=== PATIENT | female | born 1965 | race Caucasian/White ===

== ENCOUNTER → 2018-06-23 | Emergency (ER) | payer OTHER ==
[~2018-06-23] VITALS: Ht 162.6 cm; Wt 111.1 kg
[~2018-06-23] MED LIST: ALBUTEROL SULF 0.083% NEB SOLN 3 ML NEB NEB STA; CALCIUM + VITA1 EACH PO; CEFTRIAXONE SOD 1 GM VIAL IV ONE; CLARITIN10 M2 PO; DAILY MULTIPLE1 EACH PO; EFFEXOR XR150 MG PO; IBUPROFEN 400 MG TAB ONE; IBUPROFEN 400 MG TAB PO ONE; IPRATROPIUM BROMIDE 0.02% 2.5 ML NEB NEB STA; LEVAQUIN500 MG PO; METHYLPREDNISOLONE SOD SUCC 125 MG/2ML VIAL IV ONE; METOPROLOL SUCC25 MG PO; PRILOSEC20 MG PO; PRO AIR INHALER; SEROQUEL XR300 MG PO; VITAMIN D250000 UNIT PO
--- OUTSIDE RECORDS SUMMARY | 2018-06-23 11:50 | XMS REPORT ---
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 Active Problem MAR (obstructive sleep apnea) G47.33 Active Problem BMI 40.0-44.9, adult Z68.41 Active Problem Asthma exacerbation J45.901 Active Problem Pre-diabetes R73.03 Active Problem Morbid obesity, unspecified obesity type E66.01 Active Assessment MAR (obstructive sleep apnea) G47.33 Active Assessment Pre-diabetes R73.03 Active Assessment Depressive disorder, not elsewhere classified F32.9 Active Assessment Sciatic leg pain M54.30 Active Medications Medication Code System Code Instructions Start Date End Date Status Dosage Lorazepam [facility] [address]-78 0.5 MG Orally Twice a day Active 1 tablet as needed Prilosec [facility] [address]-32 20 MG Orally Once a day Active 1 capsule Zantac [facility] 14285455975 150 MG Orally twice a day (bid) Active 1 tablet at bedtime Seroquel [facility] [address]-17 300 MG Orally Once a day Active 1 tablet at bedtime ProAir HFA [facility] [address]-44 108 (90 Base) MCG/ACT Inhalation every 4 hrs Active 2 puffs as needed Ibuprofen [facility] [address]-51 200 MG Orally every 6 hrs Active 1 tablet as needed Flexeril [facility] 60359257207 10 MG Active TAKE 1 TABLET BY MOUTH NEEDED 3 TIMES A DAY Claritin [facility] 60539471024 10 mg Orally Once a day Active 1 tablet Effexor XR [facility] [address]-25 150 MG Orally twice a day (bid) Active 1 capsule Vitamin D (Ergocalciferol) [facility] 58680729842 32508 UNIT Orally weekly Active 1 capsule Metoprolol Succinate ER [facility] 10224239705 25 MG Orally Once a day Active 1 tablet Vital Signs Date/Time: May 01, 2017 BMI 37.76 Index Weight 220 lbs Height 64.0 in Temperature 98.4 F Cardiac Monitoring Heart Rate 105 /min Blood Pressure Diastolic 88 mm Hg Blood Pressure Systolic 139 mm Hg Results No Known Results Summary Purpose [employer] Submission
--- OUTSIDE RECORDS SUMMARY | 2018-06-23 11:50 | XMS REPORT ---
Author Author Eric Aguila Organization [employer] Address Unknown Phone Unavailable Care Team Providers Care Telex Operator Name Role Phone Eric Aguila CP Unavailable Allergies, Adverse Reactions, Alerts Substance Reaction Event Type codeine hives Non Drug Allergy Problems Problem Type Condition Code Onset Dates Condition Status Assessment Sciatic leg pain M54.30 Active Problem Allergic rhinitis J30.9 Active Problem Depressive disorder, not elsewhere classified F32.9 Active Problem Arthritis of hand M19.049 Active Problem Pre-diabetes R73.03 Active Problem Sciatic leg pain M54.30 Active Problem Asthma exacerbation J45.901 Active Problem Hx of tobacco use, presenting hazards to health Z87.891 Active Problem Morbid obesity, unspecified obesity type E66.01 Active Problem BMI 40.0-44.9, adult Z68.41 Active Assessment Intertriginous skin ulcer, limited to breakdown of skin L98.491 Active Assessment Asthma with status asthmaticus, unspecified asthma severity J45.902 Active Assessment Pre-diabetes R73.03 Active Assessment Depressive disorder, not elsewhere classified F32.9 Active Medications Medication Code System Code Instructions Start Date End Date Status Dosage Medrol (Neno) NDC 0 4 MG Orally as directed Mar 21, 2017 Mar 27, 2017 Active as directed Claritin [facility] 26440797013 10 mg Orally Once a day Active 1 tablet Seroquel [facility] [address]-52 300 MG Orally Once a day Active 1 tablet at bedtime Vitamin D (Ergocalciferol) [facility] 10842290330 11800 UNIT Orally weekly Active 1 capsule Lorazepam [facility] [address]-96 0.5 MG Orally Twice a day Active 1 tablet as needed Effexor XR [facility] [address]-16 150 MG Orally twice a day (bid) Active 1 capsule Naprosyn [facility] 76192850299 500 MG Orally every 12 hrs Active 1 tablet as needed Prilosec [facility] [address]-33 20 MG Orally Once a day Active 1 capsule ProAir HFA [facility] [address]-07 108 (90 Base) MCG/ACT Inhalation every 4 hrs Active 2 puffs as needed Bactroban [facility] [address]-45 2 % Externally Three times a day Mar 21, 2017 Apr 18, 2017 Active 1 application to affected area Santyl [facility] [address]-81 250 UNIT/GM Externally Once a day Mar 21, 2017 Apr 20, 2017 Active 1 application to affected area Zantac [facility] 46318798419 150 MG Orally twice a day (bid) Active 1 tablet at bedtime Flonase NDC 0 50 MCG/DOSE Nasally as needed (prn) Mar 04, 2015 Active 1 spray in each nostril Ibuprofen [facility] [address]-22 200 MG Orally every 6 hrs Active 1 tablet as needed [place] [facility] [address]-06 5-325 MG Orally once a day Mar 21, 2017 Apr 20, 2017 Active 1 tablet Flexeril [facility] [address]-19 10 MG Orally Three times a day Mar 21, 2017 Apr 05, 2017 Active 1 tablet as needed Tramadol HCl [facility] [address]-28 50 MG Orally every 6 hrs Mar 21, 2017 Apr 05, 2017 Active 1 tablet as needed Metoprolol Succinate ER [facility] 81953036544 25 MG Orally Once a day Active 1 tablet Vital Signs Date/Time: Mar 21, 2017 BMI 38.55 Index Weight 224.6 lbs Height 64.0 in Temperature 98.1 F Cardiac Monitoring Heart Rate 83 /min Blood Pressure Diastolic 74 mm Hg Blood Pressure Systolic 125 mm Hg Results No Known Results Summary Purpose [employer] Submission
--- OUTSIDE RECORDS SUMMARY | 2018-06-23 11:50 | XMS REPORT ---
Author Author Eric Aguila Organization [employer] Address Unknown Phone Unavailable Care Team Providers Care Fig Bar Machine Operator Name Role Phone Eric Aguila CP Unavailable Allergies, Adverse Reactions, Alerts Substance Reaction Event Type codeine hives Non Drug Allergy Problems Problem Type Condition Code Onset Dates Condition Status Assessment Depressive disorder, not elsewhere classified F32.9 Active Problem Depressive disorder, not elsewhere classified F32.9 Active Assessment Abnormal LFTs R79.89 Active Problem Pre-diabetes R73.03 Active Problem Morbid obesity, unspecified obesity type E66.01 Active Problem Arthritis of hand M19.049 Active Problem Hx of tobacco use, presenting hazards to health Z87.891 Active Problem Allergic rhinitis J30.9 Active Problem BMI 40.0-44.9, adult Z68.41 Active Problem Asthma exacerbation J45.901 Active Assessment Pre-diabetes R73.03 Active Assessment Sebaceous cyst L72.3 Active Assessment Arthritis of hand M19.049 Active Medications Medication Code System Code Instructions Start Date End Date Status Dosage Claritin [facility] 30478596515 10 mg Orally Once a day Active 1 tablet Zantac [facility] [address]-41 150 MG Orally twice a day (bid) October 05, 2016 Active 1 tablet at bedtime ProAir HFA [facility] [address]-19 108 (90 Base) MCG/ACT Inhalation every 4 hrs Active 2 puffs as needed Lorazepam [facility] [address]-89 0.5 MG Orally Twice a day Active 1 tablet as needed Metoprolol Succinate ER [facility] 47068447211 25 MG Orally Once a day Active 1 tablet Flonase [facility] [address]-21 50 MCG/DOSE Nasally as needed (prn) Mar 04, 2015 Active 1 spray in each nostril Naprosyn [facility] [address]-89 500 MG Orally every 12 hrs October 05, 2016 October 20, 2016 Active 1 tablet as needed Effexor XR [facility] [address]-30 150 MG Orally twice a day (bid) Active 1 capsule Seroquel [facility] [address]-88 300 MG Orally Once a day Active 1 tablet at bedtime Ibuprofen [facility] [address]-07 200 MG Orally every 6 hrs Active 1 tablet as needed Lotrisone [facility] [address]-18 1-0.05 % Externally Twice a day September 15, 2016 October 15, 2016 Active 1 application to affected area Vitamin D (Ergocalciferol) [facility] 49749848745 28129 UNIT Orally weekly Active 1 capsule Prilosec [facility] [address]-44 20 MG Orally Once a day Active 1 capsule Vital Signs Date/Time: October 05, 2016 BMI 41.95 Index Weight 244.4 lbs Height 64.0 in Temperature 98.3 F Cardiac Monitoring Heart Rate 109 /min Blood Pressure Diastolic 82 mm Hg Blood Pressure Systolic 120 mm Hg Results No Known Results Summary Purpose [employer] Submission
--- OUTSIDE RECORDS SUMMARY | 2018-06-23 11:50 | XMS REPORT ---
Author Author Eric Aguila Organization [employer] Address Unknown Phone Unavailable Care Team Providers Care Hose Tubing Backer Name Role Phone Eric Aguila CP Unavailable Allergies, Adverse Reactions, Alerts Substance Reaction Event Type codeine hives Non Drug Allergy Problems Problem Type Condition Code Onset Dates Condition Status Assessment Hx of tobacco use, presenting hazards to health Z87.891 Active Assessment Allergic rhinitis J30.9 Active Assessment Depressive disorder, not elsewhere classified F32.9 Active Problem BMI 40.0-44.9, adult Z68.41 Active Problem Asthma exacerbation J45.901 Active Problem Morbid obesity, unspecified obesity type E66.01 Active Problem Depressive disorder, not elsewhere classified F32.9 Active Assessment Encounter for general adult medical examination with abnormal findings Z00.01 Active Problem Hx of tobacco use, presenting hazards to health Z87.891 Active Problem Allergic rhinitis J30.9 Active Assessment Morbid obesity, unspecified obesity type E66.01 Active Assessment Intertriginous candidiasis B37.2 Active Assessment Concetta vaginitis B37.3 Active Assessment BMI 40.0-44.9, adult Z68.41 Active Assessment Asthma exacerbation J45.901 Active Medications Medication Code System Code Instructions Start Date End Date Status Dosage ProAir HFA [facility] [address]-79 108 (90 Base) MCG/ACT Inhalation every 4 hrs Active 2 puffs as needed Quetiapine Fumarate [facility] [place] [address]-08 50 MG Orally Once a day Active 1 tablet at bedtime Metoprolol Succinate ER [facility] 86131864015 25 MG Orally Once a day Active 1 tablet Seroquel [facility] [place] [address]-23 300 MG Orally Once a day Active 1 tablet at bedtime Famotidine [facility] 02146075176 20 MG Active TAKE 1 TABLET BY MOUTH TWICE A DAY Stiolto Respimat [facility] [place] [address]-86 2.5-2.5 MCG/ACT Inhalation Active not defined Vitamin D (Ergocalciferol) [facility] 45360966631 17149 UNIT Orally weekly Active 1 capsule Claritin [facility] 19334109554 10 mg Orally Once a day Active 1 tablet Lotrisone [facility] [place] [address]-70 1-0.05 % Externally Twice a day September 15, 2016 October 15, 2016 Active 1 application to affected area Diflucan [facility] [place] [address]-18 150 MG Orally Once a day September 15, 2016 September 16, 2016 Active 1 tablet Paroxetine HCl [facility] [place] [address]-38 40 MG Orally Once a day Active 1 tablet in the morning Ibuprofen [facility] [place] [address]-81 200 MG Orally every 6 hrs Active 1 tablet as needed Prilosec [facility] [place] [address]-83 20 MG Orally Once a day Active 1 capsule Flonase [facility] [place] [address]-48 50 MCG/DOSE Nasally as needed (prn) Mar 04, 2015 Active 1 spray in each nostril Lorazepam [facility] [address]-52 0.5 MG Orally Twice a day Active 1 tablet as needed Venlafaxine HCl ER [facility] [place] [address]-78 150 MG Orally Once a day Active 1 capsule with food Effexor XR [facility] [address]-22 150 MG Orally twice a day (bid) Active 1 capsule Vital Signs Date/Time: September 15, 2016 BMI 43.11 Index Weight 251.2 lbs Height 64.0 in Temperature 98.2 F Cardiac Monitoring Heart Rate 101 /min Blood Pressure Diastolic 89 mm Hg Blood Pressure Systolic 124 mm Hg Results Name Result Date Reference Range Unit Abnormality Flag LIPID PANEL Summary Purpose [employer] Submission
--- OUTSIDE RECORDS SUMMARY | 2018-06-23 11:50 | XMS REPORT ---
Author Author Eric Aguila Organization [employer] Address Unknown Phone Unavailable Care Team Providers Care Data Center Solutions Architect Name Role Phone Eric Aguila CP Unavailable [...] obesity, unspecified obesity type E66.01 Active Assessment Sebaceous cyst L72.3 Active Assessment Allergic rhinitis J30.9 Active Assessment MAR (obstructive sleep apnea) G47.33 Active Assessment Herpes simplex B00.9 Active Medications Medication Code System Code Instructions Start Date End Date Status Dosage Seroquel [facility] [address]-17 300 MG Orally Once a day Active 1 tablet at bedtime Ibuprofen [facility] [address]-02 200 MG Orally every 6 hrs Active 1 tablet as needed Lorazepam [facility] [address]-66 0.5 MG Orally Twice a day Active 1 tablet as needed Astelin [facility] [address]-56 137 MCG/SPRAY Nasally Twice a day May 09, 2017 Active 1 puff in each nostril Zantac [facility] 21016281500 150 MG Orally twice a day (bid) Active 1 tablet at bedtime ProAir HFA [facility] [address]-25 108 (90 Base) MCG/ACT Inhalation every 4 hrs Active 2 puffs as needed Prilosec [facility] [address]-19 20 MG Orally Once a day Active 1 capsule Vitamin D (Ergocalciferol) [facility] 17600290960 51842 UNIT Orally weekly Active 1 capsule Flexeril [facility] 18711720909 10 MG Active TAKE 1 TABLET BY MOUTH NEEDED 3 TIMES A DAY Claritin [facility] 16867357103 10 mg Orally Once a day Active 1 tablet Acyclovir [facility] [address]-29 200 MG Orally Three times a day May 09, 2017 Active 1 capsule Effexor XR [facility] [address]-01 150 MG Orally twice a day (bid) Active 1 capsule Metoprolol Succinate ER [facility] 26751911791 25 MG Orally Once a day Active 1 tablet Vital Signs Date/Time: May 09, 2017 BMI 38.63 Index Weight 225.1 lbs Height 64.0 in Temperature 98.9 F Cardiac Monitoring Heart Rate 98 /min Blood Pressure Diastolic 79 mm Hg Blood Pressure Systolic 116 mm Hg Results No Known Results Summary Purpose [employer] Submission
--- OUTSIDE RECORDS SUMMARY | 2018-06-23 11:50 | XMS REPORT | Continuity of Care Document ---
Author Author Gloria leona [facility] Interface Address Unknown Phone Unavailable Problems Problem Status Onset Date Classification Date Reported Comments Source SOB Active 01/19/2016 [facility] COPD EXCERBATION Active 01/19/2016 [facility] COPD ACUTE EXACERBATION Active 10/03/2015 [facility] WHEEZING Active 10/03/2015 [facility] COPD EXACERBATION Active 06/03/2015 [facility] TROUBLE BREATHING Active 06/03/2015 [facility] ACUTE BRONCHITIS; HYPOXIA Active 05/06/2015 [facility] FALL Active 04/15/2015 [facility] SHORTNESS OF BREATH Active 03/30/2015 [facility] ACUTE COPD Active 03/20/2015 [facility] DIFFICULTY BREATHING Active 03/20/2015 [facility] Discharge Diagnosis: Exacerbation of RAD 06/25/2014 06/28/2014 [facility] Discharge Diagnosis: Acute headache 06/25/2014 06/28/2014 [facility] Discharge Diagnosis: Acute bronchitis 06/25/2014 06/28/2014 [facility] ABD PAIN Active 02/12/2014 [facility] Discharge Diagnosis: Epigastric pain 02/12/2014 02/15/2014 [facility] Sciatic leg pain Active Problem 05/10/2018 [id number] Allergic rhinitis Active Problem 05/10/2018 2.840.1.209588.4.391.11.97800 Depressive disorder, not elsewhere classified Active Problem 05/10/2018 2.840.1.259370.4.391.11.32049 Arthritis of hand Active Problem 05/10/2018 2.16840.1.640683.4.391.11.60132 Pre-diabetes Active Problem 05/10/2018 2.16840.1.987307.4.391.11.50811 Asthma exacerbation Active Problem 05/10/2018 2.16840.1.607744.4.391.11.38361 Hx of tobacco use, presenting hazards to health Active Problem 05/10/2018 2.16840.1.436692.4.391.11.53095 Morbid obesity, unspecified obesity type Active Problem 05/10/2018 2.16.840.1.474488.4.391.11.02142 Pain in right hip Active Diagnosis 04/04/2017 2.16.840.1.952506.4.391.11.82591 Intertriginous skin ulcer, limited to breakdown of skin Active Diagnosis 04/04/2017 2.16.840.1.426874.4.391.11.99477 Asthma with status asthmaticus, unspecified asthma severity Active Diagnosis 04/04/2017 2.16.840.1.329283.4.391.11.07076 Abnormal LFTs Active Diagnosis 10/11/2016 2.16.840.1.009507.4.391.11.25071 Sebaceous cyst Active Diagnosis 05/16/2017 2.16.840.1.622687.4.391.11.90552 Encounter for general adult medical examination with abnormal findings Active Diagnosis 02/27/2018 2.16.840.1.393197.4.391.11.98334 Intertriginous candidiasis Active Diagnosis 10/01/2016 2.16.840.1.223475.4.391.11.74342 Concetta vaginitis Active Diagnosis 10/01/2016 2.16.840.1.878038.4.391.11.58736 MAR Active Problem 05/10/2018 2.16.840.1.740204.4.391.11.24394 Transient cerebral ischemia, unspecified type Active Problem 05/10/2018 2.16.840.1.249024.4.391.11.69239 Paresthesia of skin Active Problem 05/10/2018 2.16.840.1.396179.4.391.11.34246 Pain in unspecified limb Active Diagnosis 08/15/2017 2.16.840.1.095315.4.391.11.71040 Herpes simplex Active Diagnosis 05/16/2017 2.16.840.1.642499.4.391.11.37189 Acute recurrent maxillary sinusitis Active Diagnosis 03/31/2018 2.16.840.1.452752.4.391.11.74474 Excoriation Active Diagnosis 02/27/2018 2.16.840.1.987393.4.391.11.58957 Encounter for screening Active Diagnosis 02/27/2018 2.16.840.1.768122.4.391.11.46017 Tobacco use disorder Active Problem 03/27/2015 2.16.840.1.704929.4.391.11.46185 Depression Active Problem 03/27/2015 2.16.840.1.272963.4.391.11.03146 Allergic rhinitis Active Problem 03/27/2015 2.16.840.1.914131.4.391.11.69088 Bilateral otitis media, unspecified otitis media type Active Diagnosis 05/03/2018 2.16.840.1.273758.4.391.11.98494 Exacerbation of intermittent asthma Active Diagnosis 08/25/2015 2.16.840.1.958489.4.391.11.77915 Asthmatic bronchitis, unspecified asthma severity, uncomplicated Active Diagnosis 09/11/2015 2.16.840.1.673312.4.391.11.66791 Abnormal level of blood mineral Active Diagnosis 09/23/2016 2.16.840.1.199935.4.391.11.94799 Exacerbation of asthma Active Diagnosis 10/13/2015 2.16.840.1.236172.4.391.11.66356 Finger pain, right Active Diagnosis 02/17/2016 2.16.840.1.592861.4.391.11.09174 Pain in right foot Active Diagnosis 02/17/2016 2.16.840.1.761430.4.391.11.92002 Bronchitis Active Diagnosis 02/17/2016 2.16.840.1.194651.4.391.11.24041 Asthma Active Problem 01/23/2016 [facility] COPD Resolved Problem 01/23/2016 [facility] Tachycardia Active Problem 01/23/2016 [facility] Anxiety Resolved Problem 01/23/2016 [facility] Depression Resolved Problem 01/23/2016 [facility] Bronchitis Resolved Problem 01/23/2016 [facility] CHR AIRWAY OBSTRUCT NEC Active [facility] CHRONIC OBSTRUCTIVE PULMONARY DISEASE W Active [facility] Medications Medication Details Route Status Patient Instructions Ordering Provider Order Date Source Dicyclomine HCl 2 tablet Orally Active 20 mg Orally twice a day (bid) [place] 04/24/2018 2.16.840.1.892091.4.391.. Effexor 1 tablet with food Orally Active 75 mg Orally Once a day [place] 04/16/2018 2.16.840.1.873125.4.391.11.21043 Augmentin as directed Orally Active 500-125 MG Orally every 12 hrs [place] 04/04/2018 2.16.840.1.539887.4.391.11. Medrol (Neno) as directed Orally Active 4 mg Orally as directed [place] 04/04/2018 2.16.840.1.254530.4.391.. Ciprodex 4 drops into affected ear Otic Active 0.3-0.1 % Otic Twice a day [place] 03/30/2018 2.16.840.1.170724.4.391..72125 Hepwjxpj-Kmrcgh-PJ-Thonzonium 5 drops into affected ear Otic Active 3.3-3-10-0.5 MG/ML Otic Three times a day [place] 03/29/2018 2.16.840.1.124936.4.391.. Ceftin 1 tablet Orally Active 500 mg Orally every 12 hrs [place] 03/26/2018 2.16.840.1.255188.4.391.. Naprosyn 1 tablet with food or milk as needed Orally Active 500 mg Orally every 12 hrs [place] 02/23/2018 2.16.840.1.415167.4.391.11. Pepcid 1 tablet Orally Active 20 mg Orally Once a day [place] 02/23/2018 2.16.840.1.488988.4.391.. Santyl 1 application to affected area Externally Active 250 UNIT/GM Externally Once a day [place] 02/20/2018 2.16.840.1.655811.4.391.11.63215 Medrol (Neno) as directed Orally Active 4 mg Orally as directed [place] 07/27/2017 2.16.840.1.122826.4.391.11.62670 Promethazine-DM 5 ml as needed Orally Active 6.25-15 MG/5ML Orally every 6 hrs [place] 07/27/2017 2.16.840.1.333155.4.391.11.60979 Aspir-81 1 tablet Orally Active 81 MG Orally Once a day [place] 07/27/2017 2.16.840.1.930196.4.391.11.40554 Ceftin 1 tablet Orally Active 500 mg Orally Twice a day [place] 07/27/2017 2.16.840.1.363329.4.391.11.31920 Acyclovir 1 capsule Orally Active 200 MG Orally Three times a day [place] 05/09/2017 2.16.840.1.515513.4.391.11.79576 Astelin 1 puff in each nostril Nasally Active 137 MCG/SPRAY Nasally Twice a day [place] 05/09/2017 2.16.840.1.711199.4.391.11.81972 Astelin 1 puff in each nostril Nasally Active 137 MCG/SPRAY Nasally Twice a day [place] 05/09/2017 2.16.840.1.964790.4.391.11.35952 Acyclovir 1 capsule Orally Active 200 MG Orally Three times a day [place] 05/09/2017 2.16.840.1.195331.4.391.11.95480 Flexeril 1 tablet as needed Orally Active 10 MG Orally Three times a day [place] 03/31/2017 2.16.840.1.821039.4.391.11.78607 Seldovia 1 tablet Orally Active 5-325 MG Orally once a day [place] 03/21/2017 2.16.840.1.238264.4.391.11.49207 Santyl 1 application to affected area Externally Active 250 UNIT/GM Externally Once a day [place] 03/21/2017 2.16.840.1.063656.4.391.11.95926 Tramadol HCl 1 tablet as needed Orally Active 50 MG Orally every 6 hrs [place] 03/21/2017 2.16.840.1.670228.4.391.11.54590 Flexeril 1 tablet as needed Orally Active 10 MG Orally Three times a day [place] 03/21/2017 2.16.840.1.815380.4.391.11.84069 Bactroban 1 application to affected area Externally Active 2 % Externally Three times a day [place] 03/21/2017 2.16.840.1.665116.4.391.11.99809 Medrol (Neno) as directed Orally Active 4 MG Orally as directed [place] 03/21/2017 2.16.840.1.642575.4.391.11.49543 Zantac 1 tablet at bedtime Orally Active 150 MG Orally twice a day (bid) [place] 10/05/2016 2.16.840.1.599199.4.391.11.08420 Naprosyn 1 tablet as needed Orally Active 500 MG Orally every 12 hrs [place] 10/05/2016 2.16.840.1.428951.4.391.11.99507 Lotrisone 1 application to affected area Externally Active 1- 0.05 % Externally Twice a day [place] 09/15/2016 2.16.840.1.106537.4.391.11.08913 Diflucan 1 tablet Orally Active 150 MG Orally Once a day [place] 09/15/2016 2.16.840.1.874173.4.391.11.75372 Ciprofloxacin HCl 1 tablet Orally Active 500 MG Orally Twice a day [place] 09/02/2016 2.16.840.1.991142.4.391.11.38226 Promethazine-DM 5 ml as needed Orally Active 6.25-15 MG/5ML Orally as needed (prn) [place] 03/06/2016 2.16.840.1.724563.4.391.11.86272 Azithromycin 2 tablets on the first day, then 1 tablet daily for 4 days Orally Active 250 MG Orally Once a day [place] 02/05/2016 2.16.840.1.441068.4.391.11.78649 quetiapine 100 mg, 1 tab, Route: PO, Drug form: TAB, QPM, Dosing Weight 108.182, kg, Start date: 07/06/16 17:00:00 CDT, Duration: 30 day, Stop date: 02/18/16 17:00:00 CDTNotes: (Same as: SEROquel) Inactive 01/20/2016 [facility] metoprolol extended release 25 mg, 1 tab, Route: PO, Drug form: ERTAB, QPM, Start date: 01/20/16 17:00:00 CDT, Duration: 30 day, Stop date: 02/18/16 17:00:00 CDTNotes: (Same as: Toprol XL) Do Not Crush Inactive 01/20/2016 [facility] Claritin 10 mg, 1 tab, Route: PO, Drug form: TAB, QPM, Dosing Weight 108.182, kg, Start date: 01/20/16 17:00:00 CDT, Duration: 30 day, Stop date: 02/18/16 17:00:00 CDTNotes: 1 hr before meals (Same as: Claritin) Inactive 01/20/2016 [facility] Phenergan 12.5 mg, 0.5 mL, Route: IVPB, ONCE, Dosing Weight 108.182, kg, Priority: NOW, Start date: 01/20/16 12:48:00 CDT, Stop date: 01/20/16 12:48:00 CDTNotes: Do not give IV push. (Same as: Phenergan) Inactive 01/20/2016 [facility] ketOROLAC 30 mg/mL injectable solution 30 mg, 1 mL, Route: IV, Drug form: INJ, ONCE, Dosing Weight 108.182, kg, Priority: NOW, Start date: 01/20/16 12:46:00 CDT, Duration: 1 doses or times, Stop date: 01/20/16 12:46:00 CDTNotes: (Same as:Toradol) IV bolus must be given >15 seconds. Give IM administration slowly and deeply into the muscle. Not for use > 4 days MEDICATION WASTE Product Size: 30 mg Product Wasted: ___ mg Inactive 01/20/2016 [facility] Dulera 200 mcg-5 mcg/inh inhalation aerosol 2 puff, Route: INHALATION, Drug Form: AERO, Dosing Weight 108.182, kg, Daily, Start date: 01/20/16 9:00:00 CDT, Duration: 30 day, Stop date: 02/18/16 9:00:00 CDT Inactive 01/20/2016 [facility] Vitamin C 1,000 mg, 2 tab, Route: PO, Drug form: TAB, Daily, Dosing Weight 108.182, kg, Start date: 01/20/16 9:00:00 CDT, Duration: 30 day, Stop date: 02/18/16 9:00:00 CDTNotes: (Same as: Vitamin C) Inactive 01/20/2016 [facility] Solu-Medrol 40 mg, 1 mL, Route: IVP, Drug form: INJ, Q12H, Dosing Weight 108.182, kg, Start date: 01/20/16 9:00:00 CDT, Duration: 30 day, Stop date: 02/18/16 21:00:00 CDTNotes: (Same as:Solu-MEDROL, A-Methapred) Inactive 01/20/2016 [facility] PLease bring Pt's Own Dulera to pharmacy for label PLease bring Pt's Own Dulera to pharmacy for label, Reminder, Drug form: MISC, Route: MISC, Q12H, 01/20/16 9:00:00 CDT, Duration: 30 day, Stop date: 02/18/16 21:00:00 CDT Inactive 01/20/2016 [facility] tramadol hydrochloride 50 MG Oral Tablet 50 mg, 1 tab, Route: PO, Drug form: TAB, Q6H, Dosing Weight 108.182, kg, PRN Pain Score 4-6, Start date: 01/20/16 8:38:00 CDT, Duration: 30 day, Stop date: 02/19/16 8:37:00 CDTNotes: Not to exceed 400mg/day. (Same As: Ultram) Inactive 01/20/2016 [facility] Acetaminophen 650 mg, 2 tab, Route: PO, Drug form: TAB, Q6H, Dosing Weight 108.182, kg, PRN Pain 1-3/Temp > 99.5 F, Start date: 01/20/16 8:38:00 CDT, Duration: 30 day, Stop date: 02/19/16 8:37:00 CDTNotes: Do not exceed 4 gm/day. (Same as: Tylenol) Inactive 01/20/2016 [facility] docusate sodium 100 mg oral capsule 100 mg, 1 cap, Route: PO, Drug form: CAP, BID, Dosing Weight 108.182, kg, PRN Constipation, Start date: 01/20/16 8:38:00 CDT, Duration: 30 day, Stop date: 02/19/16 8:37:00 CDTNotes: (Same as: Colace) (Do Not Crush) Inactive 01/20/2016 [facility] 200 ACTUAT Albuterol 0.09 MG/ACTUAT Metered Dose Inhaler [ProAir HFA] 2 puff, Route: PO, Drug Form: AERO/A, Dosing Weight 108.182, kg, Q4H, PRN Wheezing, Start date: 01/20/16 8:34:00 CDT, Duration: 30 day, Stop date: 02/19/16 8:33:00 CDTNotes: Albuterol 90 microgram/inh 8gm HFA WASTE: Aerosol - Return to Pharmacy Same as: Suleiman Rodríguez Inactive 01/20/2016 [facility] Tylenol 650 mg, 2 tab, Route: PO, Drug form: TAB, Q4H, Dosing Weight 108.182, kg, PRN Pain 1-3/Temp > 100.4 F, Start date: 01/20/16 0:10:00 CDT, Duration: 30 day, Stop date: 02/19/16 0:09:00 CDTNotes: Do not exceed 4 gm/day. (Same as: Tylenol) Inactive 01/20/2016 [facility] Doxycycline 100 mg, 2 cap, Route: PO, Drug form: CAP, [id number], Dosing Weight 108.182, kg, Start date: 01/20/16 0:00:00 CDT, Duration: 30 day, Stop date: 02/18/16 12:00:00 CDTNotes: (Same as: Vibramycin) No milk/an tacids/iron. Take 1 hour before or 2 hours after dairy products Inactive 01/20/2016 [facility] heparin 7,500 unit, 1.5 mL, Route: SUB-Q, Drug form: INJ, Q8H, Dosing Weight 108.182, kg, Consider for obese patients, Start date: 01/20/16 0:00:00 CDT, Duration: 30 day, Stop date: 02/18/16 16:00:00 CDTNotes: porcine heparin Inactive 01/20/2016 [facility] Effexor XR 150 mg, 1 cap, Route: PO, Drug form: ERCAP, BID, Dosing Weight 108.182, kg, Start date: 01/19/16 23:00:00 CDT, Duration: 30 day, Stop date: 02/18/16 17:00:00 CDTNotes: Do not open, crush, or chew. (Same As: Effexor XR) No Longer Active 01/20/2016 [facility] Albuterol 0.83 MG/ML Inhalant Solution 2.49 mg, 3 mL, Route: NEB, Drug form: SOLN, RQ4H, Dosing Weight 108.182, kg, Start date: 01/19/16 23:00:00 CDT, Duration: 30 day, Stop date: 02/18/16 19:00:00 CDT, Pediatric DosingNotes: SEE RT DOCUMENTATION (Same as: Proventil) No Longer Active 01/20/2016 [facility] Morphine 4 mg, 2 mL, Route: IVP, Drug form: INJ, Q3H, Dosing Weight 108.182, kg, PRN Pain Score 4-6, Start date: 01/19/16 21:03:00 CDT, Duration: 30 day, Stop date: 02/18/16 21:02:00 CDTNotes: (Same as:MORPhine Sulfate) No Longer Active 01/20/2016 [facility] Ondansetron 4 mg, 2 mL, Route: IVP, Drug form: INJ, Q6H, Dosing Weight 108.182, kg, PRN Nausea & Vomiting, Start date: 01/19/16 21:03:00 CDT, Duration: 30 day, Stop date: 02/18/16 21:02:00 CDTNotes: (Same as: Zofran) MEDICATION WASTE Product Size: 4 mg Product Wasted: ___ mg No Longer Active 01/20/2016 [facility] Dulera 200 mcg-5 mcg/inh inhalation aerosol 2 puff, INHALATION, Daily, 0 Refill(s) Active 01/20/2016 [facility] QUEtiapine 100 mg oral tablet 100 mg=1 tab, PO, QPM, 0 Refill(s) Active 01/20/2016 [facility] levofloxacin 750 mg oral tablet 750 mg=1 tab, PO, QPM, 0 Refill(s) Active 01/20/2016 [facility] Prednisone 60 mg, Route: PO, Drug form: TAB, ONCE, Dosing Weight 108.182, kg, Priority: STAT, Start date: 01/19/16 17:57:00 CDT, Stop date: 01/19/16 17:57:00 CDT Inactive 01/19/2016 [facility] Albuterol 0.833 MG/ML / Ipratropium [place] 0.167 MG/ML Inhalant Solution 9 mL, Route: NEB, Drug Form: SOLN, Dosing Weight 108.182, kg, ONCE, STAT, Start date: 01/19/16 17:57:00 CDT, Stop date: 01/19/16 17:57:00 CDTNotes: (Same as: Shaneka) Inactive 01/19/2016 [facility] Albuterol 0.833 MG/ML / Ipratropium [place] 0.167 MG/ML Inhalant Solution [DuoNeb] 3 mL, Route: INHALATION, Drug Form: SOLN, Dosing Weight 108.182, kg, ONCE, STAT, Start date: 01/19/16 15:52:00 CDT, Stop date: 01/19/16 15:52:00 CDTNotes: (Same as: Shaneka) Inactive 01/19/2016 [facility] Levaquin 1 tablet Orally Active 750 MG Orally Once a day [place] 01/14/2016 2.[id number] Promethazine-DM 5 ml as needed Orally Active 6.25-15 MG/5ML Orally every 6 hrs [place] 01/14/2016 2.16.840.1.040352.4.391.11.87703 Medrol (Enno) as directed Orally Active 4 MG Orally as directed [place] 01/14/2016 2.16.840.1.806001.4.391.11.83189 Ceftin 1 tablet Orally Active 500 mg Orally Twice a day [place] 11/26/2015 2.16.840.1.319926.4.391.11.38028 Roberto-24 as directed Orally Active 200 MG Orally daily [place] 10/15/2015 2.16.840.1.751188.4.391.11.48646 Medrol (Neno) as directed Orally Active 4 mg Orally as directed [place] 10/09/2015 2.16.840.1.195048.4.391.11.91860 levofloxacin 750 mg oral tablet 750 mg=1 tab, PO, Daily, X 7 day, # 7 tab, 0 Refill(s) Active 10/06/2015 [facility] Docusate 100 mg, 1 cap, Route: PO, Drug form: CAP, BID, Dosing Weight 105.994, kg, PRN Constipation, Start date: 10/05/15 10:53:00, Duration: 30 day, Stop date: 11/04/15 10:52:00Notes: (Same as: Colace) (Do Not Crush) No Longer Active 10/05/2015 [facility] Ondansetron 4 mg, 2 mL, Route: IVP, Drug form: INJ, Q6H, Dosing Weight 105.994, kg, PRN Nausea & Vomiting, Start date: 10/05/15 10:53:00, Duration: 30 day, Stop date: 11/04/15 10:52:00Notes: (Same as: Zofran) MEDICATION WASTE Product Size: 4 mg Product Wasted: ___ mg No Longer Active 10/05/2015 [facility] quetiapine 50 mg, 2 tab, Route: PO, Drug form: TAB, Bedtime, Dosing Weight 105.994, kg, Start date: 10/04/15 21:00:00, Duration: 30 day, Stop date: 11/02/15 21:00:00Notes: (Same as: SEROquel) No Longer Active 10/05/2015 [facility] Azithromycin 500 mg, Route: IVPB, [id number], Dosing Weight 109.091, kg, Start date: 10/04/15 18:33:00, Duration: 30 day, Stop date: 11/02/15 18:33:00Notes: (Same As: Zithromax IV) No Longer Active 10/04/2015 [facility] Ceftriaxone 1 gm, Route: IVPB, [id number], Dosing Weight 109.091, kg, Start date: 10/04/15 17:07:00, Duration: 30 day, Stop date: 11/02/15 17:07:00Notes: (Same As: Rocephin). Use with 100 mL NS and infuse over 30 min MEDICATION WASTE Product Size: 1000 mg Product Wasted: ___ mg No Longer Active 10/04/2015 [facility] Omeprazole 20 mg, Route: PO, Drug form: DRC, QPM, Dosing Weight 109.091, kg, Start date: 10/04/15 17:00:00, Duration: 30 day, Stop date: 11/02/15 17:00:00 No Longer Active 10/04/2015 [facility] influenza virus vaccine, inactivated 0.5 mL, Route: IM, Drug Form: SUSP, Daily, Start date: 10/04/15 9:00:00, Duration: 1 doses or times, Stop date: 10/04/15 9:00:00Notes: (Same as: Fluzone Quadrivalent) For 3 years of age and older (0.5 mL IM) Shake well before use Inactive 10/04/2015 [facility] Effexor XR 150 mg, 1 cap, Route: PO, Drug form: ERCAP, BID, Dosing Weight 109.091, kg, Start date: 10/04/15 9:00:00, Duration: 30 day, Stop date: 11/02/15 21:00:00Notes: Do not open, crush, or chew. (Same As: Effexor XR) No Longer Active 10/04/2015 [facility] methylPREDNISolone SODium SUCCinate 40 mg, 1 mL, Route: IVP, Drug form: INJ, Q8H, Dosing Weight 109.091, kg, Start date: 10/04/15 0:00:00, Duration: 30 day, Stop date: 11/02/15 16:00:00Notes: (Same as:Solu- MEDROL, A-Methapred) No Longer Active 10/04/2015 [facility] Guaifenesin 20 MG/ML Oral Solution [Robitussin] 100 mg, 5 mL, Route: PO, Drug form: LIQ, Q6H, Dosing Weight 105.994, kg, PRN Cough, Start date: 10/03/15 23:23:00, Duration: 30 day, Stop date: 11/02/15 23:22:00Notes: (Same as: Robitussin) No Longer Active 10/04/2015 [facility] Guaifenesin 20 MG/ML Oral Solution [Robitussin] 100 mg, 5 mL, Route: PO, Drug form: LIQ, Q4H, Dosing Weight 105.994, kg, Start date: 10/03/15 22:41:00, Duration: 30 day, Stop date: 11/02/15 20:00:00Notes: (Same as: Robitussin) Inactive 10/04/2015 [facility] Atropine 0.5 mg, 5 mL, Route: IVP, Drug form: INJ, ONCE, Dosing Weight 105.994, kg, PRN Bradycardia, Start date: 10/03/15 21:27:00 No Longer Active 10/04/2015 [facility] Nitroglycerin 0.4 MG Sublingual Tablet [Nitrostat] 0.4 mg, 1 tab, Route: SL, Drug form: TAB, Q5Min, Dosing Weight 105.994, kg, PRN Chest Pain, Start date: 10/03/15 21:27:00, Duration: 3 doses or times, Stop date: Limited # of timesNotes: (Same as:Nitroquick, Nitrostat) "Do Not Crush" Sublingual tablet No Longer Active 10/04/2015 [facility] metoprolol tartrate 25 mg, 1 tab, Route: PO, Drug form: ERTAB, QPM, Dosing Weight 109.091, kg, Start date: 10/03/15 21:00:00, Duration: 30 day, Stop date: 11/02/15 17:00:00Notes: (Same as: Toprol XL) Do Not Crush No Longer Active 10/04/2015 [facility] Claritin 10 mg, 1 tab, Route: PO, Drug form: TAB, QPM, Dosing Weight 109.091, kg, Start date: 10/03/15 21:00:00, Duration: 30 day, Stop date: 11/02/15 17:00:00Notes: 1 hr before meals (Same as: Claritin) No Longer Active 10/04/2015 [facility] QUEtiapine 50 mg oral tablet 50 mg=1 tab, PO, Bedtime, # 30 tab, 1 Refill(s) Active 10/04/2015 [facility] Protonix 40 mg, 1 tab, Route: PO, Drug form: ECTAB, Before Dinner, Start date: 10/03/15 21:00:00, Duration: 30 day, Stop date: 11/02/15 16:30:00Notes: Tablet should not be chewed or crushed. (Same as: Protonix) No Longer Active 10/04/2015 [facility] Albuterol 0.83 MG/ML Inhalant Solution 2.49 mg, 3 mL, Route: NEB, Drug form: SOLN, RQ2H, Dosing Weight 109.091, kg, PRN Wheezing, Priority: Routine, Start date: 10/03/15 20:18:00, Duration: 30 day, Stop date: 11/02/15 20:17:00Notes: SEE RT DOCUMENTATION (Same as: Proventil) No Longer Active 10/04/2015 [facility] Saline Flush 0.9% 10 ml, Route: IVP, Drug Form: INJ, Dosing Weight 109.091, kg, PRN, PRN Line Flush, Start date: 10/03/15 20:18:00, Duration: 30 day, Stop date: 11/02/15 20:17:00Notes: (Same as: BD Posiflush) No Longer Active 10/04/2015 [facility] Albuterol 0.833 MG/ML / Ipratropium [place] 0.167 MG/ML Inhalant Solution 3 mL, Route: NEB, Drug Form: SOLN, Dosing Weight 109.091, kg, RQID, STAT, Start date: 10/03/15 17:16:00, Duration: 30 day, Stop date: 11/02/15 15:00:00Notes: (Same as: Duoneb) No Longer Active 10/03/2015 [facility] Rocephin 1 gm, Route: IVPB, ONCE, Dosing Weight 109.091, kg, Priority: STAT, Start date: 10/03/15 16:49:00, Stop date: 10/03/15 16:49:00Notes: (Same As: Rocephin). Use with 100 mL NS and infuse over 30 min MEDICATION WASTE Product Size: 1000 mg Product Wasted: ___ mg Inactive 10/03/2015 [facility] Azithromycin 500 mg, Route: IVPB, ONCE, Dosing Weight 109.091, kg, Priority: STAT, Start date: 10/03/15 16:49:00, Stop date: 10/03/15 16:49:00Notes: (Same As: Zithromax IV) Inactive 10/03/2015 [facility] methylPREDNISolone SODium SUCCinate 125 mg, 2 mL, Route: IVP, Drug form: INJ, ONCE, Dosing Weight 109.091, kg, Priority: STAT, Start date: 10/03/15 15:24:00, Stop date: 10/03/15 15:24:00Notes: (Same as:Solu- MEDROL, A-Methapred) Inactive 10/03/2015 [facility] Saline Flush 0.9% 10 mL, Route: IVP, Drug Form: INJ, Dosing Weight 109.091, kg, PRN, PRN Line Flush, Start date: 10/03/15 14:39:00, Duration: 30 day, Stop date: 11/02/15 14:38:00Notes: (Same as: BD Posiflush) Inactive 10/03/2015 [facility] Levaquin 1 tablet Orally Active 750 MG Orally Once a day [place] 08/31/2015 [id number] Levaquin 1 tablet Orally Active 750 MG Orally Once a day [place] 08/24/2015 [id number] Promethazine-DM 5 ml as needed Orally Active 6.25-15 MG/5ML Orally every 6 hrs [place] 08/24/2015 [id number] Medrol ([place]) as directed Orally Active 4 mg Orally as directed [place] 08/24/2015 [id number] Vitamin D3 50,000 IntlUnit, Route: PO, Drug form: CAP, QSun, Dosing Weight 104.545, kg, Start date: 06/07/15 9:00:00, Duration: 30 day, Stop date: 07/05/15 9:00:00 No Longer Active 06/07/2015 [facility] Seroquel 25 mg, 1 tab, Route: PO, Drug form: TAB, Bedtime, Dosing Weight 106.534, kg, Start date: 06/05/15 21:00:00, Duration: 30 day, Stop date: 07/04/15 21:00:00Notes: (Same as: SEROquel) Inactive 06/06/2015 [facility] dexamethasone 2 mg oral tablet 2 mg=1 tab, PO, BID, X 5 day, # 10 tab, 0 Refill(s) Active 06/05/2015 [facility] QUEtiapine 25 mg oral tablet 25 mg=1 tab, PO, Bedtime, # 30 tab, 0 Refill(s) Active 06/05/2015 [facility] Seroquel 25 mg, 1 tab, Route: PO, Drug form: TAB, ONCE, Dosing Weight 106.534, kg, Start date: 06/04/15 22:06:00, Stop date: 06/04/15 22:06:00Notes: (Same as: SEROquel) Inactive 06/05/2015 [facility] Seroquel 25 mg, 1 tab, Route: PO, Drug form: TAB, Q4H, Dosing Weight 106.534, kg, PRN Anxiety, Start date: 06/04/15 22:05:00, Duration: 30 day, Stop date: 07/04/15 22:04:00Notes: (Same as: SEROquel) No Longer Active 06/05/2015 [facility] Azithromycin 500 mg, 250 mL, Route: IVPB, Drug form: PDR/INJ, [id number], Dosing Weight 104.545, kg, Start date: 06/04/15 20:00:00, Duration: 30 day, Stop date: 07/03/15 20:00:00Notes: Same as: Zithromax No Longer Active 06/05/2015 [facility] Ceftriaxone 1 gm, Route: IVPB, [id number], Dosing Weight 106.534, kg, Start date: 06/04/15 20:00:00, Duration: 30 day, Stop date: 07/03/15 20:00:00Notes: (Same As: Rocephin). Use with 100 mL NS and infuse over 30 min MEDICATION WASTE Product Size: 1000 mg Product Wasted: ___ mg No Longer Active 06/05/2015 [facility] Omeprazole 20 mg, Route: PO, Drug form: DRC, QPM, Dosing Weight 104.545, kg, Start date: 06/04/15 17:00:00, Duration: 30 day, Stop date: 07/03/15 17:00:00 No Longer Active 06/04/2015 [facility] Protonix 40 mg, 1 tab, Route: PO, Drug form: ECTAB, Before Dinner, Start date: 06/04/15 16:30:00, Duration: 30 day, Stop date: 07/03/15 16:30:00Notes: Tablet should not be chewed or crushed. (Same as: Protonix) No Longer Active 06/04/2015 [facility] Vitamin D3 1000 intl units oral tablet 1,000 IntlUnit, 1 tab, Route: PO, Drug form: TAB, Daily, Dosing Weight 104.545, kg, Start date: 06/04/15 9:00:00, Duration: 30 day, Stop date: 07/03/15 9:00:00Notes: Same as : Vitamin D3 No Longer Active 06/04/2015 [facility] Vitamin C 1,000 mg, 2 tab, Route: PO, Drug form: TAB, Daily, Dosing Weight 104.545, kg, Start date: 06/04/15 9:00:00, Duration: 30 day, Stop date: 07/03/15 9:00:00Notes: (Same as: Vitamin C) No Longer Active 06/04/2015 [facility] Enoxaparin 40 mg, 0.4 mL, Route: SUB-Q, Drug form: INJ, [id number], Dosing Weight 104.545, kg, Start date: 06/04/15 8:00:00, Duration: 30 day, Stop date: 07/03/15 8:00:00Notes: (Same as: Lovenox) No Longer Active 06/04/2015 [facility] Docusate 100 mg, 1 cap, Route: PO, Drug form: CAP, BID, Dosing Weight 104.545, kg, PRN Constipation, Start date: 06/04/15 7:17:00, Duration: 30 day, Stop date: 07/04/15 7:16:00Notes: (Same as: Colace) (Do Not Crush) No Longer Active 06/04/2015 [facility] Ondansetron 4 mg, 2 mL, Route: IVP, Drug form: INJ, Q6H, Dosing Weight 104.545, kg, PRN Nausea & Vomiting, Start date: 06/04/15 7:17:00, Duration: 30 day, Stop date: 07/04/15 7:16:00Notes: (Same as: Belinda) MEDICATION WASTE Product Size: 4 mg Product Wasted: ___ mg No Longer Active 06/04/2015 [facility] Acetaminophen 650 mg, 2 tab, Route: PO, Drug form: TAB, Q4H, Dosing Weight 104.545, kg, PRN Pain 1-3/Temp > 100.4 F, Start date: 06/04/15 7:17:00, Duration: 30 day, Stop date: 07/04/15 7:16:00Notes: Do not exceed 4 gm/day. (Same as: Tylenol) No Longer Active 06/04/2015 [facility] methylPREDNISolone SODium SUCCinate 40 mg, 1 mL, Route: IVP, Drug form: INJ, Q8H, Dosing Weight 104.545, kg, Start date: 06/04/15 0:00:00, Duration: 30 day, Stop date: 07/03/15 16:00:00Notes: (Same as:Solu- MEDROL, A-Methapred) No Longer Active 06/04/2015 [facility] Bring pt's own vit d3 50,000 IntlUnit to pharmacy for label Bring pt's own vit d3 50,000 IntlUnit to pharmacy for label, ATTN: RN, Drug form: MISC, Route: MISC, QSHIFT, 06/04/15 0:00:00, Duration: 30 day, Stop date: 07/03/15 16:00:00 No Longer Active 06/04/2015 [facility] Effexor XR 150 mg, 1 cap, Route: PO, Drug form: ERCAP, Q12H, Dosing Weight 104.545, kg, Start date: 06/03/15 22:13:00, Duration: 30 day, Stop date: 07/03/15 21:00:00Notes: Do not open, crush, or chew. (Same As: Effexor XR) No Longer Active 06/04/2015 [facility] metoprolol extended release 50 mg, 1 tab, Route: PO, Drug form: ERTAB, QPM, Start date: 06/03/15 22:12:00, Duration: 30 day, Stop date: 07/03/15 17:00:00Notes: (Same as: Toprol XL) May split tab, but do not crush. No Longer Active 06/04/2015 [facility] Claritin 10 mg, 1 tab, Route: PO, Drug form: TAB, QPM, Dosing Weight 104.545, kg, Start date: 06/03/15 22:11:00, Duration: 30 day, Stop date: 07/03/15 17:00:00Notes: 1 hr before meals (Same as: Claritin) No Longer Active 06/04/2015 [facility] Albuterol 0.833 MG/ML / Ipratropium [place] 0.167 MG/ML Inhalant Solution 3 mL, Route: NEB, Drug Form: SOLN, Dosing Weight 104.545, kg, RQ6H, Start date: 06/03/15 20:00:00, Duration: 30 day, Stop date: 07/03/15 14:00:00Notes: (Same as: Duoneb) No Longer Active 06/04/2015 [facility] Saline Flush 0.9% 10 ml, Route: IVP, Drug Form: INJ, Dosing Weight 104.545, kg, PRN, PRN Line Flush, Start date: 06/03/15 19:50:00, Duration: 30 day, Stop date: 07/03/15 19:49:00Notes: (Same as: BD Posiflush) No Longer Active 06/04/2015 [facility] Sodium Chloride 0.154 MEQ/ML Injectable Solution 1,000 mL, Rate: 125 ml/hr, Infuse over: 8 hr, Route: IV, Dosing Weight 104.545 kg, Total Volume: 1,000, Start date: 06/03/15 19:50:00, Duration: 30 day, Stop date: 07/03/15 19:49:00 No Longer Active 06/04/2015 [facility] Albuterol 0.83 MG/ML Inhalant Solution 2.5 mg, 3.01 mL, Route: NEB, Drug form: SOLN, RQ2H, Dosing Weight 104.545, kg, PRN Wheezing, Priority: Routine, Start date: 06/03/15 19:50:00, Duration: 30 day, Stop date: 07/03/15 19:49:00Notes: SEE RT DOCUMENTATION (Same as: Suleiman) No Longer Active 06/04/2015 [facility] Acetaminophen 325 MG / Hydrocodone Bitartrate 5 MG Oral Tablet [[place] 5/325] 2 tab, Route: PO, Drug Form: TAB, Dosing Weight 104.545, kg, ONCE, STAT, Start date: 06/03/15 18:45:00, Stop date: 06/03/15 18:45:00 Inactive 06/04/2015 [facility] Azithromycin 500 mg, Route: IVPB, ONCE, Dosing Weight 104.545, kg, Priority: STAT, Start date: 06/03/15 18:38:00, Stop date: 06/03/15 18:38:00 Inactive 06/04/2015 [facility] Vitamin C 1000 mg oral tablet 1,000 mg=1 tab, PO, Daily, 0 Refill(s) Active 06/03/2015 [facility] 24 HR venlafaxine 150 MG Extended Release Capsule [Effexor] 150 mg=1 cap, PO, BID, 0 Refill(s) Active 06/03/2015 [facility] Vitamin D3 1000 intl units oral tablet 1,000 IntlUnit=1 tab, PO, Daily, 0 Refill(s) Active 06/03/2015 [facility] Vitamin D3 50,000 intl units oral capsule 50,000 IntlUnit=1 cap, PO, QSun, 0 Refill(s) Active 06/03/2015 [facility] omeprazole 20 mg oral delayed release capsule 20 mg=1 cap, PO, QPM, 0 Refill(s) Active 06/03/2015 [facility] Stiolto Respimat 2.5 mcg-2.5 mcg inhalation aerosol =2 puff, INHALATION, Q24H, 0 Refill(s) Active 06/03/2015 [facility] Qvar 80 mcg/inh inhalation aerosol with adapter 2 puff, INHALATION, BID, 0 Refill(s) Active 06/03/2015 [facility] Magnesium Sulfate 2 gm, Route: IVPB, ONCE, Dosing Weight 104.545, kg, Priority: STAT, Start date: 06/03/15 16:07:00, Stop date: 06/03/15 16:07:00 Inactive 06/03/2015 [facility] methylPREDNISolone SODium SUCCinate 125 mg, Route: IVP, ONCE, Dosing Weight 104.545, kg, Priority: STAT, Start date: 06/03/15 16:07:00, Stop date: 06/03/15 16:07:00 Inactive 06/03/2015 [facility] Ipratropium 0.5 mg, Route: NEB, Drug form: SOLN, ONCE, Dosing Weight 104.545, kg, Priority: STAT, Start date: 06/03/15 16:07:00, Stop date: 06/03/15 16:07:00 Inactive 06/03/2015 [facility] Albuterol 0.83 MG/ML Inhalant Solution 2.49 mg, Route: NEB, Drug form: SOLN, ONCE, Dosing Weight 104.545, kg, Priority: STAT, Start date: 06/03/15 16:07:00, Stop date: 06/03/15 16:07:00 Inactive 06/03/2015 [facility] Saline Flush 0.9% 10 mL, Route: IVP, Drug Form: INJ, Dosing Weight 104.545, kg, PRN, PRN Line Flush, Start date: 06/03/15 16:07:00, Duration: 30 day, Stop date: 07/03/15 16:06:00Notes: (Same as: BD Posiflush) Inactive 06/03/2015 [facility] Albuterol 0.833 MG/ML / Ipratropium [place] 0.167 MG/ML Inhalant Solution [DuoNeb] 3 ml, Route: INHALATION, Drug Form: SOLN, Dosing Weight 108.227, kg, PRN, PRN Respiratory Protocol, Start date: 06/03/15 14:17:00, Duration: 30 day, Stop date: 07/03/15 14:16:00Notes: (Same as: Duoneb) No Longer Active 06/03/2015 [facility] levofloxacin 750 mg oral tablet 750 mg=1 tab, PO, Daily, X 7 day, # 7 tab, 0 Refill(s) Active 05/08/2015 [facility] Ceftriaxone 2 gm, Route: IVPB, [id number], Dosing Weight 108.227, kg, Start date: 05/08/15 9:00:00, Duration: 30 day, Stop date: 06/06/15 9:00:00Notes: (Same As: Rocephin). MEDICATION WASTE Product Size: 2000 mg Product Wasted: ___ mg Inactive 05/08/2015 [facility] Effexor XR 75 mg, 1 cap, Route: PO, Drug form: ERCAP, Bedtime, Dosing Weight 108.227, kg, Start date: 05/07/15 21:00:00, Duration: 30 day, Stop date: 06/05/15 21:00:00Notes: Do not open, crush, or chew. (Same As: Effexor XR) No Longer Active 05/08/2015 [facility] Protonix 40 mg, 1 tab, Route: PO, Drug form: ECTAB, Before Dinner, Dosing Weight 108.227, kg, Start date: 05/07/15 16:30:00, Duration: 30 day, Stop date: 06/05/15 16:30:00Notes: Tablet should not be chewed or crushed. (Same as: Protonix) No Longer Active 05/07/2015 [facility] Albuterol 0.833 MG/ML / Ipratropium [place] 0.167 MG/ML Inhalant Solution 3 ml, Route: NEB, Drug Form: SOLN, Dosing Weight 108.227, kg, Q6H, PRN Respiratory Protocol, Start date: 05/07/15 13:16:00, Duration: 30 day, Stop date: 06/06/15 13:15:00Notes: (Same as: Duoneb) No Longer Active 05/07/2015 [facility] Albuterol / Ipratropium 3 ml, Route: NEB, Drug Form: SOLN, Dosing Weight 108.227, kg, PRN, PRN Respiratory Protocol, Start date: 05/07/15 13:14:00, Duration: 30 day, Stop date: 06/06/15 12:13:00Notes: (Same as: Duoneb) Inactive 05/07/2015 [facility] Enoxaparin 40 mg, 0.4 mL, Route: SUB-Q, Drug form: INJ, [id number], Dosing Weight 108.227, kg, Start date: 05/07/15 10:00:00, Duration: 30 day, Stop date: 06/05/15 10:00:00Notes: (Same as: Lovenox) No Longer Active 05/07/2015 [facility] Docusate 100 mg, 1 cap, Route: PO, Drug form: CAP, BID, Dosing Weight 108.227, kg, PRN Constipation, Start date: 05/07/15 9:34:00, Duration: 30 day, Stop date: 06/06/15 9:33:00Notes: (Same as: Colace) (Do Not Crush) No Longer Active 05/07/2015 [facility] Ondansetron 4 mg, 2 mL, Route: IVP, Drug form: INJ, Q6H, Dosing Weight 108.227, kg, PRN Nausea & Vomiting, Start date: 05/07/15 9:34:00, Duration: 30 day, Stop date: 06/06/15 9:33:00Notes: (Same as: Zofran) MEDICATION WASTE Product Size: 4 mg Product Wasted: ___ mg No Longer Active 05/07/2015 [facility] Acetaminophen 325 MG / Hydrocodone Bitartrate 5 MG Oral Tablet 1 tab, Route: PO, Drug Form: TAB, Dosing Weight 108.227, kg, Q4H, PRN Pain Score 4-6, Start date: 05/07/15 9:34:00, Duration: 30 day, Stop date: 06/06/15 9:33:00Notes: (Same as: [place] 325/5) Do not exceed 4gm/day of acetaminophen. No Longer Active 05/07/2015 [facility] Morphine 2 mg, 1 mL, Route: IVP, Drug form: INJ, Q4H, Dosing Weight 108.227, kg, PRN Pain Score 7-10, Start date: 05/07/15 9:34:00, Duration: 30 day, Stop date: 06/06/15 9:33:00Notes: (Same as:MORPhine Sulfate) No Longer Active 05/07/2015 [facility] Acetaminophen 650 mg, 2 tab, Route: PO, Drug form: TAB, Q4H, Dosing Weight 108.227, kg, PRN Pain 1-3/Temp > 100.4 F, Start date: 05/07/15 9:34:00, Duration: 30 day, Stop date: 06/06/15 9:33:00Notes: Do not exceed 4 gm/day. (Same as: Tylenol) No Longer Active 05/07/2015 [facility] 120 ACTUAT Albuterol 0.1 MG/ACTUAT / Ipratropium [place] 0.02 MG/ACTUAT Metered Dose Inhaler [Combivent 20/100] 1 puff, Route: INHALATION, Drug Form: AERO, Dosing Weight 108.227, kg, QID, Start date: 05/07/15 9:00:00, Duration: 30 day, Stop date: 06/05/15 21:00:00Notes: Same as: Combivent Respimat Inactive 05/07/2015 [facility] 200 ACTUAT Albuterol 0.09 MG/ACTUAT Metered Dose Inhaler [Proventil] 90 microgram, Route: INHALATION, Drug Form: AERO/A, Dosing Weight 108.227, kg, BID, Start date: 05/07/15 9:00:00, Duration: 30 day, Stop date: 06/05/15 17:00:00Notes: Albuterol 90 microgram/inh 8gm HFA Same as: Ventolin, Proventil No Longer Active 05/07/2015 [facility] Fluticasone propionate 0.05 MG/ACTUAT Dry Powder Inhaler 50 microgram, 1 ea, Route: INHALATION, Drug Form: PWDR, Dosing Weight 108.227, kg, BID, Start date: 05/07/15 9:00:00, Duration: 30 day, Stop date: 06/05/15 17:00:00 No Longer Active 05/07/2015 [facility] Effexor XR 150 mg, 1 cap, Route: PO, Drug form: ERCAP, Daily, Dosing Weight 108.227, kg, Start date: 05/07/15 9:00:00, Duration: 30 day, Stop date: 06/05/15 9:00:00Notes: Do not open, crush, or chew. (Same As: Effexor XR) No Longer Active 05/07/2015 [facility] Paxil 20 mg, 1 tab, Route: PO, Drug form: TAB, Daily, Dosing Weight 108.227, kg, Start date: 05/07/15 9:00:00, Duration: 30 day, Stop date: 06/05/15 9:00:00Notes: (Same as: Paxil) No Longer Active 05/07/2015 [facility] Spiriva 18 microgram, 1 inhalation, Route: INHALATION, Drug form: CAP, Daily, Dosing Weight 108.227, kg, Start date: 05/07/15 9:00:00, Duration: 30 day, Stop date: 06/05/15 9:00:00Notes: (Same As: Spiriva). No Longer Active 05/07/2015 [facility] metoprolol extended release 25 mg, 1 tab, Route: PO, Drug form: ERTAB, Daily, Start date: 05/07/15 9:00:00, Duration: 30 day, Stop date: 06/05/15 9:00:00Notes: (Same as: Toprol XL) Do Not Crush No Longer Active 05/07/2015 [facility] Solu-Medrol 40 mg, 1 mL, Route: IVP, Drug form: INJ, Q12H, Dosing Weight 90.909, kg, Start date: 05/07/15 9:00:00, Duration: 30 day, Stop date: 06/05/15 21:00:00Notes: (Same as:Solu-MEDROL, A-Methapred) No Longer Active 05/07/2015 [facility] Nurse pls bring pt's own med: fluticasone to phamacy for Nurse pls bring pt's own med: fluticasone to phamacy for, attn, Drug form: MISC, Route: MISC, QSHIFT, 05/07/15 8:00:00, Duration: 30 day, Stop date: 06/06/15 0:00:00 No Longer Active 05/07/2015 [facility] Acetaminophen 325 MG / Hydrocodone Bitartrate 5 MG Oral Tablet [[place] 5/325] 1 tab, Route: PO, Drug Form: TAB, Dosing Weight 108.227, kg, Q4H, PRN Pain Score 4-6, Start date: 05/07/15 2:02:00, Duration: 30 day, Stop date: 06/06/15 2:01:00Notes: (Same as: [place] 325/5) Do not exceed 4gm/day of acetaminophen. Inactive 05/07/2015 [facility] Acetaminophen 650 mg, 2 tab, Route: PO, Drug form: TAB, Q6H, Dosing Weight 108.227, kg, PRN Pain Score 1-3, Start date: 05/07/15 2:02:00, Duration: 30 day, Stop date: 06/06/15 2:01:00Notes: Do not exceed 4 gm/day. (Same as: Tylenol) Inactive 05/07/2015 [facility] Paxil 20 mg, 1 tab, Route: PO, Drug form: TAB, ONCE, Dosing Weight 108.227, kg, Priority: NOW, Start date: 05/07/15 0:23:00, Stop date: 05/07/15 0:23:00Notes: (Same as: Paxil) Inactive 05/07/2015 [facility] Effexor 75 mg, 1 cap, Route: PO, Drug form: ERCAP, ONCE, Dosing Weight 108.227, kg, Priority: NOW, Start date: 05/07/15 0:23:00, Stop date: 05/07/15 0:23:00Notes: Do not open, crush, or chew. (Same As: Effexor XR) Inactive 05/07/2015 [facility] Claritin 10 mg, 1 tab, Route: PO, Drug form: TAB, Daily, Dosing Weight 108.227, kg, PRN as needed for allergy symptoms, Start date: 05/07/15 0:20:00, Duration: 30 day, Stop date: 06/06/15 0:19:00Notes: 1 hr b efore meals (Same as: Claritin) No Longer Active 05/07/2015 [facility] Paroxetine 20 MG Oral Tablet [Paxil] 20 mg=1 tab, PO, Daily, # 30 tab, 0 Refill(s) Active 05/07/2015 [facility] Effexor XR 150 mg, PO, Daily, 0 Refill(s) Active 05/07/2015 [facility] Albuterol 0.833 MG/ML / Ipratropium [place] 0.167 MG/ML Inhalant Solution [DuoNeb] 3 ml, Route: INHALATION, Drug Form: SOLN, Dosing Weight 90.909, kg, PRN, PRN Respiratory Protocol, Start date: 05/06/15 22:34:00, Duration: 30 day, Stop date: 06/05/15 21:33:00Notes: (Same as: Duoneb) No Longer Active 05/07/2015 [facility] Saline Flush 0.9% 10 ml, Route: IVP, Drug Form: INJ, Dosing Weight 90.909, kg, PRN, PRN Line Flush, Start date: 05/06/15 22:34:00, Duration: 30 day, Stop date: 06/05/15 21:33:00Notes: (Same as: BD Posiflush) No Longer Active 05/07/2015 [facility] Lactated Ringers IV 1,000 mL 1,000 mL, Rate: 125 ml/hr, Infuse over: 8 hr, Route: IV, Dosing Weight 90.909 kg, Total Volume: 1,000, Start date: 05/06/15 22:34:00, Duration: 30 day, Stop date: 06/05/15 22:33:00 No Longer Active 05/07/2015 [facility] Ceftriaxone 1 gm, Route: IVPB, Q24H, Dosing Weight 90.909, kg, Priority: STAT, Start date: 05/06/15 22:34:00, Duration: 30 day, Stop date: 06/04/15 21:00:00Notes: (Same As: Rocephin). Use with 100ml NS mini-bag PLUS and infuse over 30 min MEDICATION WASTE Product Size: 1000 mg Product Wasted: ___ mg No Longer Active 05/07/2015 [facility] Azithromycin 500 mg, Route: IVPB, [id number], Dosing Weight 90.909, kg, Priority: STAT, Start date: 05/06/15 22:34:00, Duration: 30 day, Stop date: 06/04/15 21:00:00Notes: (Same As: Zithromax IV) No Longer Active 05/07/2015 [facility] Ondansetron 4 mg, 2 mL, Route: IVP, Drug form: INJ, Q6H, Dosing Weight 90.909, kg, PRN Nausea & Vomiting, Start date: 05/06/15 22:34:00, Duration: 30 day, Stop date: 06/05/15 22:33:00Notes: (Same as: Zofran) MEDICATION WASTE Product Size: 4 mg Product Wasted: ___ mg No Longer Active 05/07/2015 [facility] Azithromycin 500 mg, Route: IVPB, ONCE, Dosing Weight 90.909, kg, Priority: STAT, Start date: 05/06/15 21:03:00, Stop date: 05/06/15 21:03:00 Inactive 05/07/2015 [facility] Rocephin 1 gm, Route: IVPB, Drug form: PDR/INJ, ONCE, Dosing Weight 90.909, kg, Priority: STAT, Start date: 05/06/15 21:03:00, Stop date: 05/06/15 21:03:00 Inactive 05/07/2015 [facility] Solu-Medrol 125 mg, Route: IVP, ONCE, Dosing Weight 90.909, kg, Priority: STAT, Start date: 05/06/15 19:44:00, Stop date: 05/06/15 19:44:00 Inactive 05/07/2015 [facility] Solu-Medrol 125 mg, Route: IVP, ONCE, Dosing Weight 90.909, kg, Priority: STAT, Start date: 05/06/15 19:43:00, Stop date: 05/06/15 19:43:00 Inactive 05/07/2015 [facility] Sodium Chloride 0.154 MEQ/ML Injectable Solution 1,000 mL, 1,000 ml/hr, Infuse Over: 1 hr, Route: IV, ONCE, Priority: STAT, Dosing Weight 90.909 kg, Start date: 05/06/15 19:41:00, Duration: 1 doses or times, Stop date: 05/06/15 19:41:00 Inactive 05/07/2015 [facility] Dexamethasone 10 mg, Route: IVP, ONCE, Dosing Weight 90.909, kg, Priority: STAT, Start date: 05/06/15 19:25:00, Stop date: 05/06/15 19:25:00 Inactive 05/07/2015 [facility] Albuterol 0.833 MG/ML / Ipratropium [place] 0.167 MG/ML Inhalant Solution 3 mL, Route: NEB, Drug Form: SOLN, Dosing Weight 90.909, kg, Q30Min, STAT, Start date: 05/06/15 19:25:00, Duration: 3 doses or times, Stop date: 05/06/15 20:25:00Notes: (Same as: Duoneb) Inactive 05/07/2015 [facility] methylPREDNISolone SODium SUCCinate 125 mg, Route: IVP, ONCE, Dosing Weight 90.909, kg, Priority: STAT, Start date: 05/06/15 17:43:00, Stop date: 05/06/15 17:43:00 Inactive 05/06/2015 [facility] Albuterol 0.833 MG/ML / Ipratropium [place] 0.167 MG/ML Inhalant Solution 9 mL, Route: NEB, Dosing Weight 104.545, kg, ONCE, STAT, Start date: 05/06/15 17:23:00, Stop date: 05/06/15 17:23:00 Inactive 05/06/2015 [facility] Paxil 20 mg, 1 tab, Route: PO, Drug form: TAB, Bedtime, Dosing Weight 106.818, kg, Start date: 04/01/15 21:00:00, Duration: 30 day, Stop date: 04/30/15 21:00:00Notes: (Same as: Paxil) Inactive 04/02/2015 [facility] Lorazepam 0.5 MG Oral Tablet [Ativan] 0.5 mg=1 tab, PO, Daily, PRN Anxiety, Do not take for >3 consecutive days., # 5 tab, 0 Refill(s)Special Instructions: Do not take for >3 consecutive days. Active 04/01/2015 [facility] venlafaxine 75 mg oral capsule, extended release 75 mg=1 cap, PO, Daily, # 30 cap, 0 Refill(s) Active 04/01/2015 [facility] Effexor XR 75 mg, 1 cap, Route: PO, Drug form: ERCAP, Daily, Dosing Weight 106.818, kg, Start date: 04/01/15 9:00:00, Duration: 30 day, Stop date: 04/30/15 9:00:00Notes: Do not open, crush, or chew. (Same As: Effexor XR) Inactive 04/01/2015 [facility] metoprolol extended release 25 mg, 1 tab, Route: PO, Drug form: ERTAB, Daily, Start date: 04/01/15 9:00:00, Duration: 30 day, Stop date: 04/30/15 9:00:00Notes: (Same as: Toprol XL) Do Not Crush Inactive 04/01/2015 [facility] Maalox Advanced Regular Strength SUSP 15 mL, Route: PO, Drug Form: SUSP, Dosing Weight 106.818, kg, Q6H, PRN as needed for indigestion, Start date: 03/31/15 23:26:00, Duration: 30 day, Stop date: 04/30/15 23:25:00Notes: (aluminum hydroxide-magnesium hyd-simethicone [id number]/5ml 30 ml ud MELISSA) No Longer Active 04/01/2015 [facility] Please bring Patient's OWN Fluticasone 50 mcg inhalation pow Please bring Patient's OWN Fluticasone 50 mcg inhalation pow, 1 inhalation, Drug form: MISC, Route: INHALATION, RBID, 03/31/15 20:00:00, Duration: 30 day, Stop date: 04/30/15 8:00:00 No Longer Active 04/01/2015 [facility] Protonix 40 mg, 1 tab, Route: PO, Drug form: ECTAB, Before Dinner, Dosing Weight 106.818, kg, Start date: 03/31/15 16:30:00, Duration: 30 day, Stop date: 04/29/15 16:30:00Notes: Tablet should not be chewed or crushed. (Same as: Protonix) No Longer Active 03/31/2015 [facility] Ativan 0.5 mg, 0.25 mL, Route: IVP, Drug form: INJ, ONCE, Dosing Weight 106.818, kg, PRN Anxiety, Start date: 03/31/15 13:25:00Notes: (Same as: Ativan) Inactive 03/31/2015 [facility] 120 ACTUAT Albuterol 0.1 MG/ACTUAT / Ipratropium [place] 0.02 MG/ACTUAT Metered Dose Inhaler [Combivent 20/100] 1 puff, Route: INHALATION, Drug Form: AERO, Dosing Weight 106.818, kg, QID, Start date: 03/31/15 9:00:00, Duration: 30 day, Stop date: 04/29/15 21:00:00Notes: Same as: Combivent Respimat No Longer Active 03/31/2015 [facility] Spiriva 18 microgram, 1 inhalation, Route: INHALATION, Drug form: CAP, Daily, Dosing Weight 106.818, kg, Start date: 03/31/15 9:00:00, Duration: 30 day, Stop date: 04/29/15 9:00:00Notes: (Same As: Spiriva). No Longer Active 03/31/2015 [facility] Paxil 40 mg, 2 tab, Route: PO, Drug form: TAB, Daily, Dosing Weight 106.818, kg, Start date: 03/31/15 9:00:00, Duration: 30 day, Stop date: 04/29/15 9:00:00Notes: (Same as: Paxil) Inactive 03/31/2015 [facility] metoprolol extended release 25 mg, 1 tab, Route: PLEURODESIS, Drug form: ERTAB, Daily, Start date: 03/31/15 9:00:00, Duration: 30 day, Stop date: 04/29/15 9:00:00Notes: (Same as: Toprol XL) Do Not Crush Inactive 03/31/2015 [facility] Fluticasone propionate 0.05 MG/ACTUAT Dry Powder Inhaler 50 microgram, 1 ea, Route: INHALATION, Drug Form: PWDR, Dosing Weight 106.818, kg, BID, Start date: 03/31/15 9:00:00, Duration: 30 day, Stop date: 04/29/15 17:00:00 Inactive 03/31/2015 [facility] Solu-Medrol 40 mg, 1 mL, Route: IVP, Drug form: INJ, Q12H, Dosing Weight 106.818, kg, Start date: 03/31/15 9:00:00, Duration: 30 day, Stop date: 04/29/15 21:00:00Notes: (Same as:Solu-MEDROL, A-Methapred) Inactive 03/31/2015 [facility] Claritin 10 mg, 1 tab, Route: PO, Drug form: TAB, Daily, Dosing Weight 106.818, kg, PRN as needed for allergy symptoms, Start date: 03/31/15 8:55:00, Duration: 30 day, Stop date: 04/30/15 8:54:00Notes: 1 hr b efore meals (Same as: Claritin) No Longer Active 03/31/2015 [facility] Promethazine DM oral syrup 1.25 mL, Route: PO, Drug Form: SYRP, Dosing Weight 106.818, kg, Q6H, PRN Cough, Start date: 03/31/15 8:55:00, Duration: 30 day, Stop date: 04/30/15 8:54:00Notes: Non-formulary drug. (promethazine-dextromethorphan 6.25-15mg/5ml LIQ) (Same as: Phenergan DM) No Longer Active 03/31/2015 [facility] 200 ACTUAT Albuterol 0.09 MG/ACTUAT Metered Dose Inhaler [ProAir HFA] 2 puff, Route: INHALATION, Drug Form: AERO/A, Dosing Weight 106.818, kg, Q4H, PRN as needed for wheezing, Start date: 03/31/15 8:55:00, Stop date: 04/30/15 8:54:00Notes: Albuterol 90 microgram/inh 8gm HFA Same as: Ventolin, Proventil No Longer Active 03/31/2015 [facility] nitroglycerin 0.4 mg sublingual tablet 0.4 mg, 1 tab, Route: SL, Drug form: TAB, Q5Min, PRN Chest Pain, Start date: 03/31/15 2:13:00, Duration: 30 day, Stop date: 04/30/15 2:12:00Notes: (Same as:Nitroquick, Nitrostat) "Do Not Crush" Sublingual tablet No Longer Active 03/31/2015 [facility] atropine 0.5 mg, 5 mL, Route: IVP, Drug form: INJ, PRN, PRN Bradycardia, Start date: 03/31/15 2:13:00, Duration: 30 day, Stop date: 04/30/15 2:12:00 No Longer Active 03/31/2015 [facility] Albuterol 0.83 MG/ML Inhalant Solution 2.49 mg, 3 mL, Route: NEB, Drug form: SOLN, RQ4H, Dosing Weight 106.818, kg, Start date: 03/30/15 23:00:00, Duration: 30 day, Stop date: 04/29/15 19:00:00, Pediatric DosingSpecial Instructions: Pediatric DosingNotes: SEE RT DOCUMENTATION (Same as: Proventil) No Longer Active 03/31/2015 [facility] Ondansetron 4 mg, 2 mL, Route: IVP, Drug form: INJ, Q6H, Dosing Weight 106.818, kg, PRN Nausea & Vomiting, Start date: 03/30/15 22:44:00, Duration: 30 day, Stop date: 04/29/15 22:43:00Notes: (Same as: Belinda) MEDICATION WASTE Product Size: 4 mg Product Wasted: ___ mg No Longer Active 03/31/2015 [facility] Morphine 4 mg, 2 mL, Route: IVP, Drug form: INJ, Q3H, Dosing Weight 106.818, kg, PRN Pain Score 4-6, Start date: 03/30/15 22:44:00, Duration: 30 day, Stop date: 04/29/15 22:43:00Notes: (Same as:MORPhine Sulfate) No Longer Active 03/31/2015 [facility] Enoxaparin 40 mg, 0.4 mL, Route: SUB-Q, Drug form: INJ, [id number], Dosing Weight 106.818, kg, Start date: 03/30/15 19:00:00, Duration: 30 day, Stop date: 04/28/15 19:00:00Notes: (Same as: Lovenox) No Longer Active 03/31/2015 [facility] Solu-Medrol 40 mg, 1 mL, Route: IVP, Drug form: INJ, Q12H, Dosing Weight 106.818, kg, Priority: STAT, Start date: 03/30/15 18:31:00, Duration: 30 day, Stop date: 04/29/15 18:00:00Notes: (Same as:Solu-MEDROL, A-M ethapred) No Longer Active 03/30/2015 [facility] Albuterol 0.833 MG/ML / Ipratropium [place] 0.167 MG/ML Inhalant Solution [DuoNeb] 3 ml, Route: NEB, Drug Form: SOLN, Dosing Weight 106.818, kg, PRN, PRN Respiratory Protocol, Start date: 03/30/15 18:31:00, Duration: 30 day, Stop date: 04/29/15 18:30:00Notes: (Same as: Duoneb) No Longer Active 03/30/2015 [facility] Ondansetron 4 mg, 2 mL, Route: IVP, Drug form: INJ, Q6H, Dosing Weight 106.818, kg, PRN Nausea & Vomiting, Start date: 03/30/15 18:30:00, Duration: 30 day, Stop date: 04/29/15 18:29:00Notes: (Same as: Charan) MEDICATION WASTE Product Size: 4 mg Product Wasted: ___ mg No Longer Active 03/30/2015 [facility] Docusate 100 mg, 1 cap, Route: PO, Drug form: CAP, BID, Dosing Weight 106.818, kg, PRN Constipation, Start date: 03/30/15 18:30:00, Duration: 30 day, Stop date: 04/29/15 18:29:00Notes: (Same as: Colace) (Do Not Crush) No Longer Active 03/30/2015 [facility] Acetaminophen 650 mg, 2 tab, Route: PO, Drug form: TAB, Q4H, Dosing Weight 106.818, kg, PRN Pain 1-3/Temp > 100.4 F, Start date: 03/30/15 18:30:00, Duration: 30 day, Stop date: 04/29/15 18:29:00Notes: Do not exceed 4 gm/day. (Same as: Tylenol) No Longer Active 03/30/2015 [facility] Acetaminophen 325 MG / Hydrocodone Bitartrate 5 MG Oral Tablet 1 tab, Route: PO, Drug Form: TAB, Dosing Weight 106.818, kg, Q4H, PRN Pain Score 4-6, Start date: 03/30/15 18:30:00, Duration: 30 day, Stop date: 04/29/15 18:29:00Notes: (Same as: [place] 325/5) Do not exceed 4gm/day of acetaminophen. No Longer Active 03/30/2015 [facility] Sodium Chloride 0.154 MEQ/ML Injectable Solution 1,000 mL, 1,000 ml/hr, Infuse Over: 1 hr, Route: IV, ONCE, Priority: STAT, Dosing Weight 106.818 kg, Start date: 03/30/15 15:15:00, Duration: 1 doses or times, Stop date: 03/30/15 15:15:00 Inactive 03/30/2015 [facility] Ativan 1 mg, Route: IVP, Drug form: INJ, ONCE, Dosing Weight 106.818, kg, Priority: STAT, Start date: 03/30/15 13:14:00, Stop date: 03/30/15 13:14:00 Inactive 03/30/2015 [facility] methylPREDNISolone SODium SUCCinate 125 mg, Route: IVP, ONCE, Dosing Weight 106.818, kg, Priority: STAT, Start date: 03/30/15 13:07:00, Stop date: 03/30/15 13:07:00 Inactive 03/30/2015 [facility] Albuterol 0.833 MG/ML / Ipratropium [place] 0.167 MG/ML Inhalant Solution 9 mL, Route: NEB, Dosing Weight 106.818, kg, ONCE, STAT, Start date: 03/30/15 13:07:00, Stop date: 03/30/15 13:07:00 Inactive 03/30/2015 [facility] Protonix 1 tablet Orally Active 40 MG Orally Once a day [place] 03/26/2015 [id number] Pneumovax 23 0.5 mL, Route: IM, Drug Form: INJ, Daily, Start date: 03/21/15 15:09:00, Duration: 1 doses or times, Stop date: 03/21/15 15:09:00Notes: (Same as: Pneumovax 23) Refrigerate Inactive 03/21/2015 [facility] metoprolol extended release 25 mg, 1 tab, Route: PO, Drug form: ERTAB, Q24H, Start date: 03/21/15 14:00:00, Duration: 30 day, Stop date: 04/19/15 14:00:00Notes: (Same as: Toprol XL) Do Not Crush Inactive 03/21/2015 [facility] 120 ACTUAT Albuterol 0.1 MG/ACTUAT / Ipratropium [place] 0.02 MG/ACTUAT Metered Dose Inhaler [Combivent 20/100] 1 puff, INHALATION, QID, # 1 ea, 0 Refill(s) Active 03/21/2015 [facility] predniSONE 10 mg oral tablet 10 mg=1 tab, PO, Daily, X 7 day, # 7 tab, 0 Refill(s) Active 03/21/2015 [facility] levofloxacin 750 mg oral tablet 750 mg=1 tab, PO, Daily, X 7 day, # 7 tab, 0 Refill(s) Active 03/21/2015 [facility] Vitamin D2 PO, once a week, last taken on Monday, 0 Refill(s)Special Instructions: once a week, last taken on Monday Active 03/21/2015 [facility] Fluticasone propionate 0.05 MG/ACTUAT Dry Powder Inhaler 50 microgram=1 ea, INHALATION, BID, # 60 ea, 0 Refill(s) Active 03/21/2015 [facility] Spiriva 18 microgram, INHALATION, Daily, # 30 ea, 0 Refill(s) Active 03/21/2015 [facility] Promethazine DM oral syrup 1.25 mL, PO, Q6H, PRN for cough, # 120 mL, 0 Refill(s) Active 03/21/2015 [facility] Promethazine 0 Refill(s) Active 03/21/2015 [facility] Paxil 40 mg, 2 tab, Route: PO, Drug form: TAB, Daily, Dosing Weight 106.818, kg, Start date: 03/21/15 11:59:00, Duration: 30 day, Stop date: 04/20/15 9:00:00Notes: (Same as: Paxil) Inactive 03/21/2015 [facility] Claritin 10 mg, 1 tab, Route: PO, Drug form: TAB, Daily, Dosing Weight 106.818, kg, PRN as needed for allergy symptoms, Start date: 03/21/15 10:36:00, Duration: 30 day, Stop date: 04/20/15 10:35:00Notes: 1 hr before meals (Same as: Claritin) Inactive 03/21/2015 [facility] pneumococcal capsular polysaccharide type 1 vaccine / pneumococcal capsular polysaccharide type 10A vaccine / pneumococcal capsular polysaccharide type 11A vaccine / pneumococcal capsular polysaccharide type 12F vaccine / pneumococcal capsular polysacchar 0.5 mL, Route: IM, Drug Form: INJ, Daily, Start date: 03/21/15 9:00:00, Duration: 1 doses or times, Stop date: 03/21/15 9:00:00Notes: (Same as: Pneumovax 23) Refrigerate Inactive 03/21/2015 [facility] Solu-Medrol 30 mg, Route: IVP, Q12H, Dosing Weight 102.273, kg, Start date: 03/20/15 21:00:00, Duration: 30 day, Stop date: 04/19/15 9:00:00 Inactive 03/21/2015 [facility] Azithromycin 500 MG Oral Tablet [Zithromax] 500 mg, 2 tab, Route: PO, Drug form: TAB, [id number], Dosing Weight 102.273, kg, Start date: 03/20/15 18:00:00, Duration: 30 day, Stop date: 04/18/15 18:00:00Notes: Take 1 hour before or 2 hours after meals. (Same As: Zithromax) No Longer Active 03/20/2015 [facility] Rocephin 1 gm, Route: IVPB, [id number], Dosing Weight 102.273, kg, Start date: 03/20/15 18:00:00, Duration: 30 day, Stop date: 04/18/15 18:00:00Notes: (Same As: Rocephin). Use with 100ml NS mini-bag PLUS and infuse over 30 min MEDICATION WASTE Product Size: 1000 mg Product Wasted: ___ mg No Longer Active 03/20/2015 [facility] 200 ACTUAT Albuterol 0.09 MG/ACTUAT Metered Dose Inhaler [Proventil] 1 puff, INHALATION, BID, 0 Refill(s) Active 03/20/2015 [facility] Claritin 10 mg=1 tab, PO, Daily, PRN Itching / rash / allergy symptoms, # 14 tab, 0 Refill(s) Active 03/20/2015 [facility] ProAir HFA 1 - 2 puffs, PO, Q4H, PRN Wheezing / cough / shortness of breath, # 1 ea, 0 Refill(s) Active 03/20/2015 [facility] metoprolol 25 mg oral tablet, extended release 25 mg=1 tab, PO, Daily, # 30 tab, 0 Refill(s) Active 03/20/2015 [facility] Paroxetine 40 MG Oral Tablet [Paxil] 40 mg=1 tab, PO, Daily, # 30 tab, 0 Refill(s) Active 03/20/2015 [facility] Nitroglycerin 0.4 MG Sublingual Tablet 0.4 mg, 1 tab, Route: SL, Drug form: TAB, Q5Min, Dosing Weight 102.273, kg, PRN Chest Pain, Start date: 03/20/15 17:21:00, Duration: 30 day, Stop date: 04/19/15 17:20:00Notes: (Same as:Nitroquick, Nitrostat) "Do Not Crush" Sublingual tablet No Longer Active 03/20/2015 [facility] Atropine 0.5 mg, 5 mL, Route: IVP, Drug form: INJ, ONCE, Dosing Weight 102.273, kg, PRN Bradycardia, For Symptomatic Bradycardia with Rate No Longer Active 03/20/2015 [facility] Protonix 40 mg, 1 tab, Route: PO, Drug form: ECTAB, Before Dinner, Dosing Weight 102.273, kg, Start date: 03/20/15 16:30:00, Duration: 30 day, Stop date: 04/18/15 16:30:00Notes: Tablet should not be chewed or crushed. (Same as: Protonix) No Longer Active 03/20/2015 [facility] Enoxaparin 40 mg, 0.4 mL, Route: SUB-Q, Drug form: INJ, [id number], Dosing Weight 102.273, kg, Start date: 03/20/15 15:00:00, Duration: 30 day, Stop date: 04/18/15 15:00:00Notes: (Same as: Lovenox) No Longer Active 03/20/2015 [facility] Solu-Medrol 40 mg, 1 mL, Route: IVP, Drug form: INJ, Q8H, Dosing Weight 102.273, kg, Priority: STAT, Start date: 03/20/15 14:48:00, Duration: 30 day, Stop date: 04/19/15 8:00:00Notes: (Same as:Solu-MEDROL, A-Met hapred) No Longer Active 03/20/2015 [facility] Ondansetron 4 mg, 2 mL, Route: IVP, Drug form: INJ, Q6H, Dosing Weight 102.273, kg, PRN Nausea & Vomiting, Start date: 03/20/15 14:46:00, Duration: 30 day, Stop date: 04/19/15 14:45:00Notes: (Same as: Belinda) MEDICATION WASTE Product Size: 4 mg Product Wasted: ___ mg No Longer Active 03/20/2015 [facility] Docusate 100 mg, 1 cap, Route: PO, Drug form: CAP, BID, Dosing Weight 102.273, kg, PRN Constipation, Start date: 03/20/15 14:46:00, Duration: 30 day, Stop date: 04/19/15 14:45:00Notes: (Same as: Colace) (Do Not Crush) No Longer Active 03/20/2015 [facility] Acetaminophen 650 mg, 2 tab, Route: PO, Drug form: TAB, Q4H, Dosing Weight 102.273, kg, PRN Pain 1-3/Temp > 100.4 F, Start date: 03/20/15 14:46:00, Duration: 30 day, Stop date: 04/19/15 14:45:00Notes: Do not exceed 4 gm/day. (Same as: Tylenol) No Longer Active 03/20/2015 [facility] Albuterol 0.833 MG/ML / Ipratropium [place] 0.167 MG/ML Inhalant Solution [DuoNeb] 3 ml, Route: NEB, Drug Form: SOLN, Dosing Weight 102.273, kg, PRN, PRN Respiratory Protocol, Start date: 03/20/15 9:45:00, Duration: 30 day, Stop date: 04/19/15 9:44:00 Inactive 03/20/2015 [facility] methylPREDNISolone SODium SUCCinate 125 mg, Route: IVP, ONCE, Dosing Weight 102.273, kg, Priority: STAT, Start date: 03/20/15 9:44:00, Stop date: 03/20/15 9:44:00 Inactive 03/20/2015 [facility] Saline Flush 0.9% 10 mL, Route: IVP, Drug Form: INJ, Dosing Weight 102.273, kg, PRN, PRN Line Flush, Start date: 03/20/15 9:44:00, Duration: 30 day, Stop date: 04/19/15 9:43:00Notes: (Same as: BD Posiflush) No Longer Active 03/20/2015 [facility] Flonase 1 spray in each nostril Nasally Active 50 MCG/DOSE Nasally as needed (prn) [place] 03/04/2015 [id number] Flonase 1 spray in each nostril Nasally Active 50 MCG/DOSE Nasally as needed (prn) [place] 03/04/2015 [id number] Omeprazole 1 capsule Orally No Longer Active 40 mg Orally Once a day [place] 03/04/2015 [id number] 200 ACTUAT Albuterol 0.09 MG/ACTUAT Metered Dose Inhaler [Proventil] 2 puff, INHALATION, QID, for wheezing, use with spacer chamber, # 25 gm, 0 Refill(s)Special Instructions: use with spacer chamber Active 06/26/2014 [facility] Aspirin 325 MG / butalbital 50 MG / Caffeine 40 MG Oral Capsule [Fiorinal] 2 cap, PO, Q6H, for pain, # 24 cap, 0 Refill(s) Active 06/26/2014 [facility] Azithromycin 250 MG Oral Tablet 250 mg=1 tab, PO, Daily, # 6 tab, 0 Refill(s) Active 06/26/2014 [facility] predniSONE 20 mg oral tablet 60 mg=3 tab, PO, Daily, Take 3 tablets for 60 mg dose, # 15 tab, 0 Refill(s)Special Instructions: Take 3 tablets for 60 mg dose Active 06/26/2014 [facility] Albuterol 0.833 MG/ML / Ipratropium [place] 0.167 MG/ML Inhalant Solution [DuoNeb] 3 ml, Route: INHALATION, Drug Form: SOLN, Dosing Weight 95.455, kg, PRN, PRN Respiratory Protocol, Start date: 06/25/14 15:57:00, Duration: 30 day, Stop date: 07/25/14 15:56:00Notes: (Same as: Duoneb) Inactive 06/25/2014 [facility] Sodium Chloride 0.154 MEQ/ML Injectable Solution 500 mL, 500 ml/hr, Infuse Over: 1 hr, Route: IV, 500, Drug form: INJ, ONCE, Priority: STAT, Dosing Weight 95.455 kg, Start date: 06/25/14 15:21:00, Duration: 1 doses or times, Stop date: 06/25/14 15:21:00 Inactive 06/25/2014 [facility] Benadryl 50 mg, 1 mL, Route: IVP, Drug form: INJ, ONCE, Dosing Weight 95.455, kg, Priority: STAT, Start date: 06/25/14 15:21:00, Stop date: 06/25/14 15:21:00Notes: (Same as: Benadryl) Inactive 06/25/2014 [facility] Reglan 5 mg, 1 mL, Route: IVP, Drug form: INJ, ONCE, Dosing Weight 95.455, kg, Priority: STAT, Start date: 06/25/14 15:20:00, Stop date: 06/25/14 15:20:00Notes: (Same as: Reglan) Inactive 06/25/2014 [facility] Tylenol 975 mg, 3 tab, Route: PO, Drug form: TAB, ONCE, Dosing Weight 95.455, kg, Priority: STAT, Start date: 06/25/14 15:19:00, Stop date: 06/25/14 15:19:00Notes: Do not exceed 4 gm/day. (Same as: Tylenol) Inactive 06/25/2014 [facility] Sodium Chloride 0.154 MEQ/ML Injectable Solution 1,000 mL, 1,000 ml/hr, Infuse Over: 1 hr, Route: IV, 1,000, Drug form: INJ, ONCE, Priority: STAT, Dosing Weight 95.455 kg, Start date: 06/25/14 15:19:00, Duration: 1 doses or times, Stop date: 06/25/14 15:19:00 Inactive 06/25/2014 [facility] Methylprednisolone 125 mg, 2 mL, Route: IVP, Drug form: INJ, ONCE, Dosing Weight 95.455, kg, Priority: STAT, Start date: 06/25/14 15:17:00, Stop date: 06/25/14 15:17:00Notes: (Same as:Solu-MEDROL, A-Methapred) Inactive 06/25/2014 [facility] Albuterol 0.833 MG/ML / Ipratropium [place] 0.167 MG/ML Inhalant Solution [DuoNeb] 6 mL, Route: INHALATION, Drug Form: SOLN, Dosing Weight 95.455, kg, PRN, PRN Respiratory Protocol, Start date: 06/25/14 15:17:00, Duration: 30 day, Stop date: 07/25/14 15:16:00Notes: (Same as: Duoneb) Inactive 06/25/2014 [facility] Saline Flush 0.9% 10 mL, Route: IVP, Drug Form: INJ, Dosing Weight 95.455, kg, PRN, PRN Line Flush, Start date: 06/25/14 14:55:00, Duration: 30 day, Stop date: 07/25/14 14:54:00Notes: Same as: BD Posiflush Sterile Inactive 06/25/2014 [facility] Zofran 4 mg, Route: IVP, Drug form: INJ, ONCE, Dosing Weight 100, kg, Priority: STAT, Start date: 02/12/14 20:08:00, Stop date: 02/12/14 20:08:00 Inactive 02/13/2014 [facility] omeprazole 40 mg oral delayed release capsule 40 mg=1 cap, PO, Daily, # 30 cap, 0 Refill(s) Active 02/13/2014 [facility] Sucralfate 1000 MG Oral Tablet [Carafate] 1 gm=1 tab, PO, QID-Before Meals, # 120 tab, 0 Refill(s) Active 02/13/2014 [facility] tramadol hydrochloride 50 MG Oral Tablet [Ultram] 50 mg=1 tab, PO, Q4H, pain, # 20 tab, 0 Refill(s) Active 02/13/2014 [facility] Ondansetron 4 MG Disintegrating Tablet [Zofran] 4 mg=1 tab, PO, BID, Nausea and Vomiting, Dissolve tab under tongue, # 10 tab, 0 Refill(s)Special Instructions: Dissolve tab under tongue Active 02/13/2014 [facility] GI cocktail 30 mL, Route: PO, Dosing Weight 100, kg, ONCE, STAT, Start date: 02/12/14 17:49:00, Stop date: 02/12/14 17:49:00 Inactive 02/12/2014 [facility] Zofran 4 mg, 2 mL, Route: IVP, Drug form: INJ, ONCE, Dosing Weight 100, kg, Priority: STAT, Start date: 02/12/14 17:18:00, Stop date: 02/12/14 17:18:00Notes: (Same as: Zofran) Inactive 02/12/2014 [facility] Morphine 4 mg, 2 mL, Route: IVP, Drug form: INJ, ONCE, Dosing Weight 100, kg, Priority: STAT, Start date: 02/12/14 17:18:00, Stop date: 02/12/14 17:18:00Notes: (Same as:MORPhine Sulfate) Inactive 02/12/2014 [facility] Sodium Chloride 0.154 MEQ/ML Injectable Solution 1,000 mL, 1,000 ml/hr, Infuse Over: 1 hr, Route: IV, 1,000, Drug form: INJ, ONCE, Priority: STAT, Dosing Weight 100 kg, Start date: 02/12/14 17:18:00, Duration: 1 doses or times, Stop date: 02/12/14 17:18:00 Inactive 02/12/2014 [facility] Claritin 1 tablet Orally Active 10 mg Orally Once a day [place] [id number] Seroquel 1 tablet at bedtime Orally Active 300 MG Orally Once a day [place] [id number] Prilosec 1 capsule Orally Active 20 MG Orally Once a day [place] [id number] Vitamin D (Ergocalciferol) 1 capsule Orally Active 68148 UNIT Orally weekly [place] [id number] Metoprolol Succinate ER 1 tablet Orally Active 25 MG Orally Once a day [place] [id number] Ibuprofen 1 tablet as needed Orally Active 200 MG Orally every 6 hrs [place] [id number] Effexor XR 1 capsule Orally Active 150 MG Orally twice a day (bid) [place] [id number] Zantac 1 tablet at bedtime Orally Active 150 MG Orally twice a day (bid) [place] [id number] Lorazepam 1 tablet as needed Orally Active 0.5 MG Orally Twice a day [place] [id number] ProAir HFA 2 puffs as needed Inhalation Active 108 (90 Base) MCG/ACT Inhalation every 4 hrs [place] [id number] Naprosyn 1 tablet as needed Orally Active 500 MG Orally every 12 hrs [place] [id number] Quetiapine Fumarate 1 tablet at bedtime Orally Active 50 MG Orally Once a day [place] [id number] Famotidine TAKE 1 TABLET BY MOUTH TWICE A DAY NA Active 20 MG [place] [id number] Stiolto Respimat not defined Inhalation Active 2.5-2.5 MCG/ACT Inhalation [place] [id number] Paroxetine HCl 1 tablet in the morning Orally Active 40 MG Orally Once a day [place] [id number] Venlafaxine HCl ER 1 capsule with food Orally Active 150 MG Orally Once a day [place] [id number] Flexeril TAKE 1 TABLET BY MOUTH NEEDED 3 TIMES A DAY NA Active 10 MG [place] [id number] Effexor XR 1 capsule Orally Active 150 MG Orally twice a day (bid) [place] [id number] ProAir HFA 2 puffs as needed Inhalation Active 108 (90 Base) MCG/ACT Inhalation every 4 hrs [place] [id number] Seroquel 1 tablet at bedtime Orally Active 300 MG Orally Once a day [place] [id number] Prilosec 1 capsule Orally Active 20 MG Orally Once a day [place] [id number] Ibuprofen 1 tablet as needed Orally Active 200 MG Orally every 6 hrs [place] [id number] Lorazepam 1 tablet as needed Orally Active 0.5 MG Orally Twice a day [place] [id number] Aspir-81 1 tablet Orally Active 81 MG Orally Once a day [place] [id number] Claritin 1 tablet Orally Active 10 mg Orally Once a day [place] [id number] Azelastine HCl USE 1 PUFF IN EACH NOSTRIL TWICE A DAY NA Active 0.1 % [place] .[id number] Lotrisone 1 application to affected area Externally Active 1- 0.05 % Externally Twice a day [place] [id number] ProAir HFA USE 1 TO 2 INHALATIONS BY MOUTH FOUR TIMES DAILY NEEDED FOR SHORTNESS OF BREATH NA Active 90 MCG/INH [place] .[id number] Albuterol Sulfate USE ONE VIAL VIA NEBULIZER FOUR TIMES DAILY NA Active 0.021% [place] [id number] Naprosyn 1 tablet with food or milk as needed Orally Active 500 mg Orally every 12 hrs [place] [id number] Metoprolol Succinate ER 1 tablet Orally Active 25 MG Orally Once a day [place] [id number] Zyrtec Allergy 1 tablet Orally Active 10 MG Orally Once a day [place] [id number] Prilosec 1 capsule Orally Active 40 MG Orally Once a day [place] [id number] Dicyclomine HCl 2 tablet Orally Active 20 mg Orally twice a day (bid) [place] [id number] Vitamin E 1 capsule Orally Active 400 UNIT Orally Once a day [place] [id number] Probiotic 1 capsule Orally Active - Orally Twice a day [place] [id number] Ipratropium [place] USE ONE VIAL VIA NEBULIZER FOUR TIMES DAILY NEEDED NA Active 0.02% [place] 1.606220.4391 Calcium + D3 1 tablet with a meal Orally Active 600-800 MG-UNIT Orally Once a day [place] [id number] Incruse Ellipta 1 puff Inhalation Active 62.5 MCG/INH Inhalation Once a day [place] [id number] One Daily 1 tablet Orally Active - Orally Once a day [place] [id number] NyQuil Cold & Flu 30 ml as needed Orally Active 15-6.25-325 MG/15ML Orally every 6 hrs [place] [id number] Vitamin C 1 tablet Orally Active 1000 mg Orally twice a day (bid) [place] [id number] Apple Cider Vinegar 1 tablet Orally Active 500 MG Orally daily [place] [id number] Vitamin B Complex not defined Orally Active - Orally [place] [id number] guaifenesin 400 mg Tab not defined NA Active [place] [id number]. Aspir-81 1 tablet Orally Active 81 MG Orally Once a day [place] [id number]. Pepcid 1 tablet Orally Active 20 mg Orally Once a day [place] [id number]. Claritin 1 tablet Orally Active 10 mg Orally Once a day [place] [id number]. Metoprolol Succinate ER 1 tablet Orally Active 25 MG Orally Once a day [place] .[id number]. Promethazine-DM 5 ml as needed Orally Active 6.25-15 MG/5ML Orally as needed (prn) [place] [id number]. Montelukast Sodium 1 tablet in the evening Orally Active 10 MG Orally Once a day [place] [id number]. Zantac 1 tablet Orally Active 150 MG Orally Twice a day [place] .[id number]. Allergies, Adverse Reactions, Alerts Substance Category Reaction Severity Reaction type Status Date Reported Comments Source codine Adverse Reaction Info Not Available Adverse Reaction Active 10/09/2015 [id number].. codeine Adverse Reaction hives Adverse Reaction Active 04/04/2018 [id number] Immunizations Immunization Date Given Site Status Last Updated Comments Source Kenalog 02/05/2016 completed [id number] influenza virus vaccine, inactivated 10/04/2015 Left deltoid completed Phil Brower [facility] pneumococcal 23-valent vaccine 03/21/2015 Left deltoid completed [facility] Results Order Name Results Value Reference Range Date Interpretation Comments Source CHEM PANEL Phosphorus 4.0 mg/dL 2.5 - 4.5 01/20/2016 [facility] CHEM PANEL Magnesium Lvl 2.2 mg/dL 1.8 - 2.4 01/20/2016 [facility] CHEM PANEL eGFR 74 mL/min/1.73m2 01/20/2016 Result Comment: The eGFR is calculated using the CKD-EPI formula. In most young, healthy individuals the eGFR will be >90 mL/min/1.73m2. The eGFR declines with age. An eGFR of 60-89 may be normal in some populations, particularly the elderly, for whom the CKD-EPI formula has not been extensively validated. Use of the eGFR is not recommended in the following populations: Individuals with unstable creatinine concentrations, including patients and those with serious co-morbid conditions. Patients with extremes in muscle mass or diet. The data above are obtained from the [employer] Kid[employer] Education Program (NKDEP) which additionally recommends that when the eGFR is used in patients with extremes of body mass index for purposes of drug dosing, the eGFR should be multiplied by the estimated BMI. [facility] CHEM PANEL AGAP 14.0 meq/L 10.0 - 20.0 01/20/2016 [facility] CHEM PANEL Calcium Lvl 9.5 mg/dL 8.5 - 10.5 01/20/2016 [facility] CHEM PANEL CO2 24 meq/L 24 - 32 01/20/2016 [facility] CHEM PANEL Glucose Lvl 146 mg/dL 70 - 99 01/20/2016 [facility] CHEM PANEL Sodium Lvl 137 meq/L 135 - 145 01/20/2016 [facility] CHEM PANEL Potassium Lvl 4.0 meq/L 3.5 - 5.1 01/20/2016 [facility] CHEM PANEL BUN 8 mg/dL 7 - 22 01/20/2016 [facility] CHEM PANEL Creatinine Lvl 0.90 mg/dL 0.50 - 1.40 01/20/2016 [facility] CHEM PANEL Chloride Lvl 103 meq/L 95 - 109 01/20/2016 [facility] HEMATOLOGY Lymphocytes # 2.0 K/CMM 1.0 - 5.5 01/20/2016 [facility] HEMATOLOGY Monocytes # 0.3 K/CMM 0.0 - 0.8 01/20/2016 [facility] HEMATOLOGY Eosinophils 0.3 % 0.0 - 4.0 01/20/2016 [facility] HEMATOLOGY Basophils 0.2 % 0.0 - 1.0 01/20/2016 [facility] HEMATOLOGY Segs-Bands # 10.5 K/CMM 1.5 - 8.1 01/20/2016 [facility] Monocytes 2.1 % 2.0 - 12.0 01/20/2016 [facility] Lymphocytes 15.8 % 20.0 - 40.0 01/20/2016 [facility] Segs 81.6 % 45.0 - 75.0 01/20/2016 [facility] RDW 14.0 % 11.5 - 14.5 01/20/2016 [facility] MPV 7.5 fL 7.4 - 10.4 01/20/2016 [facility] MCHC 31.8 g/dL 32.0 - 36.0 01/20/2016 [facility] Platelet 320 K/CMM 133 - 450 01/20/2016 [facility] WBC 12.9 K/CMM 3.7 - 10.4 01/20/2016 [facility] RBC 4.66 M/CMM 4.20 - 5.40 01/20/2016 [facility] MCV 87.2 fL 80.0 - 98.0 01/20/2016 [facility] Hct 40.6 % 36.0 - 48.0 01/20/2016 [facility] Hgb 12.9 g/dL 12.0 - 16.0 01/20/2016 [facility] MCH 27.7 pg 27.0 - 31.0 01/20/2016 [facility] PTT 32.7 s 22.9 - 35.8 01/20/2016 [facility] CARDIAC ENZYMES CK MB Index 1.3 0.0 - 2.5 01/19/2016 [facility] CARDIAC ENZYMES CK MB 1.3 ng/mL 0.5 - 3.6 01/19/2016 [facility] CARDIAC ENZYMES Total CK 101 unit/L 12 - 191 01/19/2016 [facility] CARDIAC ENZYMES Troponin-I null 0.00 - 0.40 01/19/2016 [facility] CHEM PANEL eGFR 97 mL/min/1.73m2 01/19/2016 Result Comment: The eGFR is calculated using the CKD-EPI formula. In most young, healthy individuals the eGFR will be >90 mL/min/1.73m2. The eGFR declines with age. An eGFR of 60-89 may be normal in some populations, particularly the elderly, for whom the CKD-EPI formula has not been extensively validated. Use of the eGFR is not recommended in the following populations: Individuals with unstable creatinine concentrations, including patients and those with serious co-morbid conditions. Patients with extremes in muscle mass or diet. The data above are obtained from the National Kidney Disease Education Program (NKDEP) which additionally recommends that when the eGFR is used in patients with extremes of body mass index for purposes of drug dosing, the eGFR should be multiplied by the estimated BMI. [facility] CHEM PANEL AGAP 12.6 meq/L 10.0 - 20.0 01/19/2016 [facility] CHEM PANEL Bili Total 0.4 mg/dL 0.2 - 1.3 01/19/2016 [facility] CHEM PANEL Alk Phos 134 unit/L 39 - 136 01/19/2016 [facility] CHEM PANEL AST 18 unit/L 0 - 37 01/19/2016 [facility] CHEM PANEL ALT 36 unit/L 0 - 65 01/19/2016 [facility] CHEM PANEL A/G Ratio 0.8 0.7 - 1.6 01/19/2016 [facility] CHEM PANEL Globulin 4.2 g/dL 2.0 - 4.0 01/19/2016 [facility] CHEM PANEL B/C Ratio 11 6 - 25 01/19/2016 [facility] CHEM PANEL Sodium Lvl 138 meq/L 135 - 145 01/19/2016 [facility] CHEM PANEL Potassium Lvl 3.6 meq/L 3.5 - 5.1 01/19/2016 [facility] CHEM PANEL Creatinine Lvl 0.73 mg/dL 0.50 - 1.40 01/19/2016 [facility] CHEM PANEL Albumin Lvl 3.5 g/dL 3.5 - 5.0 01/19/2016 [facility] CHEM PANEL Total Protein 7.7 g/dL 6.4 - 8.4 01/19/2016 [facility] CHEM PANEL Calcium Lvl 8.7 mg/dL 8.5 - 10.5 01/19/2016 [facility] CHEM PANEL CO2 28 meq/L 24 - 32 01/19/2016 [facility] CHEM PANEL Chloride Lvl 101 meq/L 95 - 109 01/19/2016 [facility] CHEM PANEL Glucose Lvl 77 mg/dL 70 - 99 01/19/2016 [facility] CHEM PANEL BUN 8 mg/dL 7 - 22 01/19/2016 [facility] HEMATOLOGY Basophils # 0.2 K/CMM 0.0 - 0.2 01/19/2016 [facility] HEMATOLOGY Monocytes # 0.8 K/CMM 0.0 - 0.8 01/19/2016 [facility] HEMATOLOGY Eosinophils # 0.3 K/CMM 0.0 - 0.5 01/19/2016 [facility] Lymphocytes # 5.5 K/CMM 1.0 - 5.5 01/19/2016 [facility] Basophils 1.4 % 0.0 - 1.0 01/19/2016 [facility] Monocytes 5.4 % 2.0 - 12.0 01/19/2016 [facility] Segs-Bands # 7.4 K/CMM 1.5 - 8.1 01/19/2016 [facility] Eosinophils 2.3 % 0.0 - 4.0 01/19/2016 [facility] Lymphocytes 38.5 % 20.0 - 40.0 01/19/2016 [facility] Segs 52.4 % 45.0 - 75.0 01/19/2016 [facility] MPV 7.7 fL 7.4 - 10.4 01/19/2016 [facility] Platelet 341 K/CMM 133 - 450 01/19/2016 [facility] RDW 13.9 % 11.5 - 14.5 01/19/2016 [facility] WBC 14.2 K/CMM 3.7 - 10.4 01/19/2016 [facility] RBC 4.56 M/CMM 4.20 - 5.40 01/19/2016 [facility] MCHC 32.8 g/dL 32.0 - 36.0 01/19/2016 [facility] MCH 28.1 pg 27.0 - 31.0 01/19/2016 [facility] MCV 85.9 fL 80.0 - 98.0 01/19/2016 [facility] Hct 39.2 % 36.0 - 48.0 01/19/2016 [facility] Hgb 12.8 g/dL 12.0 - 16.0 01/19/2016 [facility] Chest 2 views DX Chest 2 views DX Chest 2 views DX CLINICAL HISTORY: Cough and fever COMPARISON: none FINDINGS: LUNGS: Lungs are reasonably well inflated. No consolidation or any significant effusion. No pneumothorax is evident. Pulmonary vasculature is within normal limits. CARDIOMEDIASTINUM: Cardiomediastinal silhouette is within normal limits. OSSEOUS STRUCTURES: Mild thoracic spondylosis. SOFT TISSUES: No significant soft tissue abnormality is noted. IMPRESSION: No acute abnormality is noted in the chest. SL: [id number] 01/19/2016 - - Read by: Phill Alonso MD Dictated Date/time: 01/19/16 16:22 Electronically Signed by: Phill Alonso MD 01/19/16 16:23 FINAL REPORT [facility] CHEM PANEL eGFR 105 mL/min/1.73m2 10/06/2015 Result Comment: The eGFR is calculated using the CKD-EPI formula. In most young, healthy individuals the eGFR will be >90 mL/min/1.73m2. The eGFR declines with age. An eGFR of 60-89 may be normal in some populations, particularly the elderly, for whom the CKD-EPI formula has not been extensively validated. Use of the eGFR is not recommended in the following populations: Individuals with unstable creatinine concentrations, including patients and those with serious co-morbid conditions. Patients with extremes in muscle mass or diet. The data above are obtained from the National Kidney Disease Education Program (NKDEP) which additionally recommends that when the eGFR is used in patients with extremes of body mass index for purposes of drug dosing, the eGFR should be multiplied by the estimated BMI. [facility] CHEM PANEL BUN 14 mg/dL 7 - 22 10/06/2015 [facility] CHEM PANEL Glucose Lvl 130 mg/dL 70 - 99 10/06/2015 [facility] CHEM PANEL Potassium Lvl 3.9 meq/L 3.5 - 5.1 10/06/2015 [facility] CHEM PANEL Creatinine Lvl 0.65 mg/dL 0.50 - 1.40 10/06/2015 [facility] CHEM PANEL Chloride Lvl 103 meq/L 95 - 109 10/06/2015 [facility] CHEM PANEL Sodium Lvl 138 meq/L 135 - 145 10/06/2015 [facility] CHEM PANEL CO2 28 meq/L 24 - 32 10/06/2015 [facility] CHEM PANEL Calcium Lvl 8.3 mg/dL 8.5 - 10.5 10/06/2015 [facility] CHEM PANEL AGAP 10.9 meq/L 10.0 - 20.0 10/06/2015 [facility] HEMATOLOGY WBC 13.7 K/CMM 3.7 - 10.4 10/06/2015 [facility] HEMATOLOGY Hct 40.7 % 36.0 - 48.0 10/06/2015 [facility] HEMATOLOGY Hgb 12.9 g/dL 12.0 - 16.0 10/06/2015 [facility] HEMATOLOGY MCV 88.1 fL 80.0 - 98.0 10/06/2015 [facility] HEMATOLOGY RBC 4.62 M/CMM 4.20 - 5.40 10/06/2015 [facility] MCHC 31.7 g/dL 32.0 - 36.0 10/06/2015 [facility] Platelet 340 K/CMM 133 - 450 10/06/2015 [facility] RDW 14.0 % 11.5 - 14.5 10/06/2015 [facility] MPV 8.1 fL 7.4 - 10.4 10/06/2015 [facility] MCH 28.0 pg 27.0 - 31.0 10/06/2015 [facility] HEMATOLOGY Segs 81.4 % 45.0 - 75.0 10/06/2015 [facility] Monocytes # 0.4 K/CMM 0.0 - 0.8 10/06/2015 [facility] Segs-Bands # 11.2 K/CMM 1.5 - 8.1 10/06/2015 [facility] Lymphocytes 15.3 % 20.0 - 40.0 10/06/2015 [facility] Lymphocytes # 2.1 K/CMM 1.0 - 5.5 10/06/2015 [facility] Monocytes 3.2 % 2.0 - 12.0 10/06/2015 [facility] Basophils 0.1 % 0.0 - 1.0 10/06/2015 [facility] SPECIAL CHEMISTRY Hgb A1C 5.8 % <=5.6 % 10/06/2015 [facility] CHEM PANEL Magnesium Lvl 2.2 mg/dL 1.8 - 2.4 10/05/2015 [facility] CHEM PANEL Phosphorus 2.4 mg/dL 2.5 - 4.5 10/05/2015 [facility] CHEM PANEL eGFR 69 mL/min/1.73m2 10/04/2015 Result Comment: The eGFR is calculated using the CKD-EPI formula. In most young, healthy individuals the eGFR will be >90 mL/min/1.73m2. The eGFR declines with age. An eGFR of 60-89 may be normal in some populations, particularly the elderly, for whom the CKD-EPI formula has not been extensively validated. Use of the eGFR is not recommended in the following populations: Individuals with unstable creatinine concentrations, including patients and those with serious co-morbid conditions. Patients with extremes in muscle mass or diet. The data above are obtained from the National Kidney Disease Education Program (NKDEP) which additionally recommends that when the eGFR is used in patients with extremes of body mass index for purposes of drug dosing, the eGFR should be multiplied by the estimated BMI. [facility] CHEM PANEL AGAP 12.6 meq/L 10.0 - 20.0 10/04/2015 [facility] CHEM PANEL Calcium Lvl 9.1 mg/dL 8.5 - 10.5 10/04/2015 [facility] CHEM PANEL Glucose Lvl 226 mg/dL 70 - 99 10/04/2015 [facility] CHEM PANEL BUN 9 mg/dL 7 - 22 10/04/2015 [facility] CHEM PANEL Chloride Lvl 102 meq/L 95 - 109 10/04/2015 [facility] CHEM PANEL CO2 26 meq/L 24 - 32 10/04/2015 [facility] CHEM PANEL Potassium Lvl 3.6 meq/L 3.5 - 5.1 10/04/2015 [facility] CHEM PANEL Sodium Lvl 137 meq/L 135 - 145 10/04/2015 [facility] CHEM PANEL Creatinine Lvl 0.96 mg/dL 0.50 - 1.40 10/04/2015 [facility] Lymphocytes # 1.5 K/CMM 1.0 - 5.5 10/04/2015 [facility] Segs-Bands # 9.1 K/CMM 1.5 - 8.1 10/04/2015 [facility] Basophils 0.3 % 0.0 - 1.0 10/04/2015 [facility] Monocytes # 0.2 K/CMM 0.0 - 0.8 10/04/2015 [facility] Monocytes 1.7 % 2.0 - 12.0 10/04/2015 [facility] Segs 84.0 % 45.0 - 75.0 10/04/2015 [facility] Lymphocytes 14.0 % 20.0 - 40.0 10/04/2015 [facility] MCV 88.5 fL 80.0 - 98.0 10/04/2015 [facility] Hct 40.4 % 36.0 - 48.0 10/04/2015 [facility] Hgb 13.0 g/dL 12.0 - 16.0 10/04/2015 [facility] MCHC 32.3 g/dL 32.0 - 36.0 10/04/2015 [facility] MCH 28.6 pg 27.0 - 31.0 10/04/2015 [facility] RDW 13.9 % 11.5 - 14.5 10/04/2015 [facility] HEMATOLOGY MPV 8.1 fL 7.4 - 10.4 10/04/2015 [facility] HEMATOLOGY Platelet 333 K/CMM 133 - 450 10/04/2015 [facility] HEMATOLOGY RBC 4.56 M/CMM 4.20 - 5.40 10/04/2015 [facility] HEMATOLOGY WBC 10.8 K/CMM 3.7 - 10.4 10/04/2015 [facility] CARDIAC ENZYMES CK MB Index 1.1 0.0 - 2.5 10/03/2015 [facility] CARDIAC ENZYMES BNP 15 pg/mL <=100 pg/mL 10/03/2015 [facility] CARDIAC ENZYMES CK MB 1.2 ng/mL 0.5 - 3.6 10/03/2015 [facility] CARDIAC ENZYMES Total CK 111 unit/L 12 - 191 10/03/2015 [facility] CARDIAC ENZYMES Troponin-I null 0.00 - 0.40 10/03/2015 [facility] CHEM PANEL eGFR 107 mL/min/1.73m2 10/03/2015 Result Comment: The eGFR is calculated using the CKD-EPI formula. In most young, healthy individuals the eGFR will be >90 mL/min/1.73m2. The eGFR declines with age. An eGFR of 60-89 may be normal in some populations, particularly the elderly, for whom the CKD-EPI formula has not been extensively validated. Use of the eGFR is not recommended in the following populations: Individuals with unstable creatinine concentrations, including patients and those with serious co-morbid conditions. Patients with extremes in muscle mass or diet. The data above are obtained from the National Kidney Disease Education Program (NKDEP) which additionally recommends that when the eGFR is used in patients with extremes of body mass index for purposes of drug dosing, the eGFR should be multiplied by the estimated BMI. [facility] CHEM PANEL A/G Ratio 0.9 0.7 - 1.6 10/03/2015 [facility] CHEM PANEL Globulin 4.1 g/dL 2.0 - 4.0 10/03/2015 [facility] CHEM PANEL B/C Ratio 13 6 - 25 10/03/2015 [facility] CHEM PANEL Total Protein 7.7 g/dL 6.4 - 8.4 10/03/2015 [facility] CHEM PANEL Potassium Lvl 3.5 meq/L 3.5 - 5.1 10/03/2015 [facility] CHEM PANEL Glucose Lvl 107 mg/dL 70 - 99 10/03/2015 [facility] CHEM PANEL Creatinine Lvl 0.60 mg/dL 0.50 - 1.40 10/03/2015 [facility] CHEM PANEL BUN 8 mg/dL 7 - 22 10/03/2015 [facility] CHEM PANEL ALT 31 unit/L 0 - 65 10/03/2015 [facility] CHEM PANEL Albumin Lvl 3.6 g/dL 3.5 - 5.0 10/03/2015 [facility] CHEM PANEL Alk Phos 137 unit/L 39 - 136 10/03/2015 [facility] CHEM PANEL AST 23 unit/L 0 - 37 10/03/2015 [facility] CHEM PANEL AGAP 11.5 meq/L 10.0 - 20.0 10/03/2015 [facility] CHEM PANEL Bili Total 0.3 mg/dL 0.2 - 1.3 10/03/2015 [facility] CHEM PANEL Calcium Lvl 8.4 mg/dL 8.5 - 10.5 10/03/2015 [facility] CHEM PANEL Sodium Lvl 140 meq/L 135 - 145 10/03/2015 [facility] CHEM PANEL CO2 29 meq/L 24 - 32 10/03/2015 [facility] CHEM PANEL Chloride Lvl 103 meq/L 95 - 109 10/03/2015 [facility] HEMATOLOGY Eosinophils 7.8 % 0.0 - 4.0 10/03/2015 [facility] HEMATOLOGY Segs-Bands # 7.3 K/CMM 1.5 - 8.1 10/03/2015 [facility] HEMATOLOGY Basophils 0.7 % 0.0 - 1.0 10/03/2015 [facility] HEMATOLOGY Monocytes 5.1 % 2.0 - 12.0 10/03/2015 [facility] HEMATOLOGY Lymphocytes 34.9 % 20.0 - 40.0 10/03/2015 [facility] HEMATOLOGY Segs 51.5 % 45.0 - 75.0 10/03/2015 [facility] HEMATOLOGY Lymphocytes # 4.9 K/CMM 1.0 - 5.5 10/03/2015 [facility] HEMATOLOGY Basophils # 0.1 K/CMM 0.0 - 0.2 10/03/2015 [facility] HEMATOLOGY Eosinophils # 1.1 K/CMM 0.0 - 0.5 10/03/2015 [facility] HEMATOLOGY Monocytes # 0.7 K/CMM 0.0 - 0.8 10/03/2015 [facility] HEMATOLOGY Platelet 326 K/CMM 133 - 450 10/03/2015 [facility] HEMATOLOGY MPV 8.1 fL 7.4 - 10.4 10/03/2015 [facility] RBC 4.75 M/CMM 4.20 - 5.40 10/03/2015 [facility] Hgb 13.4 g/dL 12.0 - 16.0 10/03/2015 [facility] Hct 41.6 % 36.0 - 48.0 10/03/2015 [facility] WBC 14.0 K/CMM 3.7 - 10.4 10/03/2015 [facility] MCHC 32.3 g/dL 32.0 - 36.0 10/03/2015 [facility] MCV 87.5 fL 80.0 - 98.0 10/03/2015 [facility] MCH 28.3 pg 27.0 - 31.0 10/03/2015 [facility] RDW 14.1 % 11.5 - 14.5 10/03/2015 [facility] Chest Pulmonary Embolism CTA Chest Pulmonary Embolism CTA Clinical Indication: Shortness of Breath; Comparison: 03/30/2015 CONTRAST: 100 cc of IV Omnipaque contrast material was used for the exam. CT chest with IV contrast, attention pulmonary arteries. 3-D CTA post process reformatted imaging for CT pulmonary angiography. Findings: No CT or CTA evidence for pulmonary embolus. Lungs are clear. No pleural or pericardial effusion. No mediastinal or hilar mass or adenopathy. No thoracic aortic aneurysm or dissection. No acute thoracic osseous finding. Limited visualized upper abdomen demonstrates hepatic steatosis. IMPRESSION: No acute thoracic finding. Specifically no evidence for pulmonary embolus. SL: [id number] 10/03/2015 - - Read by: Yoandy Varela MD Dictated Date/time: 10/03/15 16:29 Electronically Signed by: Yoandy Varela MD 10/03/15 16:31 FINAL REPORT [facility] Chest 2 views DX Chest 2 views DX EXAM: Chest 2 views DX DATE: 10/03/2015 2:39 PM CDT INDICATION: Chest pain shortness of breath. COMPARISON: 06/03/2015 IMPRESSION: Stable cardiac silhouette and mediastinum. No focal consolidation, significant pleural effusion or pneumothorax. SL: [id number] 10/03/2015 - - Read by: Abhi Anderson MD Dictated Date/time: 10/03/15 15:44 Electronically Signed by: Abhi Anderson MD 10/03/15 15:45 FINAL REPORT [facility] CHEM PANEL Creatinine Lvl 0.76 mg/dL 0.50 - 1.40 06/05/2015 [facility] CHEM PANEL eGFR 92 mL/min/1.73m2 06/05/2015 Result Comment: The eGFR is calculated using the CKD-EPI formula. In most young, healthy individuals the eGFR will be >90 mL/min/1.73m2. The eGFR declines with age. An eGFR of 60-89 may be normal in some populations, particularly the elderly, for whom the CKD-EPI formula has not been extensively validated. Use of the eGFR is not recommended in the following populations: Individuals with unstable creatinine concentrations, including patients and those with serious co-morbid conditions. Patients with extremes in muscle mass or diet. The data above are obtained from the National Kidney Disease Education Program (NKDEP) which additionally recommends that when the eGFR is used in patients with extremes of body mass index for purposes of drug dosing, the eGFR should be multiplied by the estimated BMI. [facility] CHEM PANEL BUN 9 mg/dL 7 - 22 06/05/2015 [facility] CHEM PANEL Potassium Lvl 3.7 meq/L 3.5 - 5.1 06/05/2015 [facility] CHEM PANEL CO2 22 meq/L 24 - 32 06/05/2015 [facility] CHEM PANEL Chloride Lvl 109 meq/L 95 - 109 06/05/2015 [facility] CHEM PANEL Calcium Lvl 8.3 mg/dL 8.5 - 10.5 06/05/2015 [facility] CHEM PANEL Glucose Lvl 148 mg/dL 70 - 99 06/05/2015 [facility] CHEM PANEL Sodium Lvl 142 meq/L 135 - 145 06/05/2015 [facility] CHEM PANEL AGAP 14.7 meq/L 10.0 - 20.0 06/05/2015 [facility] HEMATOLOGY Segs-Bands # 12.2 K/CMM 1.5 - 8.1 06/05/2015 [facility] HEMATOLOGY Basophils 0.6 % 0.0 - 1.0 06/05/2015 [facility] HEMATOLOGY Monocytes 2.7 % 2.0 - 12.0 06/05/2015 [facility] HEMATOLOGY Basophils # 0.1 K/CMM 0.0 - 0.2 06/05/2015 [facility] HEMATOLOGY Monocytes # 0.4 K/CMM 0.0 - 0.8 06/05/2015 [facility] HEMATOLOGY Lymphocytes # 2.4 K/CMM 1.0 - 5.5 06/05/2015 [facility] HEMATOLOGY Lymphocytes 15.6 % 20.0 - 40.0 06/05/2015 [facility] HEMATOLOGY Segs 81.1 % 45.0 - 75.0 06/05/2015 [facility] HEMATOLOGY Plt Morph Normal (06/05/15 4:28 AM) 06/05/2015 [facility] RBC Morph Normal (06/05/15 4:28 AM) 06/05/2015 [facility] HEMATOLOGY RDW 13.6 % 11.5 - 14.5 06/05/2015 [facility] HEMATOLOGY MPV 8.6 fL 7.4 - 10.4 06/05/2015 [facility] MCHC 31.8 g/dL 32.0 - 36.0 06/05/2015 [facility] HEMATOLOGY Platelet 320 K/CMM 133 - 450 06/05/2015 [facility] Hgb 12.0 g/dL 12.0 - 16.0 06/05/2015 [facility] MCV 87.9 fL 80.0 - 98.0 06/05/2015 [facility] Hct 37.8 % 36.0 - 48.0 06/05/2015 [facility] MCH 27.9 pg 27.0 - 31.0 06/05/2015 [facility] WBC 15.1 K/CMM 3.7 - 10.4 06/05/2015 [facility] RBC 4.30 M/CMM 4.20 - 5.40 06/05/2015 [facility] CHEM PANEL Calcium Lvl 8.8 mg/dL 8.5 - 10.5 06/04/2015 [facility] CHEM PANEL CO2 28 meq/L 24 - 32 06/04/2015 [facility] CHEM PANEL Chloride Lvl 106 meq/L 95 - 109 06/04/2015 [facility] CHEM PANEL Potassium Lvl 4.2 meq/L 3.5 - 5.1 06/04/2015 [facility] CHEM PANEL Sodium Lvl 142 meq/L 135 - 145 06/04/2015 [facility] CHEM PANEL BUN 8 mg/dL 7 - 22 06/04/2015 [facility] CHEM PANEL Glucose Lvl 128 mg/dL 70 - 99 06/04/2015 [facility] CHEM PANEL Creatinine Lvl 0.80 mg/dL 0.50 - 1.40 06/04/2015 [facility] CHEM PANEL eGFR 86 mL/min/1.73m2 06/04/2015 Result Comment: The eGFR is calculated using the CKD-EPI formula. In most young, healthy individuals the eGFR will be >90 mL/min/1.73m2. The eGFR declines with age. An eGFR of 60-89 may be normal in some populations, particularly the elderly, for whom the CKD-EPI formula has not been extensively validated. Use of the eGFR is not recommended in the following populations: Individuals with unstable creatinine concentrations, including patients and those with serious co-morbid conditions. Patients with extremes in muscle mass or diet. The data above are obtained from the National Kidney Disease Education Program (NKDEP) which additionally recommends that when the eGFR is used in patients with extremes of body mass index for purposes of drug dosing, the eGFR should be multiplied by the estimated BMI. [facility] CHEM PANEL AGAP 12.2 meq/L 10.0 - 20.0 06/04/2015 [facility] CHEM PANEL Procalcitonin Lvl null 0.00 - 0.10 06/04/2015 [facility] CHEM PANEL Phosphorus 2.9 mg/dL 2.5 - 4.5 06/04/2015 [facility] CHEM PANEL Magnesium Lvl 2.3 mg/dL 1.8 - 2.4 06/04/2015 [facility] Segs-Bands # 8.6 K/CMM 1.5 - 8.1 06/04/2015 [facility] Monocytes # 0.2 K/CMM 0.0 - 0.8 06/04/2015 [facility] Lymphocytes # 2.2 K/CMM 1.0 - 5.5 06/04/2015 [facility] Basophils 0.4 % 0.0 - 1.0 06/04/2015 [facility] Monocytes 1.7 % 2.0 - 12.0 06/04/2015 [facility] Lymphocytes 19.9 % 20.0 - 40.0 06/04/2015 [facility] Segs 78.0 % 45.0 - 75.0 06/04/2015 [facility] MPV 8.0 fL 7.4 - 10.4 06/04/2015 [facility] RBC 4.61 M/CMM 4.20 - 5.40 06/04/2015 [facility] WBC 11.0 K/CMM 3.7 - 10.4 06/04/2015 [facility] MCHC 31.6 g/dL 32.0 - 36.0 06/04/2015 [facility] MCH 28.0 pg 27.0 - 31.0 06/04/2015 [facility] HEMATOLOGY Hct 40.8 % 36.0 - 48.0 06/04/2015 [facility] HEMATOLOGY RDW 13.5 % 11.5 - 14.5 06/04/2015 [facility] HEMATOLOGY Platelet 314 K/CMM 133 - 450 06/04/2015 [facility] HEMATOLOGY MCV 88.5 fL 80.0 - 98.0 06/04/2015 [facility] HEMATOLOGY Hgb 12.9 g/dL 12.0 - 16.0 06/04/2015 [facility] CARDIAC ENZYMES Troponin-I null 0.00 - 0.40 06/03/2015 [facility] CHEM PANEL eGFR 79 mL/min/1.73m2 06/03/2015 Result Comment: The eGFR is calculated using the CKD-EPI formula. In most young, healthy individuals the eGFR will be >90 mL/min/1.73m2. The eGFR declines with age. An eGFR of 60-89 may be normal in some populations, particularly the elderly, for whom the CKD-EPI formula has not been extensively validated. Use of the eGFR is not recommended in the following populations: Individuals with unstable creatinine concentrations, including patients and those with serious co-morbid conditions. Patients with extremes in muscle mass or diet. The data above are obtained from the National Kidney Disease Education Program (NKDEP) which additionally recommends that when the eGFR is used in patients with extremes of body mass index for purposes of drug dosing, the eGFR should be multiplied by the estimated BMI. [facility] CHEM PANEL AST 23 unit/L 0 - 37 06/03/2015 [facility] CHEM PANEL ALT 44 unit/L 0 - 65 06/03/2015 [facility] CHEM PANEL Alk Phos 132 unit/L 39 - 136 06/03/2015 [facility] CHEM PANEL Bili Total 0.3 mg/dL 0.2 - 1.3 06/03/2015 [facility] CHEM PANEL AGAP 10.5 meq/L 10.0 - 20.0 06/03/2015 [facility] CHEM PANEL Calcium Lvl 8.8 mg/dL 8.5 - 10.5 06/03/2015 [facility] CHEM PANEL Globulin 3.5 g/dL 2.0 - 4.0 06/03/2015 [facility] CHEM PANEL A/G Ratio 1.0 0.7 - 1.6 06/03/2015 [facility] CHEM PANEL Albumin Lvl 3.6 g/dL 3.5 - 5.0 06/03/2015 [facility] CHEM PANEL Total Protein 7.1 g/dL 6.4 - 8.4 06/03/2015 [facility] CHEM PANEL B/C Ratio 12 6 - 25 06/03/2015 [facility] CHEM PANEL CO2 29 meq/L 24 - 32 06/03/2015 [facility] CHEM PANEL Chloride Lvl 103 meq/L 95 - 109 06/03/2015 [facility] CHEM PANEL Potassium Lvl 3.5 meq/L 3.5 - 5.1 06/03/2015 [facility] CHEM PANEL Creatinine Lvl 0.86 mg/dL 0.50 - 1.40 06/03/2015 [facility] CHEM PANEL Sodium Lvl 139 meq/L 135 - 145 06/03/2015 [facility] CHEM PANEL BUN 10 mg/dL 7 - 22 06/03/2015 [facility] CHEM PANEL Glucose Lvl 117 mg/dL 70 - 99 06/03/2015 [facility] HEMATOLOGY WBC 12.6 K/CMM 3.7 - 10.4 06/03/2015 [facility] HEMATOLOGY RDW 13.3 % 11.5 - 14.5 06/03/2015 [facility] HEMATOLOGY MPV 7.7 fL 7.4 - 10.4 06/03/2015 [facility] HEMATOLOGY Platelet 305 K/CMM 133 - 450 06/03/2015 [facility] HEMATOLOGY MCHC 32.8 g/dL 32.0 - 36.0 06/03/2015 [facility] HEMATOLOGY Hct 38.4 % 36.0 - 48.0 06/03/2015 [facility] HEMATOLOGY MCV 88.1 fL 80.0 - 98.0 06/03/2015 [facility] HEMATOLOGY MCH 28.9 pg 27.0 - 31.0 06/03/2015 [facility] HEMATOLOGY Hgb 12.6 g/dL 12.0 - 16.0 06/03/2015 [facility] HEMATOLOGY RBC 4.36 M/CMM 4.20 - 5.40 06/03/2015 [facility] HEMATOLOGY Basophils # 0.1 K/CMM 0.0 - 0.2 06/03/2015 [facility] HEMATOLOGY Eosinophils # 0.5 K/CMM 0.0 - 0.5 06/03/2015 [facility] HEMATOLOGY Monocytes # 0.7 K/CMM 0.0 - 0.8 06/03/2015 [facility] HEMATOLOGY Lymphocytes 35.8 % 20.0 - 40.0 06/03/2015 [facility] HEMATOLOGY Segs 54.5 % 45.0 - 75.0 06/03/2015 [facility] HEMATOLOGY Lymphocytes # 4.5 K/CMM 1.0 - 5.5 06/03/2015 [facility] HEMATOLOGY Basophils 0.5 % 0.0 - 1.0 06/03/2015 [facility] HEMATOLOGY Monocytes 5.4 % 2.0 - 12.0 06/03/2015 [facility] HEMATOLOGY Segs-Bands # 6.9 K/CMM 1.5 - 8.1 06/03/2015 [facility] HEMATOLOGY Eosinophils 3.8 % 0.0 - 4.0 06/03/2015 [facility] Chest 2 views DX Chest 2 views DX Examination: Chest x-ray, 2 views History: Coughing Comparison: 05/06/2015 Findings: The lungs are clear and without focal consolidation. The cardiomediastinal silhouette is within normal limits. No pleural effusion or pneumothorax is seen. The osseous structures are without focal abnormality. IMPRESSION: No acute cardiopulmonary disease. SL: 16 06/03/2015 - - Read by: Adama Hernandez MD Dictated Date/time: 06/03/15 14:57 Electronically Signed by: Adama Hernandez MD 06/03/15 14:57 FINAL REPORT [facility] ELECTROLYTES Sodium Lvl 141 meq/L 135 - 145 05/08/2015 [facility] ELECTROLYTES Potassium Lvl 3.8 meq/L 3.5 - 5.1 05/08/2015 [facility] ELECTROLYTES Chloride Lvl 104 meq/L 95 - 109 05/08/2015 [facility] ELECTROLYTES eGFR 75 mL/min/1.73m2 05/08/2015 Result Comment: The eGFR is calculated using the CKD-EPI formula. In most young, healthy individuals the eGFR will be >90 mL/min/1.73m2. The eGFR declines with age. An eGFR of 60-89 may be normal in some populations, particularly the elderly, for whom the CKD-EPI formula has not been extensively validated. Use of the eGFR is not recommended in the following populations: Individuals with unstable creatinine concentrations, including patients and those with serious co-morbid conditions. Patients with extremes in muscle mass or diet. The data above are obtained from the National Kidney Disease Education Program (NKDEP) which additionally recommends that when the eGFR is used in patients with extremes of body mass index for purposes of drug dosing, the eGFR should be multiplied by the estimated BMI. [facility] ELECTROLYTES Creatinine Lvl 0.9 mg/dL 0.5 - 1.4 05/08/2015 [facility] ELECTROLYTES CO2 26 meq/L 24 - 32 05/08/2015 [facility] ELECTROLYTES BUN 10 mg/dL 7 - 22 05/08/2015 [facility] ELECTROLYTES Calcium Lvl 8.7 mg/dL 8.5 - 10.5 05/08/2015 [facility] ELECTROLYTES Glucose Lvl 160 mg/dL 70 - 99 05/08/2015 [facility] ELECTROLYTES AGAP 14.8 meq/L 10.0 - 20.0 05/08/2015 [facility] HEMATOLOGY Hgb 12.5 g/dL 12.0 - 16.0 05/08/2015 [facility] HEMATOLOGY RBC 4.46 M/CMM 4.20 - 5.40 05/08/2015 [facility] HEMATOLOGY MCV 89.0 fL 80.0 - 98.0 05/08/2015 [facility] HEMATOLOGY Hct 39.7 % 36.0 - 48.0 05/08/2015 [facility] HEMATOLOGY MCH 28.1 pg 27.0 - 31.0 05/08/2015 [facility] HEMATOLOGY WBC 16.9 K/CMM 3.7 - 10.4 05/08/2015 [facility] HEMATOLOGY MPV 8.4 fL 7.4 - 10.4 05/08/2015 [facility] HEMATOLOGY Platelet 317 K/CMM 133 - 450 05/08/2015 [facility] HEMATOLOGY MCHC 31.5 g/dL 32.0 - 36.0 05/08/2015 [facility] HEMATOLOGY RDW 13.3 % 11.5 - 14.5 05/08/2015 [facility] HEMATOLOGY Segs 80.8 % 45.0 - 75.0 05/08/2015 [facility] HEMATOLOGY Basophils 0.1 % 0.0 - 1.0 05/08/2015 [facility] HEMATOLOGY Lymphocytes 14.4 % 20.0 - 40.0 05/08/2015 [facility] HEMATOLOGY Monocytes 4.7 % 2.0 - 12.0 05/08/2015 [facility] HEMATOLOGY Segs-Bands # 13.7 K/CMM 1.5 - 8.1 05/08/2015 [facility] HEMATOLOGY Lymphocytes # 2.4 K/CMM 1.0 - 5.5 05/08/2015 [facility] HEMATOLOGY Monocytes # 0.8 K/CMM 0.0 - 0.8 05/08/2015 [facility] CHEM PANEL Glucose Lvl 173 mg/dL 70 - 99 05/07/2015 [facility] CHEM PANEL eGFR 75 mL/min/1.73m2 05/07/2015 Result Comment: The eGFR is calculated using the CKD-EPI formula. In most young, healthy individuals the eGFR will be >90 mL/min/1.73m2. The eGFR declines with age. An eGFR of 60-89 may be normal in some populations, particularly the elderly, for whom the CKD-EPI formula has not been extensively validated. Use of the eGFR is not recommended in the following populations: Individuals with unstable creatinine concentrations, including patients and those with serious co-morbid conditions. Patients with extremes in muscle mass or diet. The data above are obtained from the National Kidney Disease Education Program (NKDEP) which additionally recommends that when the eGFR is used in patients with extremes of body mass index for purposes of drug dosing, the eGFR should be multiplied by the estimated BMI. [facility] CHEM PANEL Calcium Lvl 9.3 mg/dL 8.5 - 10.5 05/07/2015 [facility] CHEM PANEL Sodium Lvl 140 meq/L 135 - 145 05/07/2015 [facility] CHEM PANEL Potassium Lvl 4.2 meq/L 3.5 - 5.1 05/07/2015 [facility] CHEM PANEL CO2 22 meq/L 24 - 32 05/07/2015 [facility] CHEM PANEL Chloride Lvl 105 meq/L 95 - 109 05/07/2015 [facility] CHEM PANEL Creatinine Lvl 0.9 mg/dL 0.5 - 1.4 05/07/2015 [facility] CHEM PANEL BUN 9 mg/dL 7 - 22 05/07/2015 [facility] CHEM PANEL AGAP 17.2 meq/L 10.0 - 20.0 05/07/2015 [facility] CHEM PANEL Phosphorus 2.7 mg/dL 2.5 - 4.5 05/07/2015 [facility] CHEM PANEL Magnesium Lvl 1.8 mg/dL 1.8 - 2.4 05/07/2015 [facility] HEMATOLOGY Hct 38.9 % 36.0 - 48.0 05/07/2015 [facility] HEMATOLOGY MCH 28.7 pg 27.0 - 31.0 05/07/2015 [facility] HEMATOLOGY MCHC 32.3 g/dL 32.0 - 36.0 05/07/2015 [facility] HEMATOLOGY MCV 88.9 fL 80.0 - 98.0 05/07/2015 [facility] HEMATOLOGY RDW 13.6 % 11.5 - 14.5 05/07/2015 [facility] HEMATOLOGY Platelet 283 K/CMM 133 - 450 05/07/2015 [facility] MPV 8.5 fL 7.4 - 10.4 05/07/2015 [facility] WBC 10.1 K/CMM 3.7 - 10.4 05/07/2015 [facility] RBC 4.37 M/CMM 4.20 - 5.40 05/07/2015 [facility] Hgb 12.5 g/dL 12.0 - 16.0 05/07/2015 [facility] HEMATOLOGY Lymphocytes # 1.7 K/CMM 1.0 - 5.5 05/07/2015 [facility] HEMATOLOGY Monocytes # 0.3 K/CMM 0.0 - 0.8 05/07/2015 [facility] HEMATOLOGY Basophils 0.3 % 0.0 - 1.0 05/07/2015 [facility] Segs-Bands # 8.2 K/CMM 1.5 - 8.1 05/07/2015 [facility] Segs 80.8 % 45.0 - 75.0 05/07/2015 [facility] Lymphocytes 16.4 % 20.0 - 40.0 05/07/2015 [facility] Monocytes 2.5 % 2.0 - 12.0 05/07/2015 [facility] CHEM PANEL eGFR 87 mL/min/1.73m2 05/06/2015 Result Comment: The eGFR is calculated using the CKD-EPI formula. In most young, healthy individuals the eGFR will be >90 mL/min/1.73m2. The eGFR declines with age. An eGFR of 60-89 may be normal in some populations, particularly the elderly, for whom the CKD-EPI formula has not been extensively validated. Use of the eGFR is not recommended in the following populations: Individuals with unstable creatinine concentrations, including patients and those with serious co-morbid conditions. Patients with extremes in muscle mass or diet. The data above are obtained from the National Kidney Disease Education Program (NKDEP) which additionally recommends that when the eGFR is used in patients with extremes of body mass index for purposes of drug dosing, the eGFR should be multiplied by the estimated BMI. [facility] CHEM PANEL Potassium Lvl 3.8 meq/L 3.5 - 5.1 05/06/2015 [facility] CHEM PANEL Sodium Lvl 141 meq/L 135 - 145 05/06/2015 [facility] CHEM PANEL Calcium Lvl 8.8 mg/dL 8.5 - 10.5 05/06/2015 [facility] CHEM PANEL BUN 10 mg/dL 7 - 22 05/06/2015 [facility] CHEM PANEL Glucose Lvl 99 mg/dL 70 - 99 05/06/2015 [facility] CHEM PANEL Creatinine Lvl 0.8 mg/dL 0.5 - 1.4 05/06/2015 [facility] CHEM PANEL AGAP 12.8 meq/L 10.0 - 20.0 05/06/2015 [facility] CHEM PANEL CO2 28 meq/L 24 - 32 05/06/2015 [facility] CHEM PANEL Chloride Lvl 104 meq/L 95 - 109 05/06/2015 [facility] HEMATOLOGY Eosinophils # 0.8 K/CMM 0.0 - 0.5 05/06/2015 [facility] HEMATOLOGY Monocytes # 0.8 K/CMM 0.0 - 0.8 05/06/2015 [facility] HEMATOLOGY Basophils 0.2 % 0.0 - 1.0 05/06/2015 [facility] HEMATOLOGY Segs-Bands # 6.6 K/CMM 1.5 - 8.1 05/06/2015 [facility] HEMATOLOGY Eosinophils 6.2 % 0.0 - 4.0 05/06/2015 [facility] HEMATOLOGY Monocytes 6.2 % 2.0 - 12.0 05/06/2015 [facility] HEMATOLOGY Lymphocytes # 4.9 K/CMM 1.0 - 5.5 05/06/2015 [facility] HEMATOLOGY Lymphocytes 37.1 % 20.0 - 40.0 05/06/2015 [facility] HEMATOLOGY Segs 50.3 % 45.0 - 75.0 05/06/2015 [facility] HEMATOLOGY MPV 8.7 fL 7.4 - 10.4 05/06/2015 [facility] HEMATOLOGY Platelet 331 K/CMM 133 - 450 05/06/2015 [facility] HEMATOLOGY RDW 13.5 % 11.5 - 14.5 05/06/2015 [facility] HEMATOLOGY MCV 88.6 fL 80.0 - 98.0 05/06/2015 [facility] HEMATOLOGY MCH 28.6 pg 27.0 - 31.0 05/06/2015 [facility] HEMATOLOGY WBC 13.1 K/CMM 3.7 - 10.4 05/06/2015 [facility] HEMATOLOGY Hct 40.8 % 36.0 - 48.0 05/06/2015 [facility] HEMATOLOGY RBC 4.61 M/CMM 4.20 - 5.40 05/06/2015 [facility] HEMATOLOGY MCHC 32.3 g/dL 32.0 - 36.0 05/06/2015 [facility] HEMATOLOGY Hgb 13.2 g/dL 12.0 - 16.0 05/06/2015 [facility] Chest 1view DX Chest 1view DX CHEST, AP INDICATION: Chest pain, cough, shortness of breath. Comparison chest 04/15/2015 The heart, mediastinum, lungs, pleural spaces and visualized skeleton are not remarkable. IMPRESSION: Negative chest. SL: 12 05/06/2015 - - Read by: Davide Maldonado MD Dictated Date/time: 05/06/15 18:55 Electronically Signed by: Davide Maldonado MD 05/06/15 18:55 FINAL REPORT [facility] Chest 1view DX Chest 1view DX Examination: Chest x-ray, single view History: Syncope Comparison: 03/30/2015 Findings: The lungs are clear and without focal consolidation. The cardiomediastinal silhouette is within normal limits. No pleural effusion or pneumothorax is seen. The osseous structures are without focal abnormality. IMPRESSION: No acute cardiopulmonary disease. SL: 16 04/15/2015 - - Read by: Adama Hernandez MD Dictated Date/time: 04/15/15 10:13 Electronically Signed by: Adama Hernandez MD 04/15/15 10:13 FINAL REPORT [facility] Brain wo contrast CT Brain wo contrast CT HISTORY: Syncope with head trauma and scalp laceration. Brain CT without contrast. No acute intracranial lesion or hemorrhage, infarct, mass or pathologic extra- axial fluid. No skull fracture is evident. 18 mm partially calcified nodule in the right parietal scalp. No underlying bony changes. IMPRESSION: No acute intracranial finding. SL:13 04/15/2015 - - Read by: Yoandy Varela MD Dictated Date/time: 04/15/15 10:03 Electronically Signed by: Yoandy Varela MD 04/15/15 10:05 FINAL REPORT [facility] ELECTROLYTES AGAP 13.8 meq/L 10.0 - 20.0 04/01/2015 [facility] ELECTROLYTES Calcium Lvl 9.1 mg/dL 8.5 - 10.5 04/01/2015 [facility] ELECTROLYTES eGFR 66 mL/min/1.73m2 04/01/2015 Result Comment: The eGFR is calculated using the CKD-EPI formula. In most young, healthy individuals the eGFR will be >90 mL/min/1.73m2. The eGFR declines with age. An eGFR of 60-89 may be normal in some populations, particularly the elderly, for whom the CKD-EPI formula has not been extensively validated. Use of the eGFR is not recommended in the following populations: Individuals with unstable creatinine concentrations, including patients and those with serious co-morbid conditions. Patients with extremes in muscle mass or diet. The data above are obtained from the National Kidney Disease Education Program (NKDEP) which additionally recommends that when the eGFR is used in patients with extremes of body mass index for purposes of drug dosing, the eGFR should be multiplied by the estimated BMI. [facility] ELECTROLYTES Creatinine Lvl 1.0 mg/dL 0.5 - 1.4 04/01/2015 [facility] ELECTROLYTES CO2 27 meq/L 24 - 32 04/01/2015 [facility] ELECTROLYTES Glucose Lvl 221 mg/dL 70 - 99 04/01/2015 [facility] ELECTROLYTES BUN 14 mg/dL 7 - 22 04/01/2015 [facility] ELECTROLYTES Sodium Lvl 139 meq/L 135 - 145 04/01/2015 [facility] ELECTROLYTES Potassium Lvl 3.8 meq/L 3.5 - 5.1 04/01/2015 [facility] ELECTROLYTES Chloride Lvl 102 meq/L 95 - 109 04/01/2015 [facility] Basophils 0.2 % 0.0 - 1.0 04/01/2015 [facility] Monocytes # 0.4 K/CMM 0.0 - 0.8 04/01/2015 [facility] Lymphocytes # 2.8 K/CMM 1.0 - 5.5 04/01/2015 [facility] Segs-Bands # 18.0 K/CMM 1.5 - 8.1 04/01/2015 [facility] Segs 84.5 % 45.0 - 75.0 04/01/2015 [facility] Monocytes 1.9 % 2.0 - 12.0 04/01/2015 [facility] Lymphocytes 13.4 % 20.0 - 40.0 04/01/2015 [facility] MPV 7.9 fL 7.4 - 10.4 04/01/2015 [facility] RDW 14.3 % 11.5 - 14.5 04/01/2015 [facility] MCHC 31.7 g/dL 32.0 - 36.0 04/01/2015 [facility] MCH 28.6 pg 27.0 - 31.0 04/01/2015 [facility] HEMATOLOGY Platelet 349 K/CMM 133 - 450 04/01/2015 [facility] Hct 40.1 % 36.0 - 48.0 04/01/2015 [facility] Hgb 12.7 g/dL 12.0 - 16.0 04/01/2015 [facility] RBC 4.44 M/CMM 4.20 - 5.40 04/01/2015 [facility] HEMATOLOGY WBC 21.2 K/CMM 3.7 - 10.4 04/01/2015 [facility] MCV 90.2 fL 80.0 - 98.0 04/01/2015 [facility] CHEM PANEL eGFR 75 mL/min/1.73m2 03/31/2015 Result Comment: The eGFR is calculated using the CKD-EPI formula. In most young, healthy individuals the eGFR will be >90 mL/min/1.73m2. The eGFR declines with age. An eGFR of 60-89 may be normal in some populations, particularly the elderly, for whom the CKD-EPI formula has not been extensively validated. Use of the eGFR is not recommended in the following populations: Individuals with unstable creatinine concentrations, including patients and those with serious co-morbid conditions. Patients with extremes in muscle mass or diet. The data above are obtained from the National Kidney Disease Education Program (NKDEP) which additionally recommends that when the eGFR is used in patients with extremes of body mass index for purposes of drug dosing, the eGFR should be multiplied by the estimated BMI. [facility] CHEM PANEL Creatinine Lvl 0.9 mg/dL 0.5 - 1.4 03/31/2015 [facility] CHEM PANEL Glucose Lvl 135 mg/dL 70 - 99 03/31/2015 [facility] CHEM PANEL Calcium Lvl 9.4 mg/dL 8.5 - 10.5 03/31/2015 [facility] CHEM PANEL Chloride Lvl 102 meq/L 95 - 109 03/31/2015 [facility] CHEM PANEL Sodium Lvl 140 meq/L 135 - 145 03/31/2015 [facility] CHEM PANEL Potassium Lvl 4.2 meq/L 3.5 - 5.1 03/31/2015 [facility] CHEM PANEL BUN 8 mg/dL 7 - 22 03/31/2015 [facility] CHEM PANEL CO2 27 meq/L 24 - 32 03/31/2015 [facility] CHEM PANEL AGAP 15.2 meq/L 10.0 - 20.0 03/31/2015 [facility] HEMATOLOGY RDW 14.3 % 11.5 - 14.5 03/31/2015 [facility] Platelet 334 K/CMM 133 - 450 03/31/2015 [facility] MPV 7.4 fL 7.4 - 10.4 03/31/2015 [facility] MCHC 32.5 g/dL 32.0 - 36.0 03/31/2015 [facility] MCH 28.7 pg 27.0 - 31.0 03/31/2015 [facility] MCV 88.4 fL 80.0 - 98.0 03/31/2015 [facility] RBC 4.32 M/CMM 4.20 - 5.40 03/31/2015 [facility] Hct 38.2 % 36.0 - 48.0 03/31/2015 [facility] WBC 14.7 K/CMM 3.7 - 10.4 03/31/2015 [facility] Hgb 12.4 g/dL 12.0 - 16.0 03/31/2015 [facility] HEMATOLOGY Basophils # 0.2 K/CMM 0.0 - 0.2 03/31/2015 [facility] HEMATOLOGY Monocytes # 0.4 K/CMM 0.0 - 0.8 03/31/2015 [facility] Lymphocytes # 2.4 K/CMM 1.0 - 5.5 03/31/2015 [facility] HEMATOLOGY Eosinophils 0.1 % 0.0 - 4.0 03/31/2015 [facility] Lymphocytes 16.7 % 20.0 - 40.0 03/31/2015 [facility] Basophils 1.3 % 0.0 - 1.0 03/31/2015 [facility] Monocytes 2.8 % 2.0 - 12.0 03/31/2015 [facility] HEMATOLOGY Segs 79.1 % 45.0 - 75.0 03/31/2015 [facility] HEMATOLOGY Segs-Bands # 11.6 K/CMM 1.5 - 8.1 03/31/2015 [facility] THYROID PANEL TSH 0.386 uIU/mL 0.360 - 3.740 03/31/2015 [facility] Chest Pulmonary Embolism CTA Chest Pulmonary Embolism CTA CT scan of the chest with contrast, CTA: Exam reason: See Clinic indication shortness of Breath Multiple computerized axial tomograms of the chest were obtained during contrast administration with the [id number] centered on the pulmonary arterial tree. Sagittal and coronal 2-D reconstruction images were obtained. 3-D volume rendering reconstruction images were obtained. There is no pulmonary embolus noted. The caliber of the thoracic aorta is normal. There is no thoracic aortic dissection. Physiologic motion is present at the mediastinum. IMPRESSION: No pulmonary embolus noted. CT scan of the chest with contrast: Exam reason: See Clinic indication shortness of Breath Multiple computerized axial tomograms of the chest were obtained during contrast administration. Cervicothoracic kyphosis and spondylosis. There is no thoracic aortic aneurysm or dissection. The central tracheobronchial tree an is grossly normal. There is air noted within the esophageal lumen which may indicate esophageal dysmotility. Correlation with outpatient esophagography is suggested. Linear opacities are noted at the lung bases bilaterally which could represent scarring or plate atelectasis. Patchy groundglass opacity at the lungs is noted bilaterally predominating at the upper lung salguero which could represent volume loss from small airway disease, scarring or pneumonitis.There is no acute pulmonary parenchymal consolidative opacity or pleural fluid collection. The heart is mildly enlarged without pericardial fluid collection. There is no mediastinal or hilar adenopathy noted. Schmorls node deformities are noted at several mid to upper thoracic vertebrae at the superior endplate. Incidental images of the upper abdomen demonstrate diffuse fatty infiltration of the liver. IMPRESSION: 1. Patchy groundglass opacity at the lungs is noted bilaterally predominating at the upper lung salguero which could represent volume loss from small airway disease, scarring or pneumonitis. 2.Linear opacities are noted at the lung bases bilaterally which could represent scarring or plate atelectasis. 3. Mild cardiomegaly. 4. Diffuse fatty infiltration of the liver. SL:12 03/30/2015 - - Read by: Mikel Mena MD Dictated Date/time: 03/30/15 19:34 Electronically Signed by: Mikel Mena MD 03/30/15 19:42 FINAL REPORT [facility] CARDIAC ENZYMES CK MB Index null 0.0 - 2.5 03/30/2015 [facility] CARDIAC ENZYMES Troponin-I null 0.00 - 0.40 03/30/2015 [facility] CARDIAC ENZYMES Total CK 42 unit/L 12 - 191 03/30/2015 [facility] CARDIAC ENZYMES CK MB null 0.5 - 3.6 03/30/2015 [facility] CARDIAC ENZYMES BNP 6 pg/mL <=100 pg/mL 03/30/2015 [facility] CHEM PANEL Phosphorus 3.5 mg/dL 2.5 - 4.5 03/30/2015 [facility] CHEM PANEL Magnesium Lvl 2.2 mg/dL 1.8 - 2.4 03/30/2015 [facility] CHEM PANEL Glucose Lvl 96 mg/dL 70 - 99 03/30/2015 [facility] CHEM PANEL CO2 27 meq/L 24 - 32 03/30/2015 [facility] CHEM PANEL AGAP 13.9 meq/L 10.0 - 20.0 03/30/2015 [facility] CHEM PANEL eGFR 75 mL/min/1.73m2 03/30/2015 Result Comment: The eGFR is calculated using the CKD-EPI formula. In most young, healthy individuals the eGFR will be >90 mL/min/1.73m2. The eGFR declines with age. An eGFR of 60-89 may be normal in some populations, particularly the elderly, for whom the CKD-EPI formula has not been extensively validated. Use of the eGFR is not recommended in the following populations: Individuals with unstable creatinine concentrations, including patients and those with serious co-morbid conditions. Patients with extremes in muscle mass or diet. The data above are obtained from the National Kidney Disease Education Program (NKDEP) which additionally recommends that when the eGFR is used in patients with extremes of body mass index for purposes of drug dosing, the eGFR should be multiplied by the estimated BMI. [facility] CHEM PANEL Creatinine Lvl 0.9 mg/dL 0.5 - 1.4 03/30/2015 [facility] CHEM PANEL Calcium Lvl 9.0 mg/dL 8.5 - 10.5 03/30/2015 [facility] CHEM PANEL Sodium Lvl 139 meq/L 135 - 145 03/30/2015 [facility] CHEM PANEL Potassium Lvl 3.9 meq/L 3.5 - 5.1 03/30/2015 [facility] CHEM PANEL Chloride Lvl 102 meq/L 95 - 109 03/30/2015 [facility] CHEM PANEL BUN 10 mg/dL 7 - 22 03/30/2015 [facility] HEMATOLOGY Eosinophils 3.5 % 0.0 - 4.0 03/30/2015 [facility] HEMATOLOGY Monocytes 9.0 % 2.0 - 12.0 03/30/2015 [facility] HEMATOLOGY Lymphocytes 42.0 % 20.0 - 40.0 03/30/2015 [facility] HEMATOLOGY Segs 45.1 % 45.0 - 75.0 03/30/2015 [facility] HEMATOLOGY Basophils # 0.1 K/CMM 0.0 - 0.2 03/30/2015 [facility] HEMATOLOGY Eosinophils # 0.6 K/CMM 0.0 - 0.5 03/30/2015 [facility] Basophils 0.4 % 0.0 - 1.0 03/30/2015 [facility] Monocytes # 1.5 K/CMM 0.0 - 0.8 03/30/2015 [facility] Lymphocytes # 6.8 K/CMM 1.0 - 5.5 03/30/2015 [facility] Segs-Bands # 7.3 K/CMM 1.5 - 8.1 03/30/2015 [facility] HEMATOLOGY PT 12.7 s 12.0 - 14.7 03/30/2015 [facility] PTT 29.7 s 22.9 - 35.8 03/30/2015 [facility] INR 0.92 0.85 - 1.17 03/30/2015 [facility] RDW 13.8 % 11.5 - 14.5 03/30/2015 [facility] Platelet 377 K/CMM 133 - 450 03/30/2015 [facility] MPV 8.2 fL 7.4 - 10.4 03/30/2015 [facility] Hgb 13.6 g/dL 12.0 - 16.0 03/30/2015 [facility] Hct 41.0 % 36.0 - 48.0 03/30/2015 [facility] MCV 88.6 fL 80.0 - 98.0 03/30/2015 [facility] MCH 29.5 pg 27.0 - 31.0 03/30/2015 [facility] MCHC 33.3 g/dL 32.0 - 36.0 03/30/2015 [facility] RBC 4.62 M/CMM 4.20 - 5.40 03/30/2015 [facility] HEMATOLOGY WBC 16.2 K/CMM 3.7 - 10.4 03/30/2015 [facility] Chest 1view DX Chest 1view DX NAME: NANNETTE PHILLIPS : 1965 SEX: F Ordering Physician: Maggie Guerrero Chest 1view : Mar 30, 2015 01:44:00 PM. CLINICAL INDICATION: Chest pain. Comparison Examination: 03/20/2015. FINDINGS: Cardiac and mediastinal structures are stable including aortic calcification. No focal infiltrate identified within the lungs, no edema and no pneumothorax. SL: 14 03/30/2015 - - Read by: Ariel Bower MD Dictated Date/time: 03/30/15 13:57 Electronically Signed by: Ariel Bower MD 03/30/15 13:57 FINAL REPORT [facility] ELECTROLYTES AGAP 12.3 meq/L 10.0 - 20.0 03/21/2015 [facility] ELECTROLYTES BUN 12 mg/dL 7 - 22 03/21/2015 [facility] ELECTROLYTES Glucose Lvl 139 mg/dL 70 - 99 03/21/2015 [facility] ELECTROLYTES CO2 27 meq/L 24 - 32 03/21/2015 [facility] ELECTROLYTES Sodium Lvl 139 meq/L 135 - 145 03/21/2015 [facility] ELECTROLYTES Potassium Lvl 4.3 meq/L 3.5 - 5.1 03/21/2015 [facility] ELECTROLYTES Chloride Lvl 104 meq/L 95 - 109 03/21/2015 [facility] ELECTROLYTES Calcium Lvl 9.5 mg/dL 8.5 - 10.5 03/21/2015 [facility] ELECTROLYTES eGFR 87 mL/min/1.73m2 03/21/2015 Result Comment: The eGFR is calculated using the CKD-EPI formula. In most young, healthy individuals the eGFR will be >90 mL/min/1.73m2. The eGFR declines with age. An eGFR of 60-89 may be normal in some populations, particularly the elderly, for whom the CKD-EPI formula has not been extensively validated. Use of the eGFR is not recommended in the following populations: Individuals with unstable creatinine concentrations, including patients and those with serious co-morbid conditions. Patients with extremes in muscle mass or diet. The data above are obtained from the National Kidney Disease Education Program (NKDEP) which additionally recommends that when the eGFR is used in patients with extremes of body mass index for purposes of drug dosing, the eGFR should be multiplied by the estimated BMI. [facility] ELECTROLYTES Creatinine Lvl 0.8 mg/dL 0.5 - 1.4 03/21/2015 [facility] HEMATOLOGY RBC 4.55 M/CMM 4.20 - 5.40 03/21/2015 [facility] HEMATOLOGY MPV 7.9 fL 7.4 - 10.4 03/21/2015 [facility] Platelet 329 K/CMM 133 - 450 03/21/2015 [facility] MCV 88.2 fL 80.0 - 98.0 03/21/2015 [facility] Hgb 13.1 g/dL 12.0 - 16.0 03/21/2015 [facility] MCH 28.8 pg 27.0 - 31.0 03/21/2015 [facility] Hct 40.1 % 36.0 - 48.0 03/21/2015 [facility] MCHC 32.7 g/dL 32.0 - 36.0 03/21/2015 [facility] RDW 13.8 % 11.5 - 14.5 03/21/2015 [facility] WBC 15.5 K/CMM 3.7 - 10.4 03/21/2015 [facility] Monocytes # 0.4 K/CMM 0.0 - 0.8 03/21/2015 [facility] Lymphocytes # 2.4 K/CMM 1.0 - 5.5 03/21/2015 [facility] Segs-Bands # 12.7 K/CMM 1.5 - 8.1 03/21/2015 [facility] Basophils 0.2 % 0.0 - 1.0 03/21/2015 [facility] Eosinophils 0.1 % 0.0 - 4.0 03/21/2015 [facility] Monocytes 2.6 % 2.0 - 12.0 03/21/2015 [facility] Segs 81.5 % 45.0 - 75.0 03/21/2015 [facility] Lymphocytes 15.6 % 20.0 - 40.0 03/21/2015 [facility] CHEM PANEL Procalcitonin Lvl null 0.00 - 0.10 03/21/2015 [facility] CHEM PANEL Phosphorus 2.7 mg/dL 2.5 - 4.5 03/21/2015 [facility] CHEM PANEL Magnesium Lvl 1.9 mg/dL 1.8 - 2.4 03/21/2015 [facility] CHEM PANEL Creatinine Lvl 1.1 mg/dL 0.5 - 1.4 03/21/2015 [facility] CHEM PANEL eGFR 59 mL/min/1.73m2 03/21/2015 Result Comment: The eGFR is calculated using the CKD-EPI formula. In most young, healthy individuals the eGFR will be >90 mL/min/1.73m2. The eGFR declines with age. An eGFR of 60-89 may be normal in some populations, particularly the elderly, for whom the CKD-EPI formula has not been extensively validated. Use of the eGFR is not recommended in the following populations: Individuals with unstable creatinine concentrations, including patients and those with serious co-morbid conditions. Patients with extremes in muscle mass or diet. The data above are obtained from the National Kidney Disease Education Program (NKDEP) which additionally recommends that when the eGFR is used in patients with extremes of body mass index for purposes of drug dosing, the eGFR should be multiplied by the estimated BMI. [facility] HEMATOLOGY Platelet 306 K/CMM 133 - 450 03/21/2015 [facility] HEMATOLOGY PTT 30.4 s 22.9 - 35.8 03/21/2015 [facility] Chest wo contrast CT Chest wo contrast CT Exam: Chest CT without contrast. Reason for exam: Respiratory distress COMPARISON: Chest x-ray from 03/20/2015. DLP: 567.27 TECHNIQUE: Multiple axial CT images of the chest were obtained without administration of intravenous contrast. FINDINGS: Heart is normal in size. Pericardium is unremarkable. No pathologic mediastinal, hilar, or axillary adenopathy is noted. No endobronchial lesions are identified within the central airways. Scattered subcentimeter centrilobular nodules and tree in bud opacities in the bilateral lung apices, right greater than left, are seen. There is no pleural effusion or pneumothorax Superficial soft tissues of the chest wall are unremarkable. No suspicious osseous lesions are seen. Limited views of the upper abdomen show diffuse low attenuation throughout the liver, compatible with fatty infiltration. IMPRESSION: 1. Scattered subcentimeter centrilobular nodules and tree in bud opacities in the bilateral lung apices, right greater than left. This may represent early infection. SL: 16 03/20/2015 - - Read by: Adama Hernandez MD Dictated Date/time: 03/20/15 15:47 Electronically Signed by: Adama Hernandez MD 03/20/15 15:49 FINAL REPORT [facility] CARDIAC ENZYMES BNP 17 pg/mL <=100 pg/mL 03/20/2015 [facility] CARDIAC ENZYMES CK MB 1.0 ng/mL 0.5 - 3.6 03/20/2015 [facility] CARDIAC ENZYMES Troponin-I null 0.00 - 0.40 03/20/2015 [facility] CHEM PANEL Lactic Acid Lvl 2.9 mMol/L 0.5 - 2.2 03/20/2015 [facility] CHEM PANEL Calcium Lvl 9.0 mg/dL 8.5 - 10.5 03/20/2015 [facility] CHEM PANEL Sodium Lvl 140 meq/L 135 - 145 03/20/2015 [facility] CHEM PANEL Potassium Lvl 3.7 meq/L 3.5 - 5.1 03/20/2015 [facility] CHEM PANEL Chloride Lvl 103 meq/L 95 - 109 03/20/2015 [facility] CHEM PANEL BUN 13 mg/dL 7 - 22 03/20/2015 [facility] CHEM PANEL Glucose Lvl 129 mg/dL 70 - 99 03/20/2015 [facility] CHEM PANEL AST 28 unit/L 0 - 37 03/20/2015 [facility] CHEM PANEL ALT 37 unit/L 0 - 65 03/20/2015 [facility] CHEM PANEL Total Protein 7.7 g/dL 6.4 - 8.4 03/20/2015 [facility] CHEM PANEL CO2 26 meq/L 24 - 32 03/20/2015 [facility] CHEM PANEL Albumin Lvl 3.5 g/dL 3.5 - 5.0 03/20/2015 [facility] CHEM PANEL Bili Total 0.4 mg/dL 0.2 - 1.3 03/20/2015 [facility] CHEM PANEL Alk Phos 136 unit/L 39 - 136 03/20/2015 [facility] CHEM PANEL eGFR 75 mL/min/1.73m2 03/20/2015 Result Comment: The eGFR is calculated using the CKD-EPI formula. In most young, healthy individuals the eGFR will be >90 mL/min/1.73m2. The eGFR declines with age. An eGFR of 60-89 may be normal in some populations, particularly the elderly, for whom the CKD-EPI formula has not been extensively validated. Use of the eGFR is not recommended in the following populations: Individuals with unstable creatinine concentrations, including patients and those with serious co-morbid conditions. Patients with extremes in muscle mass or diet. The data above are obtained from the National Kidney Disease Education Program (NKDEP) which additionally recommends that when the eGFR is used in patients with extremes of body mass index for purposes of drug dosing, the eGFR should be multiplied by the estimated BMI. [facility] CHEM PANEL Creatinine Lvl 0.9 mg/dL 0.5 - 1.4 03/20/2015 [facility] CHEM PANEL B/C Ratio 14 6 - 25 03/20/2015 [facility] CHEM PANEL A/G Ratio 0.8 0.7 - 1.6 03/20/2015 [facility] CHEM PANEL Globulin 4.2 g/dL 2.0 - 4.0 03/20/2015 [facility] CHEM PANEL AGAP 14.7 meq/L 10.0 - 20.0 03/20/2015 [facility] HEMATOLOGY Segs 51.2 % 45.0 - 75.0 03/20/2015 [facility] HEMATOLOGY Lymphocytes 36.0 % 20.0 - 40.0 03/20/2015 [facility] HEMATOLOGY Monocytes 5.0 % 2.0 - 12.0 03/20/2015 [facility] HEMATOLOGY Lymphocytes # 4.2 K/CMM 1.0 - 5.5 03/20/2015 [facility] HEMATOLOGY Segs-Bands # 6.0 K/CMM 1.5 - 8.1 03/20/2015 [facility] Monocytes # 0.6 K/CMM 0.0 - 0.8 03/20/2015 [facility] HEMATOLOGY Eosinophils # 0.8 K/CMM 0.0 - 0.5 03/20/2015 [facility] HEMATOLOGY Eosinophils 6.9 % 0.0 - 4.0 03/20/2015 [facility] HEMATOLOGY Basophils 0.9 % 0.0 - 1.0 03/20/2015 [facility] Basophils # 0.1 K/CMM 0.0 - 0.2 03/20/2015 [facility] Platelet 301 K/CMM 133 - 450 03/20/2015 [facility] RDW 13.8 % 11.5 - 14.5 03/20/2015 [facility] WBC 11.7 K/CMM 3.7 - 10.4 03/20/2015 [facility] RBC 4.69 M/CMM 4.20 - 5.40 03/20/2015 [facility] Hgb 13.3 g/dL 12.0 - 16.0 03/20/2015 [facility] HEMATOLOGY Hct 41.4 % 36.0 - 48.0 03/20/2015 [facility] MCH 28.4 pg 27.0 - 31.0 03/20/2015 [facility] MCV 88.2 fL 80.0 - 98.0 03/20/2015 [facility] MCHC 32.2 g/dL 32.0 - 36.0 03/20/2015 [facility] MPV 7.8 fL 7.4 - 10.4 03/20/2015 [facility] Chest 1view DX Chest 1view DX Examination: Chest x-ray, single view History: Dyspnea Comparison: 06/25/2014 Findings: The lungs are clear and without focal consolidation. The cardiomediastinal silhouette is within normal limits. No pleural effusion or pneumothorax is seen. The osseous structures are without focal abnormality. IMPRESSION: No acute cardiopulmonary disease. SL: 16 03/20/2015 - - Read by: Adama Hernandez MD Dictated Date/time: 03/20/15 09:53 Electronically Signed by: Adama Hernandez MD 03/20/15 09:54 FINAL REPORT [facility] CARDIAC ENZYMES Total CK 64 unit/L 12 - 191 06/26/2014 [facility] CARDIAC ENZYMES CK MB 0.5 ng/mL 0.5 - 3.6 06/26/2014 [facility] CARDIAC ENZYMES Troponin-I null 0.00 - 0.40 06/26/2014 [facility] CARDIAC ENZYMES CK MB Index 0.8 0.0 - 2.5 06/26/2014 [facility] CARDIAC ENZYMES CK MB Index 1.1 0.0 - 2.5 06/25/2014 [facility] CARDIAC ENZYMES Total CK 64 unit/L 12 - 191 06/25/2014 [facility] CARDIAC ENZYMES Troponin-I null 0.00 - 0.40 06/25/2014 [facility] CARDIAC ENZYMES CK MB 0.7 ng/mL 0.5 - 3.6 06/25/2014 [facility] CARDIAC ENZYMES BNP 16 pg/mL <=100 pg/mL 06/25/2014 3Interpretive Data: Elevated results are in line with increasing severity of congestive heart failure. Minor elevations between 100 and 300 may be seen with Myocardial Ischemia, Sodium retaining drugs, and compensated/treated heart failure. [facility] CHEM PANEL Alk Phos 140 unit/L 39 - 136 06/25/2014 [facility] CHEM PANEL B/C Ratio 9 6 - 25 06/25/2014 [facility] CHEM PANEL Bili Total 0.3 mg/dL 0.2 - 1.3 06/25/2014 [facility] CHEM PANEL A/G Ratio 0.9 0.7 - 1.6 06/25/2014 [facility] CHEM PANEL ALT 24 unit/L 0 - 65 06/25/2014 [facility] CHEM PANEL AST 18 unit/L 0 - 37 06/25/2014 [facility] CHEM PANEL BUN 7 mg/dL 7 - 22 06/25/2014 [facility] CHEM PANEL Globulin 3.8 g/dL 2.0 - 4.0 06/25/2014 [facility] CHEM PANEL Total Protein 7.2 g/dL 6.4 - 8.4 06/25/2014 [facility] CHEM PANEL eGFR 87 mL/min/1.73m2 06/25/2014 1Result Comment: The eGFR is calculated using the CKD-EPI formula. In most young, healthy individuals the eGFR will be >90 mL/min/1.73m2. The eGFR declines with age. An eGFR of 60-89 may be normal in some populations, particularly the elderly, for whom the CKD-EPI formula has not been extensively validated. Use of the eGFR is not recommended in the following populations: Individuals with unstable creatinine concentrations, including patients and those with serious co-morbid conditions. Patients with extremes in muscle mass or diet. The data above are obtained from the National Kidney Disease Education Program (NKDEP) which additionally recommends that when the eGFR is used in patients with extremes of body mass index for purposes of drug dosing, the eGFR should be multiplied by the estimated BMI. [facility] CHEM PANEL Albumin Lvl 3.4 g/dL 3.5 - 5.0 06/25/2014 [facility] CHEM PANEL AGAP 11.4 meq/L 10.0 - 20.0 06/25/2014 [facility] CHEM PANEL Calcium Lvl 8.6 mg/dL 8.5 - 10.5 06/25/2014 [facility] CHEM PANEL CO2 27 meq/L 24 - 32 06/25/2014 [facility] CHEM PANEL Potassium Lvl 3.4 meq/L 3.5 - 5.1 06/25/2014 [facility] CHEM PANEL Chloride Lvl 106 meq/L 95 - 109 06/25/2014 [facility] CHEM PANEL Sodium Lvl 141 meq/L 135 - 145 06/25/2014 [facility] CHEM PANEL Creatinine Lvl 0.8 mg/dL 0.5 - 1.4 06/25/2014 [facility] CHEM PANEL Glucose Lvl 114 mg/dL 70 - 99 06/25/2014 2Interpretive Data: Adult reference range values reflect the clinical guidelines of the [place] [employer] Association. [facility] ENDOCRINOLOGY S Preg Negative *NA* (06/25/14 3:32 PM) Negative 06/25/2014 [facility] HEMATOLOGY D-Dimer 0.30 ug/mL FEU 06/25/2014 5Interpretive Data: In DIC, quantitative D-Dimer is generally greater than 0.66 ug/mL FEU. Values of quantitative D-Dimer less than 0.40 ug/mL FEU have been reported to be associated with a low probability of deep vein thrombosis/pulmonary embolism. This test alone should not be used to rule out DVT/PE. [facility] HEMATOLOGY Basophils # 0.2 K/CMM 0.0 - 0.2 06/25/2014 [facility] Eosinophils # 0.6 K/CMM 0.0 - 0.5 06/25/2014 [facility] Monocytes # 0.8 K/CMM 0.0 - 0.8 06/25/2014 [facility] Monocytes 5.5 % 2.0 - 12.0 06/25/2014 [facility] Eosinophils 4.3 % 0.0 - 4.0 06/25/2014 [facility] Basophils 1.1 % 0.0 - 1.0 06/25/2014 [facility] Segs-Bands # 7.8 K/CMM 1.5 - 8.1 06/25/2014 [facility] Lymphocytes # 5.2 K/CMM 1.0 - 5.5 06/25/2014 [facility] Plt Morph Normal (06/25/14 3:32 PM) 06/25/2014 [facility] Segs 53.3 % 45.0 - 75.0 06/25/2014 [facility] Lymphocytes 35.8 % 20.0 - 40.0 06/25/2014 [facility] RBC Morph Normal (06/25/14 3:32 PM) 06/25/2014 [facility] PTT 30.6 s 22.9 - 35.8 06/25/2014 6Interpretive Data: Heparin Therapeutic Range: 57 - 92 Seconds [facility] PT 12.9 s 12.0 - 14.7 06/25/2014 [facility] INR 0.97 0.85 - 1.17 06/25/2014 4Interpretive Data: RECOMMENDED RANGES FOR PROTIME INR: 2.0-3.0 for most medical and surgical thromboembolic states. 2.5-3.5 for artificial heart valves and recurrent embolism. INR SHOULD BE USED ONLY FOR PATIENTS ON STABLE ANTICOAGULANT THERAPY. [facility] MPV 8.0 fL 7.4 - 10.4 06/25/2014 [facility] MCV 88.7 fL 80.0 - 98.0 06/25/2014 [facility] MCH 30.0 pg 27.0 - 31.0 06/25/2014 [facility] RBC 4.27 M/CMM 4.20 - 5.40 06/25/2014 [facility] WBC 14.7 K/CMM 3.7 - 10.4 06/25/2014 [facility] Hgb 12.8 g/dL 12.0 - 16.0 06/25/2014 [facility] Hct 37.9 % 36.0 - 48.0 06/25/2014 [facility] Platelet 331 K/CMM 133 - 450 06/25/2014 [facility] RDW 13.7 % 11.5 - 14.5 06/25/2014 [facility] MCHC 33.9 g/dL 32.0 - 36.0 06/25/2014 [facility] Chest 1view Chest 1view PORTABLE CHEST 06/25/2014 AT 1524 HOURS. INDICATION: Chest pain. COMPARISON: None. Image projection is lordotic. The heart, mediastinum, lungs, pleural spaces and visualized skeleton are not remarkable. IMPRESSION: Negative chest. SL: 12 06/25/2014 - - Read by: Davide Maldonado MD Dictated Date/time: 06/25/14 15:35 Electronically Signed by: Davide Maldonado MD 06/25/14 15:36 FINAL REPORT [facility] IMMUNOLOGY CDC HIV 4th GEN Negative (02/12/14 5:23 PM) Negative 02/12/2014 [facility] CARDIAC ENZYMES CK MB null 0.5 - 3.6 02/12/2014 [facility] CARDIAC ENZYMES Troponin-I null 0.00 - 0.40 02/12/2014 [facility] CHEM PANEL eGFR 87 mL/min/1.73m2 02/12/2014 1Result Comment: The eGFR is calculated using the CKD-EPI formula. In most young, healthy individuals the eGFR will be >90 mL/min/1.73m2. The eGFR declines with age. An eGFR of 60-89 may be normal in some populations, particularly the elderly, for whom the CKD-EPI formula has not been extensively validated. Use of the eGFR is not recommended in the following populations: Individuals with unstable creatinine concentrations, including patients and those with serious co-morbid conditions. Patients with extremes in muscle mass or diet. The data above are obtained from the National Kidney Disease Education Program (NKDEP) which additionally recommends that when the eGFR is used in patients with extremes of body mass index for purposes of drug dosing, the eGFR should be multiplied by the estimated BMI. [facility] CHEM PANEL Glucose Lvl 90 mg/dL 70 - 99 02/12/2014 2Interpretive Data: Adult reference range values reflect the clinical guidelines of the [place] Diabetes Association. [facility] CHEM PANEL Bili Total 0.3 mg/dL 0.2 - 1.3 02/12/2014 [facility] CHEM PANEL Albumin Lvl 3.9 g/dL 3.5 - 5.0 02/12/2014 [facility] CHEM PANEL ALT 28 unit/L 0 - 65 02/12/2014 [facility] CHEM PANEL AST 24 unit/L 0 - 37 02/12/2014 [facility] CHEM PANEL Alk Phos 168 unit/L 39 - 136 02/12/2014 [facility] CHEM PANEL Total Protein 7.9 g/dL 6.4 - 8.4 02/12/2014 [facility] CHEM PANEL CO2 26 meq/L 24 - 32 02/12/2014 [facility] CHEM PANEL Calcium Lvl 9.3 mg/dL 8.5 - 10.5 02/12/2014 [facility] CHEM PANEL Chloride Lvl 104 meq/L 95 - 109 02/12/2014 [facility] CHEM PANEL Sodium Lvl 139 meq/L 135 - 145 02/12/2014 [facility] CHEM PANEL Potassium Lvl 3.7 meq/L 3.5 - 5.1 02/12/2014 [facility] CHEM PANEL BUN 8 mg/dL 7 - 22 02/12/2014 [facility] CHEM PANEL Creatinine Lvl 0.8 mg/dL 0.5 - 1.4 02/12/2014 [facility] CHEM PANEL A/G Ratio 1.0 0.7 - 1.6 02/12/2014 [facility] CHEM PANEL AGAP 12.7 meq/L 10.0 - 20.0 02/12/2014 [facility] CHEM PANEL B/C Ratio 10 6 - 25 02/12/2014 [facility] CHEM PANEL Globulin 4.0 g/dL 2.0 - 4.0 02/12/2014 [facility] HEMATOLOGY Lymphocytes # 5.9 K/CMM 1.0 - 5.5 02/12/2014 [facility] HEMATOLOGY Segs-Bands # 8.4 K/CMM 1.5 - 8.1 02/12/2014 [facility] HEMATOLOGY Eosinophils # 0.3 K/CMM 0.0 - 0.5 02/12/2014 [facility] HEMATOLOGY Monocytes # 0.7 K/CMM 0.0 - 0.8 02/12/2014 [facility] HEMATOLOGY Monocytes 4.9 % 2.0 - 12.0 02/12/2014 [facility] HEMATOLOGY Basophils 0.2 % 0.0 - 1.0 02/12/2014 [facility] HEMATOLOGY Eosinophils 2.2 % 0.0 - 4.0 02/12/2014 [facility] HEMATOLOGY Segs 54.7 % 45.0 - 75.0 02/12/2014 [facility] Lymphocytes 38.0 % 20.0 - 40.0 02/12/2014 [facility] Platelet 392 K/CMM 133 - 450 02/12/2014 [facility] MPV 8.2 fL 7.4 - 10.4 02/12/2014 [facility] MCHC 34.1 g/dL 32.0 - 36.0 02/12/2014 [facility] RBC 4.64 M/CMM 4.20 - 5.40 02/12/2014 [facility] Hct 40.4 % 36.0 - 48.0 02/12/2014 [facility] MCV 87.0 fL 81.0 - 99.0 02/12/2014 [facility] MCH 29.6 pg 27.0 - 31.0 02/12/2014 [facility] RDW 13.6 % 11.5 - 14.5 02/12/2014 [facility] WBC 15.4 K/CMM 3.7 - 10.4 02/12/2014 [facility] Hgb 13.7 g/dL 12.0 - 16.0 02/12/2014 [facility] URINE AND STOOL UA Urobilinogen <=1.0 mg/dL 0.1 - 1.0 02/12/2014 [facility] URINE AND STOOL UA Color Ltyellow 02/12/2014 [facility] URINE AND STOOL UA Spec Grav 1.009 <=1.030 02/12/2014 [facility] URINE AND STOOL UA Turbidity Clear (02/12/14 5:10 PM) Clear 02/12/2014 [facility] URINE AND STOOL UA Blood Negative (02/12/14 5:10 PM) Negative 02/12/2014 [facility] URINE AND STOOL UA Bili Negative *NA* (02/12/14 5:10 PM) Negative 02/12/2014 [facility] URINE AND STOOL UA Protein Negative mg/dL Negative mg/dL 02/12/2014 [facility] URINE AND STOOL UA pH 7.0 5.0 - 8.0 02/12/2014 [facility] URINE AND STOOL UA Ketones Negative mg/dL Negative mg/dL 02/12/2014 [facility] URINE AND STOOL UA RBC 2 /HPF 0 - 2 02/12/2014 [facility] URINE AND STOOL UA Glucose Negative mg/dL Negative mg/dL 02/12/2014 [facility] URINE AND STOOL UA WBC null 0 - 5 02/12/2014 [facility] URINE AND STOOL UA Nitrite Negative (02/12/14 5:10 PM) Negative 02/12/2014 [facility] URINE AND STOOL UA Sq Epi Occasional /LPF Few /LPF 02/12/2014 [facility] URINE AND STOOL UA Leuk Est Negative (02/12/14 5:10 PM) Negative 02/12/2014 [facility] URINE AND STOOL UA Bacteria Occasional /HPF None Seen /HPF 02/12/2014 [facility] URINE CHEM U Preg Negative (02/12/14 5:10 PM) Negative 02/12/2014 [facility] Gallbladder US Gallbladder US EXAMINATION: Gallbladder ultrasound. Clinical History: Abdominal pain, RUQ Comparison: None. Findings: Transverse and longitudinal imaging of the gallbladder.The gallbladder is normal in appearance without gallstones or sludge. No gallbladder wall thickening or pericholecystic fluid. There is no biliary ductal dilatation. The common bile duct measures 5.7 mm. The sonographic Mcpherson's sign is negative. No free fluid in Sims's pouch. The pancreas is normal in the visualized portio ns. The liver is echogenic measuring 16 cm. The main portal vein diameter is 13.6 mm, with hepatopedal flow. Impression: 1. Normal sonographic appearance of the gallbladder. 2. Echogenic liver, compatible with fatty infiltration versus fibrosis. SL: 12 02/12/2014 - - Read by: Adama Hernandez MD Dictated Date/time: 02/12/14 19:34 Electronically Signed by: Adama Hernandez MD 02/12/14 19:36 FINAL REPORT [facility] Vital Signs Vital Sign Value Date Comments Source Weight 241.5 04/04/2018 2.16.840.1.349123.4.391.11.13268 Height 64.0 04/04/2018 2.16.840.1.867767.4.391.11.05481 Temperature Oral (F) 98.2 F 04/04/2018 2.16.840.1.021755.4.391.11.54422 Heart Rate 100 04/04/2018 2.16.840.1.105090.4.391.11.42841 Diastolic (mm Hg) 84 04/04/2018 2.16.840.1.520677.4.391.11.53223 Systolic (mm Hg) 131 04/04/2018 2.16.840.1.990167.4.391.11.91963 Weight 239.0 03/26/2018 2.16.840.1.302752.4.391.11.19769 Height 64.0 03/26/2018 2.16.840.1.928697.4.391.11.22707 Temperature Oral (F) 96.4 F 03/26/2018 2.16.840.1.462766.4.391.11.98581 Heart Rate 89 03/26/2018 2.16.840.1.445725.4.391.11.41706 Diastolic (mm Hg) 87 03/26/2018 2.16.840.1.416758.4.391.11.42383 Systolic (mm Hg) 133 03/26/2018 2.16.840.1.023701.4.391.11.10540 Weight 237.9 02/20/2018 2.16.840.1.784889.4.391.11.21693 Height 64.0 02/20/2018 2.16.840.1.977422.4.391.11.79445 Temperature Oral (F) 98.6 F 02/20/2018 2.16.840.1.354900.4.391.11.07150 Heart Rate 81 02/20/2018 2.16.840.1.393689.4.391.11.89449 Diastolic (mm Hg) 78 02/20/2018 2.16.840.1.878791.4.391.11.27707 Systolic (mm Hg) 119 02/20/2018 2.16.840.1.466540.4.391.11.79339 Weight 238.2 07/27/2017 2.16.840.1.579415.4.391.11.45724 Height 64.0 07/27/2017 2.16.840.1.443471.4.391.11.33437 Temperature Oral (F) 98.1 F 07/27/2017 2.16.840.1.177715.4.391.11.04190 Heart Rate 109 07/27/2017 2.16.840.1.807888.4.391.11.82670 Diastolic (mm Hg) 85 07/27/2017 2.16.840.1.568646.4.391.11.73025 Systolic (mm Hg) 118 07/27/2017 2.16.840.1.022124.4.391.11.79179 Weight 225.1 05/09/2017 2.16.840.1.012437.4.391.11.73696 Height 64.0 05/09/2017 2.16.840.1.209571.4.391.11.83810 Temperature Oral (F) 98.9 F 05/09/2017 2.16.840.1.680624.4.391.11.55861 Heart Rate 98 05/09/2017 2.16.840.1.323464.4.391.11.86657 Diastolic (mm Hg) 79 05/09/2017 2.16.840.1.297972.4.391.11.85172 Systolic (mm Hg) 116 05/09/2017 2.16.840.1.915050.4.391.11.14281 Weight 220 05/01/2017 2.16.840.1.174168.4.391.11.35767 Height 64.0 05/01/2017 2.16.840.1.915956.4.391.11.99665 Temperature Oral (F) 98.4 F 05/01/2017 2.16.840.1.770097.4.391.11.77570 Heart Rate 105 05/01/2017 2.16.840.1.202557.4.391.11.32757 Diastolic (mm Hg) 88 05/01/2017 2.16.840.1.876607.4.391.11.59086 Systolic (mm Hg) 139 05/01/2017 2.16.840.1.787696.4.391.11.05001 Weight 221.3 03/31/2017 2.16.840.1.551234.4.391.11.70932 Height 64.0 03/31/2017 2.16.840.1.732469.4.391.11.55417 Temperature Oral (F) 99.0 F 03/31/2017 2.16.840.1.572837.4.391.11.21381 Heart Rate 94 03/31/2017 2.16.840.1.954442.4.391.11.51496 Diastolic (mm Hg) 78 03/31/2017 2.16.840.1.365082.4.391.11.49668 Systolic (mm Hg) 116 03/31/2017 2.16.840.1.897984.4.391.11.39939 Weight 224.6 03/21/2017 2.16.840.1.671676.4.391.11.30764 Height 64.0 03/21/2017 2.16.840.1.027359.4.391.11.37355 Temperature Oral (F) 98.1 F 03/21/2017 2.16.840.1.027513.4.391.11.45067 Heart Rate 83 03/21/2017 2.16.840.1.648693.4.391.11.11123 Diastolic (mm Hg) 74 03/21/2017 2.16.840.1.590872.4.391.11.73283 Systolic (mm Hg) 125 03/21/2017 2.16.840.1.603708.4.391.11.03095 Weight 244.4 10/05/2016 2.16.840.1.048760.4.391.11.90650 Height 64.0 10/05/2016 2.16.840.1.259385.4.391.11.82531 Temperature Oral (F) 98.3 F 10/05/2016 2.16.840.1.391928.4.391.11.70936 Heart Rate 109 10/05/2016 2.16.840.1.803601.4.391.11.10803 Diastolic (mm Hg) 82 10/05/2016 2.16.840.1.120442.4.391.11.02136 Systolic (mm Hg) 120 10/05/2016 2.16.840.1.963112.4.391.11.22058 Weight 251.2 09/15/2016 2.16.840.1.014212.4.391.11.64650 Height 64.0 09/15/2016 2.16.840.1.339002.4.391.11.66306 Temperature Oral (F) 98.2 F 09/15/2016 2.16.840.1.013582.4.391.11.06759 Heart Rate 101 09/15/2016 2.16.840.1.384432.4.391.11.04008 Diastolic (mm Hg) 89 09/15/2016 2.16.840.1.990416.4.391.11.85516 Systolic (mm Hg) 124 09/15/2016 2.16.840.1.871822.4.391.11.34033 Weight 239.0 02/05/2016 2.16.840.1.740803.4.391.11.52264 Height 64.0 02/05/2016 2.16.840.1.164226.4.391.11.43947 Temperature Oral (F) 98.1 F 02/05/2016 2.16.840.1.350452.4.391.11.84206 Heart Rate 100 02/05/2016 2.16.840.1.221499.4.391.11.10020 Diastolic (mm Hg) 87 02/05/2016 2.16.840.1.206812.4.391.11.21183 Systolic (mm Hg) 126 02/05/2016 2.16.840.1.242878.4.391.11.51843 Temperature Oral (F) 98 F 01/20/2016 [facility] Respitory Rate 18 01/20/2016 [facility] Systolic (mm Hg) 137 01/20/2016 [facility] Diastolic (mm Hg) 63 01/20/2016 [facility] Heart Rate 110 01/20/2016 [facility] Weight 108.182 01/20/2016 [facility] Systolic (mm Hg) 138 01/20/2016 [facility] Diastolic (mm Hg) 87 01/20/2016 [facility] Respitory Rate 18 01/20/2016 [facility] Heart Rate 119 01/20/2016 [facility] Temperature Oral (F) 98.5 F 01/20/2016 [facility] Respitory Rate 21 01/20/2016 [facility] Heart Rate 130 01/20/2016 [facility] Systolic (mm Hg) 137 01/20/2016 [facility] Diastolic (mm Hg) 74 01/20/2016 [facility] Temperature Oral (F) 98.2 F 01/20/2016 [facility] BMI Calculated 40.94 01/20/2016 [facility] Height 162.56 cm 01/20/2016 [facility] Weight 108.182 01/20/2016 [facility] Weight 108.182 01/19/2016 [facility] Weight 240.1 11/26/2015 2.16.840.1.708058.4.391.11.64626 Height 64.0 11/26/2015 2.16.840.1.552180.4.391.11.80627 Temperature Oral (F) 98.1 F 11/26/2015 2.16.840.1.538511.4.391.11.83485 Heart Rate 103 11/26/2015 2.16.840.1.830501.4.391.11.87659 Diastolic (mm Hg) 88 11/26/2015 2.16.840.1.488781.4.391.11.87129 Systolic (mm Hg) 142 11/26/2015 2.16.840.1.957923.4.391.11.72270 Weight 238 10/15/2015 2.16.840.1.232605.4.391.11.24624 Height 64.0 10/15/2015 2.16.840.1.457769.4.391.11.96887 Temperature Oral (F) 98.5 F 10/15/2015 2.16.840.1.957003.4.391.11.53914 Heart Rate 116 10/15/2015 2.16.840.1.924562.4.391.11.25281 Diastolic (mm Hg) 85 10/15/2015 2.16.840.1.316206.4.391.11.57239 Systolic (mm Hg) 128 10/15/2015 2.16.840.1.836297.4.391.11.37574 Weight 239 10/09/2015 2.16.840.1.074699.4.391.11.42236 Height 64.0 10/09/2015 2.16.840.1.394129.4.391.11.69616 Temperature Oral (F) 98.8 F 10/09/2015 2.16.840.1.840624.4.391.11.33204 Heart Rate 85 10/09/2015 2.16.840.1.698188.4.391.11.82603 Diastolic (mm Hg) 87 10/09/2015 2.16.840.1.333401.4.391.11.52925 Systolic (mm Hg) 143 10/09/2015 2.16.840.1.528347.4.391.11.04508 Systolic (mm Hg) 128 10/06/2015 [facility] Diastolic (mm Hg) 86 10/06/2015 [facility] Respitory Rate 14 10/06/2015 [facility] Heart Rate 98 10/06/2015 [facility] Temperature Oral (F) 98 F 10/06/2015 [facility] Respitory Rate 15 10/06/2015 [facility] Systolic (mm Hg) 102 10/06/2015 [facility] Diastolic (mm Hg) 62 10/06/2015 [facility] Heart Rate 111 10/06/2015 [facility] Temperature Oral (F) 97.5 F 10/06/2015 [facility] Respitory Rate 16 10/06/2015 [facility] Heart Rate 84 10/06/2015 [facility] Systolic (mm Hg) 113 10/06/2015 [facility] Diastolic (mm Hg) 73 10/06/2015 [facility] Temperature Oral (F) 97.4 F 10/06/2015 [facility] Height 162.56 cm 10/04/2015 [facility] BMI Calculated 40.11 10/04/2015 [facility] Weight 105.994 10/04/2015 [facility] Height 160.02 cm 10/03/2015 [facility] Weight 109.091 10/03/2015 [facility] BMI Calculated 42.6 10/03/2015 [facility] Weight 240 08/31/2015 2.16.840.1.376889.4.391.11.51656 Height 64.0 08/31/2015 2.16.840.1.201428.4.391.11.10750 Temperature Oral (F) 98.7 F 08/31/2015 2.16.840.1.140203.4.391.11.06574 Heart Rate 99 08/31/2015 2.16.840.1.705724.4.391.11.42480 Diastolic (mm Hg) 79 08/31/2015 2.16.840.1.314273.4.391.11.95376 Systolic (mm Hg) 114 08/31/2015 2.16.840.1.663867.4.391.11.61225 Weight 245 08/24/2015 2.16.840.1.506697.4.391.11.98073 Height 64.0 08/24/2015 2.16.840.1.664637.4.391.11.71186 Temperature Oral (F) 99.6 F 08/24/2015 2.16.840.1.974351.4.391.11.18286 Heart Rate 113 08/24/2015 2.16.840.1.541318.4.391.11.83387 Diastolic (mm Hg) 86 08/24/2015 2.16.840.1.414155.4.391.11.74910 Systolic (mm Hg) 158 08/24/2015 2.16.840.1.099318.4.391.11.18542 Systolic (mm Hg) 127 06/05/2015 [facility] Diastolic (mm Hg) 64 06/05/2015 [facility] Respitory Rate 17 06/05/2015 [facility] Heart Rate 90 06/05/2015 [facility] Temperature Oral (F) 98.3 F 06/05/2015 [facility] Systolic (mm Hg) 129 06/05/2015 [facility] Diastolic (mm Hg) 74 06/05/2015 [facility] Heart Rate 97 06/05/2015 [facility] Temperature Oral (F) 98.4 F 06/05/2015 [facility] Respitory Rate 17 06/05/2015 [facility] Heart Rate 102 06/05/2015 [facility] Systolic (mm Hg) 123 06/05/2015 [facility] Diastolic (mm Hg) 78 06/05/2015 [facility] Temperature Oral (F) 98.5 F 06/05/2015 [facility] Respitory Rate 19 06/05/2015 [facility] Weight 106.534 06/04/2015 [facility] Weight 104.545 06/04/2015 [facility] BMI Calculated 39.56 06/04/2015 [facility] Height 162.56 cm 06/04/2015 [facility] Weight 104.545 06/03/2015 [facility] Height 160.02 cm 06/03/2015 [facility] BMI Calculated 40.83 06/03/2015 [facility] Heart Rate 98 05/08/2015 [facility] Systolic (mm Hg) 122 05/08/2015 [facility] Diastolic (mm Hg) 75 05/08/2015 [facility] Respitory Rate 18 05/08/2015 [facility] Heart Rate 109 05/08/2015 [facility] Temperature Oral (F) 98.0 F 05/08/2015 [facility] Temperature Oral (F) 98.0 F 05/08/2015 [facility] Respitory Rate 18 05/08/2015 [facility] Heart Rate 97 05/08/2015 [facility] Systolic (mm Hg) 127 05/08/2015 [facility] Diastolic (mm Hg) 76 05/08/2015 [facility] Respitory Rate 16 05/08/2015 [facility] Systolic (mm Hg) 121 05/08/2015 [facility] Diastolic (mm Hg) 76 05/08/2015 [facility] Temperature Oral (F) 98.1 F 05/08/2015 [facility] Weight 108.227 05/07/2015 [facility] Height 165.1 cm 05/06/2015 [facility] BMI Calculated 33.35 05/06/2015 [facility] Weight 90.909 05/06/2015 [facility] Respitory Rate 20 04/01/2015 [facility] Heart Rate 99 04/01/2015 [facility] Temperature Oral (F) 98.8 F 04/01/2015 [facility] Systolic (mm Hg) 133 04/01/2015 [facility] Diastolic (mm Hg) 85 04/01/2015 [facility] Systolic (mm Hg) 138 04/01/2015 [facility] Diastolic (mm Hg) 87 04/01/2015 [facility] Respitory Rate 20 04/01/2015 [facility] Heart Rate 87 04/01/2015 [facility] Temperature Oral (F) 97.9 F 04/01/2015 [facility] Respitory Rate 20 04/01/2015 [facility] Heart Rate 86 04/01/2015 [facility] Temperature Oral (F) 98.3 F 04/01/2015 [facility] Systolic (mm Hg) 111 04/01/2015 [facility] Diastolic (mm Hg) 72 04/01/2015 [facility] Weight 106.818 03/30/2015 [facility] BMI Calculated 41.72 03/30/2015 [facility] Height 160.02 cm 03/30/2015 [facility] Systolic (mm Hg) 128 03/21/2015 [facility] Diastolic (mm Hg) 77 03/21/2015 [facility] Temperature Oral (F) 98.2 F 03/21/2015 [facility] Heart Rate 114 03/21/2015 [facility] Respitory Rate 18 03/21/2015 [facility] Temperature Oral (F) 97.9 F 03/21/2015 [facility] Heart Rate 84 03/21/2015 [facility] Respitory Rate 18 03/21/2015 [facility] Systolic (mm Hg) 110 03/21/2015 [facility] Diastolic (mm Hg) 69 03/21/2015 [facility] Respitory Rate 18 03/21/2015 [facility] Temperature Oral (F) 97.7 F 03/21/2015 [facility] Heart Rate 99 03/21/2015 [facility] Systolic (mm Hg) 122 03/21/2015 [facility] Diastolic (mm Hg) 76 03/21/2015 [facility] Weight 106.818 03/20/2015 [facility] BMI Calculated 41.72 03/20/2015 [facility] Height 160.02 cm 03/20/2015 [facility] BMI Calculated 39.94 03/20/2015 [facility] Height 160.02 cm 03/20/2015 [facility] Weight 102.273 03/20/2015 [facility] Temperature Oral (F) 98.3 F 06/26/2014 [facility] Heart Rate 86 06/26/2014 [facility] Diastolic (mm Hg) 48 06/26/2014 [facility] Respitory Rate 22 06/26/2014 [facility] Systolic (mm Hg) 115 06/26/2014 [facility] Respitory Rate 24 06/26/2014 [facility] Weight 95.455 06/25/2014 [facility] BMI Calculated 37.28 06/25/2014 [facility] Height 160.02 cm 06/25/2014 [facility] Temperature Oral (F) 98.5 F 06/25/2014 [facility] Heart Rate 105 06/25/2014 [facility] Respitory Rate 24 06/25/2014 [facility] Systolic (mm Hg) 130 06/25/2014 [facility] Diastolic (mm Hg) 81 06/25/2014 [facility] Systolic (mm Hg) 136 02/13/2014 [facility] Respitory Rate 18 02/13/2014 [facility] Heart Rate 90 02/13/2014 [facility] Temperature Oral (F) 98.8 F 02/13/2014 [facility] Diastolic (mm Hg) 80 02/13/2014 [facility] Heart Rate 90 02/12/2014 [facility] Diastolic (mm Hg) 80 02/12/2014 [facility] Temperature Oral (F) 99.0 F 02/12/2014 [facility] Respitory Rate 20 02/12/2014 [facility] Systolic (mm Hg) 137 02/12/2014 [facility] Heart Rate 94 02/12/2014 [facility] Respitory Rate 20 02/12/2014 [facility] Height 162.56 cm 02/12/2014 [facility] BMI Calculated 37.84 02/12/2014 [facility] Weight 100 02/12/2014 [facility] Diastolic (mm Hg) 97 02/12/2014 [facility] Systolic (mm Hg) 157 02/12/2014 [facility] Temperature Oral (F) 99.3 F 02/12/2014 [facility] Encounters Location Location Details Encounter Type Encounter Number Reason For Visit Attending Provider ADM Date DC Date Status Source [facility] [id number] Lois Cheemre 02/12/2014 02/13/2014 [facility] [id number] Alberto Daylin 06/25/2014 06/26/2014 [facility] Unknown [id number] 03/04/2015 03/04/2015 2.16.840.1.669913.4.391.11.68196 [facility] Unknown [id number] 03/04/2015 03/04/2015 2.16.840.1.130321.4.391.11.57636 [facility] Unknown [id number] 03/04/2015 03/04/2015 2.16.840.1.139518.4.391.11.87956 [facility] Unknown [id number] 03/04/2015 03/04/2015 2.16.840.1.750152.4.391.11.83364 [facility] Unknown [id number] 03/04/2015 03/04/2015 2.16.840.1.348642.4.391.11.78306 [facility] Unknown [id number] 03/04/2015 03/04/2015 2.16.840.1.111493.4.391.11.38728 [facility] Unknown [id number] 03/04/2015 03/04/2015 2.16.840.1.979016.4.391.11.80946 [facility] Unknown [id number] 03/04/2015 03/04/2015 2.16.840.1.238864.4.391.11.22951 [facility] Unknown [id number] 03/04/2015 03/04/2015 2.16.840.1.731740.4.391.11. [facility] Unknown [id number] 03/04/2015 03/04/2015 2.16.840.1.600160.4.391.11.85898 [facility] Unknown [id number] 03/04/2015 03/04/2015 2.16.840.1.498055.4.391.11.23068 [facility] Unknown [id number] 03/04/2015 03/04/2015 2.16.840.1.599620.4.391.11.04215 [facility] Unknown [id number] 03/04/2015 03/04/2015 2.16.840.1.031656.4.391.11.74379 [facility] Unknown [id number] 03/06/2015 03/06/2015 2.16.840.1.487921.4.391.11.17545 [facility] Unknown [id number] 03/06/2015 03/06/2015 2.16.840.1.396705.4.391.11.89656 [facility] Unknown [id number] 03/06/2015 03/06/2015 2.16.840.1.115884.4.391.11.30169 [facility] Unknown [id number] 03/06/2015 03/06/2015 2.16.840.1.474443.4.391.11.16027 [facility] Unknown [id number] 03/06/2015 03/06/2015 2.16.840.1.704382.4.391.1148799 [facility] Unknown [id number] 03/06/2015 03/06/2015 2.16.840.1.486337.4.391.11.39854 [facility] Unknown [id number] 03/06/2015 03/06/2015 2.16.840.1.771786.4.391.11.09399 [facility] Unknown [id number] 03/06/2015 03/06/2015 2.16.840.1.233317.4.391.11.43937 [facility] Unknown [id number] 03/06/2015 03/06/2015 2.16.840.1.822542.4.391.11.51686 [facility] Unknown [id number] 03/06/2015 03/06/2015 2.16.840.1.777798.4.391..64072 [facility] Unknown [id number] 03/06/2015 03/06/2015 2.16.840.1.234191.4.391..01532 [facility] Unknown [id number] 03/06/2015 03/06/2015 2.16.840.1.420254.4.391.11.36018 [facility] Unknown [id number] 03/06/2015 03/06/2015 2.16.840.1.712827.4.391.11.97921 [facility] Inpatient [id number] Ericpieter Aguila 03/20/2015 03/21/2015 [facility] Unknown [id number] 03/26/2015 03/26/2015 2.16.840.1.128044.4.391.11.40613 [facility] Unknown [id number] 03/26/2015 03/26/2015 2.16.840.1.771808.4.391.11.60083 [facility] Unknown [id number] 03/26/2015 03/26/2015 2.16.840.1.081500.4.391.11.86964 [facility] Unknown [id number] 03/26/2015 03/26/2015 2.16.840.1.752372.4.391.11.52440 [facility] Unknown [id number] 03/26/2015 03/26/2015 2.16.840.1.619109.4.391.11.72354 [facility] Unknown [id number] 03/26/2015 03/26/2015 2.16.840.1.950899.4.391.11.34244 [facility] Unknown [id number] 03/26/2015 03/26/2015 2.16.840.1.941095.4.391.11.03634 [facility] Unknown [id number] 03/26/2015 03/26/2015 2.16.840.1.666001.4.391.11.90065 [facility] Unknown [id number] 03/26/2015 03/26/2015 2.16.840.1.757507.4.391.11.51317 [facility] Unknown [id number] 03/26/2015 03/26/2015 2.16.840.1.004265.4.391.11.12864 [facility] Unknown [id number] 03/26/2015 03/26/2015 2.16.840.1.675269.4.391.11.20852 [facility] Unknown [id number] 03/26/2015 03/26/2015 2.16.840.1.781206.4.391.11.99033 [facility] OBS Observation Patient [id number] Eric Aguila 03/30/2015 04/01/2015 [facility] Unknown [id number] 04/02/2015 04/02/2015 2.16.840.1.029823.4.391.11.80228 [facility] Unknown [id number] 04/02/2015 04/02/2015 2.16.840.1.605387.4.391.11.31762 [facility] Unknown [id number] 04/02/2015 04/02/2015 2.16.840.1.978268.4.391.11.43866 [facility] Unknown [id number] 04/02/2015 04/02/2015 2.16.840.1.294657.4.391.11.39409 [facility] Unknown [id number] 04/02/2015 04/02/2015 2.16.840.1.329328.4.391.11.30077 [facility] Unknown [id number] 04/02/2015 04/02/2015 2.16.840.1.374936.4.391.11.04284 [facility] Unknown [id number] 04/02/2015 04/02/2015 2.16.840.1.330286.4.391.11.28042 [facility] Unknown [id number] 04/02/2015 04/02/2015 2.16.840.1.457743.4.391.11.62732 [facility] Unknown [id number] 04/02/2015 04/02/2015 2.16.840.1.979990.4.391.11.14073 [facility] Unknown [id number] 04/02/2015 04/02/2015 2.16.840.1.287172.4.391.11.61193 [facility] Unknown [id number] 04/02/2015 04/02/2015 2.16.840.1.106017.4.391.11.16090 [facility] rash [id number] 04/22/2015 04/22/2015 2.16.840.1.558963.4.391.11.52597 [facility] rash [id number] 04/22/2015 04/22/2015 2.16.840.1.990179.4.391.11.42481 [facility] rash [id number] 04/22/2015 04/22/2015 2.16.840.1.296729.4.391.11.69543 [facility] rash [id number] 04/22/2015 04/22/2015 2.16.840.1.052076.4.391.11.64094 [facility] rash [id number] 04/22/2015 04/22/2015 2.16.840.1.552761.4.391.11.58796 [facility] rash [id number] 04/22/2015 04/22/2015 2.16.840.1.301602.4.391.11.21011 [facility] rash [id number] 04/22/2015 04/22/2015 2.16.840.1.802882.4.391.11.09934 [facility] rash [id number] 04/22/2015 04/22/2015 2.16.840.1.646616.4.391.11.37616 [facility] rash [id number] 04/22/2015 04/22/2015 2.16.840.1.675742.4.391.11.86571 [facility] rash [id number] 04/22/2015 04/22/2015 2.16.840.1.004015.4.391.11.67948 [facility] rash [id number] 04/22/2015 04/22/2015 2.16.840.1.964497.4.391.11.65646 [facility] Unknown [id number] 04/30/2015 04/30/2015 2.16.840.1.757515.4.391.11.06926 [facility] Unknown [id number] 04/30/2015 04/30/2015 2.16.840.1.006494.4.391.11.67389 [facility] Unknown [id number] 04/30/2015 04/30/2015 2.16.840.1.665592.4.391.11.36333 [facility] Unknown [id number] 04/30/2015 04/30/2015 2.16.840.1.198162.4.391.11.03551 [facility] Unknown [id number] 04/30/2015 04/30/2015 2.16.840.1.709921.4.391.11.84589 [facility] Unknown [id number] 04/30/2015 04/30/2015 2.16.840.1.381345.4.391.11.73722 [facility] Unknown [id number] 04/30/2015 04/30/2015 2.16.840.1.333079.4.391.11.39546 [facility] Unknown [id number] 04/30/2015 04/30/2015 2.16.840.1.016396.4.391.11.81326 [facility] Unknown [id number] 04/30/2015 04/30/2015 2.16.840.1.912296.4.391.11.26917 [facility] Unknown [id number] 04/30/2015 04/30/2015 2.16.840.1.793452.4.391.11.03103 [facility] Unknown [id number] 04/30/2015 04/30/2015 2.16.840.1.879090.4.391.11.72676 [facility] OBS Observation Patient [id number] Eric Aguila 05/06/2015 05/08/2015 [facility] Inpatient [id number] Eric Aguila 06/03/2015 06/05/2015 [facility] Unknown [id number] 08/24/2015 08/24/2015 2.16.840.1.809215.4.391.11.31424 [facility] Unknown [id number] 08/24/2015 08/24/2015 2.16.840.1.711688.4.391.11.43883 [facility] [facility] [id number] 08/24/2015 08/24/2015 2.16.840.1.456349.4.391.11.17927 [facility] Unknown [id number] 08/24/2015 08/24/2015 2.16.840.1.068033.4.391.11.90881 [facility] Unknown [id number] 08/24/2015 08/24/2015 2.16.840.1.896472.4.391.11.72011 [facility] Unknown [id number] 08/24/2015 08/24/2015 2.16.840.1.538296.4.391.11.17121 [facility] Unknown [id number] 08/24/2015 08/24/2015 2.16.840.1.284220.4.391.11.96250 [facility] Unknown [id number] 08/24/2015 08/24/2015 2.16.840.1.605139.4.391.11.70362 [facility] Unknown [id number] 08/24/2015 08/24/2015 2.16.840.1.263441.4.391.11.81385 [facility] Unknown [id number] 08/24/2015 08/24/2015 2.16.840.1.365100.4.391.11.69995 [facility] Unknown [id number] 08/24/2015 08/24/2015 2.16.840.1.871977.4.391.11.55064 [facility] Unknown [id number] 08/24/2015 08/24/2015 2.16.840.1.263424.4.391.11.38561 [facility] Unknown [id number] 08/24/2015 08/24/2015 2.16.840.1.440072.4.391.11.19947 [facility] Unknown [id number] 08/24/2015 08/24/2015 2.16.840.1.894220.4.391.11.87867 [facility] Unknown [id number] 08/24/2015 08/24/2015 2.16.840.1.817854.4.391.11. [facility] Unknown [id number] 08/24/2015 08/24/2015 2.16.840.1.484619.4.391.11.18580 [facility] Unknown [id number] 08/24/2015 08/24/2015 2.16.840.1.427751.4.391.11.95996 [facility] Unknown [id number] 08/24/2015 08/24/2015 2.16.840.1.301933.4.391.11.76065 [facility] Unknown [id number] 08/24/2015 08/24/2015 2.16.840.1.562024.4.391.11.73422 [facility] Unknown [id number] 08/24/2015 08/24/2015 2.16.840.1.766770.4.391.11.96790 [facility] Unknown [id number] 08/24/2015 08/24/2015 2.16.840.1.648698.4.391.11.43976 [facility] Unknown [id number] 08/24/2015 08/24/2015 2.16.840.1.937006.4.391.11.39930 [facility] Unknown [id number] 08/31/2015 08/31/2015 2.16.840.1.966342.4.391.11.36057 [facility] Unknown [id number] 08/31/2015 08/31/2015 2.16.840.1.346043.4.391.11.13536 [facility] Unknown [id number] 08/31/2015 08/31/2015 2.16.840.1.884355.4.391.11.99821 [facility] Unknown [id number] 08/31/2015 08/31/2015 2.16.840.1.144936.4.391.11.03871 [facility] Unknown [id number] 08/31/2015 08/31/2015 2.16.840.1.234593.4.391.11.27148 [facility] Unknown [id number] 08/31/2015 08/31/2015 2.16.840.1.243102.4.391.11.14511 [facility] Unknown [id number] 08/31/2015 08/31/2015 2.16.840.1.042317.4.391.11.71627 [facility] Unknown [id number] 08/31/2015 08/31/2015 2.16.840.1.430733.4.391.11.73547 [facility] Unknown [id number] 08/31/2015 08/31/2015 2.16.840.1.417497.4.391.11.90222 [facility] Inpatient [id number] Ericpieter Aguila 10/03/2015 10/06/2015 [facility] FOLLOW UP [id number] 10/09/2015 10/09/2015 2.16.840.1.205684.4.391.11.33271 [facility] FOLLOW UP [id number] 10/09/2015 10/09/2015 2.16.840.1.929070.4.391.11.80080 [facility] FOLLOW UP [id number] 10/09/2015 10/09/2015 2.16.840.1.989073.4.391..31950 [facility] FOLLOW UP [id number] 10/09/2015 10/09/2015 2.16.840.1.403443.4.391.11.16011 [facility] FOLLOW UP [id number] 10/09/2015 10/09/2015 2.16.840.1.076695.4.391..10905 [facility] FOLLOW UP [id number] 10/09/2015 10/09/2015 2.16.840.1.140270.4.391..79016 [facility] FOLLOW UP [id number] 10/09/2015 10/09/2015 2.16.840.1.230608.4.391..44601 [facility] FOLLOW UP [id number] 10/09/2015 10/09/2015 2.16.840.1.852223.4.391..93457 [facility] FOLLOW UP VISIT [id number] 10/15/2015 10/15/2015 2.16.840.1.443480.4.391.11.79050 [facility] FOLLOW UP VISIT [id number] 10/15/2015 10/15/2015 2.16.840.1.982481.4.391..31600 [facility] FOLLOW UP VISIT [id number] 10/15/2015 10/15/2015 2.16.840.1.435706.4.391.11.09653 [facility] FOLLOW UP VISIT [id number] 10/15/2015 10/15/2015 2.16.840.1.938516.4.391.11.88010 [facility] FOLLOW UP VISIT [id number] 10/15/2015 10/15/2015 2.16.840.1.545154.4.391.11.03730 [facility] FOLLOW UP VISIT [id number] 10/15/2015 10/15/2015 2.16.840.1.628586.4.391.11.40968 [facility] FOLLOW UP VISIT [id number] 10/15/2015 10/15/2015 2.16.840.1.595874.4.391.11.60976 [facility] 4 week f/u [id number] 11/26/2015 11/26/2015 2.16.840.1.331302.4.391.11.48331 [facility] 4 week f/u [id number] 11/26/2015 11/26/2015 2.16.840.1.943537.4.391.11.66232 [facility] 4 week f/u [id number] 11/26/2015 11/26/2015 2.16.840.1.185979.4.391.11.99367 [facility] 4 week f/u [id number] 11/26/2015 11/26/2015 2.16.840.1.376672.4.391.11.87819 [facility] 4 week f/u [id number] 11/26/2015 11/26/2015 2.16.840.1.395465.4.391.11.45495 [facility] 4 week f/u [id number] 11/26/2015 11/26/2015 2.16.840.1.595063.4.391.11.02497 [facility] Unknown [id number] 01/14/2016 01/14/2016 2.16.840.1.997611.4.391.11.67926 [facility] Unknown [id number] 01/14/2016 01/14/2016 2.16.840.1.757628.4.391.11.11334 [facility] Unknown [id number] 01/14/2016 01/14/2016 2.16.840.1.829892.4.391.11.23759 [facility] Unknown [id number] 01/14/2016 01/14/2016 2.16.840.1.068626.4.391.11.97566 [facility] Unknown [id number] 01/14/2016 01/14/2016 2.16.840.1.569393.4.391.11.02439 [facility] OBS Observation Patient [id number] Eric Aguila 01/19/2016 01/20/2016 [facility] F/U [id number] 02/05/2016 02/05/2016 2.16.840.1.983996.4.391.11.63247 [facility] Care F/U [id number] 02/05/2016 02/05/2016 2.16.840.1.138714.4.391.11.45279 [facility] Care F/U [id number] 02/05/2016 02/05/2016 2.16.840.1.814480.4.391.11.47677 [facility] Care F/U [id number] 02/05/2016 02/05/2016 2.16.840.1.117832.4.391.11.53379 [facility] Unknown [id number] 05/10/2016 05/10/2016 2.16.840.1.947822.4.391.11.13578 [facility] Unknown [id number] 05/10/2016 05/10/2016 2.16.840.1.949668.4.391.11.87427 [facility] Unknown [id number] 05/10/2016 05/10/2016 2.16.840.1.453530.4.391.11.30056 [facility] Unknown [id number] 09/02/2016 09/02/2016 2.16.840.1.372170.4.391.11.94052 [facility] Unknown [id number] 09/02/2016 09/02/2016 2.16.840.1.395884.4.391.11.80445 [facility] Unknown [id number] 09/22/2016 09/22/2016 2.16.840.1.527990.4.391.11.92232 Procedures Procedure Code Date Perfomer Comments Source Hysterectomy [id number] [facility] Tonsillectomy [id number] [facility]
--- OUTSIDE RECORDS SUMMARY | 2018-06-23 11:50 | XMS REPORT ---
Author Author Eric Aguila [facility] eClinicalWorks Address Unknown Phone Unavailable Care Team Providers Care Web Services Professional Name Role Phone Eric Aguila CP Unavailable [...] Problem BMI 40.0-44.9, adult Z68.41 Active Assessment Pain in right hip M25.551 Active Assessment Morbid obesity, unspecified obesity type E66.01 Active Assessment Depressive disorder, not elsewhere classified F32.9 Active Medications Medication Code System Code Instructions Start Date End Date Status Dosage Claritin [facility] 92713058013 10 mg Orally Once a day Active 1 tablet Bond [facility] [address]-45 5-325 MG Orally once a day Mar 21, 2017 Apr 20, 2017 Active 1 tablet Seroquel [facility] [address]-90 300 MG Orally Once a day Active 1 tablet at bedtime Flexeril [facility] [address]-34 10 MG Orally Three times a day Mar 31, 2017 Apr 30, 2017 Active 1 tablet as needed Flonase ND 0 50 MCG/DOSE Nasally as needed (prn) Mar 04, 2015 Active 1 spray in each nostril Santyl [facility] [address]-32 250 UNIT/GM Externally Once a day Mar 21, 2017 Apr 20, 2017 Active 1 application to affected area Prilosec [facility] [address]-62 20 MG Orally Once a day Active 1 capsule Vitamin D (Ergocalciferol) [facility] 08865339416 18705 UNIT Orally weekly Active 1 capsule Metoprolol Succinate ER [facility] 44674092606 25 MG Orally Once a day Active 1 tablet Ibuprofen [facility] [address]-42 200 MG Orally every 6 hrs Active 1 tablet as needed Tramadol HCl [facility] [address]-48 50 MG Orally every 6 hrs Mar 21, 2017 Apr 05, 2017 Active 1 tablet as needed Flexeril [facility] [address]-07 10 MG Orally Three times a day Mar 21, 2017 Apr 05, 2017 Active 1 tablet as needed Bactroban [facility] [address]-73 2 % Externally Three times a day Mar 21, 2017 Apr 28, 2017 Active 1 application to affected area Effexor XR [facility] [address]-94 150 MG Orally twice a day (bid) Active 1 capsule Zantac [facility] 19942378813 150 MG Orally twice a day (bid) Active 1 tablet at bedtime Lorazepam [facility] [address]-31 0.5 MG Orally Twice a day Active 1 tablet as needed ProAir HFA [facility] [address]-46 108 (90 Base) MCG/ACT Inhalation every 4 hrs Active 2 puffs as needed Vital Signs Date/Time: Mar 31, 2017 BMI 37.98 Index Weight 221.3 lbs Height 64.0 in Temperature 99.0 F Cardiac Monitoring Heart Rate 94 /min Blood Pressure Diastolic 78 mm Hg Blood Pressure Systolic 116 mm Hg Results No Known Results Summary Purpose eClinicalWorks Submission
--- OUTSIDE RECORDS SUMMARY | 2018-06-23 11:51 | XMS REPORT ---
Author Eric Colindres Organization e[employer] Address Unknown Phone Unavailable Care Team Providers Care Fender Mechanic Apprentice Name Role Phone Eric Aguila CP Unavailable Allergies, Adverse Reactions, Alerts Substance Reaction Event Type codeine hives Non Drug Allergy Problems Problem Type Condition Code Onset Dates Condition Status Assessment Excoriation T14.8XXA Active Assessment Encounter for general adult medical examination with abnormal findings Z00.01 Active Problem Depressive disorder, not elsewhere classified F32.9 Active Assessment Transient cerebral ischemia, unspecified type G45.9 Active Problem Allergic rhinitis J30.9 Active Assessment Paresthesia of skin R20.2 Active Problem Hx of tobacco use, presenting hazards to health Z87.891 Active Problem Morbid obesity, unspecified obesity type E66.01 Active Problem Asthma exacerbation J45.901 Active Problem Transient cerebral ischemia, unspecified type G45.9 Active Problem MAR (obstructive sleep apnea) G47.33 Active Assessment Pre-diabetes R73.03 Active Assessment Sciatic leg pain M54.30 Active Problem Paresthesia of skin R20.2 Active Assessment MAR (obstructive sleep apnea) G47.33 Active Problem Arthritis of hand M19.049 Active Problem BMI 40.0-44.9, adult Z68.41 Active Problem Sciatic leg pain M54.30 Active Problem Pre-diabetes R73.03 Active Assessment Morbid obesity, unspecified obesity type E66.01 Active Assessment Asthma exacerbation J45.901 Active Assessment Arthritis of hand M19.049 Active Assessment BMI 40.0-44.9, adult Z68.41 Active Assessment Allergic rhinitis J30.9 Active Assessment Encounter for screening Z13.9 Active Assessment Hx of tobacco use, presenting hazards to health Z87.891 Active Assessment Depressive disorder, not elsewhere classified F32.9 Active Medications Medication Code System Code Instructions Start Date End Date Status Dosage Calcium + D3 [facility] 67611015311 600-800 MG-UNIT Orally Once a day Active 1 [place] [address] - Orally Active not defined Dicyclomine HCl ND 17915228024 20 mg Orally twice a day (bid) Active 2 tablet Probiotic [facility] 14677409312 - Orally Twice a day Active 1 capsule Flexeril [facility] 15849909955 10 MG Active TAKE 1 TABLET BY MOUTH NEEDED 3 TIMES A DAY Zantac [facility] 08811669949 150 MG Orally twice a day (bid) Active 1 tablet at bedtime Lotrisone [facility] 17937515929 1-0.05 % Externally Twice a day Active 1 application to affected area Acyclovir [facility] 22170841878 200 MG Orally Three times a day May 09, 2017 Active 1 capsule Santyl [facility] 74513415126 250 UNIT/GM Externally Once a day Feb 20, 2018 Mar 23, 2018 Active 1 application to affected area Lorazepam [facility] 11960414289 0.5 MG Orally Twice a day Active 1 tablet as needed Ipratropium [place] [facility] 02547589509 0.02% Active USE ONE VIAL VIA NEBULIZER FOUR TIMES DAILY NEEDED ProAir HFA [facility] 58275461147 90 MCG/INH Active USE 1 TO 2 INHALATIONS BY MOUTH FOUR TIMES DAILY NEEDED FOR SHORTNESS OF BREATH Vitamin D (Ergocalciferol) [facility] 94468305868 56520 UNIT Orally weekly Active 1 capsule Claritin [facility] 48439747684 10 mg Orally Once a day Active 1 tablet Vitamin E [facility] 84986250948 400 UNIT Orally Once a day Active 1 capsule Apple Cider Vinegar [facility] 38741890895 500 MG Orally daily Active 1 tablet Metoprolol Succinate ER [facility] 62179681610 25 MG Orally Once a day Active 1 tablet Vitamin C [facility] [address]-22 1000 mg Orally twice a day (bid) Active 1 tablet One Daily [facility] 51673745841 - Orally Once a day Active 1 tablet Effexor XR [facility] 11502801222 150 MG Orally twice a day (bid) Active 1 capsule Prilosec [facility] [address]-09 40 MG Orally Once a day Active 1 capsule Aspir-81 [facility] 94676882575 81 MG Orally Once a day Active 1 tablet Albuterol Sulfate [facility] 57896193633 0.021% Active USE ONE VIAL VIA NEBULIZER FOUR TIMES DAILY ProAir HFA [facility] 97049888325 108 (90 Base) MCG/ACT Inhalation every 4 hrs Active 2 puffs as needed Astelin [facility]DC 39952262704 137 MCG/SPRAY Nasally Twice a day May 09, 2017 Active 1 puff in each nostril Seroquel [facility] 06069224569 300 MG Orally Once a day Active 1 tablet at bedtime Vital Signs Date/Time: Feb 20, 2018 BMI 40.83 Index Weight 237.9 lbs Height 64.0 in Temperature 98.6 F Cardiac Monitoring Heart Rate 81 /min Blood Pressure Diastolic 78 mm Hg Blood Pressure Systolic 119 mm Hg Results No Known Results Summary Purpose eClinicalWorks Submission
--- OUTSIDE RECORDS SUMMARY | 2018-06-23 11:51 | XMS REPORT ---
Author Author Eric Aguila Organization [employer] Address Unknown Phone Unavailable Care Team Providers Care Motor Vehicle Compliance Analyst Name Role Phone Eric Aguila CP Unavailable Allergies, Adverse Reactions, Alerts Substance Reaction Event Type codine Info Not Available Non Drug Allergy Encounters Encounter Location Date Unknown [facility] Apr 02, 2015 rash [facility] Apr 22, 2015 Unknown [facility] Apr 30, 2015 Unknown [facility] Aug 24, 2015 Unknown [facility] Mar 06, 2015 Unknown [facility] Mar 04, 2015 Unknown [facility] Mar 26, 2015 Unknown [facility] Aug 24, 2015 Unknown [facility] Aug 31, 2015 Problems Problem Type Condition ICD-9 Code Onset Dates Condition Status Problem Allergic rhinitis J30.9 Active Problem Depressive disorder, not elsewhere classified F32.9 Active Problem Hx of tobacco use, presenting hazards to health Z87.891 Active Assessment Depressive disorder, not elsewhere classified F32.9 Active Assessment Hx of tobacco use, presenting hazards to health Z87.891 Active Assessment Asthmatic bronchitis, unspecified asthma severity, uncomplicated J45.909 Active Assessment Allergic rhinitis J30.9 Active Medications Medication Code System Code Instructions Start Date End Date Status Dosage Venlafaxine HCl ER [facility] [address]-53 150 MG Orally Once a day Active 1 capsule with food Stiolto Respimat [facility] [address]-75 2.5-2.5 MCG/ACT Inhalation Active Unknown Ibuprofen [facility] [address]-01 200 MG Orally every 6 hrs Active 1 tablet as needed Promethazine-DM [facility] [address]-72 6.25-15 MG/5ML Orally every 6 hrs Aug 24, 2015 Sep 03, 2015 Active 5 ml as needed Claritin [facility] 06973976939 10 mg Orally Once a day Active 1 tablet ProAir HFA [facility] [address]-09 108 (90 Base) MCG/ACT Inhalation every 4 hrs Active 2 puffs as needed Vitamin D (Ergocalciferol) [facility] 30293844918 34712 UNIT Orally weekly Active 1 capsule Paroxetine HCl [facility] [address]-86 40 MG Orally Once a day Active 1 tablet in the morning Levaquin [facility] [address]-42 750 MG Orally Once a day Aug 24, 2015 Sep 03, 2015 Active 1 tablet Levaquin [facility] [address]-19 750 MG Orally Once a day Aug 31, 2015 Sep 05, 2015 Active 1 tablet Metoprolol Succinate ER [facility] 62687306435 25 MG Orally Once a day Active 1 tablet Flonase [facility] [address]-48 50 MCG/DOSE Nasally Once a day Mar 04, 2015 Active 1 spray in each nostril Quetiapine Fumarate [facility] [address]-51 50 MG Orally Once a day Active 1 tablet at bedtime Promethazine-DM [facility] [address]-55 6.25-15 MG/5ML Orally as needed (prn) Active 5 ml as needed Zantac [facility] 47562111932 150 MG Orally Twice a day Active 1 tablet Social History Social History Element Qualifiers Date Reported Tobacco Use: . Are you a: former smoker, What year did you quit? 2014Aug 31, 2015 Use of recreational / street drugs? . Answer: No Aug 31, 2015 Marital Status: . Aug 31, 2015 Do you exercise? . Answer: No Aug 31, 2015 Do you drink alcohol? . Status: No Aug 31, 2015 Travel outside [place]: . 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
--- OUTSIDE RECORDS SUMMARY | 2018-06-23 11:51 | XMS REPORT ---
Author Author Eric Aguila [facility] eClinicalWorks Address Unknown Phone Unavailable Care Team Providers Care Account Manager Sales Representative Name Role Phone Eric Aguila CP Unavailable Allergies, Adverse Reactions, Alerts Substance Reaction Event Type codine Info Not Available Non Drug Allergy Encounters Encounter Location Date Unknown [facility] Apr 02, 2015 rash [facility] Apr 22, 2015 Unknown [facility] Apr 30, 2015 Unknown [facility] Aug 24, 2015 Unknown [facility] Mar 06, 2015 Unknown [facility] Mar 04, 2015 Unknown [facility] Mar 26, 2015 HOSPITAL FOLLOW UP [facility] October 09, 2015 Unknown [facility] Aug 24, 2015 Unknown [facility] Aug 31, 2015 Problems Problem Type Condition ICD-9 Code Onset Dates Condition Status Problem Allergic rhinitis J30.9 Active Problem Depressive disorder, not elsewhere classified F32.9 Active Problem Hx of tobacco use, presenting hazards to health Z87.891 Active Assessment Depressive disorder, not elsewhere classified F32.9 Active Assessment Exacerbation of asthma J45.901 Active Assessment Allergic rhinitis J30.9 Active Medications Medication Code System Code Instructions Start Date End Date Status Dosage Vitamin D (Ergocalciferol) [facility] 54705383187 77896 UNIT Orally weekly Active 1 capsule ProAir HFA [facility] [address]-02 108 (90 Base) MCG/ACT Inhalation every 4 hrs Active 2 puffs as needed Claritin [facility] 35737368175 10 mg Orally Once a day Active 1 tablet Quetiapine Fumarate [facility] [address]-02 50 MG Orally Once a day Active 1 tablet at bedtime Medrol (Neno) [facility] [address]-64 4 mg Orally as directed October 09, 2015 October 15, 2015 Active as directed Stiolto Respimat [facility] [address]-61 2.5-2.5 MCG/ACT Inhalation Active Unknown Promethazine-DM [facility] [address]-67 6.25-15 MG/5ML Orally as needed (prn) Active 5 ml as needed Flonase [facility] [address]-68 50 MCG/DOSE Nasally Once a day Mar 04, 2015 Active 1 spray in each nostril Ibuprofen [facility] [address]-91 200 MG Orally every 6 hrs Active 1 tablet as needed Zantac [facility] 99594605880 150 MG Orally Twice a day Active 1 tablet Venlafaxine HCl ER [facility] [address]-18 150 MG Orally Once a day Active 1 capsule with food Metoprolol Succinate ER [facility] 75213035668 25 MG Orally Once a day Active 1 tablet Paroxetine HCl [facility] [address]-66 40 MG Orally Once a day Active 1 tablet in the morning Social History Social History Element Qualifiers Date Reported Tobacco Use: . Are you a: former smoker, What year did you quit? 2014October 09, 2015 Use of recreational / street drugs? . Answer: No October 09, 2015 Marital Status: . October 09, 2015 Do you exercise? . Answer: No October 09, 2015 Do you drink alcohol? . Status: No October 09, 2015 Travel outside [place]: . 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
--- OUTSIDE RECORDS SUMMARY | 2018-06-23 11:51 | XMS REPORT ---
Author Author Eric Aguila Organization eClinicalWorks Address Unknown Phone Unavailable Care Team Providers Care Therapist Speech Name Role Phone Eric Aguila CP Unavailable Allergies No Known Allergies Problems Problem Type Condition Code Onset Dates Condition Status Problem Hx of tobacco use, presenting hazards to health Z87.891 Active Problem Morbid obesity, unspecified obesity type E66.01 Active Problem Asthma exacerbation J45.901 Active Problem Depressive disorder, not elsewhere classified F32.9 Active Problem Allergic rhinitis J30.9 Active Problem Transient cerebral ischemia, unspecified type G45.9 Active Problem MAR (obstructive sleep apnea) G47.33 Active Problem Paresthesia of skin R20.2 Active Problem Arthritis of hand M19.049 Active Problem BMI 40.0-44.9, adult Z68.41 Active Problem Sciatic leg pain M54.30 Active Problem Pre-diabetes R73.03 Active Medications Medication Code System Code Instructions Start Date End Date Status Dosage Seroquel [facility] 94183650716 300 MG Orally Once a day Active 1 tablet at bedtime Results No Known Results Summary Purpose eClinicalWorks Submission
--- OUTSIDE RECORDS SUMMARY | 2018-06-23 11:51 | XMS REPORT ---
Author Author Eric Aguila Organization eClinicalWorks Address Unknown Phone Unavailable Care Team Providers Care Metal Spinner Name Role Phone Eric Aguila CP Unavailable Allergies No Known Allergies Problems Problem Type Condition Code Onset Dates Condition Status Problem Depressive disorder, not elsewhere classified F32.9 Active Problem Hx of tobacco use, presenting hazards to health Z87.891 Active Problem Allergic rhinitis J30.9 Active Problem Sciatic leg pain M54.30 Active Problem Pre-diabetes R73.03 Active Problem MAR (obstructive sleep apnea) G47.33 Active Problem BMI 40.0-44.9, adult Z68.41 Active Problem Asthma exacerbation J45.901 Active Problem Arthritis of hand M19.049 Active Problem Morbid obesity, unspecified obesity type E66.01 Active Medications No Known Medications Results No Known Results Summary Purpose eClinicalWorks Submission
--- OUTSIDE RECORDS SUMMARY | 2018-06-23 11:51 | XMS REPORT ---
Author Author Eric Aguila Organization eClinicalWorks Address Unknown Phone Unavailable Care Team Providers Care Lab Aide Name Role Phone Eric Aguila CP Unavailable Encounters Encounter Location Date Unknown [facility] Mar 06, 2015 Unknown [facility] Mar 04, 2015 Unknown [facility] Mar 26, 2015 Problems Problem Type Condition ICD-9 Code Onset Dates Condition Status Problem Tobacco use disorder 305.1 Active Problem Depression 311 Active Problem Allergic rhinitis 477.9 Active Medications Medication Code System Code Instructions Start Date End Date Status Dosage Omeprazole [facility] [address]-73 40 mg Orally Once a day Mar 04, 2015 Inactive 1 capsule Protonix [facility] [address]-53 40 MG Orally Once a day Mar 26, 2015 Active 1 tablet Social History Social History Element Qualifiers Date Reported Tobacco Use: . Are you a: former smoker, What year did you quit? 2014Mar 04, 2015 Use of recreational / street drugs? . Answer: No Mar 04, 2015 Marital Status: . Mar 04, 2015 Do you drink alcohol? . 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
--- OUTSIDE RECORDS SUMMARY | 2018-06-23 11:51 | XMS REPORT ---
Author Eric Colindres Organization eClinicalWorks Address Unknown Phone Unavailable Care Team Providers Care Community Development Coordinator Name Role Phone Eric Aguila CP Unavailable [...] M54.30 Active Problem Pre-diabetes R73.03 Active Assessment Bilateral otitis media, unspecified otitis media type H66.93 Active Assessment Depressive disorder, not elsewhere classified F32.9 Active Problem Depressive disorder, not elsewhere classified F32.9 Active Assessment Allergic rhinitis J30.9 Active Problem Allergic rhinitis J30.9 Active Medications Medication Code System Code Instructions Start Date End Date Status Dosage Effexor XR [facility] 83349200279 150 MG Orally twice a day (bid) Active 1 capsule Metoprolol Succinate ER [facility] 49832027566 25 MG Orally Once a day Active 1 tablet One Daily [facility] 12307968047 - Orally Once a day Active 1 tablet Vitamin E [facility] 81520341174 400 UNIT Orally Once a day Active 1 capsule Pepcid [facility] 58016914206 20 mg Orally Once a day Active 1 tablet Astelin [facility] 83474837025 137 MCG/SPRAY Nasally Twice a day May 09, 2017 Active 1 puff in each nostril Acyclovir [facility] 17441217844 200 MG Orally Three times a day May 09, 2017 Active 1 capsule Azelastine HCl [facility] 66073990564 0.1 % Active USE 1 PUFF IN EACH NOSTRIL TWICE A DAY Zantac [facility] 81222404379 150 MG Orally twice a day (bid) Active 1 tablet at bedtime Vitamin D (Ergocalciferol) [facility] 68367719398 05141 UNIT Orally weekly Active 1 capsule Incruse Ellipta ND 83431181280 62.5 MCG/INH Inhalation Once a day Active 1 puff Ceftin NDC 0 500 mg Orally every 12 hrs Mar 26, 2018 Apr 05, 2018 Active 1 tablet Flexeril ND 28542054040 10 MG Active TAKE 1 TABLET BY MOUTH NEEDED 3 TIMES A DAY Lotrisone [facility] 53557897334 1-0.05 % Externally Twice a day Active 1 application to affected area Seroquel ND 93878747833 300 MG Orally Once a day Active 1 tablet at bedtime Naprosyn ND 93360018770 500 mg Orally every 12 hrs Active 1 tablet with food or milk as needed Claritin ND 76260460839 10 mg Orally Once a day Active 1 tablet Ipratropium [place] 21171163181 0.02% Active USE ONE VIAL VIA NEBULIZER FOUR TIMES DAILY NEEDED Vitamin C [facility] [address]-44 1000 mg Orally twice a day (bid) Active 1 tablet Augmentin [facility] 06338124275 500-125 MG Orally every 12 hrs Apr 04, 2018 Apr 14, 2018 Active as directed Vitamin B Complex [facility] 50[address]-28962 - Orally Active not defined Apple Cider Vinegar ND 94594601118 500 MG Orally daily Active 1 tablet Calcium + D3 [facility] 75171592422 600-800 MG-UNIT Orally Once a day Active 1 tablet with a meal Prilosec [facility] [address]-62 40 MG Orally Once a day Active 1 capsule ProAir HFA [facility] 05130876738 90 MCG/INH Active USE 1 TO 2 INHALATIONS BY MOUTH FOUR TIMES DAILY NEEDED FOR SHORTNESS OF BREATH Dicyclomine HCl ND 24153207516 20 mg Orally twice a day (bid) Active 2 tablet Lorazepam ND 43693345422 0.5 MG Orally Twice a day Active 1 tablet as needed Albuterol Sulfate ND 42766064457 0.021% Active USE ONE VIAL VIA NEBULIZER FOUR TIMES DAILY Aspir-81 ND 72157531247 81 MG Orally Once a day Active 1 tablet Medrol (Neno) ND 0 4 mg Orally as directed Apr 04, 2018 Apr 10, 2018 Active as directed ProAir HFA [facility] 92097861118 108 (90 Base) MCG/ACT Inhalation every 4 hrs Active 2 puffs as needed Probiotic [facility] 61414912224 - Orally Twice a day Active 1 capsule NyQuil Cold & Flu NDC 0 15-6.25-325 MG/15ML Orally every 6 hrs Active 30 ml as needed Zyrtec Allergy [facility] 54181030874 10 MG Orally Once a day Active 1 tablet guaifenesin 400 mg Tab NDC 0 Active not defined Ciprodex [facility] 42535939372 0.3-0.1 % Otic Twice a day Mar 30, 2018 Active 4 drops into affected ear Vital Signs Date/Time: Apr 04, 2018 BMI 41.45 Index Weight 241.5 lbs Height 64.0 in Temperature 98.2 F Cardiac Monitoring Heart Rate 100 /min Blood Pressure Diastolic 84 mm Hg Blood Pressure Systolic 131 mm Hg Results No Known Results Summary Purpose eClinicalWorks Submission
--- OUTSIDE RECORDS SUMMARY | 2018-06-23 11:51 | XMS REPORT ---
Author Author Eric Aguila Organization eClinicalWorks Address Unknown Phone Unavailable Care Team Providers Care Retail District Manager Name Role Phone Eric Aguila CP Unavailable [...] M54.30 Active Problem Pre-diabetes R73.03 Active Medications No Known Medications Results No Known Results Summary Purpose eClinicalWorks Submission
--- OUTSIDE RECORDS SUMMARY | 2018-06-23 11:51 | XMS REPORT ---
Author Author Eric Aguila Organization eClinicalWorks Address Unknown Phone Unavailable Care Team Providers Care Stack Supervisor Name Role Phone Eric Aguila CP Unavailable Encounters Encounter Location Date Unknown [facility] Mar 06, 2015 Unknown [facility] Mar 04, 2015 Problems Problem Type Condition ICD-9 Code Onset Dates Condition Status Problem Tobacco use disorder 305.1 Active Problem Depression 311 Active Problem Allergic rhinitis 477.9 Active Medications Medication Code System Code Instructions Start Date End Date Status Dosage Omeprazole [facility] [address]-18 40 mg Orally Once a day Mar 04, 2015 Active 1 capsule Social History Social History Element Qualifiers Date [...]
--- OUTSIDE RECORDS SUMMARY | 2018-06-23 11:51 | XMS REPORT ---
Author Author Eric Aguila Organization eClinicalWorks Address Unknown Phone Unavailable Care Team Providers Care Structurer Name Role Phone Eric Aguila Unavailable Encounters Encounter Location Date Unknown [facility] Apr 02, 2015 rash [facility] Apr 22, 2015 Unknown [facility] Apr 30, 2015 Unknown [facility] Aug 24, 2015 Unknown [facility] Mar 06, 2015 Unknown [facility] Mar 04, 2015 Unknown [facility] Mar 26, 2015 Unknown [facility] Aug 24, 2015 Problems Problem Type Condition ICD-9 Code Onset Dates Condition Status Problem Allergic rhinitis J30.9 Active Problem Depressive disorder, not elsewhere classified F32.9 Active Problem Hx of tobacco use, presenting hazards to health Z87.891 Active Medications Medication Code System Code Instructions Start Date End Date Status Dosage Levaquin [facility] [address]-47 750 MG Orally Once a day Aug 24, 2015 Sep 03, 2015 Active 1 tablet Promethazine-DM [facility] [address]-84 6.25-15 MG/5ML Orally every 6 hrs Aug 24, 2015 Sep 03, 2015 Active 5 ml as needed Medrol (Neno) [facility] [address]-26 4 mg Orally as directed Aug 24, 2015 Active as directed Social History Social History Element Qualifiers Date Reported Tobacco Use: . Are you a: former smoker, What year did you quit? 2014Aug 24, 2015 Use of recreational / street drugs? . Answer: No Aug 24, 2015 Marital Status: . Aug 24, 2015 Do you drink alcohol? . 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
--- OUTSIDE RECORDS SUMMARY | 2018-06-23 11:51 | XMS REPORT ---
Author Author Eric Aguila Organization eClinicalWorks Address Unknown Phone Unavailable Care Team Providers Care City Superintendent Name Role Phone Eric Aguila CP Unavailable [...] M54.30 Active Problem Pre-diabetes R73.03 Active Assessment Paresthesia of skin R20.2 Active Assessment Asthma exacerbation J45.901 Active Assessment Transient cerebral ischemia, unspecified type G45.9 Active Problem Depressive disorder, not elsewhere classified F32.9 Active Assessment Pain in unspecified limb M79.609 Active Problem Allergic rhinitis J30.9 Active Medications Medication Code System Code Instructions Start Date End Date Status Dosage Medrol (Neno) NDC 0 4 mg Orally as directed Jul 27, 2017 Aug 02, 2017 Active as directed Zantac [facility] 18683596446 150 MG Orally twice a day (bid) Active 1 tablet at bedtime Flexeril [facility] 46966060324 10 MG Active TAKE 1 TABLET BY MOUTH NEEDED 3 TIMES A DAY ProAir HFA [facility] 04877218464 108 (90 Base) MCG/ACT Inhalation every 4 hrs Active 2 puffs as needed Seroquel [facility] 42546682070 300 MG Orally Once a day Active 1 tablet at bedtime Acyclovir [facility] 57073250708 200 MG Orally Three times a day May 09, 2017 Active 1 capsule Prilosec [facility] 73716688034 20 MG Orally Once a day Active 1 capsule Claritin [facility] 08293238224 10 mg Orally Once a day Active 1 tablet Ibuprofen [facility] 97584144620 200 MG Orally every 6 hrs Active 1 tablet as needed Promethazine-DM [facility] 52274639064 6.25-15 MG/5ML Orally every 6 hrs Jul 27, 2017 Aug 06, 2017 Active 5 ml as needed Metoprolol Succinate ER [facility] 76005039903 25 MG Orally Once a day Active 1 tablet Vitamin D (Ergocalciferol) [facility] 35863054348 10442 UNIT Orally weekly Active 1 capsule Aspir-81 [facility] 05468731391 81 MG Orally Once a day Jul 27, 2017 January 23, 2018 Active 1 tablet Effexor XR [facility] 59422635441 150 MG Orally twice a day (bid) Active 1 capsule Astelin [facility] 09322032231 137 MCG/SPRAY Nasally Twice a day May 09, 2017 Active 1 puff in each nostril Ceftin [facility] 71257372229 500 mg Orally Twice a day Jul 27, 2017 Aug 06, 2017 Active 1 tablet Lorazepam [facility] 95775578988 0.5 MG Orally Twice a day Active 1 tablet as needed Vital Signs Date/Time: Jul 27, 2017 BMI 40.88 Index Weight 238.2 lbs Height 64.0 in Temperature 98.1 F Cardiac Monitoring Heart Rate 109 /min Blood Pressure Diastolic 85 mm Hg Blood Pressure Systolic 118 mm Hg Results No Known Results Summary Purpose eClinicalWorks Submission
--- OUTSIDE RECORDS SUMMARY | 2018-06-23 11:51 | XMS REPORT ---
Author Author Eric Aguila Organization eClinicalWorks Address Unknown Phone Unavailable Care Team Providers Care Mounted Police Officer Name Role Phone Eric Aguila CP Unavailable [...] Date End Date Status Dosage Effexor XR NDC 13027536497 150 MG Orally twice a day (bid) Active 1 capsule Effexor NDC 0 75 mg Orally Once a day Apr 16, 2018 Active 1 tablet with food Results No Known Results Summary Purpose eClinicalWorks Submission
--- OUTSIDE RECORDS SUMMARY | 2018-06-23 11:51 | XMS REPORT ---
Author Author Eric Aguila [facility] eClinicalWorks Address Unknown Phone Unavailable Care Team Providers Care Conversion Worker Name Role Phone Eric Aguial CP Unavailable Allergies, Adverse Reactions, Alerts Substance Reaction Event Type codine Info Not Available Non Drug Allergy Encounters Encounter Location Date Unknown [facility] Apr 02, 2015 rash [facility] Apr 22, 2015 Unknown [facility] Apr 30, 2015 Unknown [facility] Aug 24, 2015 Unknown [facility] Mar 06, 2015 Unknown [facility] Mar 04, 2015 Unknown [facility] Mar 26, 2015 Unknown [facility] Aug 24, 2015 Problems Problem Type Condition ICD-9 Code Onset Dates Condition Status Problem Allergic rhinitis J30.9 Active Problem Depressive disorder, not elsewhere classified F32.9 Active Problem Hx of tobacco use, presenting hazards to health Z87.891 Active Assessment Depressive disorder, not elsewhere classified F32.9 Active Assessment Hx of tobacco use, presenting hazards to health Z87.891 Active Assessment Exacerbation of intermittent asthma J45.21 Active Assessment Allergic rhinitis J30.9 Active Medications Medication Code System Code Instructions Start Date End Date Status Dosage Claritin [facility] 24810462795 10 mg Orally Once a day Active 1 tablet Metoprolol Succinate ER [facility] [address]-80 25 MG Orally Once a day Active 1 tablet Protonix [facility] [address]-57 40 MG Orally Once a day Mar 26, 2015 Active 1 tablet Promethazine-DM [facility] [address]-57 6.25-15 MG/5ML Orally as needed (prn) Active 5 ml as needed Montelukast Sodium [facility] [address]-20 10 MG Orally Once a day Active 1 tablet in the evening Zantac [facility] 32379461373 150 MG Orally Twice a day Active 1 tablet Venlafaxine HCl ER [facility] [address]-39 150 MG Orally Once a day Active 1 capsule with food ProAir HFA [facility] [address]-05 108 (90 Base) MCG/ACT Inhalation every 4 hrs Active 2 puffs as needed Ibuprofen [facility] [address]-00 200 MG Orally every 6 hrs Active 1 tablet as needed Flonase [facility] [address]-59 50 MCG/DOSE Nasally Once a day Mar 04, 2015 Active 1 spray in each nostril Medrol (Neno) [facility] [address]-73 4 mg Orally as directed Aug 24, 2015 Active as directed Levaquin [facility] [address]-16 750 MG Orally Once a day Aug 24, 2015 Sep 03, 2015 Active 1 tablet Stiolto Respimat [facility] [address]-24 2.5-2.5 MCG/ACT Inhalation Active Unknown Quetiapine Fumarate [facility] [address]-67 50 MG Orally Once a day Active 1 tablet at bedtime Vitamin D (Ergocalciferol) [facility] 30313486270 29894 UNIT Orally weekly Active 1 capsule Promethazine-DM [facility] [address]-01 6.25-15 MG/5ML Orally every 6 hrs Aug 24, 2015 Sep 03, 2015 Active 5 ml as needed Paroxetine HCl [facility] [address]-55 40 MG Orally Once a day Active [...] 2015 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
--- OUTSIDE RECORDS SUMMARY | 2018-06-23 11:51 | XMS REPORT ---
Author Author Eric Aguila Organization eClinicalWorks Address Unknown Phone Unavailable Care Team Providers Care Vice President For Instruction Name Role Phone Eric Aguila CP Unavailable [...] Instructions Start Date End Date Status Dosage Njdzbwjn-Qrifiv-IT-Thonzonium [facility] [address]-33 3.3-3-10-0.5 MG/ML Otic Three times a day Mar 29, 2018 Active 5 drops into affected ear Results No Known Results Summary Purpose eClinicalWorks Submission
--- OUTSIDE RECORDS SUMMARY | 2018-06-23 11:51 | XMS REPORT ---
Author Author Eric Aguila [facility] eClinicalWorks Address Unknown Phone Unavailable Care Team Providers Care Railroad Car Loader Name Role Phone Eric Aguila CP Unavailable Allergies, Adverse Reactions, Alerts Substance Reaction Event Type codeine hives Non Drug Allergy Encounters Encounter Location Date Unknown [facility] Apr 02, 2015 rash [facility] Apr 22, 2015 Unknown [facility] Apr 30, 2015 Unknown [facility] Aug 24, 2015 Unknown [facility] Mar 06, 2015 FOLLOW UP VISIT [facility] October 15, 2015 Unknown [facility] Mar 04, 2015 Unknown [facility] Mar 26, 2015 HOSPITAL FOLLOW UP [facility] October 09, 2015 Unknown [facility] Aug 24, 2015 Unknown [facility] Aug 31, 2015 Problems Problem Type Condition ICD-9 Code Onset Dates Condition Status Assessment Hx of tobacco use, presenting hazards to health Z87.891 Active Problem Hx of tobacco use, presenting hazards to health Z87.891 Active Problem Allergic rhinitis J30.9 Active Problem Asthma exacerbation J45.901 Active Assessment Allergic rhinitis J30.9 Active Assessment Depressive disorder, not elsewhere classified F32.9 Active Problem Depressive disorder, not elsewhere classified F32.9 Active Assessment Asthma exacerbation J45.901 Active Medications Medication Code System Code Instructions Start Date End Date Status Dosage Stiolto Respimat [facility] [address]-13 2.5-2.5 MCG/ACT Inhalation Active Unknown Flonase [facility] [address]-44 50 MCG/DOSE Nasally Once a day Mar 04, 2015 Active 1 spray in each nostril Metoprolol Succinate ER [facility] 64883808064 25 MG Orally Once a day Active 1 tablet Claritin [facility] 57868521765 10 mg Orally Once a day Active 1 tablet Promethazine-DM [facility] [address]-51 6.25-15 MG/5ML Orally as needed (prn) Active 5 ml as needed Ibuprofen [facility] [address]-77 200 MG Orally every 6 hrs Active 1 tablet as needed Paroxetine HCl [facility] [address]-35 40 MG Orally Once a day Active 1 tablet in the morning Quetiapine Fumarate [facility] [address]-48 50 MG Orally Once a day Active 1 tablet at bedtime Vitamin D (Ergocalciferol) [facility] 17739111277 59016 UNIT Orally weekly Active 1 capsule ProAir HFA [facility] [address]-97 108 (90 Base) MCG/ACT Inhalation every 4 hrs Active 2 puffs as needed Roberto-24 [facility] [address]-94 200 MG Orally daily October 15, 2015 Mar 16, 2016 Active as directed Venlafaxine HCl ER [facility] [address]-17 150 MG Orally Once a day Active 1 capsule with food Lorazepam [facility] [address]-78 0.5 MG Orally Twice a day Active 1 tablet as needed Social History Social History Element Qualifiers Date Reported Tobacco Use: . Are you a: former smoker, What year did you quit? 2014October 15, 2015 Use of recreational / street drugs? . Answer: No October 15, 2015 Sexual Hx: . Had sex in the last 12 months (vaginal, oral, or anal)?: No, Have you ever had an STD?: No, LMP:: 12/15/2009 October 15, 2015 Marital Status: . October 15, 2015 Caffeine intake? . Status: Yes, What type: Coffee, Tea, 1 - 2 cup(s) a day, 1 -2 can(s)/bottle(s) a day October 15, 2015 Do you exercise? . Answer: No October 15, 2015 Do you drink alcohol? . Status: No October 15, 2015 Travel outside [place]: . 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
--- OUTSIDE RECORDS SUMMARY | 2018-06-23 11:51 | XMS REPORT ---
Author Eric Colindres [facility] eClinicalWorks Address Unknown Phone Unavailable Care Team Providers Care Mailing Specialist Name Role Phone Eric Aguila CP Unavailable [...] M54.30 Active Problem Pre-diabetes R73.03 Active Assessment Allergic rhinitis J30.9 Active Assessment Acute recurrent maxillary sinusitis J01.01 Active Assessment MAR (obstructive sleep apnea) G47.33 Active Problem Depressive disorder, not elsewhere classified F32.9 Active Assessment Asthma exacerbation J45.901 Active Problem Allergic rhinitis J30.9 Active Medications Medication Code System Code Instructions Start Date End Date Status Dosage Aspir-81 [facility] 84263999204 81 MG Orally Once a day Active 1 tablet Claritin [facility] 19466305605 10 mg Orally Once a day Active 1 tablet Azelastine HCl [facility] 93488038304 0.1 % Active USE 1 PUFF IN EACH NOSTRIL TWICE A DAY Effexor XR [facility] 37830379500 150 MG Orally twice a day (bid) Active 1 capsule Lotrisone [facility] 26063616234 1-0.05 % Externally Twice a day Active 1 application to affected area ProAir HFA [facility] 14958334987 90 MCG/INH Active USE 1 TO 2 INHALATIONS BY MOUTH FOUR TIMES DAILY NEEDED FOR SHORTNESS OF BREATH Albuterol Sulfate ND 71460880907 0.021% Active USE ONE VIAL VIA NEBULIZER FOUR TIMES DAILY Naprosyn [facility] 28314178389 500 mg Orally every 12 hrs Active 1 tablet with food or milk as needed Metoprolol Succinate ER [facility] 58765743518 25 MG Orally Once a day Active 1 tablet Zyrtec Allergy [facility] 00315503565 10 MG Orally Once a day Active 1 tablet Acyclovir [facility] 81171562926 200 MG Orally Three times a day May 09, 2017 Active 1 capsule Astelin [facility] 64074126082 137 MCG/SPRAY Nasally Twice a day May 09, 2017 Active 1 puff in each nostril Prilosec [facility] [address]-25 40 MG Orally Once a day Active 1 capsule Seroquel [facility] 66419781415 300 MG Orally Once a day Active 1 tablet at bedtime Ceftin [facility] 0 500 mg Orally every 12 hrs Mar 26, 2018 Apr 05, 2018 Active 1 tablet Vitamin D (Ergocalciferol) [facility] 04369306386 32866 UNIT Orally weekly Active 1 capsule Dicyclomine HCl [facility] 26980698031 20 mg Orally twice a day (bid) Active 2 tablet Vitamin E [facility] 92457051309 400 UNIT Orally Once a day Active 1 capsule Probiotic [facility] 19614534932 - Orally Twice a day Active 1 capsule ProAir HFA [facility] 25920471764 108 (90 Base) MCG/ACT Inhalation every 4 hrs Active 2 puffs as needed Zantac [facility] 20288968259 150 MG Orally twice a day (bid) Active 1 tablet at bedtime Pepcid [facility] 39562556492 20 mg Orally Once a day Feb 23, 2018 Active 1 tablet Ipratropium Pollard [facility] 40018748261 0.02% Active USE ONE VIAL VIA NEBULIZER FOUR TIMES DAILY NEEDED Calcium + D3 [facility] 58188554512 600-800 MG-UNIT Orally Once a day Active 1 tablet with a meal Incruse Ellipta [facility] 72998433451 62.5 MCG/INH Inhalation Once a day Active 1 puff One Daily [facility] 26476166307 - Orally Once a day Active 1 tablet NyQuil Cold & Flu [facility] 0 15-6.25-325 MG/15ML Orally every 6 hrs Active 30 ml as needed Vitamin C [facility] [address]-00 1000 mg Orally twice a day (bid) Active 1 tablet Apple Cider Vinegar [facility] 88734107429 500 MG Orally daily Active 1 tablet Vitamin B Complex [facility] 13759-07746 - Orally Active not defined Flexeril [facility] 27437455317 10 MG Active TAKE 1 TABLET BY MOUTH NEEDED 3 TIMES A DAY guaifenesin 400 mg Tab ND 0 Active not defined Lorazepam [facility] 49837335797 0.5 MG Orally Twice a day Active 1 tablet as needed Vital Signs Date/Time: Mar 26, 2018 BMI 41.02 Index Weight 239.0 lbs Height 64.0 in Temperature 96.4 F Cardiac Monitoring Heart Rate 89 /min Blood Pressure Diastolic 87 mm Hg Blood Pressure Systolic 133 mm Hg Results No Known Results Summary Purpose eClinicalWorks Submission
--- OUTSIDE RECORDS SUMMARY | 2018-06-23 11:51 | XMS REPORT ---
Author Author Eric Aguila Organization eClinicalWorks Address Unknown Phone Unavailable Care Team Providers Care Director Instructional Material Name Role Phone Eric Aguila CP Unavailable [...] Date End Date Status Dosage Effexor XR [facility] 68096525004 150 MG Orally twice a day (bid) Active 1 capsule Results No Known Results Summary Purpose eClinicalWorks Submission
--- OUTSIDE RECORDS SUMMARY | 2018-06-23 11:51 | XMS REPORT ---
Author Author Eric Aguila Organization eClinicalWorks Address Unknown Phone Unavailable Care Team Providers Care Floorleader Name Role Phone Eric Aguila CP Unavailable [...] Instructions Start Date End Date Status Dosage Metoprolol Succinate ER [facility] 88103754263 25 MG Orally Once a day Active 1 tablet Results No Known Results Summary Purpose eClinicalWorks Submission
--- OUTSIDE RECORDS SUMMARY | 2018-06-23 11:51 | XMS REPORT ---
Author Author Eric Aguila Organization eClinicalWorks Address Unknown Phone Unavailable Care Team Providers Care Retail Financial Analyst Name Role Phone Eric Aguila CP [...] Instructions Start Date End Date Status Dosage Naprosyn [facility] 00257301050 500 mg Orally every 12 hrs Feb 23, 2018 Mar 10, 2018 Active 1 tablet with food or milk as needed Pepcid [facility] 43522249724 20 mg Orally Once a day Feb 23, 2018 Active 1 tablet Dicyclomine HCl [facility] 54829190871 20 mg Orally twice a day (bid) Apr 24, 2018 Active 2 tablet Results No Known Results Summary Purpose eClinicalWorks Submission
--- OUTSIDE RECORDS SUMMARY | 2018-06-23 11:51 | XMS REPORT ---
Author Author Eric Aguila Organization eClinicalWorks Address Unknown Phone Unavailable Care Team Providers Care Fiscal Officer Name Role Phone Eric Aguila CP [...] Start Date End Date Status Dosage Seroquel [facility] 98320316819 300 MG Orally Once a day Active 1 tablet at bedtime Results No Known Results Summary Purpose eClinicalWorks Submission
--- OUTSIDE RECORDS SUMMARY | 2018-06-23 11:51 | XMS REPORT ---
Author Author Eric Aguila Organization eClinicalWorks Address Unknown Phone Unavailable Care Team Providers Care Railroad Brakeman Name Role Phone Eric Aguila CP Unavailable [...] Instructions Start Date End Date Status Dosage Ciprodex [facility] 83958595936 0.3-0.1 % Otic Twice a day Mar 30, 2018 Active 4 drops into affected ear Oxwpbbec-Bfxsyz-OT-Thonzonium [facility] [address]-20 3.3-3-10-0.5 MG/ML Otic Three times a day Mar 29, 2018 Inactive 5 drops into affected ear Results No Known Results Summary Purpose eClinicalWorks Submission
--- OUTSIDE RECORDS SUMMARY | 2018-06-23 11:52 | XMS REPORT | Summary of Care ---
Author Organization Unknown Address Unknown Phone Unavailable Care Team Providers Care Quick Service Technician Name Role Phone Therese Winchester PCP Encounter [facility] Gadielr_reina(LARRY) [id number] Date(s): 06/25/14 - 06/25/14 [facility] [address] Discharge Diagnosis: Exacerbation of RAD (reactive airway disease) Discharge Diagnosis: Acute headache Discharge Diagnosis: Acute bronchitis Discharge Disposition: Home Physician Attending: Alberto Mao MD Reason for Visit SOB Vital Signs 1 2 3 Most recent to oldest [Reference Range]: 160.02 cm (06/25/14 2:02 PM) Height 98.3 DegF (06/25/14 6:49 PM) 98.5 DegF (06/25/14 2:02 PM) Temperature Oral [96.4-99.1 DegF] 115 mmHg (06/25/14 6:49 PM) 130 mmHg (06/25/14 2:02 PM) Systolic Blood Pressure [90-140 mmHg] 48 mmHg *LOW* (06/25/14 6:49 PM) 81 mmHg (06/25/14 2:02 PM) Diastolic Blood Pressure [60-90 mmHg] 22 BRMIN *HI* (06/25/14 6:49 PM) 24 BRMIN *HI* (06/25/14 6:22 PM) 24 BRMIN *HI* (06/25/14 2:02 PM) Respiratory Rate [14-20 BRMIN] 86 bpm (06/25/14 6:49 PM) 105 bpm *HI* (06/25/14 2:02 PM) Peripheral Pulse Rate [60-100 bpm] 95.455 kg (06/25/14 2:02 PM) Weight 37.28 m2 (06/25/14 2:02 PM) Body Mass Index Problem List No data available for this section Allergies, Adverse Reactions, Alerts Substance Reaction Severity Status codeine Active Medications azithromycin 250 mg oral tablet 250 mg=1 tab, PO, Daily, # 6 tab, 0 Refill(s) Start Date: 06/25/14 Stop Date: 06/30/14 Status: Ordered Benadryl 50 mg, 1 mL, Route: IVP, Drug form: INJ, ONCE, Dosing Weight 95.455, kg, Priorit y: STAT, Start date: 06/25/14 15:21:00, Stop date: 06/25/14 15:21:00 Notes: (Same as: Benadryl) Start Date: 06/25/14 Stop Date: 06/25/14 Status: Completed DuoNeb inhalation solution 3 ml, Route: INHALATION, Drug Form: SOLN, Dosing Weight 95.455, kg, PRN, PRN Res piratory Protocol, Start date: 06/25/14 15:57:00, Duration: 30 day, Stop date: 0 07/25/14 15:56:00 Notes: (Same as: Duoneb) Start Date: 06/25/14 Stop Date: 06/25/14 Status: Discontinued DuoNeb inhalation solution 6 mL, Route: INHALATION, Drug Form: SOLN, Dosing Weight 95.455, kg, PRN, PRN Res piratory Protocol, Start date: 06/25/14 15:17:00, Duration: 30 day, Stop date: 0 07/25/14 15:16:00 Notes: (Same as: Duoneb) Start Date: 06/25/14 Stop Date: 06/25/14 Status: Discontinued Fiorinal oral capsule 2 cap, PO, Q6H, for pain, # 24 cap, 0 Refill(s) Start Date: 06/25/14 Status: Ordered methylPREDNISolone 125 mg, 2 mL, Route: IVP, Drug form: INJ, ONCE, Dosing Weight 95.455, kg, Priori ty: STAT, Start date: 06/25/14 15:17:00, Stop date: 06/25/14 15:17:00 Notes: (Same as:Solu-MEDROL, A-Methapred) Start Date: 06/25/14 Stop Date: 06/25/14 Status: Completed NS (Bolus) IV 500 mL, 500 ml/hr, Infuse Over: 1 hr, Route: IV, 500, Drug form: INJ, ONCE, Prio rity: STAT, Dosing Weight 95.455 kg, Start date: 06/25/14 15:21:00, Duration: 1 doses or times, Stop date: 06/25/14 15:21:00 Start Date: 06/25/14 Stop Date: 06/25/14 Status: Completed NS (Bolus) IV 1,000 mL, 1,000 ml/hr, Infuse Over: 1 hr, Route: IV, 1,000, Drug form: INJ, ONCE , Priority: STAT, Dosing Weight 95.455 kg, Start date: 06/25/14 15:19:00, Durati on: 1 doses or times, Stop date: 06/25/14 15:19:00 Start Date: 06/25/14 Stop Date: 06/25/14 Status: Completed predniSONE 20 mg oral tablet 60 mg=3 tab, PO, Daily, Take 3 tablets for 60 mg dose, # 15 tab, 0 Refill(s) Special Instructions: Take 3 tablets for 60 mg dose Start Date: 06/25/14 Stop Date: 06/30/14 Status: Ordered Proventil HFA 90 mcg/inh inhalation aerosol with adapter 2 puff, INHALATION, QID, for wheezing, use with spacer chamber, # 25 gm, 0 Refil l(s) Special Instructions: use with spacer chamber Start Date: 06/25/14 Status: Ordered Reglan 5 mg, 1 mL, Route: IVP, Drug form: INJ, ONCE, Dosing Weight 95.455, kg, Priority : STAT, Start date: 06/25/14 15:20:00, Stop date: 06/25/14 15:20:00 Notes: (Same as: Reglan) Start Date: 06/25/14 Stop Date: 06/25/14 Status: Completed Saline Flush 0.9% 10 mL, Route: IVP, Drug Form: INJ, Dosing Weight 95.455, kg, PRN, PRN Line Flush , Start date: 06/25/14 14:55:00, Duration: 30 day, Stop date: 07/25/14 14:54:00 Notes: Same as: BD Posiflush Sterile Start Date: 06/25/14 Stop Date: 06/25/14 Status: Discontinued Tylenol 975 mg, 3 tab, Route: PO, Drug form: TAB, ONCE, Dosing Weight 95.455, kg, Priori ty: STAT, Start date: 06/25/14 15:19:00, Stop date: 06/25/14 15:19:00 Notes: Do not exceed 4 gm/day. (Same as: Tylenol) Start Date: 06/25/14 Stop Date: 06/25/14 Status: Completed Results ELECTROLYTES Most recent to 1 2 oldest [Reference Range]: Sodium Lvl [135-145 141 mEq/L mEq/L] (06/25/14 3:32 PM) Potassium Lvl 3.4 mEq/L [3.5-5.1 mEq/L] *LOW* (06/25/14 3:32 PM) Chloride Lvl [95-109 106 mEq/L mEq/L] (06/25/14 3:32 PM) CO2 [24-32 mEq/L] 27 mEq/L (06/25/14 3:32 PM) AGAP [10.0-20.0 11.4 mEq/L mEq/L] (06/25/14 3:32 PM) CHEM PANEL Most recent to 1 2 oldest [Reference Range]: Creatinine Lvl 0.8 mg/dL [0.5-1.4 mg/dL] (06/25/14 3:32 PM) eGFR 87 mL/min/1.73m2 1 *NA* (06/25/14 3:32 PM) BUN [7-22 mg/dL] 7 mg/dL (06/25/14 3:32 PM) B/C Ratio [6-25] 9 (06/25/14 3:32 PM) Glucose Lvl [70-99 114 mg/dL 2 mg/dL] *HI* (06/25/14 3:32 PM) Total Protein 7.2 g/dL [6.4-8.4 g/dL] (06/25/14 3:32 PM) Albumin Lvl [3.5-5.0 3.4 g/dL g/dL] *LOW* (06/25/14 3:32 PM) Globulin [2.0-4.0 3.8 g/dL g/dL] (06/25/14 3:32 PM) A/G Ratio [0.7-1.6] 0.9 (06/25/14 3:32 PM) Calcium Lvl 8.6 mg/dL [8.5-10.5 mg/dL] (06/25/14 3:32 PM) ALT [0-65 unit/L] 24 unit/L (06/25/14 3:32 PM) AST [0-37 unit/L] 18 unit/L (06/25/14 3:32 PM) Alk Phos [39-136 140 unit/L unit/L] *HI* (06/25/14 3:32 PM) Bili Total [0.2-1.3 0.3 mg/dL mg/dL] (06/25/14 3:32 PM) 1Result Comment: The eGFR is calculated using [...] from the National Kidney Disease Education Program ( NKDEP) which additionally recommends that when the eGFR is used in patients with extremes of body mass index for purposes of drug dosing, the eGFR should be mul tiplied by the estimated BMI. 2Interpretive Data: Adult reference range values reflect the clinical guidelines of the [place] [employer]. CARDIAC ENZYMES Most recent to 1 2 oldest [Reference Range]: Total CK [12-191 64 unit/L 64 unit/L unit/L] (06/25/14 6:20 PM) (06/25/14 3:32 PM) CK MB [0.5-3.6 0.5 ng/mL 0.7 ng/mL ng/mL] (06/25/14 6:20 PM) (06/25/14 3:32 PM) CK MB Index 0.8 1.1 [0.0-2.5] (06/25/14 6:20 PM) (06/25/14 3:32 PM) Troponin-I <0.02 ng/mL <0.02 ng/mL [0.00-0.40 ng/mL] (06/25/14 6:20 PM) (06/25/14 3:32 PM) BNP [<=100 pg/mL] 16 pg/mL 3 (06/25/14 3:32 PM) 3Interpretive Data: Elevated results are in line with increasing severity of congestive heart failure. Minor elevations between 100 and 300 may be seen with Myocardial Ischemia, Sodium retaining drugs, and compensated/treated heart failure. ENDOCRINOLOGY Most recent to 1 2 oldest [Reference Range]: S Preg [Negative] Negative *NA* (06/25/14 3:32 PM) HEMATOLOGY Most recent to 1 2 oldest [Reference Range]: WBC [3.7-10.4 K/CMM] 14.7 K/CMM *HI* (06/25/14 3:32 PM) RBC [4.20-5.40 4.27 M/CMM M/CMM] (06/25/14 3:32 PM) Hgb [12.0-16.0 g/dL] 12.8 g/dL (06/25/14 3:32 PM) Hct [36.0-48.0 %] 37.9 % (06/25/14 3:32 PM) MCV [80.0-98.0 fL] 88.7 fL (06/25/14 3:32 PM) MCH [27.0-31.0 pg] 30.0 pg (06/25/14 3:32 PM) MCHC [32.0-36.0 33.9 g/dL g/dL] (06/25/14 3:32 PM) RDW [11.5-14.5 %] 13.7 % (06/25/14 3:32 PM) Platelet [133-450 331 K/CMM K/CMM] (06/25/14 3:32 PM) MPV [7.4-10.4 fL] 8.0 fL (06/25/14 3:32 PM) Segs [45.0-75.0 %] 53.3 % (06/25/14 3:32 PM) Lymphocytes 35.8 % [20.0-40.0 %] (06/25/14 3:32 PM) Monocytes [2.0-12.0 5.5 % %] (06/25/14 3:32 PM) Eosinophils [0.0-4.0 4.3 % %] *HI* (06/25/14 3:32 PM) Basophils [0.0-1.0 1.1 % %] *HI* (06/25/14 3:32 PM) Segs-Bands # 7.8 K/CMM [1.5-8.1 K/CMM] (06/25/14 3:32 PM) Lymphocytes # 5.2 K/CMM [1.0-5.5 K/CMM] (06/25/14 3:32 PM) Monocytes # [0.0-0.8 0.8 K/CMM K/CMM] (06/25/14 3:32 PM) Eosinophils # 0.6 K/CMM [0.0-0.5 K/CMM] *HI* (06/25/14 3:32 PM) Basophils # [0.0-0.2 0.2 K/CMM K/CMM] (06/25/14 3:32 PM) RBC Morph Normal (06/25/14 3:32 PM) Plt Morph Normal (06/25/14 3:32 PM) PT [12.0-14.7 12.9 seconds seconds] (06/25/14 3:32 PM) INR [0.85-1.17] 0.97 4 (06/25/14 3:32 PM) D-Dimer 0.30 ug/mL FEU 5 *NA* (06/25/14 3:32 PM) PTT [22.9-35.8 30.6 seconds 6 seconds] (06/25/14 3:32 PM) 4Interpretive Data: RECOMMENDED RANGES FOR PROTIME INR: 2.0-3.0 for most medical and surgical thromboembolic states. 2.5-3.5 for artificial heart valves and recurrent embolism. INR SHOULD BE USED ONLY FOR PATIENTS ON STABLE ANTICOAGULANT THERAPY. 5Interpretive Data: In DIC, quantitative D-Dimer is generally greater than 0.66 ug/mL FEU. Values of quantitative D-Dimer less than 0.40 ug/mL FEU have been reported to be associated with a low probability of deep vein thrombosis/pulmonary embolism. This test alone should not be used to rule out DVT/PE. 6Interpretive Data: Heparin Therapeutic Range: 57 - 92 Seconds Medications Administered During Your Visit No data available for this section Immunizations No data available for this section Social History Social History Type Response Smoking Status Never smoker, Exposure to Tobacco Smoke None, Cigarette Smoking Last 365 Days No, Reg Smoking Cessation Counseling No
--- OUTSIDE RECORDS SUMMARY | 2018-06-23 11:52 | XMS REPORT | Summary of Care ---
Author Author [facility] Organization [facility] Address Unknown Phone Unavailable Care Team Providers Care Sales Attendant Name Role Phone Therese Winchester PCP Encounter HQ Mindi_reina(FIN) [phone] Date(s): 03/30/15 - 04/01/15 [facility] [id number] [place] [address]- Discharge Disposition: Home Attending Physician: Eric Aguila MD Admitting Physician: Eric Aguila MD Vital Signs 1 2 3 Most recent to oldest [Reference Range]: 160.02 cm (03/30/15 12:52 PM) Height 1 2 3 Most recent to oldest [Reference Range]: 98.8 DegF (04/01/15 11:45 AM) 97.9 DegF (04/01/15 8:13 AM) 98.3 DegF (04/01/15 3:52 AM) Temperature Oral [96.4-99.1 DegF] 1 2 3 Most recent to oldest [Reference Range]: 133/85 mmHg (04/01/15 11:45 AM) 138/87 mmHg (04/01/15 8:13 AM) 111/72 mmHg (04/01/15 3:52 AM) Blood Pressure [90-140/60-90 mmHg] 1 2 3 Most recent to oldest [Reference Range]: 20 BRMIN (04/01/15 11:45 AM) 20 BRMIN (04/01/15 8:13 AM) 20 BRMIN (04/01/15 7:00 AM) Respiratory Rate [14-20 BRMIN] 1 2 3 Most recent to oldest [Reference Range]: 99 bpm (04/01/15 11:45 AM) 87 bpm (04/01/15 8:13 AM) 86 bpm (04/01/15 3:52 AM) Peripheral Pulse Rate [60-100 bpm] 1 2 3 Most recent to oldest [Reference Range]: 106.818 kg (03/30/15 12:52 PM) Weight 1 2 3 Most recent to oldest [Reference Range]: 41.72 m2 (03/30/15 12:52 PM) Body Mass Index Problem List Condition Effective Dates Status Health Status Informant Asthma(Confirmed) Active COPD(Confirmed) Active Tachycardia(Confirme Resolved d) Allergies, Adverse Reactions, Alerts Substance Reaction Severity Status codeine Active Medications acetaminophen 650 mg, 2 tab, Route: PO, Drug form: TAB, Q4H, Dosing Weight 106.818, kg, PRN Pa in 1-3/Temp > 100.4 F, Start date: 03/30/15 18:30:00, Duration: 30 day, Stop date: 04/29/15 18:29:00 Notes: Do not exceed 4 gm/day. (Same as: Tylenol) Start Date: 03/30/15 Stop Date: 04/01/15 Status: Discontinued acetaminophen-hydrocodone 325 mg-5 mg oral tablet 1 tab, Route: PO, Drug Form: TAB, Dosing Weight 106.818, kg, Q4H, PRN Pain Score 4-6, Start date: 03/30/15 18:30:00, Duration: 30 day, Stop date: 04/29/15 18:29 :00 Notes: (Same as: [place] 325/5) Do not exceed 4gm/day of acetaminophen. Start Date: 03/30/15 Stop Date: 04/01/15 Status: Discontinued albuterol 0.083% inhalation solution 2.49 mg, 3 mL, Route: NEB, Drug form: SOLN, RQ4H, Dosing Weight 106.818, kg, Sta rt date: 03/30/15 23:00:00, Duration: 30 day, Stop date: 04/29/15 19:00:00, Pedi atric Dosing Special Instructions: Pediatric Dosing Notes: SEE RT DOCUMENTATION (Same as: Suleiman) Start Date: 03/30/15 Stop Date: 04/01/15 Status: Discontinued albuterol-ipratropium 2.5-0.5 mg inhalation solution 9 mL, Route: NEB, Dosing Weight 106.818, kg, ONCE, STAT, Start date: 03/30/15 13 :07:00, Stop date: 03/30/15 13:07:00 Start Date: 03/30/15 Stop Date: 03/30/15 Status: Completed Ativan 1 mg, Route: IVP, Drug form: INJ, ONCE, Dosing Weight 106.818, kg, Priority: STA T, Start date: 03/30/15 13:14:00, Stop date: 03/30/15 13:14:00 Start Date: 03/30/15 Stop Date: 03/30/15 Status: Completed Ativan 0.5 mg, 0.25 mL, Route: IVP, Drug form: INJ, ONCE, Dosing Weight 106.818, kg, AL N Anxiety, Start date: 03/31/15 13:25:00 Notes: (Same as: Ativan) Start Date: 03/31/15 Stop Date: 03/31/15 Status: Completed Ativan 0.5 mg, 0.25 mL, Route: IVP, Drug form: INJ, ONCE, Dosing Weight 106.818, kg, AL N Anxiety, Start date: 03/31/15 13:25:00 Notes: (Same as: Ativan) Start Date: 03/31/15 Stop Date: 04/01/15 Status: Discontinued Ativan 0.5 mg oral tablet 0.5 mg=1 tab, PO, Daily, PRN Anxiety, Do not take for >3 consecutive days., # 5 tab, 0 Refill(s) Special Instructions: Do not take for >3 consecutive days. Start Date: 04/01/15 Status: Ordered atropine 0.5 mg, 5 mL, Route: IVP, Drug form: INJ, PRN, PRN Bradycardia, Start date: 03/17 11/28 2:13:00, Duration: 30 day, Stop date: 04/30/15 2:12:00 Start Date: 03/31/15 Stop Date: 04/01/15 Status: Discontinued Claritin 10 mg, 1 tab, Route: PO, Drug form: TAB, Daily, Dosing Weight 106.818, kg, PRN a s needed for allergy symptoms, Start date: 03/31/15 8:55:00, Duration: 30 day, S top date: 04/30/15 8:54:00 Notes: 1 hr before meals (Same as: Claritin) Start Date: 03/31/15 Stop Date: 04/01/15 Status: Discontinued Combivent Respimat CFC free 100 mcg-20 mcg/inh inhalation aerosol 1 puff, Route: INHALATION, Drug Form: AERO, Dosing Weight 106.818, kg, QID, Star t date: 03/31/15 9:00:00, Duration: 30 day, Stop date: 04/29/15 21:00:00 Notes: Same as: Combivent Respimat Start Date: 03/31/15 Stop Date: 04/01/15 Status: Discontinued docusate 100 mg, 1 cap, Route: PO, Drug form: CAP, BID, Dosing Weight 106.818, kg, PRN Co nstipation, Start date: 03/30/15 18:30:00, Duration: 30 day, Stop date: 04/29/15 18:29:00 Notes: (Same as: Colace) (Do Not Crush) Start Date: 03/30/15 Stop Date: 04/01/15 Status: Discontinued DuoNeb inhalation solution 3 ml, Route: NEB, Drug Form: SOLN, Dosing Weight 106.818, kg, PRN, PRN Respirato ry Protocol, Start date: 03/30/15 18:31:00, Duration: 30 day, Stop date: 5 18:30:00 Notes: (Same as: Duoneb) Start Date: 03/30/15 Stop Date: 04/01/15 Status: Discontinued Effexor XR 75 mg, 1 cap, Route: PO, Drug form: ERCAP, Daily, Dosing Weight 106.818, kg, Sta rt date: 04/01/15 9:00:00, Duration: 30 day, Stop date: 04/30/15 9:00:00 Notes: Do not open, crush, or chew.(Same As: Effexor XR) Start Date: 04/01/15 Stop Date: 04/01/15 Status: Discontinued enoxaparin 40 mg, 0.4 mL, Route: SUB-Q, Drug form: INJ, [id number], Dosing Weight 106.818, kg , Start date: 03/30/15 19:00:00, Duration: 30 day, Stop date: 04/28/15 19:00:00 Notes: (Same as: Lovenox) Start Date: 03/30/15 Stop Date: 04/01/15 Status: Discontinued fluticasone 50 mcg inhalation powder 50 microgram, 1 ea, Route: INHALATION, Drug Form: PWDR, Dosing Weight 106.818, k g, BID, Start date: 03/31/15 9:00:00, Duration: 30 day, Stop date: 04/29/15 17:0 0:00 Start Date: 03/31/15 Stop Date: 03/31/15 Status: Discontinued Maalox Advanced Regular Strength SUSP 15 mL, Route: PO, Drug Form: SUSP, Dosing Weight 106.818, kg, Q6H, PRN as needed for indigestion, Start date: 03/31/15 23:26:00, Duration: 30 day, Stop date: 23:25:00 Notes: (aluminum hydroxide-magnesium hyd-simethicone [phone]/5ml 30 ml ud [facility]) Start Date: 03/31/15 Stop Date: 04/01/15 Status: Discontinued methylPREDNISolone SODium SUCCinate 125 mg, Route: IVP, ONCE, Dosing Weight 106.818, kg, Priority: STAT, Start date: 03/30/15 13:07:00, Stop date: 03/30/15 13:07:00 Start Date: 03/30/15 Stop Date: 03/30/15 Status: Completed metoprolol extended release 25 mg, 1 tab, Route: PLEURODESIS, Drug form: ERTAB, Daily, Start date: 03/31/15 9:00:00, Duration: 30 day, Stop date: 04/29/15 9:00:00 Notes: (Same as: Toprol XL) Do Not Crush Start Date: 03/31/15 Stop Date: 03/31/15 Status: Discontinued metoprolol extended release 25 mg, 1 tab, Route: PO, Drug form: ERTAB, Daily, Start date: 04/01/15 9:00:00, Duration: 30 day, Stop date: 04/30/15 9:00:00 Notes: (Same as: Toprol XL) Do Not Crush Start Date: 04/01/15 Stop Date: 04/01/15 Status: Discontinued morphine Sulfate 4 mg, 2 mL, Route: IVP, Drug form: INJ, Q3H, Dosing Weight 106.818, kg, PRN Pain Score 4-6, Start date: 03/30/15 22:44:00, Duration: 30 day, Stop date: 04/29/15 22:43:00 Notes: (Same as:MORPhine Sulfate) Start Date: 03/30/15 Stop Date: 04/01/15 Status: Discontinued nitroglycerin 0.4 mg sublingual tablet 0.4 mg, 1 tab, Route: SL, Drug form: TAB, Q5Min, PRN Chest Pain, Start date: 2:13:00, Duration: 30 day, Stop date: 04/30/15 2:12:00 Notes: (Same as:Nitroquick, Nitrostat)"Do Not Crush" Sublingual tablet Start Date: 03/31/15 Stop Date: 04/01/15 Status: Discontinued ondansetron 4 mg, 2 mL, Route: IVP, Drug form: INJ, Q6H, Dosing Weight 106.818, kg, PRN Naus ea & Vomiting, Start date: 03/30/15 18:30:00, Duration: 30 day, Stop date: 04/29/15 18:29:00 Notes: (Same as: Belinda) MEDICATION WASTE Product Size: 4 mgProduct Was chencho: ___ mg Start Date: 03/30/15 Stop Date: 04/01/15 Status: Discontinued ondansetron 4 mg, 2 mL, Route: IVP, Drug form: INJ, Q6H, Dosing Weight 106.818, kg, PRN Naus ea & Vomiting, Start date: 03/30/15 22:44:00, Duration: 30 day, Stop date: 04/29/15 22:43:00 Notes: (Same as: Belinda) MEDICATION WASTE Product Size: 4 mgProduct Was chencho: ___ mg Start Date: 03/30/15 Stop Date: 04/01/15 Status: Discontinued Paxil 40 mg, 2 tab, Route: PO, Drug form: TAB, Daily, Dosing Weight 106.818, kg, Start date: 03/31/15 9:00:00, Duration: 30 day, Stop date: 04/29/15 9:00:00 Notes: (Same as: Paxil) Start Date: 03/31/15 Stop Date: 03/31/15 Status: Discontinued Paxil 20 mg, 1 tab, Route: PO, Drug form: TAB, Bedtime, Dosing Weight 106.818, kg, Sta rt date: 04/01/15 21:00:00, Duration: 30 day, Stop date: 04/30/15 21:00:00 Notes: (Same as: Paxil) Start Date: 04/01/15 Stop Date: 04/01/15 Status: Canceled Please bring Patient's OWN Fluticasone 50 mcg inhalation pow Please bring Patient's OWN Fluticasone 50 mcg inhalation pow, 1 inhalation, Drug form: MISC, Route: INHALATION, RBID, 03/31/15 20:00:00, Duration: 30 day, Stop date: 04/30/15 8:00:00 Start Date: 03/31/15 Stop Date: 04/01/15 Status: Discontinued ProAir HFA 90 mcg/inh inhalation aerosol with adapter 2 puff, Route: INHALATION, Drug Form: AERO/A, Dosing Weight 106.818, kg, Q4H, AL N as needed for wheezing, Start date: 03/31/15 8:55:00, Stop date: 04/30/15 8:54 :00 Notes: Albuterol 90 microgram/inh 8gm HFA Same as: Ventolin Proventil Start Date: 03/31/15 Stop Date: 04/01/15 Status: Discontinued Promethazine DM oral syrup 1.25 mL, Route: PO, Drug Form: SYRP, Dosing Weight 106.818, kg, Q6H, PRN Cough, Start date: 03/31/15 8:55:00, Duration: 30 day, Stop date: 04/30/15 8:54:00 Notes: Non-formulary drug. (promethazine-dextromethorphan 6.25-15mg/5ml LIQ)(Nicanor e as: Phenergan DM) Start Date: 03/31/15 Stop Date: 04/01/15 Status: Discontinued Protonix 40 mg, 1 tab, Route: PO, Drug form: ECTAB, Before Dinner, Dosing Weight 106.818, kg, Start date: 03/31/15 16:30:00, Duration: 30 day, Stop date: 04/29/15 16:30: 00 Notes: Tablet should not be chewed or crushed.(Same as: Protonix) Start Date: 03/31/15 Stop Date: 04/01/15 Status: Discontinued Sodium Chloride 0.9% (Bolus) IV 1,000 mL, 1,000 ml/hr, Infuse Over: 1 hr, Route: IV, ONCE, Priority: STAT, Dosin g Weight 106.818 kg, Start date: 03/30/15 15:15:00, Duration: 1 doses or times, Stop date: 03/30/15 15:15:00 Start Date: 03/30/15 Stop Date: 03/30/15 Status: Completed Solu-MEDROL 40 mg, 1 mL, Route: IVP, Drug form: INJ, Q12H, Dosing Weight 106.818, kg, Priori ty: STAT, Start date: 03/30/15 18:31:00, Duration: 30 day, Stop date: 04/29/15 8:00:00 Notes: (Same as:Solu-MEDROL, A-Methapred) Start Date: 03/30/15 Stop Date: 04/01/15 Status: Discontinued Solu-MEDROL 40 mg, 1 mL, Route: IVP, Drug form: INJ, Q12H, Dosing Weight 106.818, kg, Start date: 03/31/15 9:00:00, Duration: 30 day, Stop date: 04/29/15 21:00:00 Notes: (Same as:Solu-MEDROL, A-Methapred) Start Date: 03/31/15 Stop Date: 03/31/15 Status: Deleted Spiriva 18 microgram, 1 inhalation, Route: INHALATION, Drug form: CAP, Daily, Dosing Flip ght 106.818, kg, Start date: 03/31/15 9:00:00, Duration: 30 day, Stop date: 04/16 10/29 9:00:00 Notes: (Same As: Spiriva). Start Date: 03/31/15 Stop Date: 04/01/15 Status: Discontinued venlafaxine 75 mg oral capsule, extended release 75 mg=1 cap, PO, Daily, # 30 cap, 0 Refill(s) Start Date: 04/01/15 Stop Date: 05/01/15 Status: Ordered Results ELECTROLYTES 1 2 3 Most recent to oldest [Reference Range]: 139 mEq/L (04/01/15 9:10 AM) 140 mEq/L (03/31/15 5:33 AM) 139 mEq/L (03/30/15 1:16 PM) Sodium Lvl [135-145 mEq/L] 3.8 mEq/L (04/01/15 9:10 AM) 4.2 mEq/L (03/31/15 5:33 AM) 3.9 mEq/L (03/30/15 1:16 PM) Potassium Lvl [3.5-5.1 mEq/L] 102 mEq/L (04/01/15 9:10 AM) 102 mEq/L (03/31/15 5:33 AM) 102 mEq/L (03/30/15 1:16 PM) Chloride Lvl [95-109 mEq/L] 27 mEq/L (04/01/15 9:10 AM) 27 mEq/L (03/31/15 5:33 AM) 27 mEq/L (03/30/15 1:16 PM) CO2 [24-32 mEq/L] 13.8 mEq/L (04/01/15 9:10 AM) 15.2 mEq/L (03/31/15 5:33 AM) 13.9 mEq/L (03/30/15 1:16 PM) AGAP [10.0-20.0 mEq/L] CHEM PANEL 1 2 3 Most recent to oldest [Reference Range]: 1.0 mg/dL (04/01/15 9:10 AM) 0.9 mg/dL (03/31/15 5:33 AM) 0.9 mg/dL (03/30/15 1:16 PM) Creatinine Lvl [0.5-1.4 mg/dL] 66 mL/min/1.73m2 1 *NA* (04/01/15 9:10 AM) 75 mL/min/1.73m2 2 *NA* (03/31/15 5:33 AM) 75 mL/min/1.73m2 3 *NA* (03/30/15 1:16 PM) eGFR 14 mg/dL (04/01/15 9:10 AM) 8 mg/dL (03/31/15 5:33 AM) 10 mg/dL (03/30/15 1:16 PM) BUN [7-22 mg/dL] 221 mg/dL *HI* (04/01/15 9:10 AM) 135 mg/dL *HI* (03/31/15 5:33 AM) 96 mg/dL (03/30/15 1:16 PM) Glucose Lvl [70-99 mg/dL] 9.1 mg/dL (04/01/15 9:10 AM) 9.4 mg/dL (03/31/15 5:33 AM) 9.0 mg/dL (03/30/15 1:16 PM) Calcium Lvl [8.5-10.5 mg/dL] 3.5 mg/dL (03/30/15 1:16 PM) Phosphorus [2.5-4.5 mg/dL] 2.2 mg/dL (03/30/15 1:16 PM) Magnesium Lvl [1.8-2.4 mg/dL] 1Result Comment: The eGFR is calculated using [...] be mul tiplied by the estimated BMI. 2Result Comment: The eGFR is calculated using the [...] be mul tiplied by the estimated BMI. 3Result Comment: The eGFR is calculated using the [...] be mul tiplied by the estimated BMI. CARDIAC ENZYMES 1 2 3 Most recent to oldest [Reference Range]: 42 unit/L (03/30/15 1:16 PM) Total CK [12-191 unit/L] <0.5 ng/mL (03/30/15 1:16 PM) CK MB [0.5-3.6 ng/mL] <1.2 (03/30/15 1:16 PM) CK MB Index [0.0-2.5] <0.02 ng/mL (03/30/15 1:16 PM) Troponin-I [0.00-0.40 ng/mL] 6 pg/mL (03/30/15 1:16 PM) BNP [<=100 pg/mL] THYROID PANEL 1 2 3 Most recent to oldest [Reference Range]: 0.386 uIU/mL (03/31/15 5:33 AM) TSH [0.360-3.740 uIU/mL] HEMATOLOGY 1 2 3 Most recent to oldest [Reference Range]: 21.2 K/CMM *HI* (04/01/15 9:10 AM) 14.7 K/CMM *HI* (03/31/15 5:33 AM) 16.2 K/CMM *HI* (03/30/15 1:16 PM) WBC [3.7-10.4 K/CMM] 4.44 M/CMM (04/01/15 9:10 AM) 4.32 M/CMM (03/31/15 5:33 AM) 4.62 M/CMM (03/30/15 1:16 PM) RBC [4.20-5.40 M/CMM] 12.7 g/dL (04/01/15 9:10 AM) 12.4 g/dL (03/31/15 5:33 AM) 13.6 g/dL (03/30/15 1:16 PM) Hgb [12.0-16.0 g/dL] 40.1 % (04/01/15 9:10 AM) 38.2 % (03/31/15 5:33 AM) 41.0 % (03/30/15:16 PM) Hct [36.0-48.0 %] 90.2 fL (04/01/15 9:10 AM) 88.4 fL (03/31/15 5:33 AM) 88.6 fL (03/30/15:16 PM) MCV [80.0-98.0 fL] 28.6 pg (04/01/15 9:10 AM) 28.7 pg (03/31/15 5:33 AM) 29.5 pg (03/30/15:16 PM) MCH [27.0-31.0 pg] 31.7 g/dL *LOW* (04/01/15 9:10 AM) 32.5 g/dL (03/31/15 5:33 AM) 33.3 g/dL (03/30/15:16 PM) MCHC [32.0-36.0 g/dL] 14.3 % (04/01/15 9:10 AM) 14.3 % (03/31/15 5:33 AM) 13.8 % (03/30/15:16 PM) RDW [11.5-14.5 %] 349 K/CMM (04/01/15 9:10 AM) 334 K/CMM (03/31/15 5:33 AM) 377 K/CMM (03/30/15 1:16 PM) Platelet [133-450 K/CMM] 7.9 fL (04/01/15 9:10 AM) 7.4 fL (03/31/15 5:33 AM) 8.2 fL (03/30/15 1:16 PM) MPV [7.4-10.4 fL] 84.5 % *HI* (04/01/15 9:10 AM) 79.1 % *HI* (03/31/15 5:33 AM) 45.1 % (03/30/15 1:16 PM) Segs [45.0-75.0 %] 13.4 % *LOW* (04/01/15 9:10 AM) 16.7 % *LOW* (03/31/15 5:33 AM) 42.0 % *HI* (03/30/15 1:16 PM) Lymphocytes [20.0-40.0 %] 1.9 % *LOW* (04/01/15 9:10 AM) 2.8 % (03/31/15 5:33 AM) 9.0 % (03/30/15 1:16 PM) Monocytes [2.0-12.0 %] 0.1 % (03/31/15 5:33 AM) 3.5 % (03/30/15 1:16 PM) Eosinophils [0.0-4.0 %] 0.2 % (04/01/15 9:10 AM) 1.3 % *HI* (03/31/15 5:33 AM) 0.4 % (03/30/15 1:16 PM) Basophils [0.0-1.0 %] 18.0 K/CMM *HI* (04/01/15 9:10 AM) 11.6 K/CMM *HI* (03/31/15 5:33 AM) 7.3 K/CMM (03/30/15 1:16 PM) Segs-Bands # [1.5-8.1 K/CMM] 2.8 K/CMM (04/01/15 9:10 AM) 2.4 K/CMM (03/31/15 5:33 AM) 6.8 K/CMM *HI* (03/30/15 1:16 PM) Lymphocytes # [1.0-5.5 K/CMM] 0.4 K/CMM (04/01/15 9:10 AM) 0.4 K/CMM (03/31/15 5:33 AM) 1.5 K/CMM *HI* (03/30/15 1:16 PM) Monocytes # [0.0-0.8 K/CMM] 0.6 K/CMM *HI* (03/30/15 1:16 PM) Eosinophils # [0.0-0.5 K/CMM] 0.2 K/CMM (03/31/15 5:33 AM) 0.1 K/CMM (03/30/15 1:16 PM) Basophils # [0.0-0.2 K/CMM] 12.7 seconds (03/30/15 1:16 PM) PT [12.0-14.7 seconds] 0.92 (03/30/15 1:16 PM) INR [0.85-1.17] 29.7 seconds (03/30/15 1:16 PM) PTT [22.9-35.8 seconds] Immunizations Vaccine Date Refusal Reason pneumococcal 23-valent vaccine 03/21/15 Procedures Procedure Date Related Diagnosis Body Site Hysterectomy Tonsillectomy Social History Social History Type Response Smoking Status Former smoker; Number of years: 20; Exposure to Tobacco Smoke None; Cigarette Smoking Last 365 Days Yes; Reg Smoking Cessation Counseling Yes Assessment and Plan Extracted from: Title: Clinical Document Author: Chrissy Bajwa Date: 04/01/15 [place] Internal Medicine Progress Note [facility] SUBJECTIVE No acute events. Pt denies PIERRE, dizziness, dysphagia, neck stiffness, CP, hemoptysis, N/V/D/C, hematemesis, hematochezia, hematuria, dysuria, skin rash. Pt reports intermittent SOB. OBJECTIVE Vital Signs (last 24 hrs) Last Charted Temp Oral97.9 DegF (APR 01 08:) Heart Rate [id number] bpm (APR 01 08:) Resp Rate 20 BRMIN (APR 01 08:) [id number] mmHg (APR 01 08:) DBP87 mmHg (APR 01 08:) Labs (Last four charted values) WBC H 21.2(APR 01)H 14.7(MAR 31)H 16.2(SEP 14) Hgb 12.7(MAR 16)12.4(MAR 15)13.6(MAR 14) Hct 40.1(MAR 16)38.2(SEP 15)41.0(MAR 14) Plt 349(SEP 16)334(SEP 15)377(SEP 14) Na 139(SEP 16)140(SEP 15)139(MAR 14) K 3.8(SEP 16)4.2(SEP 15)3.9(MAR 14) CO2 27(MAR 16)27(MAR 15)27(MAR 14) Cl 102(MAR 16)102(MAR 15)102(MAR 14) Cr 1.0(MAR 16)0.9(MAR 15)0.9(MAR 14) BUN 14(MAR 16)8(MAR 15)10(MAR 14) Glucose Random H 221(MAR 16)H 135(MAR 15)96(MAR 14) Mg 2.2(MAR 14) Phos 3.5(MAR 14) Ca 9.1(MAR 16)9.4(MAR 15)9.0(MAR 14) PT 12.7(MAR 14) INR 0.92(MAR 14) PTT 29.7(MAR 14) Troponin <0.02(MAR 14) CK MB <0.5(MAR 30) Total CK 42(MAR 30) Medications (23) Active Scheduled Meds (10): 04/01/15 PARoxetine (Paxil) 20 mg PO Bedtime 03/31/15 albuterol-ipratropium (Combivent Respimat CFC free 100 mcg-20 mcg/inh inhalation aerosol) 1 puff INHALATION QID 03/30/15 albuterol (albuterol 0.083% inhalation solution) 2.49 mg NEB RQ4H 03/30/15 enoxaparin 40 mg SUB-Q [id number] 03/30/15 methylPREDNISolone (Solu-MEDROL) 40 mg IVP Q12H 04/01/15 metoprolol (metoprolol extended release) 25 mg PO Daily 03/31/15 non-formulary (Please bring Patient's OWN Fluticasone 50 mcg inhalation pow) 1 inhalation INHALATION RBID 03/31/15 pantoprazole (Protonix) 40 mg PO Before Dinner 03/31/15 tiotropium (Spiriva) 18 microgram INHALATION Daily 04/01/15 venlafaxine (Effexor XR) 75 mg PO Daily Unscheduled Meds: None PRN Meds (13): 03/31/15 Al hydroxide/Mg hydroxide/simethicone (Maalox Advanced Regular Strength SUSP) 15 mL PO Q6H 03/30/15 acetaminophen-hydrocodone (acetaminophen-hydrocodone 325 mg-5 mg oral tablet) 1 tab PO Q4H 03/30/15 acetaminophen 650 mg PO Q4H 03/30/15 albuterol-ipratropium (DuoNeb inhalation solution) 3 ml NEB PRN 03/31/15 albuterol (ProAir HFA 90 mcg/inh inhalation aerosol with adapter) 2 puff PO Q4H 03/31/15 atropine 0.5 mg IVP PRN 03/31/15 dextromethorphan-promethazine (Promethazine DM oral syrup) 1.25 mL PO Q6H 03/30/15 docusate 100 mg PO BID 03/31/15 loratadine (Claritin) 10 mg PO Daily 03/30/15 morphine Sulfate 4 mg IVP Q3H 03/31/15 nitroglycerin (nitroglycerin 0.4 mg sublingual tablet) 0.4 mg SL Q5Min 03/30/15 ondansetron 4 mg IVP Q6H 03/30/15 ondansetron 4 mg IVP Q6H One Time Meds: None Continuous Infusions: None Physical Exam Gen: Pt resting comfortably, A&Ox3, panting and anxious when I arrived. As we chatted, breathing returned to normal HEENT: PERRLA, EOMI, normocephalic, atraumatic, no thyromegaly, no neck stiffness Chest: RRR, no M/R/G, CTAB, no rhonchi wheezes or rales. Excellent air movement all quads. Abd: Bowel sounds present in 4 quads, soft, ND, NTTP Ext: No cyanosis or edema Skin: No rash noted ASSESSMENT & PLAN 1. Acute exacerbation of chronic obstructive pulmonary disease. 2. Acute anxiety. 3. Hypertension. 4. Tachycardia secondary to anxiety. 5. Noncompliance with medications. 6. Leukocytosis and hyperglycemia 2/2 steroids Pt very worried about labs and imaging. I assured her that all are WNL or otherwise unremarkable. Per her request, I reviewed her EKG. She has some mild incomplete RBBB consistent with COPD, but no significant abnormalities. TSH, BNP WNL. WBC and glucose elevated, which is expected with IV steroids. Should resolve after d/c. Pt will start panting and c/o throat tightness, but this resolves quickly and she is breathing normally after chatting for a minute or two. We discussed various physical manifestations of anxiety. Strongly encouraged her to continue psychiatric treatment and seek psychological treatment for long-term mgt of anxiety to avoid future readmissions. Pt agreed to this. Psych has started pt on Effexor. I have Rx a few low-dose Ativan with instructions not to take >3 consecutive days to avoid dependence. SpO2 on RA with exertion 96%. Ok to d/c home.
--- OUTSIDE RECORDS SUMMARY | 2018-06-23 11:52 | XMS REPORT ---
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 Name Role Phone Eric Aguila Unavailable Encounters Encounter Location Date Unknown [facility] Apr 02, 2015 rash [facility] Apr 22, 2015 Unknown [facility] Apr 30, 2015 Unknown [facility] Aug 24, 2015 Unknown [facility] Mar 06, 2015 Unknown [facility] Mar 04, 2015 Unknown [facility] Mar 26, 2015 HOSPITAL FOLLOW UP [facility] October 09, 2015 Unknown [facility] Aug 24, 2015 Unknown [facility] Aug 31, 2015 Unknown [facility] May 10, 2016 Unknown [facility] January 14, 2016 [facility] Care F/U [facility] February 05, 2016 FOLLOW UP VISIT [facility] October 15, 2015 4 week f/u [facility] November 26, 2015 Problems Problem Type Condition ICD-9 Code Onset Dates Condition Status Problem Hx of tobacco use, presenting hazards to health Z87.891 Active Problem Allergic rhinitis J30.9 Active Problem Asthma exacerbation J45.901 Active Problem Depressive disorder, not elsewhere classified F32.9 Active Medications Medication Code System Code Instructions Start Date End Date Status Dosage Claritin MEDISPAN [id number] 10 mg Orally Once a day*pt lost entire bottle* Active 1 tablet Social History Social History Element Qualifiers Date Reported Tobacco Use: . Are you a: former smoker, What year did you quit? 2014February 05, 2016 Use of recreational / street drugs? . Answer: No February 05, 2016 Sexual Hx: . Had sex in the last 12 months (vaginal, oral, or anal)?: No, Have you ever had an STD?: No, LMP:: 12/15/2009 February 05, 2016 Do you take Aspirin, or a blood thinner . No I do not take aspirin / or a blood thinner February 05, 2016 Marital Status: . February 05, 2016 Caffeine intake? . Status: Yes, What type: Coffee, Tea, 1 - 2 cup(s) a day, 1 -2 can(s)/bottle(s) a day February 05, 2016 Do you exercise? . Answer: No February 05, 2016 Do you drink alcohol? . Status: No February 05, 2016 Travel outside [place]: . 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
--- OUTSIDE RECORDS SUMMARY | 2018-06-23 11:52 | XMS REPORT | Summary of Care ---
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 Name Role Phone Therese Winchester PCP Encounter HQ Luz(FIN) [phone] Date(s): 05/06/15 - 05/08/15 [facility] [address] [place] [address]- [phone] Discharge Disposition: Home Attending Physician: Eric Aguila MD Admitting Physician: Eric Aguila MD Vital Signs 1 2 3 Most recent to oldest [Reference Range]: 165.1 cm (05/06/15 5:26 PM) Height 106.818 kg (05/07/15 9:00 AM) Current Weight 98.0 DegF (05/08/15 12:25 PM) 98.0 DegF (05/08/15 8:31 AM) 98.1 DegF (05/08/15 4:00 AM) Temperature Oral [96.4-99.1 DegF] 122/75 mmHg (05/08/15 12:25 PM) 127/76 mmHg (05/08/15 8:31 AM) 121/76 mmHg (05/08/15 4:00 AM) Blood Pressure [90-140/60-90 mmHg] 18 BRMIN (05/08/15 12:25 PM) 18 BRMIN (05/08/15 8:31 AM) 16 BRMIN (05/08/15 6:40 AM) Respiratory Rate [14-20 BRMIN] 98 bpm (05/08/15 1:45 PM) 109 bpm *HI* (05/08/15 12:25 PM) 97 bpm (05/08/15 8:31 AM) Peripheral Pulse Rate [60-100 bpm] 108.227 kg (05/06/15 11:40 PM) 90.909 kg (05/06/15 5:26 PM) Weight 33.35 m2 (05/06/15 5:26 PM) Body Mass Index Problem List Condition Effective Dates Status Health Status Informant Anxiety(Confirmed) Resolved Asthma(Confirmed) Active COPD(Confirmed) Active Depression(Confirmed Resolved ) Tachycardia(Confirme Resolved d) Allergies, Adverse Reactions, Alerts Substance Reaction Severity Status codeine Active Medications acetaminophen 650 mg, 2 tab, Route: PO, Drug form: TAB, Q4H, Dosing Weight 108.227, kg, PRN Pa in 1-3/Temp > 100.4 F, Start date: 05/07/15 9:34:00, Duration: 30 day, Stop date: 06/06/15 9:33:00 Notes: Do not exceed 4 gm/day. (Same as: Tylenol) Start Date: 05/07/15 Stop Date: 05/08/15 Status: Discontinued acetaminophen 650 mg, 2 tab, Route: PO, Drug form: TAB, Q6H, Dosing Weight 108.227, kg, PRN Pa in Score 1-3, Start date: 05/07/15 2:02:00, Duration: 30 day, Stop date: 2:01:00 Notes: Do not exceed 4 gm/day. (Same as: Tylenol) Start Date: 05/07/15 Stop Date: 05/07/15 Status: Discontinued acetaminophen-hydrocodone 325 mg-5 mg oral tablet 1 tab, Route: PO, Drug Form: TAB, Dosing Weight 108.227, kg, Q4H, PRN Pain Score 4-6, Start date: 05/07/15 9:34:00, Duration: 30 day, Stop date: 06/06/15 9:33:00 Notes: (Same as: [place] 325/5) Do not exceed 4gm/day of acetaminophen. Start Date: 05/07/15 Stop Date: 05/08/15 Status: Discontinued albuterol-ipratropium 3 ml, Route: NEB, Drug Form: SOLN, Dosing Weight 108.227, kg, PRN, PRN Respirato ry Protocol, Start date: 05/07/15 13:14:00, Duration: 30 day, Stop date: 12:13:00 Notes: (Same as: Duoneb) Start Date: 05/07/15 Stop Date: 05/07/15 Status: Discontinued albuterol-ipratropium 3 ml, Route: NEB, Dosing Weight 108.227, kg, PRN, PRN Respiratory Protocol, Star t date: 05/07/15 13:14:00, Duration: 30 day, Stop date: 06/06/15 12:13:00 Start Date: 05/07/15 Stop Date: 05/07/15 Status: Discontinued albuterol-ipratropium 2.5-0.5 mg inhalation solution 3 mL, Route: NEB, Drug Form: SOLN, Dosing Weight 90.909, kg, Q30Min, STAT, Start date: 05/06/15 19:25:00, Duration: 3 doses or times, Stop date: 05/06/15 20:25: 00 Notes: (Same as: Shaneka) Start Date: 05/06/15 Stop Date: 05/06/15 Status: Completed albuterol-ipratropium 2.5-0.5 mg inhalation solution 9 mL, Route: NEB, Dosing Weight 104.545, kg, ONCE, STAT, Start date: 05/06/15 17 :23:00, Stop date: 05/06/15 17:23:00 Start Date: 05/06/15 Stop Date: 05/06/15 Status: Completed albuterol-ipratropium 2.5-0.5 mg inhalation solution 3 ml, Route: NEB, Drug Form: SOLN, Dosing Weight 108.227, kg, Q6H, PRN Respirato ry Protocol, Start date: 05/07/15 13:16:00, Duration: 30 day, Stop date: 5 13:15:00 Notes: (Same as: Shaneka) Start Date: 05/07/15 Stop Date: 05/08/15 Status: Discontinued azithromycin 500 mg, Route: IVPB, ONCE, Dosing Weight 90.909, kg, Priority: STAT, Start date: 05/06/15 21:03:00, Stop date: 05/06/15 21:03:00 Start Date: 05/06/15 Stop Date: 05/06/15 Status: Completed azithromycin + Sodium Chloride 0.9% IV 250 mL 500 mg, Route: IVPB, [id number], Dosing Weight 90.909, kg, Priority: STAT, Start da te: 05/06/15 22:34:00, Duration: 30 day, Stop date: 06/04/15 21:00:00 Notes: (Same As: Zithromax IV) Start Date: 05/06/15 Stop Date: 05/08/15 Status: Discontinued cefTRIAXone + Sodium Chloride 0.9% IV 100 mL 2 gm, Route: IVPB, [id number], Dosing Weight 108.227, kg, Start date: 05/08/15 9:00 :00, Duration: 30 day, Stop date: 06/06/15 9:00:00 Notes: (Same As: Rocephin). MEDICATION WASTE Product Size: [address] Wasted: ___ mg Start Date: 05/08/15 Stop Date: 05/08/15 Status: Discontinued cefTRIAXone + Sodium Chloride 0.9% IV 100 mL 1 gm, Route: IVPB, Q24H, Dosing Weight 90.909, kg, Priority: STAT, Start date: 1 22:34:00, Duration: 30 day, Stop date: 06/04/15 21:00:00 Notes: (Same As: Rocephin).Use with 100ml NS mini-bag PLUS and infuse over 30 mi n MEDICATION WASTE Product Size: 1000 mgProduct Wasted: ___ mg Start Date: 05/06/15 Stop Date: 05/07/15 Status: Discontinued Claritin 10 mg, 1 tab, Route: PO, Drug form: TAB, Daily, Dosing Weight 108.227, kg, PRN a s needed for allergy symptoms, Start date: 05/07/15 0:20:00, Duration: 30 day, S top date: 06/06/15 0:19:00 Notes: 1 hr before meals (Same as: Claritin) Start Date: 05/07/15 Stop Date: 05/08/15 Status: Discontinued Combivent Respimat CFC free 100 mcg-20 mcg/inh inhalation aerosol 1 puff, Route: INHALATION, Drug Form: AERO, Dosing Weight 108.227, kg, QID, Star t date: 05/07/15 9:00:00, Duration: 30 day, Stop date: 06/05/15 21:00:00 Notes: Same as: Combivent Respimat Start Date: 05/07/15 Stop Date: 05/07/15 Status: Discontinued dexamethasone 10 mg, Route: IVP, ONCE, Dosing Weight 90.909, kg, Priority: STAT, Start date: 1 19:25:00, Stop date: 05/06/15 19:25:00 Start Date: 05/06/15 Stop Date: 05/06/15 Status: Discontinued docusate 100 mg, 1 cap, Route: PO, Drug form: CAP, BID, Dosing Weight 108.227, kg, PRN Co nstipation, Start date: 05/07/15 9:34:00, Duration: 30 day, Stop date: 06/06/15 9:33:00 Notes: (Same as: Colace) (Do Not Crush) Start Date: 05/07/15 Stop Date: 05/08/15 Status: Discontinued DuoNeb inhalation solution 3 ml, Route: INHALATION, Drug Form: SOLN, Dosing Weight 90.909, kg, PRN, PRN Res piratory Protocol, Start date: 05/06/15 22:34:00, Duration: 30 day, Stop date: 08/05/14 21:33:00 Notes: (Same as: Duoneb) Start Date: 05/06/15 Stop Date: 05/07/15 Status: Discontinued Effexor 75 mg, 1 cap, Route: PO, Drug form: ERCAP, ONCE, Dosing Weight 108.227, kg, Prio rity: NOW, Start date: 05/07/15 0:23:00, Stop date: 05/07/15 0:23:00 Notes: Do not open, crush, or chew.(Same As: Effexor XR) Start Date: 05/07/15 Stop Date: 05/07/15 Status: Completed Effexor XR 150 mg, PO, Daily, 0 Refill(s) Start Date: 05/07/15 Status: Ordered Effexor XR 75 mg, PO, Bedtime, 0 Refill(s) Start Date: 05/07/15 Status: Ordered Effexor XR 150 mg, 1 cap, Route: PO, Drug form: ERCAP, Daily, Dosing Weight 108.227, kg, St art date: 05/07/15 9:00:00, Duration: 30 day, Stop date: 06/05/15 9:00:00 Notes: Do not open, crush, or chew. (Same As: Effexor XR) Start Date: 05/07/15 Stop Date: 05/08/15 Status: Discontinued Effexor XR 75 mg, 1 cap, Route: PO, Drug form: ERCAP, Bedtime, Dosing Weight 108.227, kg, S tart date: 05/07/15 21:00:00, Duration: 30 day, Stop date: 06/05/15 21:00:00 Notes: Do not open, crush, or chew.(Same As: Effexor XR) Start Date: 05/07/15 Stop Date: 05/08/15 Status: Discontinued enoxaparin 40 mg, 0.4 mL, Route: SUB-Q, Drug form: INJ, [id number], Dosing Weight 108.227, kg , Start date: 05/07/15 10:00:00, Duration: 30 day, Stop date: 06/05/15 10:00:00 Notes: (Same as: Lovenox) Start Date: 05/07/15 Stop Date: 05/08/15 Status: Discontinued fluticasone 50 mcg inhalation powder 50 microgram, 1 ea, Route: INHALATION, Drug Form: PWDR, Dosing Weight 108.227, k g, BID, Start date: 05/07/15 9:00:00, Duration: 30 day, Stop date: 06/05/15 17:0 0:00 Start Date: 05/07/15 Stop Date: 05/08/15 Status: Discontinued Lactated Ringers IV 1,000 mL 1,000 mL, Rate: 125 ml/hr, Infuse over: 8 hr, Route: IV, Dosing Weight 90.909 kg , Total Volume: 1,000, Start date: 05/06/15 22:34:00, Duration: 30 day, Stop carlos e: 06/05/15 22:33:00 Start Date: 05/06/15 Stop Date: 05/07/15 Status: Discontinued levofloxacin 750 mg oral tablet 750 mg=1 tab, PO, Daily, X 7 day, # 7 tab, 0 Refill(s) Start Date: 05/08/15 Stop Date: 05/15/15 Status: Ordered methylPREDNISolone SODium SUCCinate 125 mg, Route: IVP, ONCE, Dosing Weight 90.909, kg, Priority: STAT, Start date: 05/06/15 17:43:00, Stop date: 05/06/15 17:43:00 Start Date: 05/06/15 Stop Date: 05/06/15 Status: Discontinued metoprolol extended release 25 mg, 1 tab, Route: PO, Drug form: ERTAB, Daily, Start date: 05/07/15 9:00:00, Duration: 30 day, Stop date: 06/05/15 9:00:00 Notes: (Same as: Toprol XL) Do Not Crush Start Date: 05/07/15 Stop Date: 05/08/15 Status: Discontinued morphine Sulfate 2 mg, 1 mL, Route: IVP, Drug form: INJ, Q4H, Dosing Weight 108.227, kg, PRN Pain Score 7-10, Start date: 05/07/15 9:34:00, Duration: 30 day, Stop date: 06/06/15 9:33:00 Notes: (Same as:MORPhine Sulfate) Start Date: 05/07/15 Stop Date: 05/08/15 Status: Discontinued [place] 5/325 oral tablet 1 tab, Route: PO, Drug Form: TAB, Dosing Weight 108.227, kg, Q4H, PRN Pain Score 4-6, Start date: 05/07/15 2:02:00, Duration: 30 day, Stop date: 06/06/15 2:01:00 Notes: (Same as: [place] 325/5) Do not exceed 4gm/day of acetaminophen. Start Date: 05/07/15 Stop Date: 05/07/15 Status: Discontinued Nurse pls bring pt's own med: fluticasone to phamacy for Nurse pls bring pt's own med: fluticasone to phamacy for, attn, Drug form: MISC, Route: MISC, QSHIFT, 05/07/15 8:00:00, Duration: 30 day, Stop date: 06/06/15 0: 00:00 Start Date: 05/07/15 Stop Date: 05/08/15 Status: Discontinued ondansetron 4 mg, 2 mL, Route: IVP, Drug form: INJ, Q6H, Dosing Weight 108.227, kg, PRN Naus ea & Vomiting, Start date: 05/07/15 9:34:00, Duration: 30 day, Stop date: 06/06/15 9:33:00 Notes: (Same as: Zofran) MEDICATION WASTE Product Size: 4 mgProduct Was chencho: ___ mg Start Date: 05/07/15 Stop Date: 05/08/15 Status: Discontinued ondansetron 4 mg, 2 mL, Route: IVP, Drug form: INJ, Q6H, Dosing Weight 90.909, kg, PRN Nause a & Vomiting, Start date: 05/06/15 22:34:00, Duration: 30 day, Stop date: 06/05/15 22:33:00 Notes: (Same as: Belinda) MEDICATION WASTE Product Size: 4 mgProduct Was chencho: ___ mg Start Date: 05/06/15 Stop Date: 05/07/15 Status: Discontinued Paxil 20 mg, 1 tab, Route: PO, Drug form: TAB, ONCE, Dosing Weight 108.227, kg, Priori ty: NOW, Start date: 05/07/15 0:23:00, Stop date: 05/07/15 0:23:00 Notes: (Same as: Paxil) Start Date: 05/07/15 Stop Date: 05/07/15 Status: Completed Paxil 20 mg, 1 tab, Route: PO, Drug form: TAB, Daily, Dosing Weight 108.227, kg, Start date: 05/07/15 9:00:00, Duration: 30 day, Stop date: 06/05/15 9:00:00 Notes: (Same as: Paxil) Start Date: 05/07/15 Stop Date: 05/08/15 Status: Discontinued Paxil 20 mg oral tablet 20 mg=1 tab, PO, Daily, # 30 tab, 0 Refill(s) Start Date: 05/07/15 Status: Ordered Protonix 40 mg, 1 tab, Route: PO, Drug form: ECTAB, Before Dinner, Dosing Weight 108.227, kg, Start date: 05/07/15 16:30:00, Duration: 30 day, Stop date: 06/05/15 16:30: 00 Notes: Tablet should not be chewed or crushed.(Same as: Protonix) Start Date: 05/07/15 Stop Date: 05/08/15 Status: Discontinued Proventil HFA 90 mcg/inh inhalation aerosol with adapter 90 microgram, Route: INHALATION, Drug Form: AERO/A, Dosing Weight 108.227, kg, B ID, Start date: 05/07/15 9:00:00, Duration: 30 day, Stop date: 06/05/15 17:00:00 Notes: Albuterol 90 microgram/inh 8gm HFA Same as: Ventolin, Proventil Start Date: 05/07/15 Stop Date: 05/08/15 Status: Discontinued Rocephin 1 gm, Route: IVPB, Drug form: PDR/INJ, ONCE, Dosing Weight 90.909, kg, Priority: STAT, Start date: 05/06/15 21:03:00, Stop date: 05/06/15 21:03:00 Start Date: 05/06/15 Stop Date: 05/06/15 Status: Completed Saline Flush 0.9% 10 ml, Route: IVP, Drug Form: INJ, Dosing Weight 90.909, kg, PRN, PRN Line Flush , Start date: 05/06/15 22:34:00, Duration: 30 day, Stop date: 06/05/15 21:33:00 Notes: (Same as: BD Posiflush) Start Date: 05/06/15 Stop Date: 05/08/15 Status: Discontinued Sodium Chloride 0.9% (Bolus) IV 1,000 mL, 1,000 ml/hr, Infuse Over: 1 hr, Route: IV, ONCE, Priority: STAT, Dosin g Weight 90.909 kg, Start date: 05/06/15 19:41:00, Duration: 1 doses or times, S top date: 05/06/15 19:41:00 Start Date: 05/06/15 Stop Date: 05/06/15 Status: Completed Solu-MEDROL 125 mg, Route: IVP, ONCE, Dosing Weight 90.909, kg, Priority: STAT, Start date: 05/06/15 19:44:00, Stop date: 05/06/15 19:44:00 Start Date: 05/06/15 Stop Date: 05/06/15 Status: Discontinued Solu-MEDROL 125 mg, Route: IVP, ONCE, Dosing Weight 90.909, kg, Priority: STAT, Start date: 05/06/15 19:43:00, Stop date: 05/06/15 19:43:00 Start Date: 05/06/15 Stop Date: 05/06/15 Status: Completed Solu-MEDROL 40 mg, 1 mL, Route: IVP, Drug form: INJ, Q12H, Dosing Weight 90.909, kg, Start d ate: 05/07/15 9:00:00, Duration: 30 day, Stop date: 06/05/15 21:00:00 Notes: (Same as:Solu-MEDROL, A-Methapred) Start Date: 05/07/15 Stop Date: 05/08/15 Status: Discontinued Spiriva 18 microgram, 1 inhalation, Route: INHALATION, Drug form: CAP, Daily, Dosing Flip ght 108.227, kg, Start date: 05/07/15 9:00:00, Duration: 30 day, Stop date: 05/18 9:00:00 Notes: (Same As: Spiriva). Start Date: 05/07/15 Stop Date: 05/08/15 Status: Discontinued Results ELECTROLYTES 1 2 3 Most recent to oldest [Reference Range]: 141 mEq/L (05/08/15 5:09 AM) 140 mEq/L (05/07/15 9:49 AM) 141 mEq/L (05/06/15 5:59 PM) Sodium Lvl [135-145 mEq/L] 3.8 mEq/L (05/08/15 5:09 AM) 4.2 mEq/L (05/07/15 9:49 AM) 3.8 mEq/L (05/06/15 5:59 PM) Potassium Lvl [3.5-5.1 mEq/L] 104 mEq/L (05/08/15 5:09 AM) 105 mEq/L (05/07/15 9:49 AM) 104 mEq/L (05/06/15 5:59 PM) Chloride Lvl [95-109 mEq/L] 26 mEq/L (05/08/15 5:09 AM) 22 mEq/L *LOW* (05/07/15 9:49 AM) 28 mEq/L (05/06/15 5:59 PM) CO2 [24-32 mEq/L] 14.8 mEq/L (05/08/15 5:09 AM) 17.2 mEq/L (05/07/15 9:49 AM) 12.8 mEq/L (05/06/15 5:59 PM) AGAP [10.0-20.0 mEq/L] CHEM PANEL 1 2 3 Most recent to oldest [Reference Range]: 0.9 mg/dL (05/08/15 5:09 AM) 0.9 mg/dL (05/07/15 9:49 AM) 0.8 mg/dL (05/06/15 5:59 PM) Creatinine Lvl [0.5-1.4 mg/dL] 75 mL/min/1.73m2 1 *NA* (05/08/15 5:09 AM) 75 mL/min/1.73m2 2 *NA* (05/07/15:49 AM) 87 mL/min/1.73m2 3 *NA* (05/06/15 5:59 PM) eGFR 10 mg/dL (05/08/15 5:09 AM) 9 mg/dL (05/07/15 9:49 AM) 10 mg/dL (05/06/15 5:59 PM) BUN [7-22 mg/dL] 160 mg/dL *HI* (05/08/15 5:09 AM) 173 mg/dL *HI* (05/07/15 9:49 AM) 99 mg/dL (05/06/15 5:59 PM) Glucose Lvl [70-99 mg/dL] 8.7 mg/dL (05/08/15 5:09 AM) 9.3 mg/dL (05/07/15 9:49 AM) 8.8 mg/dL (05/06/15 5:59 PM) Calcium Lvl [8.5-10.5 mg/dL] 2.7 mg/dL (05/07/15 9:49 AM) Phosphorus [2.5-4.5 mg/dL] 1.8 mg/dL (05/07/15 9:49 AM) Magnesium Lvl [1.8-2.4 mg/dL] 1Result Comment: The [...] be mul tiplied by the estimated BMI. HEMATOLOGY 1 2 3 Most recent to oldest [Reference Range]: 16.9 K/CMM *HI* (05/08/15 5:09 AM) 10.1 K/CMM (05/07/15 9:49 AM) 13.1 K/CMM *HI* (05/06/15:59 PM) WBC [3.7-10.4 K/CMM] 4.46 M/CMM (05/08/15 5:09 AM) 4.37 M/CMM (05/07/15 9:49 AM) 4.61 M/CMM (05/06/15 5:59 PM) RBC [4.20-5.40 M/CMM] 12.5 g/dL (05/08/15 5:09 AM) 12.5 g/dL (05/07/15:49 AM) 13.2 g/dL (05/06/15:59 PM) Hgb [12.0-16.0 g/dL] 39.7 % (05/08/15 5:09 AM) 38.9 % (05/07/15:49 AM) 40.8 % (05/06/15 5:59 PM) Hct [36.0-48.0 %] 89.0 fL (05/08/15 5:09 AM) 88.9 fL (05/07/15:49 AM) 88.6 fL (05/06/15:59 PM) MCV [80.0-98.0 fL] 28.1 pg (05/08/15 5:09 AM) 28.7 pg (05/07/15:49 AM) 28.6 pg (05/06/15:59 PM) MCH [27.0-31.0 pg] 31.5 g/dL *LOW* (05/08/15 5:09 AM) 32.3 g/dL (05/07/15 9:49 AM) 32.3 g/dL (05/06/15:59 PM) MCHC [32.0-36.0 g/dL] 13.3 % (05/08/15 5:09 AM) 13.6 % (05/07/15 9:49 AM) 13.5 % (05/06/15 5:59 PM) RDW [11.5-14.5 %] 317 K/CMM (05/08/15 5:09 AM) 283 K/CMM (05/07/15 9:49 AM) 331 K/CMM (05/06/15 5:59 PM) Platelet [133-450 K/CMM] 8.4 fL (05/08/15 5:09 AM) 8.5 fL (05/07/15 9:49 AM) 8.7 fL (05/06/15 5:59 PM) MPV [7.4-10.4 fL] 80.8 % *HI* (05/08/15 5:09 AM) 80.8 % *HI* (05/07/15 9:49 AM) 50.3 % (05/06/15 5:59 PM) Segs [45.0-75.0 %] 14.4 % *LOW* (05/08/15 5:09 AM) 16.4 % *LOW* (05/07/15 9:49 AM) 37.1 % (05/06/15 5:59 PM) Lymphocytes [20.0-40.0 %] 4.7 % (05/08/15 5:09 AM) 2.5 % (05/07/15 9:49 AM) 6.2 % (05/06/15 5:59 PM) Monocytes [2.0-12.0 %] 6.2 % *HI* (05/06/15 5:59 PM) Eosinophils [0.0-4.0 %] 0.1 % (05/08/15 5:09 AM) 0.3 % (05/07/15 9:49 AM) 0.2 % (05/06/15 5:59 PM) Basophils [0.0-1.0 %] 13.7 K/CMM *HI* (05/08/15 5:09 AM) 8.2 K/CMM *HI* (05/07/15 9:49 AM) 6.6 K/CMM (05/06/15 5:59 PM) Segs-Bands # [1.5-8.1 K/CMM] 2.4 K/CMM (05/08/15 5:09 AM) 1.7 K/CMM (05/07/15 9:49 AM) 4.9 K/CMM (05/06/15 5:59 PM) Lymphocytes # [1.0-5.5 K/CMM] 0.8 K/CMM (05/08/15 5:09 AM) 0.3 K/CMM (05/07/15 9:49 AM) 0.8 K/CMM (05/06/15 5:59 PM) Monocytes # [0.0-0.8 K/CMM] 0.8 K/CMM *HI* (05/06/15 5:59 PM) Eosinophils # [0.0-0.5 K/CMM] Immunizations Vaccine Date Refusal Reason pneumococcal 23-valent vaccine 03/21/15 Procedures Procedure Date Related Diagnosis Body Site Hysterectomy Tonsillectomy Social History Social History Type Response Smoking Status Former smoker; Number of years: 20; Exposure to Tobacco Smoke None; Cigarette Smoking Last 365 Days Yes; Reg Smoking Cessation Counseling Yes Assessment and Plan Extracted from: Title: Clinical Document Author: Chrissy Bajwa Date: 05/08/15 [place] Internal Medicine Progress Note [facility] SUBJECTIVE No acute events. Pt denies PIERRE, dizziness, dysphagia, neck stiffness, CP, SOB, hemoptysis, N/V/D/C, hematemesis, hematochezia, hematuria, dysuria, skin rash. Pt feeling much better. OBJECTIVE Vital Signs (last 24 hrs) Last Charted Temp Oral98.0 DegF (MAY 08 12:) Heart Rate PeripheralH 109bpm (MAY 08 12:) Resp Rate 18 BRMIN (MAY 08 12:) [id number] mmHg (MAY 08 12:) DBP75 mmHg (MAY 08 12:) Labs (Last four charted values) WBC H 16.9(MAY 08)10.1(MAY 07)H 13.1(MAY 06) Hgb 12.5(MAY 08)12.5(MAY 07)13.2(MAY 06) Hct 39.7(MAY 08)38.9(MAY 07)40.8(MAY 06) Plt 317(MAY 08)283(MAY 07)331(MAY 06) Na 141(MAY 08)140(MAY 07)141(MAY 06) K 3.8(MAY 08)4.2(MAY 07)3.8(MAY 06) CO2 26(MAY 08)L 22(MAY 07)28(MAY 06) Cl 104(MAY 08)105(MAY 07)104(MAY 06) Cr 0.9(MAY 08)0.9(MAY 07)0.8(MAY 06) BUN 10(MAY 08)9(MAY 07)10(MAY 06) Glucose Random H 160(MAY 08)H 173(MAY 07)99(MAY 06) Mg 1.8(MAY 07) Phos 2.7(MAY 07) Ca 8.7(MAY 08)9.3(MAY 07)8.8(MAY 06) Medications (21) Active Scheduled Meds (13): 05/07/15 PARoxetine (Paxil) 20 mg PO Daily 05/07/15 albuterol (Proventil HFA 90 mcg/inh inhalation aerosol with adapter) 90 microgram INHALATION BID 05/06/15 azithromycin + Sodium Chloride 0.9% IV 250 mL 500 mg IVPB [id number] 166.67 ml/hr 05/08/15 cefTRIAXone + Sodium Chloride 0.9% IV 100 mL 2 gm IVPB [id number] 200 ml/hr 05/07/15 enoxaparin 40 mg SUB-Q [id number] 05/07/15 fluticasone (fluticasone 50 mcg inhalation powder) 50 microgram INHALATION BID 05/07/15 methylPREDNISolone (Solu-MEDROL) 40 mg IVP Q12H 05/07/15 metoprolol (metoprolol extended release) 25 mg PO Daily 05/07/15 non-formulary (Nurse pls bring pt's own med: fluticasone to phamacy for) MISC QSHIFT 05/07/15 pantoprazole (Protonix) 40 mg PO Before Dinner 05/07/15 tiotropium (Spiriva) 18 microgram INHALATION Daily 05/07/15 venlafaxine (Effexor XR) 75 mg PO Bedtime 05/07/15 venlafaxine (Effexor XR) 150 mg PO Daily Unscheduled Meds: None PRN Meds (8): 05/07/15 acetaminophen-hydrocodone (acetaminophen-hydrocodone 325 mg-5 mg oral tablet) 1 tab PO Q4H 05/07/15 acetaminophen 650 mg PO Q4H 05/07/15 albuterol-ipratropium (albuterol-ipratropium 2.5-0.5 mg inhalation solution) 3 ml NEB Q6H 05/07/15 docusate 100 mg PO BID 05/07/15 loratadine (Claritin) 10 mg PO Daily 05/07/15 morphine Sulfate 2 mg IVP Q4H 05/07/15 ondansetron 4 mg IVP Q6H 05/06/15 sodium chloride (Saline Flush 0.9%) 10 ml IVP PRN One Time Meds: None Continuous Infusions: None Physical Exam Gen: Pt resting comfortably, A&Ox3, NAD HEENT: PERRLA, EOMI, normocephalic, atraumatic, no thyromegaly, no neck stiffness Chest: RRR, no M/R/G, CTAB, no rhonchi wheezes or rales Abd: Bowel sounds present in 4 quads, soft, ND, NTTP Ext: No cyanosis or edema Skin: No rash noted ASSESSMENT & PLAN 1. Acute COPD 2. Acute anxiety 3. Depression 4. Obesity, BMI 33 Lungs clear, pt satting well on RA. Ok to d/c if cleared by pulm. F/U with them as outpt. Extracted from: Title: Clinical Document Author: Rc Vides MD Date: 05/07/15 History and Physical Attending: Eric Aguila MDPhone: Service: Internal Medicine Code status: Full Code [Ordered] Reason for Admission: ACUTE BRONCHITIS; HYPOXIA Working DRG: None Documented Isolation: None Documented Consulting Physicians: (none on file) CC: trouble breathing HPI: This is a 49 yo w/ below PMHx who p/w 1 day h/o SOB and cough. SOB a little at rest but worse on exertion. Has wheezing. Cough w/ white/clear/yellow sputum. No hemoptysis. Inhalers have not helped improve the symptoms. No known trigger, denies sick contacts. Denies lightheadedness/dizzinss, CP, abd pain, N/V, bowel/urinary changes. Does not use home oxygen. Last got steroids in March. States that prednisone makes her angry. PMHx: COPD depression PSHx: Tonsillectomy Hysterectomy FHx: reviewed and noncontributory SHx: Former 1PPD for 20 yrs, quit earlier this year Denies EtOH, illicit drugs Meds: Medication List Active Medications Ordered albuterol: 90 microgram, INHALATION, BID. albuterol-ipratropium: 1 puff, INHALATION, QID. albuterol-ipratropium: 3 ml, INHALATION, PRN, PRN: Respiratory Protocol. azithromycin + Sodium Chloride 0.9% IV 250 mL: 500 mg, 166.67 ml/hr, IVPB, [id number]. cefTRIAXone + Sodium Chloride 0.9% IV 100 mL: 1 gm, 200 ml/hr, IVPB, Q24H. fluticasone: 50 microgram, 1 ea, INHALATION, BID. Lactated Ringers Injection IV 1,000 mL: 125 ml/hr, IV, Stop: 06/05/15 22:33:00. loratadine: 10 mg, 1 tab, PO, Daily, PRN: as needed for allergy symptoms. methylPREDNISolone: 40 mg, 1 mL, IVP, Q12H. metoprolol: 25 mg, 1 tab, PO, Daily. ondansetron: 4 mg, 2 mL, IVP, Q6H, PRN: Nausea & Vomiting. PARoxetine: 20 mg, 1 tab, PO, Daily. sodium chloride: 10 ml, IVP, PRN, PRN: Line Flush. tiotropium: 18 microgram, 1 inhalation, INHALATION, Daily. venlafaxine: 75 mg, 1 cap, PO, Bedtime. venlafaxine: 150 mg, 1 cap, PO, Daily. Suspended albuterol: 1 puff, INHALATION, BID, 0 Refill(s). albuterol: 1 - 2 puffs, PO, Q4H, for 25 day, PRN: Wheezing / cough / shortness of breath, 1 ea, 0 Refill(s). albuterol-ipratropium: 1 puff, INHALATION, QID, 1 ea, 0 Refill(s). ergocalciferol: PO, once a week, last taken on Monday, 0 Refill(s). fluticasone: 50 microgram, 1 ea, INHALATION, BID, 60 ea, 0 Refill(s). loratadine: 10 mg, PO, Daily, for 14 day, PRN: Itching / rash / allergy symptoms, 14 tab, 0 Refill(s). metoprolol: 25 mg, 1 tab, PO, Daily, 30 tab, 0 Refill(s). PARoxetine: 20 mg, 1 tab, PO, Daily, 30 tab, 0 Refill(s). tiotropium: 18 microgram, INHALATION, Daily, 30 ea, 0 Refill(s). venlafaxine: 150 mg, PO, Daily, 0 Refill(s). venlafaxine: 75 mg, PO, Bedtime, 0 Refill(s). Medications Inactivated in the Last 72 Hours albuterol-ipratropium: 9 mL, NEB, ONCE. albuterol-ipratropium: 9 mL, PYXIS, ONCE. albuterol-ipratropium: 3 mL, NEB, Q30Min. albuterol-ipratropium: 9 mL, PYXIS, ONCE. azithromycin: 500 mg, IVPB, ONCE. azithromycin: 500 mg, PYXIS, ONCE. cefTRIAXone: 1 gm, IVPB, ONCE. cefTRIAXone: 1 gm, PYXIS, ONCE. dexamethasone: 10 mg, IVP, ONCE. dextromethorphan-promethazine: 1.25 mL, PO, Q6H, for 6 day, PRN: for cough, 120 mL, 0 Refill(s). ibuprofen: 800 mg, 1 tab, PO, Q8H, Take with food, PRN: Pain, 30 tab, 0 Refill(s). LORazepam: 0.5 mg, 1 tab, PO, Daily, Do not take for >3 consecutive days., PRN: Anxiety, 5 tab, 0 Refill(s). methylPREDNISolone: 125 mg, IVP, ONCE. methylPREDNISolone: 125 mg, 2 mL, PYXIS, ONCE. methylPREDNISolone: 125 mg, 2 mL, PYXIS, ONCE. methylPREDNISolone: 125 mg, IVP, ONCE. methylPREDNISolone: 125 mg, IVP, ONCE. PARoxetine: 40 mg, 1 tab, PO, Daily, 30 tab, 0 Refill(s). PARoxetine: 20 mg, 1 tab, PO, ONCE. promethazine: 0 Refill(s). Sodium Chloride 0.9% IV: 1,000 mL, 1,000 ml/hr, IV, ONCE. Sodium Chloride 0.9% IV: 250 mL, PYXIS, ONCE. venlafaxine: 75 mg, 1 cap, PO, Daily, for 30 day, 30 cap, 0 Refill(s). venlafaxine: 75 mg, 1 cap, PO, ONCE. Allergies: codeine --> itching ROS: See HPI. All other systems reviewed by myself are negative unless noted above. Physical Exam: VitalsTmp(F)[id number] 05/07 00:[id number]/7518------ 05/06 23:33 1898 2.0L/m 05/06 22:[id number] 2.0L/m 05/06 21:36----[id number]/[id number] 2.0L/m 05/06 21:05----[id number] 2.0L/m 24 Hr Tmax: 98.2F (36.78c) at 05/06 22:30Vital Signs are the last 5 in the past 48 hours. General: NAD, nontoxic appearing HEENT: NCAT, PERRL, MMM, no JVD Cardiovascular: RRR, S1S2 Respiratory: poor air movement, diffuse expiratory wheezes Abdomen: soft, +BS, NT/ND Extremities: no b/l LE edema Skin: no rashes Neurologic: comprehension and speech intact, CN III-XII grossly intact Musculoskeletal: symmetric strength in all extremities Rectal/: deferred Labs: 24hr Labs 05/06 191 Site ArtLeft Rad Temp Art37.0 pH Art7.43 pCO2 Art40 pO2 Art68 L HCO3 Art26 BE Art2 O2 Sat Art93.8 L Allens ArtPositive 05/06 1759 Glucose Lvl99 BUN10 Creatinine Lvl0.8 Sodium Kfv371 Potassium Lvl3.8 Chloride Tdu030 CO228 AGAP12.8 Calcium Lvl8.8 eGFR87 WBC13.1 H RBC4.61 Hgb13.2 Hct40.8 MCV88.6 MCH28.6 MCHC32.3 RDW13.5 Cyzanmqt619 MPV8.7 Segs50.3 Monocytes6.2 Gbnratmpzls24.1 Eosinophils6.2 H Basophils0.2 Segs-Bands #6.6 Lymphocytes #4.9 Monocytes #0.8 Eosinophils #0.8 H Micro: none Imaging: CXR: Negative chest. Assessment and Plan: 49 yo p/w SOB, wheezing, and cough, admitted for COPD exacerbation. Feels a little better after breathing txts. CXR negative for pneumonia or other acute abnormalities. ABG does show that she is hypoxemic. # COPD exacerbation: duonesantosh byrdithalo, solumedrol (pt gets "angry" on prednisone but she thinks solumedrol is okay), oxygen, mentating well and not hypercapnic so BiPAP not necessary # depression: c/w home regimen Prophylaxis: ambulation Diet: regular Rc Thakururnist
--- OUTSIDE RECORDS SUMMARY | 2018-06-23 11:52 | XMS REPORT | Summary of Care ---
Author Author [facility] Organization [facility] Address Unknown Phone Unavailable Care Team Providers Care Real Estate Accountant Name Role Phone Therese Winchester PCP Encounter [facility] Luz(FIN) [id number] Date(s): 03/20/15 - 03/21/15 [facility] [address] [place] [address]- Discharge Disposition: Home Attending Physician: Eric Aguila MD Admitting Physician: Eric Aguila MD Vital Signs 1 2 3 Most recent to oldest [Reference Range]: 160.02 cm (03/20/15 5:33 PM) 160.02 cm (03/20/15 9:33 AM) Height 1 2 3 Most recent to oldest [Reference Range]: 98.2 DegF (03/21/15 12:19 PM) 97.9 DegF (03/21/15 7:53 AM) 97.7 DegF (03/21/15 4:50 AM) Temperature Oral [96.4-99.1 DegF] 1 2 3 Most recent to oldest [Reference Range]: 128/77 mmHg (03/21/15 12:19 PM) 110/69 mmHg (03/21/15 7:53 AM) 122/76 mmHg (03/21/15 4:50 AM) Blood Pressure [90-140/60-90 mmHg] 1 2 3 Most recent to oldest [Reference Range]: 18 BRMIN (03/21/15 12:19 PM) 18 BRMIN (03/21/15 7:53 AM) 18 BRMIN (03/21/15 6:57 AM) Respiratory Rate [14-20 BRMIN] 1 2 3 Most recent to oldest [Reference Range]: 114 bpm *HI* (03/21/15 12:19 PM) 84 bpm (03/21/15 7:53 AM) 99 bpm (03/21/15 4:50 AM) Peripheral Pulse Rate [60-100 bpm] 1 2 3 Most recent to oldest [Reference Range]: 106.818 kg (03/20/15 5:33 PM) 102.273 kg (03/20/15 9:33 AM) Weight 1 2 3 Most recent to oldest [Reference Range]: 41.72 m2 (03/20/15 5:33 PM) 39.94 m2 (03/20/15 9:33 AM) Body Mass Index Problem List Condition Effective Dates Status Health Status Informant Asthma(Confirmed) Active COPD(Confirmed) Active Tachycardia(Confirme Resolved d) Allergies, Adverse Reactions, Alerts Substance Reaction Severity Status codeine Active Medications acetaminophen 650 mg, 2 tab, Route: PO, Drug form: TAB, Q4H, Dosing Weight 102.273, kg, PRN Pa in 1-3/Temp > 100.4 F, Start date: 03/20/15 14:46:00, Duration: 30 day, Stop date: 04/19/15 14:45:00 Notes: Do not exceed 4 gm/day. (Same as: Tylenol) Start Date: 03/20/15 Stop Date: 03/21/15 Status: Discontinued atropine 0.5 mg, 5 mL, Route: IVP, Drug form: INJ, ONCE, Dosing Weight 102.273, kg, PRN B radycardia, For Symptomatic Bradycardia with Rate < 40, May repeat if no response., Start date: 03/20/15 17:21:00 Start Date: 03/20/15 Stop Date: 03/21/15 Status: Discontinued Claritin 10 mg=1 tab, PO, Daily, PRN Itching / rash / allergy symptoms, # 14 tab, 0 Refil l(s) Start Date: 03/20/15 Stop Date: 04/03/15 Status: Ordered Claritin 10 mg, 1 tab, Route: PO, Drug form: TAB, Daily, Dosing Weight 106.818, kg, PRN a s needed for allergy symptoms, Start date: 03/21/15 10:36:00, Duration: 30 day, Stop date: 04/20/15 10:35:00 Notes: 1 hr before meals (Same as: Claritin) Start Date: 03/21/15 Stop Date: 03/21/15 Status: Discontinued Combivent Respimat CFC free 100 mcg-20 mcg/inh inhalation aerosol 1 puff, INHALATION, QID, # 1 ea, 0 Refill(s) Start Date: 03/21/15 Status: Ordered docusate 100 mg, 1 cap, Route: PO, Drug form: CAP, BID, Dosing Weight 102.273, kg, PRN Co nstipation, Start date: 03/20/15 14:46:00, Duration: 30 day, Stop date: 04/19/15 14:45:00 Notes: (Same as: Colace) (Do Not Crush) Start Date: 03/20/15 Stop Date: 03/21/15 Status: Discontinued DuoNeb inhalation solution 3 ml, Route: NEB, Drug Form: SOLN, Dosing Weight 102.273, kg, PRN, PRN Respirato ry Protocol, Start date: 03/20/15 9:45:00, Duration: 30 day, Stop date: 04/19/15 9:44:00 Start Date: 03/20/15 Stop Date: 03/20/15 Status: Voided With Results DuoNeb inhalation solution 3 ml, Route: NEB, Drug Form: SOLN, Dosing Weight 102.273, kg, PRN, PRN Respirato ry Protocol, Start date: 03/20/15 9:45:00, Duration: 30 day, Stop date: 04/19/15 9:44:00 Start Date: 03/20/15 Stop Date: 03/20/15 Status: Voided With Results DuoNeb inhalation solution 3 ml, Route: NEB, Drug Form: SOLN, Dosing Weight 102.273, kg, PRN, PRN Respirato ry Protocol, Start date: 03/20/15 9:45:00, Duration: 30 day, Stop date: 04/19/15 9:44:00 Notes: (Same as: Duoneb) Start Date: 03/20/15 Stop Date: 03/21/15 Status: Discontinued enoxaparin 40 mg, 0.4 mL, Route: SUB-Q, Drug form: INJ, [id number], Dosing Weight 102.273, kg , Start date: 03/20/15 15:00:00, Duration: 30 day, Stop date: 04/18/15 15:00:00 Notes: (Same as: Lovenox) Start Date: 03/20/15 Stop Date: 03/21/15 Status: Discontinued fluticasone 50 mcg inhalation powder 50 microgram=1 ea, INHALATION, BID, # 60 ea, 0 Refill(s) Start Date: 03/21/15 Status: Ordered levofloxacin 750 mg oral tablet 750 mg=1 tab, PO, Daily, X 7 day, # 7 tab, 0 Refill(s) Start Date: 03/21/15 Stop Date: 03/28/15 Status: Ordered methylPREDNISolone SODium SUCCinate 125 mg, Route: IVP, ONCE, Dosing Weight 102.273, kg, Priority: STAT, Start date: 03/20/15 9:44:00, Stop date: 03/20/15 9:44:00 Start Date: 03/20/15 Stop Date: 03/20/15 Status: Completed metoprolol 25 mg oral tablet, extended release 25 mg=1 tab, PO, Daily, # 30 tab, 0 Refill(s) Start Date: 03/20/15 Status: Ordered metoprolol extended release 25 mg, 1 tab, Route: PO, Drug form: ERTAB, Q24H, Start date: 03/21/15 14:00:00, Duration: 30 day, Stop date: 04/19/15 14:00:00 Notes: (Same as: Toprol XL) Do Not Crush Start Date: 03/21/15 Stop Date: 03/21/15 Status: Discontinued nitroglycerin 0.4 mg sublingual tablet 0.4 mg, 1 tab, Route: SL, Drug form: TAB, Q5Min, Dosing Weight 102.273, kg, PRN Chest Pain, Start date: 03/20/15 17:21:00, Duration: 30 day, Stop date: 04/19/15 17:20:00 Notes: (Same as:Nitroquick, Nitrostat)"Do Not Crush" Sublingual tablet Start Date: 03/20/15 Stop Date: 03/21/15 Status: Discontinued ondansetron 4 mg, 2 mL, Route: IVP, Drug form: INJ, Q6H, Dosing Weight 102.273, kg, PRN Naus ea & Vomiting, Start date: 03/20/15 14:46:00, Duration: 30 day, Stop date: 04/19/15 14:45:00 Notes: (Same as: Zofran) MEDICATION WASTE Product Size: 4 mgProduct Was chencho: ___ mg Start Date: 03/20/15 Stop Date: 03/21/15 Status: Discontinued Paxil 40 mg, 2 tab, Route: PO, Drug form: TAB, Daily, Dosing Weight 106.818, kg, Start date: 03/21/15 11:59:00, Duration: 30 day, Stop date: 04/20/15 9:00:00 Notes: (Same as: Paxil) Start Date: 03/21/15 Stop Date: 03/21/15 Status: Discontinued Paxil 40 mg oral tablet 40 mg=1 tab, PO, Daily, # 30 tab, 0 Refill(s) Start Date: 03/20/15 Status: Ordered pneumococcal 23-valent vaccine 0.5 mL, Route: IM, Drug Form: INJ, Daily, Start date: 03/21/15 9:00:00, Duration : 1 doses or times, Stop date: 03/21/15 9:00:00 Notes: (Same as: Pneumovax 23) Refrigerate Start Date: 03/21/15 Stop Date: 03/21/15 Status: Deleted Pneumovax 23 0.5 mL, Route: IM, Drug Form: INJ, Daily, Start date: 03/21/15 15:09:00, Duratio n: 1 doses or times, Stop date: 03/21/15 15:09:00 Notes: (Same as: Pneumovax 23) Refrigerate Start Date: 03/21/15 Stop Date: 03/21/15 Status: Completed predniSONE 10 mg oral tablet 10 mg=1 tab, PO, Daily, X 7 day, # 7 tab, 0 Refill(s) Start Date: 03/21/15 Stop Date: 03/28/15 Status: Ordered ProAir HFA 1 - 2 puffs, PO, Q4H, PRN Wheezing / cough / shortness of breath, # 1 ea, 0 Refi ll(s) Start Date: 03/20/15 Stop Date: 04/14/15 Status: Ordered promethazine 0 Refill(s) Start Date: 03/21/15 Status: Ordered Promethazine DM oral syrup 1.25 mL, PO, Q6H, PRN for cough, # 120 mL, 0 Refill(s) Start Date: 03/21/15 Stop Date: 03/27/15 Status: Ordered Protonix 40 mg, 1 tab, Route: PO, Drug form: ECTAB, Before Dinner, Dosing Weight 102.273, kg, Start date: 03/20/15 16:30:00, Duration: 30 day, Stop date: 04/18/15 16:30: 00 Notes: Tablet should not be chewed or crushed.(Same as: Protonix) Start Date: 03/20/15 Stop Date: 03/21/15 Status: Discontinued Proventil HFA 90 mcg/inh inhalation aerosol with adapter 1 puff, INHALATION, BID, 0 Refill(s) Start Date: 03/20/15 Status: Ordered Rocephin + Sodium Chloride 0.9% IV 100 mL 1 gm, Route: IVPB, [id number], Dosing Weight 102.273, kg, Start date: 03/20/15 18:0 0:00, Duration: 30 day, Stop date: 04/18/15 18:00:00 Notes: (Same As: Rocephin).Use with 100ml NS mini-bag PLUS and infuse over 30 mi n MEDICATION WASTE Product Size: 1000 mgProduct Wasted: ___ mg Start Date: 03/20/15 Stop Date: 03/21/15 Status: Discontinued Saline Flush 0.9% 10 mL, Route: IVP, Drug Form: INJ, Dosing Weight 102.273, kg, PRN, PRN Line Flus h, Start date: 03/20/15 9:44:00, Duration: 30 day, Stop date: 04/19/15 9:43:00 Notes: (Same as: BD Posiflush) Start Date: 03/20/15 Stop Date: 03/21/15 Status: Discontinued Solu-MEDROL 40 mg, 1 mL, Route: IVP, Drug form: INJ, Q8H, Dosing Weight 102.273, kg, Priorit y: STAT, Start date: 03/20/15 14:48:00, Duration: 30 day, Stop date: 04/19/15 8: 00:00 Notes: (Same as:Solu-MEDROL, A-Methapred) Start Date: 03/20/15 Stop Date: 03/21/15 Status: Discontinued Solu-MEDROL 30 mg, Route: IVP, Q12H, Dosing Weight 102.273, kg, Start date: 03/20/15 21:00:0 0, Duration: 30 day, Stop date: 04/19/15 9:00:00 Start Date: 03/20/15 Stop Date: 03/20/15 Status: Canceled Spiriva 18 microgram, INHALATION, Daily, # 30 ea, 0 Refill(s) Start Date: 03/21/15 Status: Ordered Vitamin D2 PO, once a week, last taken on Monday, 0 Refill(s) Special Instructions: once a week, last taken on Monday Start Date: 03/21/15 Status: Ordered Zithromax 500 mg oral tablet 500 mg, 2 tab, Route: PO, Drug form: TAB, [id number], Dosing Weight 102.273, kg, St art date: 03/20/15 18:00:00, Duration: 30 day, Stop date: 04/18/15 18:00:00 Notes: Take 1 hour before or 2 hours after meals.(Same As: Zithromax) Start Date: 03/20/15 Stop Date: 03/21/15 Status: Discontinued Results ELECTROLYTES 1 2 3 Most recent to oldest [Reference Range]: 139 mEq/L (03/21/15 4:36 AM) 140 mEq/L (03/20/15 9:54 AM) Sodium Lvl [135-145 mEq/L] 4.3 mEq/L (03/21/15 4:36 AM) 3.7 mEq/L (03/20/15 9:54 AM) Potassium Lvl [3.5-5.1 mEq/L] 104 mEq/L (03/21/15 4:36 AM) 103 mEq/L (03/20/15 9:54 AM) Chloride Lvl [95-109 mEq/L] 27 mEq/L (03/21/15 4:36 AM) 26 mEq/L (03/20/15 9:54 AM) CO2 [24-32 mEq/L] 12.3 mEq/L (03/21/15 4:36 AM) 14.7 mEq/L (03/20/15 9:54 AM) AGAP [10.0-20.0 mEq/L] CHEM PANEL 1 2 3 Most recent to oldest [Reference Range]: 0.8 mg/dL (03/21/15 4:36 AM) 1.1 mg/dL (03/20/15 7:01 PM) 0.9 mg/dL (03/20/15 9:54 AM) Creatinine Lvl [0.5-1.4 mg/dL] 87 mL/min/1.73m2 1 *NA* (03/21/15 4:36 AM) 59 mL/min/1.73m2 2 *NA* (03/20/15 7:01 PM) 75 mL/min/1.73m2 3 *NA* (03/20/15 9:54 AM) eGFR 12 mg/dL (03/21/15 4:36 AM) 13 mg/dL (03/20/15 9:54 AM) BUN [7-22 mg/dL] 14 (03/20/15 9:54 AM) B/C Ratio [6-25] 139 mg/dL *HI* (03/21/15 4:36 AM) 129 mg/dL *HI* (03/20/15 9:54 AM) Glucose Lvl [70-99 mg/dL] 7.7 g/dL (03/20/15 9:54 AM) Total Protein [6.4-8.4 g/dL] 3.5 g/dL (03/20/15 9:54 AM) Albumin Lvl [3.5-5.0 g/dL] 4.2 g/dL *HI* (03/20/15 9:54 AM) Globulin [2.0-4.0 g/dL] 0.8 (03/20/15 9:54 AM) A/G Ratio [0.7-1.6] 9.5 mg/dL (03/21/15 4:36 AM) 9.0 mg/dL (03/20/15 9:54 AM) Calcium Lvl [8.5-10.5 mg/dL] 2.7 mg/dL (03/20/15 7:01 PM) Phosphorus [2.5-4.5 mg/dL] 1.9 mg/dL (03/20/15 7:01 PM) Magnesium Lvl [1.8-2.4 mg/dL] 37 unit/L (03/20/15 9:54 AM) ALT [0-65 unit/L] 28 unit/L (03/20/15 9:54 AM) AST [0-37 unit/L] 136 unit/L (03/20/15 9:54 AM) Alk Phos [39-136 unit/L] 0.4 mg/dL (03/20/15 9:54 AM) Bili Total [0.2-1.3 mg/dL] 2.9 mMol/L *HI* (03/20/15 9:54 AM) Lactic Acid Lvl [0.5-2.2 mMol/L] <0.05 ng/mL (03/20/15 7:01 PM) Procalcitonin Lvl [0.00-0.10 ng/mL] 1Result Comment: The eGFR is calculated using [...] Most recent to oldest [Reference Range]: 1.0 ng/mL (03/20/15 9:54 AM) CK MB [0.5-3.6 ng/mL] <0.02 ng/mL (03/20/15 9:54 AM) Troponin-I [0.00-0.40 ng/mL] 17 pg/mL (03/20/15 9:54 AM) BNP [<=100 pg/mL] HEMATOLOGY 1 2 3 Most recent to oldest [Reference Range]: 15.5 K/CMM *HI* (03/21/15 4:36 AM) 11.7 K/CMM *HI* (03/20/15 9:54 AM) WBC [3.7-10.4 K/CMM] 4.55 M/CMM (03/21/15 4:36 AM) 4.69 M/CMM (03/20/15 9:54 AM) RBC [4.20-5.40 M/CMM] 13.1 g/dL (03/21/15 4:36 AM) 13.3 g/dL (03/20/15 9:54 AM) Hgb [12.0-16.0 g/dL] 40.1 % (03/21/15 4:36 AM) 41.4 % (03/20/15 9:54 AM) Hct [36.0-48.0 %] 88.2 fL (03/21/15 4:36 AM) 88.2 fL (03/20/15 9:54 AM) MCV [80.0-98.0 fL] 28.8 pg (03/21/15 4:36 AM) 28.4 pg (03/20/15 9:54 AM) MCH [27.0-31.0 pg] 32.7 g/dL (03/21/15 4:36 AM) 32.2 g/dL (03/20/15 9:54 AM) MCHC [32.0-36.0 g/dL] 13.8 % (03/21/15 4:36 AM) 13.8 % (03/20/15 9:54 AM) RDW [11.5-14.5 %] 329 K/CMM (03/21/15 4:36 AM) 306 K/CMM (03/20/15 7:01 PM) 301 K/CMM (03/20/15 9:54 AM) Platelet [133-450 K/CMM] 7.9 fL (03/21/15 4:36 AM) 7.8 fL (03/20/15 9:54 AM) MPV [7.4-10.4 fL] 81.5 % *HI* (03/21/15 4:36 AM) 51.2 % (03/20/15 9:54 AM) Segs [45.0-75.0 %] 15.6 % *LOW* (03/21/15 4:36 AM) 36.0 % (03/20/15 9:54 AM) Lymphocytes [20.0-40.0 %] 2.6 % (03/21/15 4:36 AM) 5.0 % (03/20/15 9:54 AM) Monocytes [2.0-12.0 %] 0.1 % (03/21/15 4:36 AM) 6.9 % *HI* (03/20/15 9:54 AM) Eosinophils [0.0-4.0 %] 0.2 % (03/21/15 4:36 AM) 0.9 % (03/20/15 9:54 AM) Basophils [0.0-1.0 %] 12.7 K/CMM *HI* (03/21/15 4:36 AM) 6.0 K/CMM (03/20/15 9:54 AM) Segs-Bands # [1.5-8.1 K/CMM] 2.4 K/CMM (03/21/15 4:36 AM) 4.2 K/CMM (03/20/15 9:54 AM) Lymphocytes # [1.0-5.5 K/CMM] 0.4 K/CMM (03/21/15 4:36 AM) 0.6 K/CMM (03/20/15 9:54 AM) Monocytes # [0.0-0.8 K/CMM] 0.8 K/CMM *HI* (03/20/15 9:54 AM) Eosinophils # [0.0-0.5 K/CMM] 0.1 K/CMM (03/20/15 9:54 AM) Basophils # [0.0-0.2 K/CMM] 30.4 seconds (03/20/15 7:01 PM) PTT [22.9-35.8 seconds] Immunizations Vaccine Date Refusal Reason pneumococcal 23-valent vaccine 03/21/15 Procedures Procedure Date Related Diagnosis Body Site Hysterectomy Tonsillectomy Social History Social History Type Response Smoking Status Former smoker; Number of years: 20; Exposure to Tobacco Smoke None; Cigarette Smoking Last 365 Days No; Reg Smoking Cessation Counseling No Assessment and Plan Extracted from: Title: Clinical Document Author: Tung Jessica MD Date: 03/21/15 Pulmonary/Critical Care Medicine progess note Tung Jessica MD SUBJECTIVE: doing better cough and wheezing less OBJECTIVE: VitalsTmp(F)Tmp(C)[id number] 03/21 15:27 95------ 03/21 12:1998.236.60dzgp878/77---[id number]--------- 03/21 07:5397.936.57edql670/69---8418--------- 03/21 06:57 1896 3.0L/m--- 03/21 04:5097.736.07doaw917/76---9916--------- 24 Hr Tmax: 98.2F (36.78c) at 03/21 12:19Vital Signs are the last 5 in the past 48 hours. 24 Hr Tmin: 97.7F (36.50c) at 03/21 04:50Weights are the last 5 in 60 days, plus initial. DateWt(kg)Wt(lb)Ht(cm)Ht(in)MethodBMIBSA 03/20 (initial)102.27 225.00Estimated 39.92.13 60.02 63.00Stated (no point of care glucose results charted in last 24 hours) Most Recent Scores: 03/21/15Pain Intensity NRS (0-10)0 03/21/15Braden Score21 03/21/15Glasgow Coma Score15 03/21/15[place] Fall Score4 Lines, Tubes, and Drains: 03/20/2015 09:40 Peripheral Lines: Antecubital Right 20 gauge Over the needle catheter (no surgical procedures documented) Labs (Last four charted values) WBC H 15.5(MAR 21)H 11.7(MAR 20) Hgb 13.1(MAR 21)13.3(MAR 20) Hct 40.1(MAR 21)41.4(MAR 20) Plt 329(MAR 21)306(MAR 20)301(MAR 20) Na 139(MAR 21)140(MAR 20) K 4.3(MAR 21)3.7(MAR 20) CO2 27(MAR 21)26(MAR 20) Cl 104(MAR 21)103(MAR 20) Cr 0.8(MAR 21)1.1(MAR 20)0.9(MAR 20) BUN 12(MAR 21)13(MAR 20) Glucose Random H 139(MAR 21)H 129(MAR 20) Mg 1.9(MAR 20) Phos 2.7(MAR 20) Ca 9.5(MAR 21)9.0(MAR 20) PTT 30.4(MAR 20) Troponin <0.02(MAR 20) CK MB 1.0(MAR 20) RADIOLOGY: ASSESSMENT & EXAM: HEENT:normocephalic,atraumatic Skin:no rash Chest: symmetrical expansion, no wheezing,no rales, no crackles Heart: Regular rhythm, no murmurs Abdomen: Soft, nontender, bowel sounds present, obese Ext: no edema SUPERVISOR COMMUNICATIONS AND SIGNALS: alert and oriented, no focal neurological defecits DIAGNOSES & PROBLEMS: COPD exacerbation obesity PLAN & TREATMENT: doing better ok to dc on levaquin and prednisone taper PFTs as outpatient weight reduction discussed with primary team Scheduled Meds (7): 03/21/15 PARoxetine (Paxil) 40 mg PO Daily 03/20/15 azithromycin (Zithromax 500 mg oral tablet) 500 mg PO [id number] 03/20/15 cefTRIAXone + Sodium Chloride 0.9% IV 100 mL (Rocephin + Sodium Chloride 0.9% IV 100 mL) 1 gm IVPB [id number] 200 ml/hr 03/20/15 enoxaparin 40 mg SUB-Q [id number] 03/20/15 methylPREDNISolone (Solu-MEDROL) 40 mg IVP Q8H 03/21/15 metoprolol (metoprolol extended release) 25 mg PO Q24H 03/20/15 pantoprazole (Protonix) 40 mg PO Before Dinner Unscheduled Meds: None
--- OUTSIDE RECORDS SUMMARY | 2018-06-23 11:52 | XMS REPORT | Summary of Care ---
Author Organization Unknown Address Unknown Phone Unavailable Care Team Providers Care Securities Lending Trader Name Role Phone Therese Winchester PCP Encounter [facility] Italolainer_reina(LARRY) [phone] Date(s): 02/12/14 - 02/12/14 [facility] [address] Discharge Diagnosis: Epigastric pain Discharge Disposition: Home Physician Attending: Lois Macedo MD Reason for Visit ABD PAIN Vital Signs 1 2 3 Most recent to oldest [Reference Range]: 162.56 cm (02/12/14 2:40 PM) Height 98.8 DegF (02/12/14 8:19 PM) 99.0 DegF (02/12/14 6:17 PM) 99.3 DegF *HI* (02/12/14 2:40 PM) Temperature Oral [96.4-99.1 DegF] 136 mmHg (02/12/14 8:19 PM) 137 mmHg (02/12/14 6:17 PM) 157 mmHg *HI* (02/12/14 2:40 PM) Systolic Blood Pressure [90-140 mmHg] 80 mmHg (02/12/14 8:19 PM) 80 mmHg (02/12/14 6:17 PM) 97 mmHg *HI* (02/12/14 2:40 PM) Diastolic Blood Pressure [60-90 mmHg] 18 BRMIN (02/12/14 8:19 PM) 20 BRMIN (02/12/14 6:17 PM) 20 BRMIN (02/12/14 5:00 PM) Respiratory Rate [14-20 BRMIN] 90 bpm (02/12/14 8:19 PM) 90 bpm (02/12/14 6:17 PM) 94 bpm (02/12/14 5:00 PM) Peripheral Pulse Rate [60-100 bpm] 100 kg (02/12/14 2:40 PM) Weight 37.84 m2 (02/12/14 2:40 PM) Body Mass Index Problem List No data available for this section Allergies, Adverse Reactions, Alerts No data available for this section Medications Carafate 1 g oral tablet 1 gm=1 tab, PO, QID-Before Meals, # 120 tab, 0 Refill(s) Start Date: 02/12/14 Status: Ordered GI cocktail 30 mL, Route: PO, Dosing Weight 100, kg, ONCE, STAT, Start date: 02/12/14 17:49: 00, Stop date: 02/12/14 17:49:00 Start Date: 02/12/14 Stop Date: 02/12/14 Status: Completed morphine Sulfate 4 mg, 2 mL, Route: IVP, Drug form: INJ, ONCE, Dosing Weight 100, kg, Priority: S TAT, Start date: 02/12/14 17:18:00, Stop date: 02/12/14 17:18:00 Notes: (Same as:MORPhine Sulfate) Start Date: 02/12/14 Stop Date: 02/12/14 Status: Completed NS (Bolus) IV 1,000 mL, 1,000 ml/hr, Infuse Over: 1 hr, Route: IV, 1,000, Drug form: INJ, ONCE , Priority: STAT, Dosing Weight 100 kg, Start date: 02/12/14 17:18:00, Duration: 1 doses or times, Stop date: 02/12/14 17:18:00 Start Date: 02/12/14 Stop Date: 02/12/14 Status: Completed omeprazole 40 mg oral delayed release capsule 40 mg=1 cap, PO, Daily, # 30 cap, 0 Refill(s) Start Date: 02/12/14 Status: Ordered Ultram 50 mg oral tablet 50 mg=1 tab, PO, Q4H, pain, # 20 tab, 0 Refill(s) Start Date: 02/12/14 Status: Ordered Zofran 4 mg, 2 mL, Route: IVP, Drug form: INJ, ONCE, Dosing Weight 100, kg, Priority: S TAT, Start date: 02/12/14 17:18:00, Stop date: 02/12/14 17:18:00 Notes: (Same as: Zofran) Start Date: 02/12/14 Stop Date: 02/12/14 Status: Completed Zofran 4 mg, Route: IVP, Drug form: INJ, ONCE, Dosing Weight 100, kg, Priority: STAT, S tart date: 02/12/14 20:08:00, Stop date: 02/12/14 20:08:00 Start Date: 02/12/14 Stop Date: 02/12/14 Status: Completed Zofran ODT 4 mg oral tablet, disintegrating 4 mg=1 tab, PO, BID, Nausea and Vomiting, Dissolve tab under tongue, # 10 tab, 0 Refill(s) Special Instructions: Dissolve tab under tongue Start Date: 02/12/14 Status: Ordered Results ELECTROLYTES Most recent to 1 oldest [Reference Range]: Sodium Lvl [135-145 139 mEq/L mEq/L] (02/12/14 5:23 PM) Potassium Lvl 3.7 mEq/L [3.5-5.1 mEq/L] (02/12/14 5:23 PM) Chloride Lvl [95-109 104 mEq/L mEq/L] (02/12/14 5:23 PM) CO2 [24-32 mEq/L] 26 mEq/L (02/12/14 5:23 PM) AGAP [10.0-20.0 12.7 mEq/L mEq/L] (02/12/14 5:23 PM) CHEM PANEL Most recent to 1 oldest [Reference Range]: Creatinine Lvl 0.8 mg/dL [0.5-1.4 mg/dL] (02/12/14 5:23 PM) eGFR 87 mL/min/1.73m2 1 *NA* (02/12/14 5:23 PM) BUN [7-22 mg/dL] 8 mg/dL (02/12/14 5:23 PM) B/C Ratio [6-25] 10 (02/12/14 5:23 PM) Glucose Lvl [70-99 90 mg/dL 2 mg/dL] (02/12/14 5:23 PM) Total Protein 7.9 g/dL [6.4-8.4 g/dL] (02/12/14 5:23 PM) Albumin Lvl [3.5-5.0 3.9 g/dL g/dL] (02/12/14 5:23 PM) Globulin [2.0-4.0 4.0 g/dL g/dL] (02/12/14 5:23 PM) A/G Ratio [0.7-1.6] 1.0 (02/12/14 5:23 PM) Calcium Lvl 9.3 mg/dL [8.5-10.5 mg/dL] (02/12/14 5:23 PM) ALT [0-65 unit/L] 28 unit/L (02/12/14 5:23 PM) AST [0-37 unit/L] 24 unit/L (02/12/14 5:23 PM) Alk Phos [39-136 168 unit/L unit/L] *HI* (02/12/14 5:23 PM) Bili Total [0.2-1.3 0.3 mg/dL mg/dL] (02/12/14 5:23 PM) 1Result Comment: The eGFR is calculated [...] values reflect the clinical guidelines of the [place] [employer]. CARDIAC ENZYMES Most recent to 1 oldest [Reference Range]: CK MB [0.5-3.6 <0.5 ng/mL ng/mL] (02/12/14 5:23 PM) Troponin-I <0.02 ng/mL [0.00-0.40 ng/mL] (02/12/14 5:23 PM) URINE CHEM Most recent to 1 oldest [Reference Range]: U Preg [Negative] Negative (02/12/14 5:10 PM) URINE AND STOOL Most recent to 1 oldest [Reference Range]: UA Turbidity [Clear] Clear (02/12/14 5:10 PM) UA Color Ltyellow *NA* (02/12/14 5:10 PM) UA pH [5.0-8.0] 7.0 (02/12/14 5:10 PM) UA Spec Grav 1.009 [<=1.030] (02/12/14 5:10 PM) UA Glucose [Negative Negative mg/dL mg/dL] *NA* (02/12/14 5:10 PM) UA Blood [Negative] Negative (02/12/14 5:10 PM) UA Ketones [Negative Negative mg/dL mg/dL] *NA* (02/12/14 5:10 PM) UA Protein [Negative Negative mg/dL mg/dL] (02/12/14 5:10 PM) UA Urobilinogen <=1.0 mg/dL [0.1-1.0 mg/dL] *NA* (02/12/14 5:10 PM) UA Bili [Negative] Negative *NA* (02/12/14 5:10 PM) UA Leuk Est Negative [Negative] (02/12/14 5:10 PM) UA Nitrite Negative [Negative] (02/12/14 5:10 PM) UA WBC [0-5 /HPF] <1 /HPF (02/12/14 5:10 PM) UA RBC [0-2 /HPF] 2 /HPF (02/12/14 5:10 PM) UA Bacteria [None Occasional /HPF Seen /HPF] *NA* (02/12/14 5:10 PM) UA Sq Epi [Few /LPF] Occasional /LPF *NA* (02/12/14 5:10 PM) IMMUNOLOGY Most recent to 1 oldest [Reference Range]: CDC HIV 4th GEN Negative [Negative] (02/12/14 5:23 PM) HEMATOLOGY Most recent to 1 oldest [Reference Range]: WBC [3.7-10.4 K/CMM] 15.4 K/CMM *HI* (02/12/14 5:23 PM) RBC [4.20-5.40 4.64 M/CMM M/CMM] (02/12/14 5:23 PM) Hgb [12.0-16.0 g/dL] 13.7 g/dL (02/12/14 5:23 PM) Hct [36.0-48.0 %] 40.4 % (02/12/14 5:23 PM) MCV [81.0-99.0 fL] 87.0 fL (02/12/14 5:23 PM) MCH [27.0-31.0 pg] 29.6 pg (02/12/14 5:23 PM) MCHC [32.0-36.0 34.1 g/dL g/dL] (02/12/14 5:23 PM) RDW [11.5-14.5 %] 13.6 % (02/12/14 5:23 PM) Platelet [133-450 392 K/CMM K/CMM] (02/12/14 5:23 PM) MPV [7.4-10.4 fL] 8.2 fL (02/12/14 5:23 PM) Segs [45.0-75.0 %] 54.7 % (02/12/14 5:23 PM) Lymphocytes 38.0 % [20.0-40.0 %] (02/12/14 5:23 PM) Monocytes [2.0-12.0 4.9 % %] (02/12/14 5:23 PM) Eosinophils [0.0-4.0 2.2 % %] (02/12/14 5:23 PM) Basophils [0.0-1.0 0.2 % %] (02/12/14 5:23 PM) Segs-Bands # 8.4 K/CMM [1.5-8.1 K/CMM] *HI* (02/12/14 5:23 PM) Lymphocytes # 5.9 K/CMM [1.0-5.5 K/CMM] *HI* (02/12/14 5:23 PM) Monocytes # [0.0-0.8 0.7 K/CMM K/CMM] (02/12/14 5:23 PM) Eosinophils # 0.3 K/CMM [0.0-0.5 K/CMM] (02/12/14 5:23 PM) Medications Administered During Your Visit No data available for this section Immunizations No data available for this section
--- OUTSIDE RECORDS SUMMARY | 2018-06-23 11:52 | XMS REPORT ---
Author Author Eric Aguila [employer]Clinical[employer] Address Unknown Phone Unavailable Care Team Providers Care Graduate Studies Dean Name Role Phone Eric Aguila Unavailable Encounters Encounter Location Date Unknown [facility] Apr 02, 2015 rash [facility] Apr 22, 2015 Unknown [facility] Apr 30, 2015 Unknown [facility] Aug 24, 2015 Unknown [facility] Mar 06, 2015 Unknown [facility] Mar 04, 2015 Unknown [facility] Mar 26, 2015 HOSPITAL FOLLOW UP [facility] October 09, 2015 Unknown [facility] Aug 24, 2015 Unknown [facility] Aug 31, 2015 Unknown [facility] May 10, 2016 Unknown [facility] Sep 02, 2016 Unknown [facility] January 14, 2016 [facility] Care F/U [facility] February 05, 2016 FOLLOW UP VISIT [facility] October 15, 2015 4 week f/u [facility] November 26, 2015 Problems Problem Type Condition ICD-9 Code Onset Dates Condition Status Problem Hx of tobacco use, presenting hazards to health Z87.891 Active Problem Allergic rhinitis J30.9 Active Problem Asthma exacerbation J45.901 Active Problem Depressive disorder, not elsewhere classified F32.9 Active Medications Medication Code System Code Instructions Start Date End Date Status D[facility] [address]-06 500 MG Orally Twice a day Sep 02, 2016 Sep 12, 2016 Active 1 tablet Social History Social History [...]
--- OUTSIDE RECORDS SUMMARY | 2018-06-23 11:52 | XMS REPORT ---
Author Author Eric Aguila [facility] e[employer] Address Unknown Phone Unavailable Care Team Providers Care Septic Tank Service Technician Name Role Phone Eric Aguila Unavailable Encounters Encounter Location Date Unknown [facility] Apr 02, 2015 rash [facility] Apr 22, 2015 Unknown [facility] Apr 30, 2015 Unknown [facility] Aug 24, 2015 Unknown [facility] Mar 06, 2015 Unknown [facility] Mar 04, 2015 Unknown [facility] Mar 26, 2015 HOSPITAL FOLLOW UP [facility] October 09, 2015 Unknown [facility] Aug 24, 2015 Unknown [facility] Aug 31, 2015 Unknown [facility] September 22, 2016 Unknown [facility] May 10, 2016 Unknown [facility] Sep 02, 2016 Unknown [facility] January 14, 2016 [facility] Care F/U [facility] February 05, 2016 FOLLOW UP VISIT [facility] October 15, 2015 4 week f/u [facility] November 26, 2015 Problems Problem Type Condition ICD-9 Code Onset Dates Condition Status Problem BMI 40.0-44.9, adult Z68.41 Active Problem Asthma exacerbation J45.901 Active Problem Morbid obesity, unspecified obesity type E66.01 Active Problem Depressive disorder, not elsewhere classified F32.9 Active Assessment Abnormal level of blood mineral R79.0 Active Problem Hx of tobacco use, presenting hazards to health Z87.891 Active Problem Allergic rhinitis J30.9 Active Social History Social History Element Qualifiers Date Reported Tobacco Use: . Are you a: former smoker, What year did you quit? 2014September 15, 2016 Use of recreational / street drugs? . Answer: No September 15, 2016 Sexual Hx: . Had sex in the last 12 months (vaginal, oral, or anal)?: No, Have you ever had an STD?: No, LMP:: 12/15/2009 September 15, 2016 Do you take Aspirin, or a blood thinner . No I do not take aspirin / or a blood thinner September 15, 2016 Marital Status: . September 15, 2016 Caffeine intake? . Status: Yes, What type: Coffee, Tea, 1 - 2 cup(s) a day, 1 -2 can(s)/bottle(s) a day September 15, 2016 Do you exercise? . Answer: No September 15, 2016 Do you drink alcohol? . Status: No September 15, 2016 Travel outside [place]: . 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
--- OUTSIDE RECORDS SUMMARY | 2018-06-23 11:52 | XMS REPORT ---
Author Author Eric Aguila [facility] eClinicalWorks Address Unknown Phone Unavailable Care Team Providers Care Penal Officer Name Role Phone Eric Aguila Unavailable Encounters Encounter Location Date Unknown [facility] Apr 02, 2015 rash [facility] Apr 22, 2015 Unknown [facility] Apr 30, 2015 Unknown [facility] Aug 24, 2015 Unknown [facility] Mar 06, 2015 Unknown [facility] Mar 04, 2015 Unknown [facility] Mar 26, 2015 HOSPITAL FOLLOW UP [facility] October 09, 2015 Unknown [facility] Aug 24, 2015 Unknown [facility] Aug 31, 2015 Unknown [facility] January 14, 2016 FOLLOW UP VISIT [facility] October 15, 2015 4 week f/u [facility] November 26, 2015 Problems Problem Type Condition ICD-9 Code Onset Dates Condition Status Problem Hx of tobacco use, presenting hazards to health Z87.891 Active Problem Allergic rhinitis J30.9 Active Problem Asthma exacerbation J45.901 Active Problem Depressive disorder, not elsewhere classified F32.9 Active Medications Medication Code System Code Instructions Start Date End Date Status Dosage Levaquin [facility] [address]-32 750 MG Orally Once a day January 14, 2016 January 24, 2016 Active 1 tablet Promethazine-DM [facility] [address]-93 6.25-15 MG/5ML Orally every 6 hrs January 14, 2016 January 24, 2016 Active 5 ml as needed Medrol (Neno) [facility] [address]-60 4 MG Orally as directed January 14, 2016 January 20, 2016 Active as directed Social History Social History Element Qualifiers Date Reported Tobacco Use: . Are you a: former smoker, What year did you quit? 2014November 26, 2015 Use of recreational / street drugs? . Answer: No November 26, 2015 Sexual Hx: . Had sex in the last 12 months (vaginal, oral, or anal)?: No, Have you ever had an STD?: No, LMP:: 12/15/2009 November 26, 2015 Marital Status: . November 26, 2015 Caffeine intake? . Status: Yes, What type: Coffee, Tea, 1 - 2 cup(s) a day, 1 -2 can(s)/bottle(s) a day November 26, 2015 Do you exercise? . Answer: No November 26, 2015 Do you drink alcohol? . Status: No November 26, 2015 Travel outside [place]: . 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
--- OUTSIDE RECORDS SUMMARY | 2018-06-23 11:52 | XMS REPORT ---
Author Author Eric Aguila [facility] eClinical[employer] Address Unknown Phone Unavailable Care Team Providers Care Meat Lugger Name Role Phone Eric Aguila CP Unavailable Allergies, Adverse Reactions, Alerts Substance Reaction Event Type codeine hives Non Drug Allergy Encounters Encounter Location Date Unknown [facility] Apr 02, 2015 rash [facility] Apr 22, 2015 Unknown [facility] Apr 30, 2015 Unknown [facility] Aug 24, 2015 Unknown [facility] Mar 06, 2015 Unknown [facility] Mar 04, 2015 Unknown [facility] Mar 26, 2015 HOSPITAL FOLLOW UP [facility] October 09, 2015 Unknown [facility] Aug 24, 2015 Unknown [facility] Aug 31, 2015 Unknown [facility] January 14, 2016 Urgnet Care F/U [facility] February 05, 2016 FOLLOW UP VISIT [facility] October 15, 2015 4 week f/u [facility] November 26, 2015 Problems Problem Type Condition ICD-9 Code Onset Dates Condition Status Assessment Finger pain, right M79.644 Active Assessment Sebaceous cyst L72.3 Active Problem Hx of tobacco use, presenting hazards to health Z87.891 Active Problem Allergic rhinitis J30.9 Active Problem Asthma exacerbation J45.901 Active Assessment Asthma exacerbation J45.901 Active Assessment Pain in right foot M79.671 Active Problem Depressive disorder, not elsewhere classified F32.9 Active Assessment Bronchitis J40 Active Medications Medication Code System Code Instructions Start Date End Date Status Dosage Metoprolol Succinate ER [facility] 57577033010 25 MG Orally Once a day Active 1 tablet ProAir HFA [facility] [address]-20 108 (90 Base) MCG/ACT Inhalation every 4 hrs Active 2 puffs as needed [facility] [address]-79 200 MG Orally every 6 hrs Active 1 tablet as needed Quetiapine Fumarate [facility] [address]-12 50 MG Orally Once a day Active 1 tablet at bedtime [facility] [address]-79 200 MG Orally daily October 15, 2015 Mar 16, 2016 Active as directed Azithromycin [facility] [address]-55 250 MG Orally Once a day February 05, 2016 February 10, 2016 Active 2 tablets on the first day, then 1 tablet daily for 4 days Lorazepam [facility] [address]-19 0.5 MG Orally Twice a day Active 1 tablet as needed Flonase [facility] [address]-77 50 MCG/DOSE Nasally Once a day Mar 04, 2015 Active 1 spray in each nostril Venlafaxine HCl ER [facility] [address]-41 150 MG Orally Once a day Active 1 capsule with food Paroxetine HCl [facility] [address]-44 40 MG Orally Once a day Active 1 tablet in the morning Promethazine-DM [facility] [address]-60 6.25-15 MG/5ML Orally as needed (prn) Mar 06, 2016 Active 5 ml as needed Vitamin D (Ergocalciferol) [facility] 34078201971 93053 UNIT Orally weekly Active 1 capsule Claritin [facility] 11314703717 10 mg Orally Once a day Active 1 tablet Stiolto Respimat [facility] [address]-22 2.5-2.5 MCG/ACT Inhalation Active Unknown Social History Social History Element Qualifiers Date [...] 2016 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
--- OUTSIDE RECORDS SUMMARY | 2018-06-23 11:52 | XMS REPORT ---
Author Author Eric Aguila [facility] eClinicalWorks Address Unknown Phone Unavailable Care Team Providers Care Key Maker Name Role Phone Eric Aguila CP Unavailable Allergies, Adverse Reactions, Alerts Substance Reaction Event Type codeine hives Non Drug Allergy Encounters Encounter Location Date Unknown [facility] Apr 02, 2015 rash [facility] Apr 22, 2015 Unknown [facility] Apr 30, 2015 Unknown [facility] Aug 24, 2015 Unknown [facility] Mar 06, 2015 FOLLOW UP VISIT [facility] October 15, 2015 Unknown [facility] Mar 04, 2015 4 week f/u [facility] November 26, 2015 Unknown [facility] Mar 26, 2015 HOSPITAL FOLLOW UP [facility] October 09, 2015 Unknown [facility] Aug 24, 2015 Unknown [facility] Aug 31, 2015 Problems Problem Type Condition ICD-9 Code Onset Dates Condition Status Assessment Asthma exacerbation J45.901 Active Problem Hx of tobacco use, presenting hazards to health Z87.891 Active Problem Allergic rhinitis J30.9 Active Problem Asthma exacerbation J45.901 Active Assessment Depressive disorder, not elsewhere classified F32.9 Active Assessment Hx of tobacco use, presenting hazards to health Z87.891 Active Problem Depressive disorder, not elsewhere classified F32.9 Active Assessment Allergic rhinitis J30.9 Active Medications Medication Code System Code Instructions Start Date End Date Status Dosage Claritin [facility] 88576007594 10 mg Orally Once a day Active 1 tablet ProAir HFA [facility] [address]-29 108 (90 Base) MCG/ACT Inhalation every 4 hrs Active 2 puffs as needed Roberto-24 [facility] [address]-76 200 MG Orally daily October 15, 2015 Mar 16, 2016 Active as directed Quetiapine Fumarate [facility] [address]-93 50 MG Orally Once a day Active 1 tablet at bedtime Vitamin D (Ergocalciferol) [facility] 58331508791 95823 UNIT Orally weekly Active 1 capsule Stiolto Respimat [facility] [address]-32 2.5-2.5 MCG/ACT Inhalation Active Unknown Lorazepam [facility] [address]-02 0.5 MG Orally Twice a day Active 1 tablet as needed Flonase [facility] [address]-29 50 MCG/DOSE Nasally Once a day Mar 04, 2015 Active 1 spray in each nostril Promethazine-DM [facility] [address]-41 6.25-15 MG/5ML Orally as needed (prn) Active 5 ml as needed Paroxetine HCl [facility] [address]-28 40 MG Orally Once a day Active 1 tablet in the morning Venlafaxine HCl ER [facility] [address]-85 150 MG Orally Once a day Active 1 capsule with food Ceftin [facility] [address]-89 500 mg Orally Twice a day November 26, 2015 December 06, 2015 Active 1 tablet Metoprolol Succinate ER [facility] 72513518488 25 MG Orally Once a day Active 1 tablet Ibuprofen [facility] [address]-20 200 MG Orally every 6 hrs Active 1 tablet as needed Social History [...] 2015 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 Family history Qualifier Description Comment Date Reported Maternal Grandmother Comment not available November 26, 2015 Paternal Grandmother Comment not available November 26, 2015 Siblings Comment not available November 26, 2015 Maternal Grandfather Comment not available November 26, 2015 Children Comment not available November 26, 2015 Father alive Comment not available November 26, 2015 Paternal Grandfather Comment not available November 26, 2015 Mother alive Comment not available November 26, 2015 Other: Comment not available November 26, 2015 Vital Signs Date/Time: November 26, 2015 Weight 240.1 lbs Height 64.0 in Temperature 98.1 F Cardiac Monitoring Heart Rate 103 /min Blood Pressure Diastolic 88 mm Hg Blood Pressure Systolic 142 mm Hg Summary Purpose eClinicalWorks Submission
--- OUTSIDE RECORDS SUMMARY | 2018-06-23 11:53 | XMS REPORT | Summary of Care ---
Author Author [facility] Organization [facility] Address Unknown Phone Unavailable Encounter HIMA Escobar(LARRY) [id number] Date(s): 01/19/16 - 01/20/16 [facility] [address] [place] [address]- [phone] Discharge Disposition: Home Attending Physician: Eric Aguila MD Admitting Physician: Eric Aguila MD Vital Signs 1 2 3 Most recent to oldest [Reference Range]: 162.56 cm (01/19/16 9:03 PM) Height 98 DegF (01/20/16 4:56 PM) 98.5 DegF (01/20/16 11:23 AM) 98.2 DegF (01/20/16 7:45 AM) Temperature Oral [96.4-99.1 DegF] 137/63 mmHg (01/20/16 4:56 PM) 138/87 mmHg (01/20/16 11:23 AM) 137/74 mmHg (01/20/16 7:45 AM) Blood Pressure [90-140/60-90 mmHg] 18 BRMIN (01/20/16 4:56 PM) 18 BRMIN (01/20/16 11:23 AM) 21 BRMIN *HI* (01/20/16 9:34 AM) Respiratory Rate [14-20 BRMIN] 110 bpm *HI* (01/20/16 4:56 PM) 119 bpm *HI* (01/20/16 11:23 AM) 130 bpm *HI* (01/20/16 9:12 AM) Peripheral Pulse Rate [60-100 bpm] 108.182 kg (01/20/16 12:29 PM) 108.182 kg (01/19/16 9:03 PM) 108.182 kg (01/19/16 3:48 PM) Weight 40.94 m2 (01/19/16 9:03 PM) Body Mass Index Problem List Condition Effective Dates Status Health Status Informant Anxiety(Confirmed) Resolved Anxiety(Confirmed) Resolved Asthma(Confirmed) Active Bronchitis(Confirmed Resolved ) Bronchitis(Confirmed Resolved ) COPD(Confirmed) Resolved COPD(Confirmed) Active Depression(Confirmed Resolved ) Tachycardia(Confirme Active d) Allergies, Adverse Reactions, Alerts Substance Reaction Severity Status codeine Active Medications acetaminophen 650 mg, 2 tab, Route: PO, Drug form: TAB, Q6H, Dosing Weight 108.182, kg, PRN Pa in 1-3/Temp > 99.5 F, Start date: 01/20/16 8:38:00 CDT, Duration: 30 day, Stop date: 02/19/16 8:37:00 CDT Notes: Do not exceed 4 gm/day. (Same as: Tylenol) Start Date: 01/20/16 Stop Date: 01/20/16 Status: Discontinued albuterol 0.083% inhalation solution 2.49 mg, 3 mL, Route: NEB, Drug form: SOLN, RQ4H, Dosing Weight 108.182, kg, Sta rt date: 01/19/16 23:00:00 CDT, Duration: 30 day, Stop date: 02/18/16 19:00:00 C DT, Pediatric Dosing Notes: SEE RT DOCUMENTATION (Same as: Suleiman) Start Date: 01/19/16 Stop Date: 01/20/16 Status: Discontinued albuterol-ipratropium 2.5-0.5 mg inhalation solution 9 mL, Route: NEB, Drug Form: SOLN, Dosing Weight 108.182, kg, ONCE, STAT, Start date: 01/19/16 17:57:00 CDT, Stop date: 01/19/16 17:57:00 CDT Notes: (Same as: Duoneb) Start Date: 01/19/16 Stop Date: 01/19/16 Status: Completed Claritin 10 mg, 1 tab, Route: PO, Drug form: TAB, QPM, Dosing Weight 108.182, kg, Start d ate: 01/20/16 17:00:00 CDT, Duration: 30 day, Stop date: 02/18/16 17:00:00 CDT Notes: 1 hr before meals (Same as: Claritin) Start Date: 01/20/16 Stop Date: 01/20/16 Status: Discontinued docusate sodium 100 mg oral capsule 100 mg, 1 cap, Route: PO, Drug form: CAP, BID, Dosing Weight 108.182, kg, PRN Co nstipation, Start date: 01/20/16 8:38:00 CDT, Duration: 30 day, Stop date: 02/18 8:37:00 CDT Notes: (Same as: Colace) (Do Not Crush) Start Date: 01/20/16 Stop Date: 01/20/16 Status: Discontinued doxycycline 100 mg, 2 cap, Route: PO, Drug form: CAP, [id number], Dosing Weight 108.182, kg, St art date: 01/20/16 0:00:00 CDT, Duration: 30 day, Stop date: 02/18/16 12:00:00 C DT Notes: (Same as: Vibramycin) No milk/antacids/iron. Take 1 hour before or 2 esme rs after dairy products Start Date: 01/20/16 Stop Date: 01/20/16 Status: Discontinued Dulera 200 mcg-5 mcg/inh inhalation aerosol 2 puff, Route: INHALATION, Drug Form: AERO, Dosing Weight 108.182, kg, Daily, St art date: 01/20/16 9:00:00 CDT, Duration: 30 day, Stop date: 02/18/16 9:00:00 CD T Start Date: 01/20/16 Stop Date: 01/20/16 Status: Discontinued Dulera 200 mcg-5 mcg/inh inhalation aerosol 2 puff, INHALATION, Daily, 0 Refill(s) Start Date: 01/19/16 Status: Ordered DuoNeb inhalation solution 3 mL, Route: INHALATION, Drug Form: SOLN, Dosing Weight 108.182, kg, ONCE, STAT, Start date: 01/19/16 15:52:00 CDT, Stop date: 01/19/16 15:52:00 CDT Notes: (Same as: Duoneb) Start Date: 01/19/16 Stop Date: 01/19/16 Status: Completed Effexor XR 150 mg, 1 cap, Route: PO, Drug form: ERCAP, BID, Dosing Weight 108.182, kg, Star t date: 01/19/16 23:00:00 CDT, Duration: 30 day, Stop date: 02/18/16 17:00:00 CD T Notes: Do not open, crush, or chew. (Same As: Effexor XR) Start Date: 01/19/16 Stop Date: 01/20/16 Status: Discontinued heparin 7,500 unit, 1.5 mL, Route: SUB-Q, Drug form: INJ, Q8H, Dosing Weight 108.182, kg , Consider for obese patients, Start date: 01/20/16 0:00:00 CDT, Duration: 30 da y, Stop date: 02/18/16 16:00:00 CDT Notes: porcine heparin Start Date: 01/20/16 Stop Date: 01/20/16 Status: Discontinued ketOROLAC 30 mg/mL injectable solution 30 mg, 1 mL, Route: IV, Drug form: INJ, ONCE, Dosing Weight 108.182, kg, Priorit y: NOW, Start date: 01/20/16 12:46:00 CDT, Duration: 1 doses or times, Stop date : 01/20/16 12:46:00 CDT Notes: (Same as:Toradol) IV bolus must be given >15 seconds. Give IM administration slowly and deeply into the muscle.Not for use > 4 days MEDICATION WASTE Product Size: 30 mgProduct Wasted: ___ mg Start Date: 01/20/16 Stop Date: 01/20/16 Status: Completed levofloxacin 750 mg oral tablet 750 mg=1 tab, PO, QPM, 0 Refill(s) Start Date: 01/19/16 Status: Ordered metoprolol extended release 25 mg, 1 tab, Route: PO, Drug form: ERTAB, QPM, Start date: 01/20/16 17:00:00 CD T, Duration: 30 day, Stop date: 02/18/16 17:00:00 CDT Notes: (Same as: Toprol XL) Do Not Crush Start Date: 01/20/16 Stop Date: 01/20/16 Status: Discontinued morphine Sulfate 4 mg, 2 mL, Route: IVP, Drug form: INJ, Q3H, Dosing Weight 108.182, kg, PRN Pain Score 4-6, Start date: 01/19/16 21:03:00 CDT, Duration: 30 day, Stop date: 08/0 4/16 21:02:00 CDT Notes: (Same as:MORPhine Sulfate) Start Date: 01/19/16 Stop Date: 01/20/16 Status: Discontinued ondansetron 4 mg, 2 mL, Route: IVP, Drug form: INJ, Q6H, Dosing Weight 108.182, kg, PRN Naus ea & Vomiting, Start date: 01/19/16 21:03:00 CDT, Duration: 30 day, Stop date: 02/18/16 21:02:00 CDT Notes: (Same as: Zofran) MEDICATION WASTE Product Size: 4 mgProduct Was chencho: ___ mg Start Date: 01/19/16 Stop Date: 01/20/16 Status: Discontinued Phenergan + sodium chloride 0.9% INJ 50 mL 12.5 mg, 0.5 mL, Route: IVPB, ONCE, Dosing Weight 108.182, kg, Priority: NOW, St art date: 01/20/16 12:48:00 CDT, Stop date: 01/20/16 12:48:00 CDT Notes: Do not give IV push. (Same as: Phenergan) Start Date: 01/20/16 Stop Date: 01/20/16 Status: Completed PLease bring Pt's Own Dulera to pharmacy for label PLease bring Pt's Own Dulera to pharmacy for label, Reminder, Drug form: MISC, R oute: MISC, Q12H, 01/20/16 9:00:00 CDT, Duration: 30 day, Stop date: 02/18/16 21 :00:00 CDT Start Date: 01/20/16 Stop Date: 01/20/16 Status: Discontinued predniSONE 60 mg, Route: PO, Drug form: TAB, ONCE, Dosing Weight 108.182, kg, Priority: STA T, Start date: 01/19/16 17:57:00 CDT, Stop date: 01/19/16 17:57:00 CDT Start Date: 01/19/16 Stop Date: 01/19/16 Status: Completed ProAir HFA 90 mcg/inh inhalation aerosol with adapter 2 puff, Route: PO, Drug Form: AERO/A, Dosing Weight 108.182, kg, Q4H, PRN Wheezi ng, Start date: 01/20/16 8:34:00 CDT, Duration: 30 day, Stop date: 02/19/16 8:33 :00 CDT Notes: Albuterol 90 microgram/inh 8gm HFAWASTE: Aerosol - Return to Pharmacy [facility] as: Suleiman Rodríguez Start Date: 01/20/16 Stop Date: 01/20/16 Status: Discontinued QUEtiapine 100 mg, 1 tab, Route: PO, Drug form: TAB, QPM, Dosing Weight 108.182, kg, Start date: 01/20/16 17:00:00 CDT, Duration: 30 day, Stop date: 02/18/16 17:00:00 CDT Notes: (Same as: SEROquel) Start Date: 01/20/16 Stop Date: 01/20/16 Status: Discontinued QUEtiapine 100 mg oral tablet 100 mg=1 tab, PO, QPM, 0 Refill(s) Start Date: 01/19/16 Status: Ordered Solu-MEDROL 40 mg, 1 mL, Route: IVP, Drug form: INJ, Q12H, Dosing Weight 108.182, kg, Start date: 01/20/16 9:00:00 CDT, Duration: 30 day, Stop date: 02/18/16 21:00:00 CDT Notes: (Same as:Solu-MEDROL, A-Methapred) Start Date: 01/20/16 Stop Date: 01/20/16 Status: Discontinued tramadol 50 mg oral tablet 50 mg, 1 tab, Route: PO, Drug form: TAB, Q6H, Dosing Weight 108.182, kg, PRN Malu n Score 4-6, Start date: 01/20/16 8:38:00 CDT, Duration: 30 day, Stop date: 11/29 8:37:00 CDT Notes: Not to exceed 400mg/day. (Same As: Ultram) Start Date: 01/20/16 Stop Date: 01/20/16 Status: Discontinued Tylenol 650 mg, 2 tab, Route: PO, Drug form: TAB, Q4H, Dosing Weight 108.182, kg, PRN Pa in 1-3/Temp > 100.4 F, Start date: 01/20/16 0:10:00 CDT, Duration: 30 day, Stop date: 02/19/16 0:09:00 CDT Notes: Do not exceed 4 gm/day. (Same as: Tylenol) Start Date: 01/20/16 Stop Date: 01/20/16 Status: Discontinued Vitamin C 1,000 mg, 2 tab, Route: PO, Drug form: TAB, Daily, Dosing Weight 108.182, kg, St art date: 01/20/16 9:00:00 CDT, Duration: 30 day, Stop date: 02/18/16 9:00:00 CD T Notes: (Same as: Vitamin C) Start Date: 01/20/16 Stop Date: 01/20/16 Status: Discontinued Results ELECTROLYTES Most recent to 1 2 oldest [Reference Range]: Sodium Lvl [135-145 137 mEq/L 138 mEq/L mEq/L] (01/20/16 4:32 AM) (01/19/16 4:31 PM) Potassium Lvl 4.0 mEq/L 3.6 mEq/L [3.5-5.1 mEq/L] (01/20/16 4:32 AM) (01/19/16 4:31 PM) Chloride Lvl [95-109 103 mEq/L 101 mEq/L mEq/L] (01/20/16 4:32 AM) (01/19/16 4:31 PM) CO2 [24-32 mEq/L] 24 mEq/L 28 mEq/L (01/20/16 4:32 AM) (01/19/16 4:31 PM) AGAP [10.0-20.0 14.0 mEq/L 12.6 mEq/L mEq/L] (01/20/16 4:32 AM) (01/19/16 4:31 PM) CHEM PANEL Most recent to 1 2 oldest [Reference Range]: Creatinine Lvl 0.90 mg/dL 0.73 mg/dL [0.50-1.40 mg/dL] (01/20/16 4:32 AM) (01/19/16 4:31 PM) eGFR 74 mL/min/1.73m2 1 97 mL/min/1.73m2 2 *NA* *NA* (01/20/16 4:32 AM) (01/19/16 4:31 PM) BUN [7-22 mg/dL] 8 mg/dL 8 mg/dL (01/20/16 4:32 AM) (01/19/16 4:31 PM) B/C Ratio [6-25] 11 (01/19/16 4:31 PM) Glucose Lvl [70-99 146 mg/dL 77 mg/dL mg/dL] *HI* (01/19/16 4:31 PM) (01/20/16 4:32 AM) Total Protein 7.7 g/dL [6.4-8.4 g/dL] (01/19/16 4:31 PM) Albumin Lvl [3.5-5.0 3.5 g/dL g/dL] (01/19/16 4:31 PM) Globulin [2.0-4.0 4.2 g/dL g/dL] *HI* (01/19/16 4:31 PM) A/G Ratio [0.7-1.6] 0.8 (01/19/16 4:31 PM) Calcium Lvl 9.5 mg/dL 8.7 mg/dL [8.5-10.5 mg/dL] (01/20/16 4:32 AM) (01/19/16 4:31 PM) Phosphorus [2.5-4.5 4.0 mg/dL mg/dL] (01/20/16 10:35 AM) Magnesium Lvl 2.2 mg/dL [1.8-2.4 mg/dL] (01/20/16 10:35 AM) ALT [0-65 unit/L] 36 unit/L (01/19/16 4:31 PM) AST [0-37 unit/L] 18 unit/L (01/19/16 4:31 PM) Alk Phos [39-136 134 unit/L unit/L] (01/19/16 4:31 PM) Bili Total [0.2-1.3 0.4 mg/dL mg/dL] (01/19/16 4:31 PM) 1Result Comment: The eGFR is calculated [...] tiplied by the estimated BMI. CARDIAC ENZYMES Most recent to 1 2 oldest [Reference Range]: Total CK [12-191 101 unit/L unit/L] (01/19/16 4:31 PM) CK MB [0.5-3.6 1.3 ng/mL ng/mL] (01/19/16 4:31 PM) CK MB Index 1.3 [0.0-2.5] (01/19/16 4:31 PM) Troponin-I <0.02 ng/mL [0.00-0.40 ng/mL] (01/19/16 4:31 PM) HEMATOLOGY Most recent to 1 2 oldest [Reference Range]: WBC [3.7-10.4 K/CMM] 12.9 K/CMM 14.2 K/CMM *HI* *HI* (01/20/16 4:32 AM) (01/19/16 4:31 PM) RBC [4.20-5.40 4.66 M/CMM 4.56 M/CMM M/CMM] (01/20/16 4:32 AM) (01/19/16 4:31 PM) Hgb [12.0-16.0 g/dL] 12.9 g/dL 12.8 g/dL (01/20/16 4:32 AM) (01/19/16 4:31 PM) Hct [36.0-48.0 %] 40.6 % 39.2 % (01/20/16 4:32 AM) (01/19/16 4:31 PM) MCV [80.0-98.0 fL] 87.2 fL 85.9 fL (01/20/16 4:32 AM) (01/19/16:31 PM) MCH [27.0-31.0 pg] 27.7 pg 28.1 pg (01/20/16:32 AM) (01/19/16: PM) MCHC [32.0-36.0 31.8 g/dL 32.8 g/dL g/dL] *LOW* (01/19/16 4:31 PM) (01/20/16 4:32 AM) RDW [11.5-14.5 %] 14.0 % 13.9 % (01/20/16 4:32 AM) (01/19/16 4:31 PM) Platelet [133-450 320 K/CMM 341 K/CMM K/CMM] (01/20/16 4:32 AM) (01/19/16 4:31 PM) MPV [7.4-10.4 fL] 7.5 fL 7.7 fL (01/20/16 4:32 AM) (01/19/16:31 PM) Segs [45.0-75.0 %] 81.6 % 52.4 % *HI* (01/19/16 4:31 PM) (01/20/16 4:32 AM) Lymphocytes 15.8 % 38.5 % [20.0-40.0 %] *LOW* (01/19/16:31 PM) (01/20/16 4:32 AM) Monocytes [2.0-12.0 2.1 % 5.4 % %] (01/20/16 4:32 AM) (01/19/16 4:31 PM) Eosinophils [0.0-4.0 0.3 % 2.3 % %] (01/20/16 4:32 AM) (01/19/16 4:31 PM) Basophils [0.0-1.0 0.2 % 1.4 % %] (01/20/16 4:32 AM) *HI* (01/19/16 4:31 PM) Segs-Bands # 10.5 K/CMM 7.4 K/CMM [1.5-8.1 K/CMM] *HI* (01/19/16 4:31 PM) (01/20/16 4:32 AM) Lymphocytes # 2.0 K/CMM 5.5 K/CMM [1.0-5.5 K/CMM] (01/20/16 4:32 AM) (01/19/16 4:31 PM) Monocytes # [0.0-0.8 0.3 K/CMM 0.8 K/CMM K/CMM] (01/20/16 4:32 AM) (01/19/16 4:31 PM) Eosinophils # 0.3 K/CMM [0.0-0.5 K/CMM] (01/19/16 4:31 PM) Basophils # [0.0-0.2 0.2 K/CMM K/CMM] (01/19/16 4:31 PM) PTT [22.9-35.8 32.7 seconds seconds] (01/20/16 4:32 AM) Immunizations Given and Recorded Vaccine Date Status Refusal Reason influenza virus vaccine, inactivated 10/04/15 Given pneumococcal 23-valent vaccine 03/21/15 Given Procedures Procedure Date Related Diagnosis Body Site Hysterectomy Tonsillectomy Social History Social History Type Response Substance Abuse Use: None. Alcohol Past Smoking Status Former smoker; Number of years: 20; Exposure to Tobacco Smoke None; Other Tobacco Frequency quit in december; Cigarette Smoking Last 365 Days Yes; Reg Smoking Cessation Counseling Yes1 1pt sts quit 12/30/2014 Assessment and Plan Extracted from: Title: Clinical Document Author: Chrissy Bajwa Date: 01/20/16 STEPHEN Internal Medicine Progress Note [facility] SUBJECTIVE No acute events. Pt denies dizziness, dysphagia, neck stiffness, CP, SOB, hemoptysis, N/V/D/C, hematemesis, hematochezia, hematuria, dysuria, skin rash. Pt states she overall doesn't feel well bc she hasn't been able to take her meds x 3-4 days. OBJECTIVE Vital Signs (last 24 hrs) Last Charted Temp Oral98.1 DegF (JAN 19 04:00) Heart Rate [id number] bpm (JAN 19 04:00) Resp Rate 18 BRMIN (JAN 19 04:00) XDC228 mmHg (JAN 19 04:00) DBP62 mmHg (JAN 19 04:00) CdZ514 % (JAN 19 04:00) Wygeqp314.18 kg (JAN 18:) Eeoiyf121.56 cm (JAN 18:) BMI40.94 (JAN 18:) Labs (Last four charted values) WBC H 12.9(JAN 19)H 14.2(JAN 18) Hgb 12.9(JAN 19)12.8(JAN 18) Hct 40.6(JAN 19)39.2(JAN 18) Plt 320(JAN 19)341(JAN 18) Na 137(JAN 19)138(JAN 18) K 4.0(JAN 19)3.6(JAN 18) CO2 24(JAN 19)28(JAN 18) Cl 103(JAN 19)101(JAN 18) Cr 0.90(JAN 19)0.73(JAN 18) BUN 8(JAN 19)8(JAN 18) Glucose Random H 146(JAN 19)77(JAN 18) Ca 9.5(JAN 19)8.7(JAN 18) PTT 32.7(JAN 19) Troponin <0.02(JAN 18) CK MB 1.3(JAN 18) Total CK 101(JAN 18) Medications (19) Active Scheduled Meds (11): 01/20/16 QUEtiapine 100 mg PO QPM 01/19/16 albuterol (albuterol 0.083% inhalation solution) 2.49 mg NEB RQ4H 01/20/16 ascorbic acid (Vitamin C) 1,000 mg PO Daily 01/24/16 cholecalciferol (Vitamin D3) 50,000 IntlUnit PO QSun 01/20/16 doxycycline 100 mg PO [id number] 01/20/16 formoterol-mometasone (Dulera 200 mcg-5 mcg/inh inhalation aerosol) 2 puff INHALATION Daily 01/20/16 heparin 7,500 unit SUB-Q Q8H 01/20/16 loratadine (Claritin) 10 mg PO QPM 01/20/16 methylPREDNISolone (Solu-MEDROL) 40 mg IVP Q12H 01/20/16 metoprolol (metoprolol extended release) 25 mg PO QPM 01/19/16 venlafaxine (Effexor XR) 150 mg PO BID Unscheduled Meds: None PRN Meds (5): 01/20/16 acetaminophen 650 mg PO Q6H 01/20/16 albuterol (ProAir HFA 90 mcg/inh inhalation aerosol with adapter) 2 puff PO Q4H 01/20/16 docusate (docusate sodium 100 mg oral capsule) 100 mg PO BID 01/19/16 ondansetron 4 mg IVP Q6H 01/20/16 tramadol (tramadol 50 mg oral tablet) 50 mg PO Q6H One Time Meds (3): 01/19/16 (Completed) albuterol-ipratropium (DuoNeb inhalation solution) 3 mL INHALATION ONCE 01/19/16 (Completed) albuterol-ipratropium (albuterol-ipratropium 2.5-0.5 mg inhalation solution) 9 mL NEB ONCE 01/19/16 (Completed) predniSONE 60 mg PO ONCE Continuous Infusions: None Physical Exam Gen: Pt resting comfortably, A&Ox3, NAD HEENT: PERRLA, EOMI, normocephalic, atraumatic, no thyromegaly, no neck stiffness Chest: RRR, no M/R/G, CTAB, no rhonchi wheezes or rales Abd: Bowel sounds present in 4 quads, soft, ND, NTTP Ext: No cyanosis or edema Skin: No rash noted ASSESSMENT & PLAN 1. Acute COPD 2. Anxiety disorder 3. Depression 4. HTN 5. Morbid obesity, BMI 40 6. Chronic tachycardia 7. Hx tobacco use, quit 12/2014 - CXR without acute issues. WBC improved today. Pt tolerating IV steroids. SpO2 94% on RA with exertion, will d/c if stable to f/u with her pulm as outpt. Will give home meds now, even though they are scheduled for later today. Toradol x 1 for PIERRE. Pt has long Hx of chronic tachycardia in chart. HR tends to run 90s-110s at baseline.
--- OUTSIDE RECORDS SUMMARY | 2018-06-23 11:53 | XMS REPORT | Summary of Care ---
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 Name Role Phone Therese Winchester PCP Encounter [facility] Encntr_reina(FIN) [phone] Date(s): 06/03/15 - 06/05/15 [facility] [address] [place] [address]- [phone] Discharge Disposition: Home Attending Physician: Eric Aguila MD Admitting Physician: Eric Aguila MD Vital Signs 1 2 3 Most recent to oldest [Reference Range]: 162.56 cm (06/03/15 8:08 PM) 160.02 cm (06/03/15 2:16 PM) Height 98.3 DegF (06/05/15 4:00 PM) 98.4 DegF (06/05/15 12:00 PM) 98.5 DegF (06/05/15 8:00 AM) Temperature Oral [96.4-99.1 DegF] 127/64 mmHg (06/05/15 4:00 PM) 129/74 mmHg (06/05/15 12:00 PM) 123/78 mmHg (06/05/15 8:00 AM) Blood Pressure [90-140/60-90 mmHg] 17 BRMIN (06/05/15 4:00 PM) 17 BRMIN (06/05/15 8:00 AM) 19 BRMIN (06/05/15 6:57 AM) Respiratory Rate [14-20 BRMIN] 90 bpm (06/05/15 4:00 PM) 97 bpm (06/05/15 12:00 PM) 102 bpm *HI* (06/05/15 8:00 AM) Peripheral Pulse Rate [60-100 bpm] 106.534 kg (06/04/15 9:00 AM) 104.545 kg (06/03/15 8:08 PM) 104.545 kg (06/03/15 2:16 PM) Weight 39.56 m2 (06/03/15 8:08 PM) 40.83 m2 (06/03/15 2:16 PM) Body Mass Index Problem List Condition Effective Dates Status Health Status Informant Anxiety(Confirmed) Resolved Asthma(Confirmed) Active COPD(Confirmed) Active Depression(Confirmed Resolved ) Tachycardia(Confirme Resolved d) Allergies, Adverse Reactions, Alerts Substance Reaction Severity Status codeine Active Medications acetaminophen 650 mg, 2 tab, Route: PO, Drug form: TAB, Q4H, Dosing Weight 104.545, kg, PRN Pa in 1-3/Temp > 100.4 F, Start date: 06/04/15 7:17:00, Duration: 30 day, Stop date: 07/04/15 7:16:00 Notes: Do not exceed 4 gm/day. (Same as: Tylenol) Start Date: 06/04/15 Stop Date: 06/05/15 Status: Discontinued albuterol 0.083% inhalation solution 2.49 mg, Route: NEB, Drug form: SOLN, ONCE, Dosing Weight 104.545, kg, Priority: STAT, Start date: 06/03/15 16:07:00, Stop date: 06/03/15 16:07:00 Start Date: 06/03/15 Stop Date: 06/03/15 Status: Completed albuterol 0.083% inhalation solution 2.5 mg, 3.01 mL, Route: NEB, Drug form: SOLN, RQ2H, Dosing Weight 104.545, kg, P RN Wheezing, Priority: Routine, Start date: 06/03/15 19:50:00, Duration: 30 day, Stop date: 07/03/15 19:49:00 Notes: SEE RT DOCUMENTATION (Same as: Proventil) Start Date: 06/03/15 Stop Date: 06/05/15 Status: Discontinued albuterol-ipratropium 2.5-0.5 mg inhalation solution 3 mL, Route: NEB, Drug Form: SOLN, Dosing Weight 104.545, kg, RQ6H, Start date: 06/03/15 20:00:00, Duration: 30 day, Stop date: 07/03/15 14:00:00 Notes: (Same as: Duoneb) Start Date: 06/03/15 Stop Date: 06/05/15 Status: Discontinued azithromycin 500 mg, 250 mL, Route: IVPB, Drug form: PDR/INJ, [id number], Dosing Weight 104.545, kg, Start date: 06/04/15 20:00:00, Duration: 30 day, Stop date: 07/03/15 20:00: 00 Notes: Same as: Zithromax Start Date: 06/04/15 Stop Date: 06/05/15 Status: Discontinued azithromycin 500 mg, Route: IVPB, ONCE, Dosing Weight 104.545, kg, Priority: STAT, Start date : 06/03/15 18:38:00, Stop date: 06/03/15 18:38:00 Start Date: 06/03/15 Stop Date: 06/03/15 Status: Completed Bring pt's own vit d3 50,000 IntlUnit to pharmacy for label Bring pt's own vit d3 50,000 IntlUnit to pharmacy for label, ATTN: HEBERT, Drug form : MISC, Route: MISC, QSHIFT, 06/04/15 0:00:00, Duration: 30 day, Stop date: 06/16 02/28 16:00:00 Start Date: 06/04/15 Stop Date: 06/05/15 Status: Discontinued cefTRIAXone + Sodium Chloride 0.9% IV 100 mL 1 gm, Route: IVPB, [id number], Dosing Weight 106.534, kg, Start date: 06/04/15 20:0 0:00, Duration: 30 day, Stop date: 07/03/15 20:00:00 Notes: (Same As: Rocephin).Use with 100 mL NS and infuse over 30 min MEDICA TION WASTE Product Size: 1000 mgProduct Wasted: ___ mg Start Date: 06/04/15 Stop Date: 06/05/15 Status: Discontinued Claritin 10 mg, 1 tab, Route: PO, Drug form: TAB, QPM, Dosing Weight 104.545, kg, Start d ate: 06/03/15 22:11:00, Duration: 30 day, Stop date: 07/03/15 17:00:00 Notes: 1 hr before meals (Same as: Claritin) Start Date: 06/03/15 Stop Date: 06/05/15 Status: Discontinued dexamethasone 2 mg oral tablet 2 mg=1 tab, PO, BID, X 5 day, # 10 tab, 0 Refill(s) Start Date: 06/05/15 Stop Date: 06/10/15 Status: Ordered docusate 100 mg, 1 cap, Route: PO, Drug form: CAP, BID, Dosing Weight 104.545, kg, PRN Co nstipation, Start date: 06/04/15 7:17:00, Duration: 30 day, Stop date: 07/04/15 7:16:00 Notes: (Same as: Colace) (Do Not Crush) Start Date: 06/04/15 Stop Date: 06/05/15 Status: Discontinued DuoNeb inhalation solution 3 ml, Route: INHALATION, Drug Form: SOLN, Dosing Weight 108.227, kg, PRN, PRN Re spiratory Protocol, Start date: 06/03/15 14:17:00, Duration: 30 day, Stop date: 07/03/15 14:16:00 Notes: (Same as: Duoneb) Start Date: 06/03/15 Stop Date: 06/05/15 Status: Discontinued Effexor XR 150 mg, 1 cap, Route: PO, Drug form: ERCAP, Q12H, Dosing Weight 104.545, kg, Sta rt date: 06/03/15 22:13:00, Duration: 30 day, Stop date: 07/03/15 21:00:00 Notes: Do not open, crush, or chew. (Same As: Effexor XR) Start Date: 06/03/15 Stop Date: 06/05/15 Status: Discontinued Effexor XR 150 mg oral capsule, extended release 150 mg=1 cap, PO, BID, 0 Refill(s) Start Date: 06/03/15 Status: Ordered enoxaparin 40 mg, 0.4 mL, Route: SUB-Q, Drug form: INJ, [id number], Dosing Weight 104.545, kg , Start date: 06/04/15 8:00:00, Duration: 30 day, Stop date: 07/03/15 8:00:00 Notes: (Same as: Lovenox) Start Date: 06/04/15 Stop Date: 06/05/15 Status: Discontinued ipratropium 0.5 mg, Route: NEB, Drug form: SOLN, ONCE, Dosing Weight 104.545, kg, Priority: STAT, Start date: 06/03/15 16:07:00, Stop date: 06/03/15 16:07:00 Start Date: 06/03/15 Stop Date: 06/03/15 Status: Completed magnesium sulfate 2 gm, Route: IVPB, ONCE, Dosing Weight 104.545, kg, Priority: STAT, Start date: 06/03/15 16:07:00, Stop date: 06/03/15 16:07:00 Start Date: 06/03/15 Stop Date: 06/03/15 Status: Completed methylPREDNISolone SODium SUCCinate 125 mg, Route: IVP, ONCE, Dosing Weight 104.545, kg, Priority: STAT, Start date: 06/03/15 16:07:00, Stop date: 06/03/15 16:07:00 Start Date: 06/03/15 Stop Date: 06/03/15 Status: Completed methylPREDNISolone SODium SUCCinate 40 mg, 1 mL, Route: IVP, Drug form: INJ, Q8H, Dosing Weight 104.545, kg, Start d ate: 06/04/15 0:00:00, Duration: 30 day, Stop date: 07/03/15 16:00:00 Notes: (Same as:Solu-MEDROL, A-Methapred) Start Date: 06/04/15 Stop Date: 06/05/15 Status: Discontinued metoprolol extended release 50 mg, 1 tab, Route: PO, Drug form: ERTAB, QPM, Start date: 06/03/15 22:12:00, D uration: 30 day, Stop date: 07/03/15 17:00:00 Notes: (Same as: Toprol XL) May split tab, but do not crush. Start Date: 06/03/15 Stop Date: 06/05/15 Status: Discontinued [place] 5/325 oral tablet 2 tab, Route: PO, Drug Form: TAB, Dosing Weight 104.545, kg, ONCE, STAT, Start d ate: 06/03/15 18:45:00, Stop date: 06/03/15 18:45:00 Start Date: 06/03/15 Stop Date: 06/03/15 Status: Completed omeprazole 20 mg, Route: PO, Drug form: DRC, QPM, Dosing Weight 104.545, kg, Start date: 17:00:00, Duration: 30 day, Stop date: 07/03/15 17:00:00 Start Date: 06/04/15 Stop Date: 06/03/15 Status: Deleted omeprazole 20 mg oral delayed release capsule 20 mg=1 cap, PO, QPM, 0 Refill(s) Start Date: 06/03/15 Status: Ordered ondansetron 4 mg, 2 mL, Route: IVP, Drug form: INJ, Q6H, Dosing Weight 104.545, kg, PRN Naus ea & Vomiting, Start date: 06/04/15 7:17:00, Duration: 30 day, Stop date: 07/04/15 7:16:00 Notes: (Same as: Belinda) MEDICATION WASTE Product Size: 4 mgProduct Was chencho: ___ mg Start Date: 06/04/15 Stop Date: 06/05/15 Status: Discontinued Protonix 40 mg, 1 tab, Route: PO, Drug form: ECTAB, Before Dinner, Start date: 06/04/15 1 6:30:00, Duration: 30 day, Stop date: 07/03/15 16:30:00 Notes: Tablet should not be chewed or crushed.(Same as: Protonix) Start Date: 06/04/15 Stop Date: 06/05/15 Status: Discontinued QUEtiapine 25 mg oral tablet 25 mg=1 tab, PO, Bedtime, # 30 tab, 0 Refill(s) Start Date: 06/05/15 Stop Date: 07/05/15 Status: Ordered Qvar 80 mcg/inh inhalation aerosol with adapter 2 puff, INHALATION, BID, 0 Refill(s) Start Date: 06/03/15 Status: Ordered Saline Flush 0.9% 10 mL, Route: IVP, Drug Form: INJ, Dosing Weight 104.545, kg, PRN, PRN Line Flus h, Start date: 06/03/15 16:07:00, Duration: 30 day, Stop date: 07/03/15 16:06:00 Notes: (Same as: BD Posiflush) Start Date: 06/03/15 Stop Date: 06/03/15 Status: Discontinued Saline Flush 0.9% 10 ml, Route: IVP, Drug Form: INJ, Dosing Weight 104.545, kg, PRN, PRN Line Flus h, Start date: 06/03/15 19:50:00, Duration: 30 day, Stop date: 07/03/15 19:49:00 Notes: (Same as: BD Posiflush) Start Date: 06/03/15 Stop Date: 06/05/15 Status: Discontinued SEROquel 25 mg, 1 tab, Route: PO, Drug form: TAB, ONCE, Dosing Weight 106.534, kg, Start date: 06/04/15 22:06:00, Stop date: 06/04/15 22:06:00 Notes: (Same as: SEROquel) Start Date: 06/04/15 Stop Date: 06/04/15 Status: Completed SEROquel 25 mg, 1 tab, Route: PO, Drug form: TAB, Bedtime, Dosing Weight 106.534, kg, Sta rt date: 06/05/15 21:00:00, Duration: 30 day, Stop date: 07/04/15 21:00:00 Notes: (Same as: SEROquel) Start Date: 06/05/15 Stop Date: 06/05/15 Status: Canceled SEROquel 25 mg, 1 tab, Route: PO, Drug form: TAB, Q4H, Dosing Weight 106.534, kg, PRN Anx iety, Start date: 06/04/15 22:05:00, Duration: 30 day, Stop date: 07/04/15 22:04 :00 Notes: (Same as: SEROquel) Start Date: 06/04/15 Stop Date: 06/05/15 Status: Discontinued Sodium Chloride 0.9% IV 1,000 mL 1,000 mL, Rate: 125 ml/hr, Infuse over: 8 hr, Route: IV, Dosing Weight 104.545 k g, Total Volume: 1,000, Start date: 06/03/15 19:50:00, Duration: 30 day, Stop da te: 07/03/15 19:49:00 Start Date: 06/03/15 Stop Date: 06/05/15 Status: Discontinued Stiolto Respimat 2.5 mcg-2.5 mcg inhalation aerosol =2 puff, INHALATION, Q24H, 0 Refill(s) Start Date: 06/03/15 Status: Ordered Vitamin C 1,000 mg, 2 tab, Route: PO, Drug form: TAB, Daily, Dosing Weight 104.545, kg, St art date: 06/04/15 9:00:00, Duration: 30 day, Stop date: 07/03/15 9:00:00 Notes: (Same as: Vitamin C) Start Date: 06/04/15 Stop Date: 06/05/15 Status: Discontinued Vitamin C 1000 mg oral tablet 1,000 mg=1 tab, PO, Daily, 0 Refill(s) Start Date: 06/03/15 Status: Ordered Vitamin D3 50,000 IntlUnit, Route: PO, Drug form: CAP, QSun, Dosing Weight 104.545, kg, Sta rt date: 06/07/15 9:00:00, Duration: 30 day, Stop date: 07/05/15 9:00:00 Start Date: 06/07/15 Stop Date: 06/05/15 Status: Canceled Vitamin D3 1000 intl units oral tablet 1,000 IntlUnit=1 tab, PO, Daily, 0 Refill(s) Start Date: 06/03/15 Status: Ordered Vitamin D3 1000 intl units oral tablet 1,000 IntlUnit, 1 tab, Route: PO, Drug form: TAB, Daily, Dosing Weight 104.545, kg, Start date: 06/04/15 9:00:00, Duration: 30 day, Stop date: 07/03/15 9:00:00 Notes: Same as : Vitamin D3 Start Date: 06/04/15 Stop Date: 06/05/15 Status: Discontinued Vitamin D3 50,000 intl units oral capsule 50,000 IntlUnit=1 cap, PO, QSun, 0 Refill(s) Start Date: 06/03/15 Status: Ordered Results ELECTROLYTES 1 2 3 Most recent to oldest [Reference Range]: 142 mEq/L (06/05/15 4:28 AM) 142 mEq/L (06/04/15 7:45 AM) 139 mEq/L (06/03/15 4:25 PM) Sodium Lvl [135-145 mEq/L] 3.7 mEq/L (06/05/15 4:28 AM) 4.2 mEq/L (06/04/15 7:45 AM) 3.5 mEq/L (06/03/15 4:25 PM) Potassium Lvl [3.5-5.1 mEq/L] 109 mEq/L (06/05/15 4:28 AM) 106 mEq/L (06/04/15 7:45 AM) 103 mEq/L (06/03/15 4:25 PM) Chloride Lvl [95-109 mEq/L] 22 mEq/L *LOW* (06/05/15 4:28 AM) 28 mEq/L (06/04/15 7:45 AM) 29 mEq/L (06/03/15 4:25 PM) CO2 [24-32 mEq/L] 14.7 mEq/L (06/05/15 4:28 AM) 12.2 mEq/L (06/04/15 7:45 AM) 10.5 mEq/L (06/03/15 4:25 PM) AGAP [10.0-20.0 mEq/L] CHEM PANEL 1 2 3 Most recent to oldest [Reference Range]: 0.76 mg/dL (06/05/15 4:28 AM) 0.80 mg/dL (06/04/15 7:45 AM) 0.86 mg/dL (06/03/15 4:25 PM) Creatinine Lvl [0.50-1.40 mg/dL] 92 mL/min/1.73m2 1 *NA* (06/05/15 4:28 AM) 86 mL/min/1.73m2 2 *NA* (06/04/15 7:45 AM) 79 mL/min/1.73m2 3 *NA* (06/03/15 4:25 PM) eGFR 9 mg/dL (06/05/15 4:28 AM) 8 mg/dL (06/04/15 7:45 AM) 10 mg/dL (06/03/15 4:25 PM) BUN [7-22 mg/dL] 12 (06/03/15 4:25 PM) B/C Ratio [6-25] 148 mg/dL *HI* (06/05/15 4:28 AM) 128 mg/dL *HI* (06/04/15 7:45 AM) 117 mg/dL *NA* (06/03/15 4:25 PM) Glucose Lvl [70-99 mg/dL] 7.1 g/dL (06/03/15 4:25 PM) Total Protein [6.4-8.4 g/dL] 3.6 g/dL (06/03/15 4:25 PM) Albumin Lvl [3.5-5.0 g/dL] 3.5 g/dL (06/03/15 4:25 PM) Globulin [2.0-4.0 g/dL] 1.0 (06/03/15 4:25 PM) A/G Ratio [0.7-1.6] 8.3 mg/dL *LOW* (06/05/15 4:28 AM) 8.8 mg/dL (06/04/15 7:45 AM) 8.8 mg/dL (06/03/15 4:25 PM) Calcium Lvl [8.5-10.5 mg/dL] 2.9 mg/dL (06/04/15 7:45 AM) Phosphorus [2.5-4.5 mg/dL] 2.3 mg/dL (06/04/15 7:45 AM) Magnesium Lvl [1.8-2.4 mg/dL] 44 unit/L (06/03/15 4:25 PM) ALT [0-65 unit/L] 23 unit/L (06/03/15 4:25 PM) AST [0-37 unit/L] 132 unit/L (06/03/15 4:25 PM) Alk Phos [39-136 unit/L] 0.3 mg/dL (06/03/15 4:25 PM) Bili Total [0.2-1.3 mg/dL] <0.05 ng/mL (06/04/15 7:45 AM) Procalcitonin Lvl [0.00-0.10 ng/mL] 1Result Comment: The [...] 3 Most recent to oldest [Reference Range]: <0.02 ng/mL (06/03/15 4:25 PM) Troponin-I [0.00-0.40 ng/mL] HEMATOLOGY 1 2 3 Most recent to oldest [Reference Range]: 15.1 K/CMM *HI* (06/05/15 4:28 AM) 11.0 K/CMM *HI* (06/04/15 7:45 AM) 12.6 K/CMM *HI* (06/03/15 4:25 PM) WBC [3.7-10.4 K/CMM] 4.30 M/CMM (06/05/15 4:28 AM) 4.61 M/CMM (06/04/15 7:45 AM) 4.36 M/CMM (06/03/15 4:25 PM) RBC [4.20-5.40 M/CMM] 12.0 g/dL (06/05/15 4:28 AM) 12.9 g/dL (06/04/15 7:45 AM) 12.6 g/dL (06/03/15 4:25 PM) Hgb [12.0-16.0 g/dL] 37.8 % (06/05/15 4:28 AM) 40.8 % (06/04/15 7:45 AM) 38.4 % (06/03/15 4:25 PM) Hct [36.0-48.0 %] 87.9 fL (06/05/15 4:28 AM) 88.5 fL (06/04/15 7:45 AM) 88.1 fL (06/03/15 4:25 PM) MCV [80.0-98.0 fL] 27.9 pg (06/05/15 4:28 AM) 28.0 pg (06/04/15 7:45 AM) 28.9 pg (06/03/15 4:25 PM) MCH [27.0-31.0 pg] 31.8 g/dL *LOW* (06/05/15 4:28 AM) 31.6 g/dL *LOW* (06/04/15 7:45 AM) 32.8 g/dL (06/03/15 4:25 PM) MCHC [32.0-36.0 g/dL] 13.6 % (06/05/15 4:28 AM) 13.5 % (06/04/15 7:45 AM) 13.3 % (06/03/15 4:25 PM) RDW [11.5-14.5 %] 320 K/CMM (06/05/15 4:28 AM) 314 K/CMM (06/04/15 7:45 AM) 305 K/CMM (06/03/15 4:25 PM) Platelet [133-450 K/CMM] 8.6 fL (06/05/15 4:28 AM) 8.0 fL (06/04/15 7:45 AM) 7.7 fL (06/03/15 4:25 PM) MPV [7.4-10.4 fL] 81.1 % *HI* (06/05/15 4:28 AM) 78.0 % *HI* (06/04/15 7:45 AM) 54.5 % (06/03/15 4:25 PM) Segs [45.0-75.0 %] 15.6 % *LOW* (06/05/15 4:28 AM) 19.9 % *LOW* (06/04/15 7:45 AM) 35.8 % (06/03/15 4:25 PM) Lymphocytes [20.0-40.0 %] 2.7 % (06/05/15 4:28 AM) 1.7 % *LOW* (06/04/15 7:45 AM) 5.4 % (06/03/15 4:25 PM) Monocytes [2.0-12.0 %] 3.8 % (06/03/15 4:25 PM) Eosinophils [0.0-4.0 %] 0.6 % (06/05/15 4:28 AM) 0.4 % (06/04/15 7:45 AM) 0.5 % (06/03/15 4:25 PM) Basophils [0.0-1.0 %] 12.2 K/CMM *HI* (06/05/15 4:28 AM) 8.6 K/CMM *HI* (06/04/15 7:45 AM) 6.9 K/CMM (06/03/15 4:25 PM) Segs-Bands # [1.5-8.1 K/CMM] 2.4 K/CMM (06/05/15 4:28 AM) 2.2 K/CMM (06/04/15 7:45 AM) 4.5 K/CMM (06/03/15 4:25 PM) Lymphocytes # [1.0-5.5 K/CMM] 0.4 K/CMM (06/05/15 4:28 AM) 0.2 K/CMM (06/04/15 7:45 AM) 0.7 K/CMM (06/03/15 4:25 PM) Monocytes # [0.0-0.8 K/CMM] 0.5 K/CMM (06/03/15 4:25 PM) Eosinophils # [0.0-0.5 K/CMM] 0.1 K/CMM (06/05/15 4:28 AM) 0.1 K/CMM (06/03/15 4:25 PM) Basophils # [0.0-0.2 K/CMM] Normal (06/05/15 4:28 AM) RBC Morph Normal (06/05/15 4:28 AM) Plt Morph Immunizations Vaccine Date Refusal Reason pneumococcal 23-valent [...] Clinical Document Author: Tung Jessica MD Date: 06/05/15 Pulmonary/Critical Care Medicine progess note Tung Jessica MD SUBJECTIVE: comfortable recurrent hospitalizations ?? non complinat with medications ? OBJECTIVE: VitalsTmp(F)Tmp(C)[id number] 06/05 12:0098.436.45hjwi200/74---97--93------ 06/05 08:0098.536.64lrti829/78---[id number]------ 06/05 06:57 1997------ 06/05 03:5597.736.67sxnv850/65---[id number]------ 06/04 23:3797.936.23czna443/75---[id number]------ 24 Hr Tmax: 98.5F (36.94c) at 06/05 08:00Vital Signs are the last 5 in the past 48 hours. 24 Hr Tmin: 97.7F (36.50c) at 06/05 03:55Weights are the last 5 in 60 days, plus initial. DateWt(kg)Wt(lb)Ht(cm)Ht(in)MethodBMIBSA 06.53 234.37Measured 06/03 (initial)104.55 230.00Estimated 40.82.16 60.02 63.00Stated (no point of care glucose results charted in last 24 hours) Most Recent Scores: 06/05/15Glasgow Coma Score15 06/05/15Johns Diaz Fall Score4 06/05/15Braden Score21 06/05/15Pain Intensity NRS (0-10)0 Lines, Tubes, and Drains: 06/03/2015 14:56 Peripheral Lines: Antecubital Left 20 gauge Over the needle catheter (no surgical procedures documented) Labs (Last four charted values) WBC H 15.1(JUN 05)H 11.0(JUN 04)H 12.6(JUN 03) Hgb 12.0(JUN 05)12.9(JUN 04)12.6(JUN 03) Hct 37.8(JUN 05)40.8(JUN 04)38.4(NOV ) Plt 320(JUN 05)314(JUN 04)305(JUN 03) Na 142(JUN 05)142(JUN 04)139(NOV 18) K 3.7(JUN 05)4.2(JUN 04)3.5(MAY 18) CO2 L 22(JUN 05)28(NOV )29(NOV ) Cl 109(JUN 05)106(JUN 04)103(NOV ) Cr 0.76(JUN 05)0.80(JUN 04)0.86(MAY 18) BUN 9(JUN 05)8(JUN 04)10(NOV ) Glucose Random H 148(JUN 05)H 128(JUN 04)117(JUN 03) Mg 2.3(JUN 04) Phos 2.9(JUN 04) Ca L 8.3(JUN 05)8.8(JUN 04)8.8(JUN 03) Troponin <0.02(JUN 03) RADIOLOGY: ASSESSMENT & EXAM: HEENT:normocephalic,atraumatic, obese Skin:no rash Chest: symmetrical expansion, no wheezing,no rales, no crackles Heart: Regular rhythm, no murmurs Abdomen: Soft, nontender, bowel sounds present Ext: no edema SUSTAINABILITY ANALYST: alert and oriented, no focal neurological defecits DIAGNOSES & PROBLEMS: obstructive airway disease Obesity PLAN & TREATMENT: doing better dc IV fluids ok to dc home on dexamethasone 2 mg po q12h for 5 days Scheduled Meds (14): 06/05/15 QUEtiapine (SEROquel) 25 mg PO Bedtime 06/03/15 albuterol-ipratropium (albuterol-ipratropium 2.5-0.5 mg inhalation solution) 3 mL NEB RQ6H 06/04/15 ascorbic acid (Vitamin C) 1,000 mg PO Daily 06/04/15 azithromycin 500 mg IVPB [id number] 166.67 ml/hr 06/04/15 cefTRIAXone + Sodium Chloride 0.9% IV 100 mL 1 gm IVPB [id number] 200 ml/hr 06/04/15 cholecalciferol (Vitamin D3 1000 intl units oral tablet) 1,000 IntlUnit PO Daily 06/07/15 cholecalciferol (Vitamin D3) 50,000 IntlUnit PO QSun 06/04/15 enoxaparin 40 mg SUB-Q [id number] 06/03/15 loratadine (Claritin) 10 mg PO QPM 06/04/15 methylPREDNISolone (methylPREDNISolone SODium SUCCinate) 40 mg IVP Q8H 06/03/15 metoprolol (metoprolol extended release) 50 mg PO QPM 06/04/15 non-formulary (Bring pt's own vit d3 50,000 IntlUnit to pharmacy for label) MISC QSHIFT 06/04/15 pantoprazole (Protonix) 40 mg PO Before Dinner 06/03/15 venlafaxine (Effexor XR) 150 mg PO Q12H Unscheduled Meds: None
--- OUTSIDE RECORDS SUMMARY | 2018-06-23 11:53 | XMS REPORT | Summary of Care ---
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 Name Role Phone Therese Winchester PCP Encounter HQ Luz(FIN) [phone] Date(s): 10/03/15 - 10/06/15 [facility] [address] [place] [address]- Discharge Disposition: Home Attending Physician: Eric Aguila MD Admitting Physician: Eric Aguila MD Vital Signs 1 2 3 Most recent to oldest [Reference Range]: 162.56 cm (10/03/15 9:10 PM) 160.02 cm (10/03/15 2:36 PM) Height 98 DegF (10/06/15 11:14 AM) 97.5 DegF (10/06/15 7:58 AM) 97.4 DegF (10/06/15 3:27 AM) Temperature Oral [96.4-99.1 DegF] 128/86 mmHg (10/06/15 11:14 AM) 102/62 mmHg (10/06/15 7:58 AM) 113/73 mmHg (10/06/15 3:27 AM) Blood Pressure [90-140/60-90 mmHg] 14 BRMIN (10/06/15 11:14 AM) 15 BRMIN (10/06/15 7:58 AM) 16 BRMIN (10/06/15 7:06 AM) Respiratory Rate [14-20 BRMIN] 98 bpm (10/06/15 11:14 AM) 111 bpm *HI* (10/06/15 7:58 AM) 84 bpm (10/06/15 3:27 AM) Peripheral Pulse Rate [60-100 bpm] 105.994 kg (10/03/15 9:10 PM) 109.091 kg (10/03/15 2:36 PM) Weight 40.11 m2 (10/03/15 9:10 PM) 42.6 m2 (10/03/15 2:36 PM) Body Mass Index Problem List Condition Effective Dates Status Health Status Informant Anxiety(Confirmed) Resolved Anxiety(Confirmed) Resolved Asthma(Confirmed) Active Bronchitis(Confirmed Resolved ) Bronchitis(Confirmed Resolved ) COPD(Confirmed) Resolved COPD(Confirmed) Active Depression(Confirmed Resolved ) Tachycardia(Confirme Active d) Allergies, Adverse Reactions, Alerts Substance Reaction Severity Status codeine Active Medications albuterol 0.083% inhalation solution 2.49 mg, 3 mL, Route: NEB, Drug form: SOLN, RQ2H, Dosing Weight 109.091, kg, PRN Wheezing, Priority: Routine, Start date: 10/03/15 20:18:00, Duration: 30 day, S top date: 11/02/15 20:17:00 Notes: SEE RT DOCUMENTATION (Same as: Suleiman) Start Date: 10/03/15 Stop Date: 10/06/15 Status: Discontinued albuterol-ipratropium 2.5-0.5 mg inhalation solution 3 mL, Route: NEB, Drug Form: SOLN, Dosing Weight 109.091, kg, RQID, STAT, Start date: 10/03/15 17:16:00, Duration: 30 day, Stop date: 11/02/15 15:00:00 Notes: (Same as: Duoneb) Start Date: 10/03/15 Stop Date: 10/06/15 Status: Discontinued atropine 0.5 mg, 5 mL, Route: IVP, Drug form: INJ, ONCE, Dosing Weight 105.994, kg, PRN B radycardia, Start date: 10/03/15 21:27:00 Start Date: 10/03/15 Stop Date: 10/06/15 Status: Discontinued azithromycin + Sodium Chloride 0.9% IV 250 mL 500 mg, Route: IVPB, [id number], Dosing Weight 109.091, kg, Start date: 10/04/15 18 :33:00, Duration: 30 day, Stop date: 11/02/15 18:33:00 Notes: (Same As: Zithromax IV) Start Date: 10/04/15 Stop Date: 10/06/15 Status: Discontinued azithromycin + Sodium Chloride 0.9% IV 250 mL 500 mg, Route: IVPB, ONCE, Dosing Weight 109.091, kg, Priority: STAT, Start date : 10/03/15 16:49:00, Stop date: 10/03/15 16:49:00 Notes: (Same As: Zithromax IV) Start Date: 10/03/15 Stop Date: 10/03/15 Status: Completed cefTRIAXone + Sodium Chloride 0.9% IV 100 mL 1 gm, Route: IVPB, [id number], Dosing Weight 109.091, kg, Start date: 10/04/15 17:0 7:00, Duration: 30 day, Stop date: 11/02/15 17:07:00 Notes: (Same As: Rocephin).Use with 100 mL NS and infuse over 30 min MEDICA TION WASTE Product Size: 1000 mgProduct Wasted: ___ mg Start Date: 10/04/15 Stop Date: 10/06/15 Status: Discontinued Claritin 10 mg, 1 tab, Route: PO, Drug form: TAB, QPM, Dosing Weight 109.091, kg, Start d ate: 10/03/15 21:00:00, Duration: 30 day, Stop date: 11/02/15 17:00:00 Notes: 1 hr before meals (Same as: Claritin) Start Date: 10/03/15 Stop Date: 10/06/15 Status: Discontinued docusate 100 mg, 1 cap, Route: PO, Drug form: CAP, BID, Dosing Weight 105.994, kg, PRN Co nstipation, Start date: 10/05/15 10:53:00, Duration: 30 day, Stop date: 11/04/15 10:52:00 Notes: (Same as: Colace) (Do Not Crush) Start Date: 10/05/15 Stop Date: 10/06/15 Status: Discontinued Effexor XR 150 mg, 1 cap, Route: PO, Drug form: ERCAP, BID, Dosing Weight 109.091, kg, Star t date: 10/04/15 9:00:00, Duration: 30 day, Stop date: 11/02/15 21:00:00 Notes: Do not open, crush, or chew. (Same As: Effexor XR) Start Date: 10/04/15 Stop Date: 10/06/15 Status: Discontinued influenza virus vaccine, inactivated 0.5 mL, Route: IM, Drug Form: SUSP, Daily, Start date: 10/04/15 9:00:00, Duratio n: 1 doses or times, Stop date: 10/04/15 9:00:00 Notes: (Same as: Fluzone Quadrivalent)For 3 years of age and older (0.5 mL IM)Sh leonardo well before use Start Date: 10/04/15 Stop Date: 10/04/15 Status: Completed levofloxacin 750 mg oral tablet 750 mg=1 tab, PO, Daily, X 7 day, # 7 tab, 0 Refill(s) Start Date: 10/06/15 Stop Date: 10/13/15 Status: Ordered methylPREDNISolone SODium SUCCinate 40 mg, 1 mL, Route: IVP, Drug form: INJ, Q8H, Dosing Weight 109.091, kg, Start d ate: 10/04/15 0:00:00, Duration: 30 day, Stop date: 11/02/15 16:00:00 Notes: (Same as:Solu-MEDROL, A-Methapred) Start Date: 10/04/15 Stop Date: 10/06/15 Status: Discontinued methylPREDNISolone SODium SUCCinate 125 mg, 2 mL, Route: IVP, Drug form: INJ, ONCE, Dosing Weight 109.091, kg, Prior ity: STAT, Start date: 10/03/15 15:24:00, Stop date: 10/03/15 15:24:00 Notes: (Same as:Solu-MEDROL, A-Methapred) Start Date: 10/03/15 Stop Date: 10/03/15 Status: Completed metoprolol tartrate 25 mg, 1 tab, Route: PO, Drug form: ERTAB, QPM, Dosing Weight 109.091, kg, Start date: 10/03/15 21:00:00, Duration: 30 day, Stop date: 11/02/15 17:00:00 Notes: (Same as: Toprol XL) Do Not Crush Start Date: 10/03/15 Stop Date: 10/06/15 Status: Discontinued Nitrostat 0.4 mg sublingual tablet 0.4 mg, 1 tab, Route: SL, Drug form: TAB, Q5Min, Dosing Weight 105.994, kg, PRN Chest Pain, Start date: 10/03/15 21:27:00, Duration: 3 doses or times, Stop date : Limited # of times Notes: (Same as:Nitroquick, Nitrostat)"Do Not Crush" Sublingual tablet Start Date: 10/03/15 Stop Date: 10/06/15 Status: Discontinued omeprazole 20 mg, Route: PO, Drug form: DRC, QPM, Dosing Weight 109.091, kg, Start date: 17:00:00, Duration: 30 day, Stop date: 11/02/15 17:00:00 Start Date: 10/04/15 Stop Date: 10/03/15 Status: Deleted ondansetron 4 mg, 2 mL, Route: IVP, Drug form: INJ, Q6H, Dosing Weight 105.994, kg, PRN Naus ea & Vomiting, Start date: 10/05/15 10:53:00, Duration: 30 day, Stop date: 11/04/15 10:52:00 Notes: (Same as: Belinda) MEDICATION WASTE Product Size: 4 mgProduct Was chencho: ___ mg Start Date: 10/05/15 Stop Date: 10/06/15 Status: Discontinued Protonix 40 mg, 1 tab, Route: PO, Drug form: ECTAB, Before Dinner, Start date: 10/03/15 2 1:00:00, Duration: 30 day, Stop date: 11/02/15 16:30:00 Notes: Tablet should not be chewed or crushed.(Same as: Protonix) Start Date: 10/03/15 Stop Date: 10/06/15 Status: Discontinued QUEtiapine 50 mg, 2 tab, Route: PO, Drug form: TAB, Bedtime, Dosing Weight 105.994, kg, Sta rt date: 10/04/15 21:00:00, Duration: 30 day, Stop date: 11/02/15 21:00:00 Notes: (Same as: SEROquel) Start Date: 10/04/15 Stop Date: 10/06/15 Status: Discontinued QUEtiapine 50 mg oral tablet 50 mg=1 tab, PO, Bedtime, # 30 tab, 1 Refill(s) Start Date: 10/03/15 Stop Date: 11/02/15 Status: Ordered Robitussin 100 mg/5 mL oral liquid 100 mg, 5 mL, Route: PO, Drug form: LIQ, Q6H, Dosing Weight 105.994, kg, PRN Cou gh, Start date: 10/03/15 23:23:00, Duration: 30 day, Stop date: 11/02/15 23:22:0 0 Notes: (Same as: Robitussin) Start Date: 10/03/15 Stop Date: 10/06/15 Status: Discontinued Robitussin 100 mg/5 mL oral liquid 100 mg, 5 mL, Route: PO, Drug form: LIQ, Q4H, Dosing Weight 105.994, kg, Start d ate: 10/03/15 22:41:00, Duration: 30 day, Stop date: 11/02/15 20:00:00 Notes: (Same as: Robitussin) Start Date: 10/03/15 Stop Date: 10/03/15 Status: Discontinued Rocephin + Sodium Chloride 0.9% IV 100 mL 1 gm, Route: IVPB, ONCE, Dosing Weight 109.091, kg, Priority: STAT, Start date: 10/03/15 16:49:00, Stop date: 10/03/15 16:49:00 Notes: (Same As: Rocephin).Use with 100 mL NS and infuse over 30 min MEDICA TION WASTE Product Size: 1000 mgProduct Wasted: ___ mg Start Date: 10/03/15 Stop Date: 10/03/15 Status: Completed Saline Flush 0.9% 10 ml, Route: IVP, Drug Form: INJ, Dosing Weight 109.091, kg, PRN, PRN Line Flus h, Start date: 10/03/15 20:18:00, Duration: 30 day, Stop date: 11/02/15 20:17:00 Notes: (Same as: BD Posiflush) Start Date: 10/03/15 Stop Date: 10/06/15 Status: Discontinued Saline Flush 0.9% 10 mL, Route: IVP, Drug Form: INJ, Dosing Weight 109.091, kg, PRN, PRN Line Flus h, Start date: 10/03/15 14:39:00, Duration: 30 day, Stop date: 11/02/15 14:38:00 Notes: (Same as: BD Posiflush) Start Date: 10/03/15 Stop Date: 10/03/15 Status: Discontinued Results ELECTROLYTES 1 2 3 Most recent to oldest [Reference Range]: 138 mEq/L (10/06/15 4:17 AM) 137 mEq/L (10/04/15 10:12 AM) 140 mEq/L (10/03/15 2:56 PM) Sodium Lvl [135-145 mEq/L] 3.9 mEq/L (10/06/15 4:17 AM) 3.6 mEq/L (10/04/15 10:12 AM) 3.5 mEq/L (10/03/15 2:56 PM) Potassium Lvl [3.5-5.1 mEq/L] 103 mEq/L (10/06/15 4:17 AM) 102 mEq/L (10/04/15 10:12 AM) 103 mEq/L (10/03/15 2:56 PM) Chloride Lvl [95-109 mEq/L] 28 mEq/L (10/06/15 4:17 AM) 26 mEq/L (10/04/15 10:12 AM) 29 mEq/L (10/03/15 2:56 PM) CO2 [24-32 mEq/L] 10.9 mEq/L (10/06/15 4:17 AM) 12.6 mEq/L (10/04/15 10:12 AM) 11.5 mEq/L (10/03/15 2:56 PM) AGAP [10.0-20.0 mEq/L] CHEM PANEL 1 2 3 Most recent to oldest [Reference Range]: 0.65 mg/dL (10/06/15 4:17 AM) 0.96 mg/dL (10/04/15 10:12 AM) 0.60 mg/dL (10/03/15 2:56 PM) Creatinine Lvl [0.50-1.40 mg/dL] 105 mL/min/1.73m2 1 *NA* (10/06/15 4:17 AM) 69 mL/min/1.73m2 2 *NA* (10/04/15 10:12 AM) 107 mL/min/1.73m2 3 *NA* (10/03/15 2:56 PM) eGFR 14 mg/dL (10/06/15 4:17 AM) 9 mg/dL (10/04/15 10:12 AM) 8 mg/dL (10/03/15 2:56 PM) BUN [7-22 mg/dL] 13 (10/03/15 2:56 PM) B/C Ratio [6-25] 130 mg/dL *HI* (10/06/15 4:17 AM) 226 mg/dL *HI* (10/04/15 10:12 AM) 107 mg/dL *HI* (10/03/15 2:56 PM) Glucose Lvl [70-99 mg/dL] 7.7 g/dL (10/03/15 2:56 PM) Total Protein [6.4-8.4 g/dL] 3.6 g/dL (10/03/15 2:56 PM) Albumin Lvl [3.5-5.0 g/dL] 4.1 g/dL *HI* (10/03/15 2:56 PM) Globulin [2.0-4.0 g/dL] 0.9 (10/03/15 2:56 PM) A/G Ratio [0.7-1.6] 8.3 mg/dL *LOW* (10/06/15 4:17 AM) 9.1 mg/dL (10/04/15 10:12 AM) 8.4 mg/dL *LOW* (10/03/15 2:56 PM) Calcium Lvl [8.5-10.5 mg/dL] 2.4 mg/dL *LOW* (10/05/15 11:29 AM) Phosphorus [2.5-4.5 mg/dL] 2.2 mg/dL (10/05/15 11:29 AM) Magnesium Lvl [1.8-2.4 mg/dL] 31 unit/L (10/03/15 2:56 PM) ALT [0-65 unit/L] 23 unit/L (10/03/15 2:56 PM) AST [0-37 unit/L] 137 unit/L *HI* (10/03/15 2:56 PM) Alk Phos [39-136 unit/L] 0.3 mg/dL (10/03/15 2:56 PM) Bili Total [0.2-1.3 mg/dL] 1Result Comment: The eGFR is calculated [...] 3 Most recent to oldest [Reference Range]: 111 unit/L (10/03/15 2:56 PM) Total CK [12-191 unit/L] 1.2 ng/mL (10/03/15 2:56 PM) CK MB [0.5-3.6 ng/mL] 1.1 (10/03/15 2:56 PM) CK MB Index [0.0-2.5] <0.02 ng/mL (10/03/15 2:56 PM) Troponin-I [0.00-0.40 ng/mL] 15 pg/mL (10/03/15 2:56 PM) BNP [<=100 pg/mL] SPECIAL CHEMISTRY 1 2 3 Most recent to oldest [Reference Range]: 5.8 % *HI* (10/06/15 4:17 AM) Hgb A1C [<=5.6 %] HEMATOLOGY 1 2 3 Most recent to oldest [Reference Range]: 13.7 K/CMM *HI* (10/06/15 4:17 AM) 10.8 K/CMM *HI* (10/04/15 10:12 AM) 14.0 K/CMM *HI* (10/03/15 2:56 PM) WBC [3.7-10.4 K/CMM] 4.62 M/CMM (10/06/15 4:17 AM) 4.56 M/CMM (10/04/15 10:12 AM) 4.75 M/CMM (10/03/15 2:56 PM) RBC [4.20-5.40 M/CMM] 12.9 g/dL (10/06/15 4:17 AM) 13.0 g/dL (10/04/15 10:12 AM) 13.4 g/dL (10/03/15 2:56 PM) Hgb [12.0-16.0 g/dL] 40.7 % (10/06/15 4:17 AM) 40.4 % (10/04/15 10:12 AM) 41.6 % (10/03/15 2:56 PM) Hct [36.0-48.0 %] 88.1 fL (10/06/15 4:17 AM) 88.5 fL (10/04/15 10:12 AM) 87.5 fL (10/03/15 2:56 PM) MCV [80.0-98.0 fL] 28.0 pg (10/06/15 4:17 AM) 28.6 pg (10/04/15 10:12 AM) 28.3 pg (10/03/15 2:56 PM) MCH [27.0-31.0 pg] 31.7 g/dL *LOW* (10/06/15 4:17 AM) 32.3 g/dL (10/04/15 10:12 AM) 32.3 g/dL (10/03/15 2:56 PM) MCHC [32.0-36.0 g/dL] 14.0 % (10/06/15 4:17 AM) 13.9 % (10/04/15 10:12 AM) 14.1 % (10/03/15 2:56 PM) RDW [11.5-14.5 %] 340 K/CMM (10/06/15 4:17 AM) 333 K/CMM (10/04/15 10:12 AM) 326 K/CMM (10/03/15 2:56 PM) Platelet [133-450 K/CMM] 8.1 fL (10/06/15 4:17 AM) 8.1 fL (10/04/15 10:12 AM) 8.1 fL (10/03/15 2:56 PM) MPV [7.4-10.4 fL] 81.4 % *HI* (10/06/15 4:17 AM) 84.0 % *HI* (10/04/15 10:12 AM) 51.5 % (10/03/15 2:56 PM) Segs [45.0-75.0 %] 15.3 % *LOW* (10/06/15 4:17 AM) 14.0 % *LOW* (10/04/15 10:12 AM) 34.9 % (10/03/15 2:56 PM) Lymphocytes [20.0-40.0 %] 3.2 % (10/06/15 4:17 AM) 1.7 % *LOW* (10/04/15 10:12 AM) 5.1 % (10/03/15 2:56 PM) Monocytes [2.0-12.0 %] 7.8 % *HI* (10/03/15 2:56 PM) Eosinophils [0.0-4.0 %] 0.1 % (10/06/15 4:17 AM) 0.3 % (10/04/15 10:12 AM) 0.7 % (10/03/15 2:56 PM) Basophils [0.0-1.0 %] 11.2 K/CMM *HI* (10/06/15 4:17 AM) 9.1 K/CMM *HI* (10/04/15 10:12 AM) 7.3 K/CMM (10/03/15 2:56 PM) Segs-Bands # [1.5-8.1 K/CMM] 2.1 K/CMM (10/06/15 4:17 AM) 1.5 K/CMM (10/04/15 10:12 AM) 4.9 K/CMM (10/03/15 2:56 PM) Lymphocytes # [1.0-5.5 K/CMM] 0.4 K/CMM (10/06/15 4:17 AM) 0.2 K/CMM (10/04/15 10:12 AM) 0.7 K/CMM (10/03/15 2:56 PM) Monocytes # [0.0-0.8 K/CMM] 1.1 K/CMM *HI* (10/03/15 2:56 PM) Eosinophils # [0.0-0.5 K/CMM] 0.1 K/CMM (10/03/15 2:56 PM) Basophils # [0.0-0.2 K/CMM] Immunizations Vaccine Date Refusal Reason influenza virus vaccine, inactivated 10/04/15 pneumococcal 23-valent vaccine 03/21/15 Procedures Procedure Date [...] Title: Clinical Document Author: Chrissy Bajwa Date: 10/06/15 STEPHEN Internal Medicine Progress Note [facility] SUBJECTIVE No acute events. Pt denies PIERRE, dizziness, dysphagia, neck stiffness, CP, SOB, hemoptysis, N/V/D/C, hematemesis, hematochezia, hematuria, dysuria, skin rash. OBJECTIVE Vital Signs (last 24 hrs) Last Charted Temp Oral97.4 DegF (OCT 05 03:27) Heart Rate [id number] bpm (OCT 05 03:) Resp Rate 16 BRMIN (OCT 05 07:06) [id number] mmHg (OCT 05:) DBP73 mmHg (OCT 05 03:) Labs (Last four charted values) WBC H 13.7(OCT 05)H 10.8(OCT 03)H 14.0(OCT 02) Hgb 12.9(OCT 05)13.0(OCT 03)13.4(OCT 02) Hct 40.7(OCT 05)40.4(OCT 03)41.6(OCT 02) Plt 340(OCT 05)333(OCT 03)326(OCT 02) Na 138(OCT 05)137(OCT 03)140(OCT 02) K 3.9(OCT 05)3.6(OCT 03)3.5(OCT 02) CO2 28(OCT 05)26(OCT 03)29(OCT 02) Cl 103(OCT 05)102(OCT 03)103(OCT 02) Cr 0.65(OCT 05)0.96(OCT 03)0.60(OCT 02) BUN 14(OCT 05)9(OCT 03)8(OCT 02) Glucose Random H 130(OCT 05)H 226(OCT 03)H 107(OCT 02) Mg 2.2(OCT 04) Phos L 2.4(OCT 04) Ca L 8.3(OCT 05)9.1(OCT 03)L 8.4(OCT 02) Troponin <0.02(OCT 02) CK MB 1.2(OCT 02) Total CK 111(OCT 02) Medications (15) Active Scheduled Meds (9): 10/04/15 QUEtiapine 50 mg PO Bedtime 10/03/15 albuterol-ipratropium (albuterol-ipratropium 2.5-0.5 mg inhalation solution) 3 mL NEB RQID 10/04/15 azithromycin + Sodium Chloride 0.9% IV 250 mL 500 mg IVPB [id number] 166.67 ml/hr 10/04/15 cefTRIAXone + Sodium Chloride 0.9% IV 100 mL 1 gm IVPB [id number] 200 ml/hr 10/03/15 loratadine (Claritin) 10 mg PO QPM 10/04/15 methylPREDNISolone (methylPREDNISolone SODium SUCCinate) 40 mg IVP Q8H 10/03/15 metoprolol (metoprolol tartrate) 25 mg PO QPM 10/03/15 pantoprazole (Protonix) 40 mg PO Before Dinner 10/04/15 venlafaxine (Effexor XR) 150 mg PO BID Unscheduled Meds: None PRN Meds (6): 10/03/15 albuterol (albuterol 0.083% inhalation solution) 2.49 mg NEB RQ2H 10/05/15 docusate 100 mg PO BID 10/03/15 guaiFENesin (Robitussin 100 mg/5 mL oral liquid) 100 mg PO Q6H 10/03/15 nitroglycerin (Nitrostat 0.4 mg sublingual tablet) 0.4 mg SL Q5Min 10/05/15 ondansetron 4 mg IVP Q6H 10/03/15 sodium chloride (Saline Flush 0.9%) 10 ml [...] Depression 4. HTN 5. Morbid obesity, BMI 42 SpO2 much better on RA. D/C home to f/u with pulm and PCP. Pt does not want PO steroids, has neb at home. Extracted from: Title: Clinical Document Author: Ventura Peters MD Date: 10/03/15 [id number]
[2018-06-23 12:23] LABS: BILIRUBIN,URINE NEGATIVE (NEGATIVE); CLARITY,URINE CLEAR (CLEAR); COLOR,URINE YELLOW (YELLOW); KETONES,URINE NEGATIVE (NEGATIVE); LEUKOCYTE ESTERASE ,URINE NEGATIVE (NEGATIVE); NITRITE,URINE NEGATIVE (NEGATIVE); PROTEIN,URINE DIPSTICK NEGATIVE (NEGATIVE); URINE UROBILINOGEN 0.2 mg/dL (0.2 - 1)
[2018-06-23 12:32] LABS: EPITHELIAL CELLS,URINE FEW /LPF; RBC,URINE 0-5 /HPF (0-5); WBC,URINE (MAN) 0-5 /HPF (0-5)
[2018-06-23 12:39] LABS: BASOPHILS # (AUTO) 0.1 (0.0-0.1); BASOPHILS % 0.4 % (0.0-1.0); EOSINOPHILS # (AUTO) 0.6 (0.0-0.4); EOSINOPHILS % 5.2 % (0.0-6.0); HEMATOCRIT 36.7 % (34.2-44.1); HEMOGLOBIN 11.7 g/dL (12.0-16.0); LYMPHOCYTES # (AUTO) 3.6 (1.0-3.2); LYMPHOCYTES % 29.5 % (18.0-39.1); MEAN CORPUSCULAR HGB CONC 31.9 g/dL (31-35); MEAN CORPUSCULAR VOLUME 90.8 fL (81-99); MONOCYTES # (AUTO) 1.3 (0.2-0.8); MONOCYTES % 10.2 % (4.4-11.3); NEUTROPHILS # (AUTO) 6.6 (2.1-6.9); PLATELET COUNT 341 x10e3/uL (140-360); RED BLOOD COUNT 4.04 x10e6/uL (3.6-5.1); RED CELL DISTRIBUTION WIDTH 13.4 % (11.7-14.4)
[2018-06-23 12:58] LABS: ALANINE AMINOTRANSFERASE 22 IU/L (0-55); ALBUMIN 3.6 g/dL (3.5-5.0); ALBUMIN/GLOBULIN RATIO 0.9 (0.8-2.0); ALKALINE PHOSPHATASE 140 IU/L (40-150); AMYLASE 33 U/L (25-125); ANION GAP 15.6 mmol/L (8-16); BLOOD UREA NITROGEN 9 mg/dL (7-26); BUN/CREATININE RATIO 13 (6-25); CALCIUM 9.4 mg/dL (8.4-10.2); CARBON DIOXIDE 31 mmol/L (22-29); CHLORIDE 99 mmol/L (98-107); CREATININE, SERUM 0.71 mg/dL (0.57-1.11); EST GLOMERULAR FILTRATION RATE > 60 ML/MIN (60-); GLUCOSE 96 mg/dL (74-118); LIPASE 15 U/L (8-78); POTASSIUM 3.6 mmol/L (3.5-5.1); SODIUM 142 mmol/L (136-145)
[2018-06-23 13:02] LABS: PREGNANCY TEST, URINE NEGATIVE (NEGATIVE)
--- NOTE | 2018-06-23 15:02 | Diagnostic Imaging Report ---
EXAM: XR CHEST 1 VIEW DATE: 06/23/2018 12:06 PM INDICATION: Difficulty breathing COMPARISON: None FINDINGS: Lines and Tubes: None Heart and Mediastinum: No acute cardiomediastinal findings. Lungs and Pleura: Underpenetration and body habitus limited. Hazy opacities lung bases likely combination of atelectasis and overlying soft tissue. More focal opacity medial right lung base could represent pericardial cyst, pericardial fat, with infectious process not excluded. Bones and Soft Tissues: No acute findings. IMPRESSION: 1. As above. Signed by: Dr. Javier Manning MD on 06/23/2018 1:02 PM
[2018-06-23 16:51] VITALS: BP 147/79
== END | disposition home or self-care (01) ==
LOC: ER 11:43
DX: R06.00 Dyspnea, unspecified (principal); J44.1 Chronic obstructive pulmonary disease with (acute) exacerbation; J15.9 Unspecified bacterial pneumonia; Z87.891 Personal history of nicotine dependence
CPT/HCPCS: 36415; 71045; 80053; 81001; 81025; 82150; 83605; 83690; 85025; 87040; 87070; 87071; 87205; 93005; 94640; 99284; J0696; J2930; 87186